=== PATIENT | female | born 1995 | race Caucasian/White ===

== ENCOUNTER 2024-01-09 19:15 | Outpatient (CLI) | payer MEDICAID, SELFPAY ==
[2024-01-09 19:40] VITALS: PULSE 103; O2SAT 98
[2024-01-09 19:42] VITALS: BP 120/70; PULSE 112
[2024-01-09 19:45] VITALS: RESP 18; TEMP 36.8; O2SAT 98
[2024-01-09 19:52] VITALS: BMI 32.6
[2024-01-09 20:24] LABS: ROM Internal Control Test YES-OK TO RESULT pt. (Internal QC); ROM Patient Test Negative (Negative)
--- NOTE | 2024-01-11 13:02 | OB.TRI.NOTE ---
HPI - General HPI Narrative GWYN ZAVALA, is a 28 F who presents with ctxs. Maternal Data Information NATALIE Calculator Estimated Delivery Date Method Current WG Current Estimate 01/14/24 Manual 39w 4d PFSH PFSH Home Medications ?Medication ?Instructions ?Recorded ?Last Taken ?Type vit no.95-ferrous 1 tab PO DAILY 01/09/24 01/09/24 History fumarate 28 mg-folic acid 800 mcg tablet () Allergy/AdvReac Type Severity Reaction Status Date / Time No Known Allergies Allergy Verified 01/09/24 19:51 NST FHR Rate Baby A Baseline: 120 Variability:: Moderate Accelerations:: 15 x 15 Uterine Activity:: Irregular Assessment & Plan (1) False labor: PLAN: Reactive NST
== END 2024-01-09 21:05 | disposition home or self-care (01) ==
LOC: WPOUT 19:18 → WP 19:18
PROVIDERS: Referring Provider Obstetrics & Gynecology; Visit Provider Obstetrics & Gynecology
DX: O47.9 False labor, unspecified (principal); Z3A.00 Weeks of gestation of pregnancy not specified
CPT/HCPCS: 59025; 59050; 84112; 99221; G0378

== ENCOUNTER 2024-01-14 20:45 | Outpatient (CLI) | payer MEDICAID, SELFPAY ==
[2024-01-14 20:53] VITALS: BMI 33.5
[2024-01-14 20:58] VITALS: BP 135/77; PULSE 108; O2SAT 96
[2024-01-14 21:00] VITALS: RESP 16; TEMP 36.8
--- NOTE | 2024-01-15 07:17 | OB.TRI.NOTE ---
HPI - General General Date of Admission: 01/14/24 Date of Service: 01/15/24 Chief Complaint: Contractions HPI Narrative GWYN ZAVALA, is a 28 F who presents for r/o labor. No LOF no bleeding. Good movement Maternal Data Information NATALIE Calculator Estimated Delivery Date Method Current WG Current Estimate 01/14/24 Manual 40w 1d Final NATALIE: 01/14/24 Gestational age: 40 PFSH PFSH Home Medications ?Medication ?Instructions ?Recorded ?Last Taken ?Type vit no.95-ferrous 1 tab PO DAILY 01/09/24 01/09/24 History fumarate 28 mg-folic acid 800 mcg tablet () Allergy/AdvReac Type Severity Reaction Status Date / Time No Known Allergies Allergy Verified 01/14/24 21:08 History 3 Elective abortions Hx Para 1 Spontaneous abortions Hx # Term Pregnancies Ectopic pregnancies Hx # Pregnancies Multiple births # of living children NST FHR Rate Baby A Variability:: Moderate Accelerations:: 15 x 15 Decelerations:: None NST Reactive:: Yes FHR Category:: Category I Uterine Activity:: irregular Assessment & Plan (1) False labor: (2) 40 weeks gestation of : PLAN: Plan Discharged
== END 2024-01-14 23:35 | disposition home or self-care (01) ==
LOC: MEDOUTP 20:50 → WPOUT 20:55 → WP 20:56
PROVIDERS: Referring Provider Obstetrics & Gynecology; Visit Provider Obstetrics & Gynecology
DX: O47.1 False labor at or after 37 completed weeks of gestation (principal); Z3A.40 40 weeks gestation of pregnancy
CPT/HCPCS: 59025; 59050; 99221; G0378

== ENCOUNTER 2024-01-16 21:00 | Outpatient (CLI) | payer MEDICAID, SELFPAY ==
--- OUTSIDE RECORDS SUMMARY | 2024-01-16 21:05 | XMS RPT_ITS | CCD ---
Author Organization [facility] Care Team Providers Care Customer Complaint Service Supervisor Name Role Phone Eliza Beltre Primary Care Physician [phone] MEDICAL, CLINIC Primary Care Physician Unavailab MARIAN Merchant MD Primary Care Physician [phone] HOLLY ANDERSON M.D. Attending Unavailable LATA RAY Attending Unavailable Unavailable Primary Care Provider Unavailabl e Unavailable Primary Care Provider Unavailabl e PHYSICIAN, NONE Primary Care Physician Unavailab JAYY Webb DO Attending Unavailable PHYSICIAN, NONE Primary Care Unavailable JORGE ALEXANDER Attending Unavailable DONOVAN KENNEDY Attending Unavailable JORGE ALEXANDER Referring Unavailable JORGE ALEXANDER Attending Unavailable ALANA OBRIEN Attending Unavailable ALANA OBRIEN Attending Unavailable ROGELIO JOHNSON Attending Unavailable DELMY WINSTON Referring Unavailable TISHDELMY SANDOVAL Referring Unavailable CESILIA FRIAS Attending Unavailable TOMMY PATEL Referring Unavailable TOMMY PATEL Attending Unavailable RIA STREET Referring Unavailable RIA STREET Referring Unavailable AMANDA VENEGAS Attending Unavailable Unavailable Unavailable Unavailable Medications Current Medications Medication Drug Class(es) Dates Sig (Normalized) Sig (Original) cephalexin 500 mg oral capsule (1 source) Cephalosporin Antibacterial Start: 08-13-2023 End: 08-20-2023 cephalexin 500 mg oral capsule Dose : 500 mg = 1 cap(s), Oral, QID, X 7 day(s), # 28 cap(s), 0 Refill(s), 08/20/23 2:45:00 PM EDT, 71.1 Start Date: 08/13/23 Stop Date: 08/20/23 Status: Ordered ergocalciferol, vitamin D2, (VITAMIN D2 ORAL) (20 sources) ergocalciferol, vitamin D2, (VITAMIN D2 ORAL) Take by mouth. Active ergocalciferol, vitamin D2, (VITAMIN D2 ORAL) Take by mouth. 0 Active Comment on above: Take by mouth. famotidine 20 mg oral tablet (8 sources) Histamine-2 Receptor Antagonist Start: 08-04-2023 End: 11-02-2023 take 1 tablet by mouth once daily famotidine (PEPCID) 20 mg tablet Indications: Heartburn during in second trimester Take 1 tablet by mouth once daily. 30 tablet 2 08/04/2023 11/02/2023 Active ferrous sulfate 325 mg oral tablet (20 sources) Start: 12-22-2023 End: 01-21-2024 take 1 tablet by mouth twice daily ferrous sulfate 325 mg (65 mg iron) tablet Indications: Anemia affecting in second trimester Take 1 tablet by mouth two times a day. 60 tablet 1 12/22/2023 01/21/2024 Active Start: 09-29-2023 End: 03-27-2024 take 1 tablet by mouth once daily ferrous sulfate 325 mg (65 mg iron) tablet Indications: Anemia affecting in second trimester Take 1 tablet by mouth once daily. 30 tablet 5 09/29/2023 12/22/2023 Discontinued fluconazole 150 mg oral tablet (5 sources) Azole Antifungal Start: 11-24-2020 Diflucan 150 mg oral tablet See Instructions, 1 tab(s) Oral today. repeat in 3 days if needed, # 3 cap(s), 0 Refill(s), [facility], Vaginal candidiasis, 160, cm, 11/24/20 14:52:00 EDT, Height, 62.7, kg, 11/24/20 14:52:00 EDT, Dosing Weight Start Date: 11/24/20 Status: Ordered mupirocin 20 mg/ml topical cream (1 source) RNA Synthetase Inhibitor Antibacterial Start: 08-13-2023 End: 08-18-2023 mupirocin 2% topical cream Apply 1 deborah, Topical, TID, X 5 day(s), # 15 gram(s), 0 Refill(s), Cream, 71.1 Start Date: 08/13/23 Stop Date: 08/18/23 Status: Ordered Omeprazole (12 sources) Proton Pump Inhibitor OMEPRAZOLE ORAL Take by mouth. Active Completed/Discontinued Medications Medication Drug Class(es) Dates Sig (Normalized) Sig (Original) acyclovir 200 mg oral capsule (20 sources) Herpesvirus Nucleoside Analog DNA Polymerase Inhibitor, Herpes Simplex Virus Nucleoside Analog DNA Polymerase Inhibitor, Herpes Zoster Virus Nucleoside Analog DNA Polymerase Inhibitor Start: 08-13-2023 End: 01-11-2024 take 1 capsule by mouth five times daily acyclovir (ZOVIRAX) 200 mg capsule take 1 capsule by mouth five times a day for 7 days 08/13/2023 01/11/2024 Discontinued dicyclomine hydrochloride 10 mg oral capsule (3 sources) Anticholinergic Start: 12-13-2021 End: 12-20-2021 dicyclomine 10 mg oral capsule Dose : 10 mg = 1 cap(s), Oral, QID, # 28 cap(s), 0 Refill(s) Start Date: 12/13/21 Stop Date: 12/20/21 Status: Ordered iron sucrose 300 mg in NaCl 0.9% 250 mL (VENOFER) (2 sources) Start: 01-15-2024 End: 01-15-2024 300 mg, INTRAVENOUS, at 166.67 mL/hr, Administer over 90 Minutes, ONCE, 1 dose, On 01/15/24 at 1000, Please conduct a 30 minute post-dose observation. Start: 01-12-2024 End: 01-12-2024 300 mg, INTRAVENOUS, at 166. 67 mL/hr, Administer over 90 Minutes, ONCE, 1 dose, On Mon01/12/24 at 1430, Approx Total Volume - Expires: 01/13/24 @ 2000 Please conduct a 30 minute post-dose observation. metroNIDAZOLE 500 mg oral tablet (13 sources) Nitroimidazole Antimicrobial Start: 07-06-2023 End: 11-08-2023 take 1 tablet by mouth twice daily metroNIDAZOLE (FLAGYL) 500 mg tablet Indications: Bacterial vaginosis Take 1 tablet by mouth two times a day. for vaginosis. Do not drink alcohol while taking this medication 14 tablet 07/06/2023 11/08/2023 Discontinued Comment on above: Take 1 tablet by carline th two times a day. for vaginosis. Do not drink alcohol while taking this medication vit37/iron/folic acid (PRENATA ORAL) (18 sources) End: 12-22-2023 vit37/iron/folic acid (PRENATA ORAL) Take by mouth. 12/22/2023 Discontinued (Course of therapy completed) vit37/i kori/folic acid (PRENATA ORAL) Take by mouth. Active vit37/i kori/folic acid (PRENATA ORAL) Take by mouth. 0 Active Comment on above: Take by mouth. Problems Active Problems Problem Classification Problem Date Documented Da te Episodic/Chronic Deficiency and other anemia (1 source) Anemia; Translations: [Anemia, unspecified] 12-28-2023 Episodic Deficiency and other anemia (1 source) Anemia, unspecified; Translations: [Anemia, unspecified type] Onset: 01-02-2024 Episodic Genitourinary symptoms and ill-defined conditions (1 source) Bacteriuria; Translations: [Bacteriuria] Onset: 08-13-2023 Episodic Menstrual disorders (20 sources) Secondary oligomenorrhea; Translations: [Secondary oligomenorrhea] Onset: 06-07-2023 06-07-2023 Chronic Mycoses (5 sources) Candidiasis of vagina 11-24-2020 Episodic Other complications of (20 sources) Anemia in mother complicating , childbirth AND/OR puerperium; Translations: [Anemia complicating , second trimester] Onset: 09-29-2023 09-29-2023 Chronic Other complications of (1 source) Anemia complicating , second trimester; Translations: [Anemia affecting in second trimester] Onset: 12-28-2023 Chronic Other complications of (2 sources) Heartburn; Translations: [Other specified related conditions, second trimester] 08-04-2023 Episodic Other complications of (1 source) Supervision of high risk , unspecified, third trimester; Translations: [Supervision of high risk in third trimester] Onset: 12-22-2023 Episodic Other complications of (1 source) Supervision of high risk , unspecified, first trimester; Translations: [Supervision of high risk in first trimester] Onset: 09-27-2023 Episodic Other nutritional; endocrine; and metabolic disorders (3 sources) Overweight; Translations: [Overweight] 07-04-2023 Episodic Residual codes; unclassified (1 source) Gestation period, 12 weeks; Translations: [12 weeks gestation of ] 07-04-2023 Episodic Residual codes; unclassified (3 sources) Nicotine-filled electronic cigarette user; Translations: [Tobacco use] 07-04-2023 Episodic Residual codes; unclassified (1 source) Gestation period, 16 weeks; Translations: [16 weeks gestation of ] 08-04-2023 Episodic Residual codes; unclassified (1 source) Gestation period, 20 weeks; Translations: [20 weeks gestation of ] 08-28-2023 Episodic Residual codes; unclassified (1 source) 24 weeks gestation of ; Translations: [24 weeks gestation of ] Onset: 09-27-2023 Episodic Residual codes; unclassified (1 source) Gestation period, 37 weeks; Translations: [37 weeks gestation of ] 12-28-2023 Episodic Residual codes; unclassified (1 source) Gestation period, 38 weeks; Translations: [38 weeks gestation of ] 01-03-2024 Episodic Residual codes; unclassified (1 source) Gestation period, 39 weeks; Translations: [39 weeks gestation of ] 01-11-2024 Episodic Residual codes; unclassified (1 source) 37 weeks gestation of ; Translations: [37 weeks gestation of ] Onset: 01-02-2024 Episodic Sprains and strains (1 source) Sprain of wrist; Translations: [Unspecified sprain of unspecified wrist, initial encounter] Onset: 02-16-2022 Episodic Unclassified (1 source) Care Onset: 08-28-2023 Unclassified (1 source) Non-Chemotherapy Treatment Onset: 01-12-2024 Viral infection (1 source) Viral disease; Translations: [Other viral agents as the cause of diseases classified elsewhere] Onset: 08-13-2023 Episodic Past or Other Problems Problem Classification Problem Date Documented Da te Episodic/Chronic Inflammatory diseases of female pelvic organs (3 sources) Acute vaginitis; Translations: [Acute vaginitis] Onset: 07-04-2023 07-04-2023 Episodic Other complications of (20 sources) High risk ; Translations: [Supervision of high risk , unspecified, third trimester] Onset: 09-27-2023 07-04-2023 Episodic Other complications of (1 source) Other specified related conditions, second trimester; Translations: [Heartburn during in second trimester] Onset: 08-04-2023 Episodic Other gastrointestinal disorders (1 source) Heartburn; Translations: [Heartburn during in second trimester] Onset: 08-04-2023 Episodic Other nutritional; endocrine; and metabolic disorders (1 source) Overweight; Translations: [Overweight] Onset: 07-04-2023 Episodic Other and delivery including normal (20 sources) test positive; Translations: [Encounter for test, result positive] Onset: 06-07-2023 06-07-2023 Episodic Comment on above: [facility] Status documented as Yes on Admission Other screening for suspected conditions (not mental disorders or infectious disease) (9 sources) Patient encounter status; Translations: [Encounter for other specified screening] Onset: 06-07-2023 07-08-2023 Episodic Residual codes; unclassified (20 sources) Electronic cigarette user; Translations: [Other problems related to lifestyle] Onset: 06-07-2023 06-07-2023 Episodic Residual codes; unclassified (20 sources) Gestation period, 24 weeks; Translations: [24 weeks gestation of ] Onset: 09-27-2023 09-27-2023 Episodic Residual codes; unclassified (1 source) Other problems related to lifestyle; Translations: [Current every day vaping] Onset: 06-07-2023 Episodic Residual codes; unclassified (1 source) 16 weeks gestation of ; Translations: [16 weeks gestation of ] Onset: 08-04-2023 Episodic Residual codes; unclassified (1 source) 12 weeks gestation of ; Translations: [12 weeks gestation of ] Onset: 07-04-2023 Episodic Residual codes; unclassified (1 source) Tobacco use; Translations: [Current every day nicotine vaping] Onset: 07-04-2023 Episodic Unclassified (1 source) [facility] Onset: 01-03-2022 Unclassified (1 source) DATING Onset: 06-16-2022 Results Test Name Value Interpretation Reference Range Facil arlin DIAMONDOVSPon 01-15-2024 CNOVS Visit (SP) Office (HEMAWS) ---- BETH VINCENT ([id number]) 1995 F Date Time Provider Department 01/15/24 9:30 AM TREATMENT RM 17 [facility] During your visit today, we recorded the following information about you: Temperature Pulse Blood pressure 97.1 degrees 107/minute 125/85 Referring Provider: RIA STREET [[id number]] Allergies As of Date: 01/15/2024 (No Known Allergies) Date Reviewed: 01/15/2024 Reviewed by: Lacy Hurtado RN - Fully Assessed Reason for Visit: Non-Chemotherapy Treatment [795] Primary Visit Diagnosis:Maternal iron deficiency anemia complicating , third trimester [O99.013, D50.9] Order(s):TOMIN NURSING COMMUNICATION [[id number]] Order #: [id number]: 1 STANDING [] iron sucrose 300 mg in NaCl 0.9% 250 mL (VENOFER)Disp: Rfl: NaCl 0.9% iv infusionDisp: Rfl: diphenhydrAMINE 50 mg injection (BENADRYL)Disp: Rfl: hydrocortisone sodium succinate (PF) 100 mg injection (Solu-CORTEF)Disp: Rfl: EPINEPHrine HCl (PF) 1 mg/mL (1 mL) 0.3 mg injectionDisp: Rfl: BCN NURSING COMMUNICATION [[id number]] Order #: [id number]: 1 STANDING Prescriptions as of 01/15/2024 - OMEPRAZOLE ORAL Take by mouth. - ferrous sulfate 325 mg (65 mg iron) tablet Take 1 tablet by mouth two times a day. - ergocalciferol, vitamin D2, (VITAMIN D2 ORAL) Take by mouth. 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 01-15-2024 CNPN Telephone (PFS) ---- BETH VINCENT ([id number]) 1995 F Date Time Provider Department 01/15/24 FINANCIAL NAVIGATOR [facility] PFS During your visit today, we recorded the following information about you: Xiang Mcconnell 01/15/2024 10:55 AM Signed The patient is active with [facility] Medicaid, LOC 100%, $0.00 deductible has $0.00 remaining, $0.00 OOP has $0.00 remaining. An estimate shows the patient's financial responsibility is $0.00 for each treatment in 2023 since there is no O-O-P max to be reached. The patient does not have a cancer diagnosis or a chemo/radiation regimen. No further Financial Navigator intervention is needed at this time. Allergies As of Date: 01/15/2024 (No Known Allergies) Date Reviewed: 01/15/2024 Reviewed by: Lacy Hurtado, RN - Fully Assessed Reason for Visit: Benefits Investigation [3518] Prescriptions as of 01/15/2024 - OMEPRAZOLE ORAL Take by mouth. - ferrous sulfate 325 mg (65 mg iron) tablet Take 1 tablet by mouth two times a day. - ergocalciferol, vitamin D2, (VITAMIN D2 ORAL) Take by mouth. 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] 06/07/2023 24 weeks gestation of [Z3A.24] 09/27/2023 Supervision of high risk in first tri*09/27/2023 Anemia affecting in second trimester *09/29/2023 Maternal iron deficiency anemia complicating pr*01/03/2024 Encounter Status:Closed by XIANG MCCONNELL on 01/15/24 [facility] CNOVSPon 01-12-2024 CNOVSP Visit (SP) Office (HEMAWS) ---- BETH VINCENT ([id number]) 1995 F Date Time Provider Department 01/12/24 2:00 PM TREATMENT RM 18 [facility] During your visit today, we recorded the following information about you: Temperature Pulse Respiration Blood pressure 98.5 degrees 100/minute 16/minute 109/75 Referring Provider: RIA STREET [[id number]] Allergies As of Date: 01/12/2024 (No Known Allergies) Date Reviewed: 01/12/2024 Reviewed by: Gretchen Hooker RN - Fully Assessed Reason for Visit: Non-Chemotherapy Treatment [795] Primary Visit Diagnosis:Maternal iron deficiency anemia complicating , third trimester [O99.013, D50.9] Order(s):BCN NURSING COMMUNICATION [[id number]] Order #: [id number]: 1 STANDING [] iron sucrose 300 mg in NaCl 0.9% 250 mL (VENOFER)Disp: Rfl: NaCl 0.9% iv infusionDisp: Rfl: diphenhydrAMINE 50 mg injection (BENADRYL)Disp: Rfl: hydrocortisone sodium succinate (PF) 100 mg injection (Solu-CORTEF)Disp: Rfl: EPINEPHrine HCl (PF) 1 mg/mL (1 mL) 0.3 mg injectionDisp: Rfl: BCN NURSING COMMUNICATION [[id number]] Order #: [id number]: 1 STANDING Prescriptions as of 01/12/2024 - OMEPRAZOLE ORAL Take by mouth. - ferrous sulfate 325 mg (65 mg iron) tablet Take 1 tablet by mouth two times a day. - ergocalciferol, vitamin D2, (VITAMIN D2 ORAL) Take by mouth. 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] 06/07/2023 24 weeks gestation of [Z3A.24] 09/27/2023 Supervision of high risk in first tri*09/27/2023 Anemia affecting in second trimester *09/29/2023 Maternal iron deficiency anemia complicating pr*01/03/2024 Encounter Status:Closed by GRETCHEN HOOKER on 01/12/24 [facility] James 01-12-2024 [facility] Telephone (OBGYWM) ---- BETH VINCENT ([id number]) 1995 F Date Time Provider Department 01/12/24 AMANDA VENEGAS During your visit today, we recorded the following information about you: Hannah Yap, FELIPE 01/12/2024 8:19 AM Signed 39w5d Saw KJ yesterday and provider wanted iron infusions done poornima d/t being 39 weeks already. Per Nehemias could add on today at 2pm. Left detailed message on identified voicemail for patient to call back [facility] to see if she is able to come in today. Will need to let [facility] know. FELIPE Lr Trisha, RN 01/12/2024 10:12 AM Signed Spoke to patient and she is able to come today. Her 2nd infusion is also scheduled for Sunday 01/14 too. [facility] notified. Hannah Yap RN Allergies As of Date: 01/12/2024 (No Known Allergies) Date Reviewed: 01/11/2024 Reviewed by: Amanda Venegas MD - Fully Assessed Reason for Visit: Iron Infusion [Other] Prescriptions as of 01/12/2024 - OMEPRAZOLE ORAL Take by mouth. - ferrous sulfate 325 mg (65 mg iron) tablet Take 1 tablet by mouth two times a day. - ergocalciferol, vitamin D2, (VITAMIN D2 ORAL) Take by mouth. 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] 06/07/2023 24 weeks gestation of [Z3A.24] 09/27/2023 Supervision of high risk in first tri*09/27/2023 Anemia affecting in second trimester *09/29/2023 Maternal iron deficiency anemia complicating pr*01/03/2024 Encounter Status:Closed by HANNAH YAP on 01/12/24 Normal [facility] URINE OB DIP B/Oon Glucose Ql (U) Negative Neg mg/dL [facility] Interpretation and review of laboratory results Normal [facility] Protein.monoclonal (U) [Mass/Vol] Negative Neg mg/dL [facility] CNPNon 01-08-2024 CNPN Telephone (INTMMN) ---- BETH VINCENT ([id number]) 1995 F Date Time Provider Department 01/08/24 PAOLA PETER During your visit today, we recorded the following information about you: Paola Peter, RN 01/08/2024 2:16 PM Signed Treatment plan signed and PA approved. Ready to schedule Venofer 200 mg IV x 3 doses Courtney Ivy 01/12/2024 9:13 AM Signed Scheduled by VICTORIANO Allergies As of Date: 01/08/2024 (No Known Allergies) Date Reviewed: 01/03/2024 Reviewed by: Cesilia Frias MD - Fully Assessed Reason for Visit: Hematology [Other] Prescriptions as of 01/12/2024 - OMEPRAZOLE ORAL Take by mouth. - ferrous sulfate 325 mg (65 mg iron) tablet Take 1 tablet by mouth two times a day. - ergocalciferol, vitamin D2, (VITAMIN D2 ORAL) Take by mouth. 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] 06/07/2023 24 weeks gestation of [Z3A.24] 09/27/2023 Supervision of high risk in first tri*09/27/2023 Anemia affecting in second trimester *09/29/2023 Maternal iron deficiency anemia complicating pr*01/03/2024 Encounter Status:Closed by PAOLA AGUILAR on 01/08/24 Normal [facility] URINE OB DIP B/Oon Glucose Ql (U) Negative Neg mg/dL [facility] Protein.monoclonal (U) [Mass/Vol] Negative Neg mg/dL [facility] Ferritin SerPl-mCncon 2023 Ferritin [Mass/Vol] 5.7 ng/mL Low 14.7-205.1 [facility] Comment on above: Order Comment: Speci men Type: BLOOD SPECIMEN Ordering Facility: [facility] Address: [address] [place] [address] Performed By: #### 2 276-4, 48324-0 #### [facility] CLIA [id number] [address] [place] [address] [place] Iron and Iron binding capaci ty panelon 01-02-2024 Iron [Mass/Vol] 21 ug/dL Low 41-186 [facility] Comment on above: Order Comment: Speci men Type: BLOOD SPECIMEN Ordering Facility: [facility] Address: [address] [place] [address] Performed By: #### 2 276-4, 76964-4 #### [facility] CLIA [id number] [address] [place] [address] [place] Iron binding capacity [Mass/Vol] >521 High 232-386 [facility] Comment on above: Order Comment: Speci men Type: BLOOD SPECIMEN Ordering Facility: [facility] Address: [address] [place] [address] Performed By: #### 2 276-4, 31619-7 #### [facility] CLIA [id number] [address] [place] [address] [place] Iron/TIBC [Molar ratio] <4.0 Low 15.0-57.0 [facility] Comment on above: Order Comment: Speci men Type: BLOOD SPECIMEN Ordering Facility: [facility] Address: [address] [place] [address] Performed By: #### 2 276-4, 12703-2 #### [facility] CLIA [id number] [address] [place] [address] [place] URINE OB DIP B/Oon 4 Glucose Ql (U) Negative Neg mg/dL [facility] Interpretation and review of laboratory results Normal [facility] Protein.monoclonal (U) [Mass/Vol] Negative Neg mg/dL [facility] CNPNon 12-27-2023 CNPN Telephone (OBGYWM) ---- SALLYBETH ([id number]) 1995 F Date Time Provider Department 12/27/23 DIDI SPENCE OBGYWM During your visit today, we recorded the following information about you: Hannah Yap RN 12/27/2023 2:33 PM Addendum 37w3d Received email that patient is wanting to transfer care here for delivery from [facility]. Per RR we are able to schedule her this week or next. Left message for patient to call office. SW has multiple openings tomorrow. Use 20-30min for appt. FELIPE Lr Trisha, RN 12/27/2023 3:23 PM Signed Patient called back and scheduled for tomorrow. Hannah Yap RN Allergies As of Date: 12/27/2023 (No Known Allergies) Date Reviewed: 09/27/2023 Reviewed by: Mallorie Zamora MA - Fully Assessed Reason for Visit: Appointment [186] Prescriptions as of 12/27/2023 - ferrous sulfate 325 mg (65 mg iron) tablet Take 1 tablet by mouth two times a day. - acyclovir (ZOVIRAX) 200 mg capsule take 1 capsule by mouth five times a day for 7 days - ergocalciferol, vitamin D2, (VITAMIN D2 ORAL) Take by mouth. 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 trachomatis+N. gonorrhoea e DNA SHEREEN+probe Ql (Unsp spec)on 12-22-2023 C. trachomatis rRNA SHEREEN+probe Ql (Unsp spec) Negative Normal Negative for Chlamydia trachomatis by amplificaton [facility] Comment on above: Order Comment: Speci men Type: BLOOD SPECIMEN Ordering Facility: [facility] Address: [address] [place] [address] Performed By: #### 5 8410-2 #### [facility] CLIA [id number] [address] [place] [address] N. gonorrhoeae rRNA SHEREEN+probe Ql (Unsp spec) Negative Normal Negative for Neisseria gonorrhoeae by amplification [facility] Comment on above: Order Comment: Speci men Type: BLOOD SPECIMEN Ordering Facility: [facility] Address: [address] [place] [address] Performed By: #### 5 8410-2 #### [facility] CLIA [id number] [address] [place] [address] STATES OF [facility] CBC panel Auto (Bld)on 12-21 Erythrocyte distribution width (RBC) [Ratio] 15.9 % High 11.5 - 15.0 % [facility] Hematocrit (Bld) [Volume fraction] 29.9 % Low 36.0 - 46.0 % [facility] Hemoglobin (Bld) [Mass/Vol] 8.6 g/dL Low 11.5 - 15.5 g/dL [facility] Interpretation and review of laboratory results Abnormal [facility] MCH (RBC) [Entitic mass] 20.5 pg Low 26.0 - 34.0 pg [facility] MCHC (RBC) [Mass/Vol] 28.8 g/dL Low 30.5 - 36.0 g/dL [facility] MCV (RBC) [Entitic vol] 71.2 fL Low 80.0 - 100.0 fL [facility] Nucleated RBC (Bld) [#/Vol] NINF [facility] Platelet mean volume (Bld) [Entitic vol] 10.9 fL 9.0 - 12.7 fL [facility] Platelets (Bld) [#/Vol] 274 10*3/uL [facility] RBC (Bld) [#/Vol] 4.20 10*6/uL 3.90 - 5.20 m/uL [facility] WBC (Bld) [#/Vol] 8.88 10*3/uL [facility] Erythrocyte distribution width (RBC) [Ratio] 15.9 % High 11.5-15.0 [facility] Comment on above: Order Comment: Speci men Type: BLOOD SPECIMEN Ordering Facility: [facility] Address: [address] [place] [address] Performed By: #### 5 8410-2 #### [facility] CLIA [id number] [address] [place] [address] [place] Hematocrit (Bld) [Volume fraction] 29.9 % Low 36.0-46.0 [facility] Comment on above: Order Comment: Speci men Type: BLOOD SPECIMEN Ordering Facility: [facility] Address: [address] [place] [address] Performed By: #### 5 8410-2 #### [facility] CLIA [id number] [address] [place] [address] [place] Hemoglobin (Bld) [Mass/Vol] 8.6 g/dL Low 11.5-15.5 [facility] Comment on above: Order Comment: Speci men Type: BLOOD SPECIMEN Ordering Facility: [facility] Address: [address] [place] [address] Performed By: #### 5 8410-2 #### [facility] CLIA [id number] [address] [place] [address] [place] MCH (RBC) [Entitic mass] 20.5 pg Low 26.0-34.0 [facility] Comment on above: Order Comment: Speci men Type: BLOOD SPECIMEN Ordering Facility: [facility] Address: [address] [place] [address] Performed By: #### 5 8410-2 #### [facility] CLIA [id number] [address] [place] [address] [place] MCHC (RBC) [Mass/Vol] 28.8 g/dL Low 30.5-36.0 [facility] Comment on above: Order Comment: Speci men Type: BLOOD SPECIMEN Ordering Facility: [facility] Address: [address] [place] [address] Performed By: #### 5 8410-2 #### [facility] CLIA [id number] [address] [place] [address] [place] MCV (RBC) [Entitic vol] 71.2 fL Low 80.0-100.0 [facility] Comment on above: Order Comment: Speci men Type: BLOOD SPECIMEN Ordering Facility: [facility] Address: [address] [place] [address] Performed By: #### 5 8410-2 #### [facility] CLIA [id number] [address] [place] [address] [place] Nucleated RBC (Bld) [#/Vol] 10*3/uL Normal <0.01 [facility] Comment on above: Order Comment: Speci men Type: BLOOD SPECIMEN Ordering Facility: [facility] Address: [address] [place] [address] Performed By: #### 5 8410-2 #### [facility] CLIA [id number] [address] [place] [address] [place] Platelet mean volume (Bld) [Entitic vol] 10.9 fL Normal 9.0-12.7 [facility] Comment on above: Order Comment: Speci men Type: BLOOD SPECIMEN Ordering Facility: [facility] Address: [address] [place] [address] Performed By: #### 5 8410-2 #### [facility] CLIA [id number] [address] [place] [address] [place] Platelets (Bld) [#/Vol] 274 10*3/uL Normal 150-400 [facility] Comment on above: Order Comment: Speci men Type: BLOOD SPECIMEN Ordering Facility: [facility] Address: [address] [place] [address] Performed By: #### 5 8410-2 #### [facility] CLIA [id number] [address] [place] [address] [place] RBC (Bld) [#/Vol] 4.20 10*6/uL Normal 3.90-5.20 [facility] Comment on above: Order Comment: Speci men Type: BLOOD SPECIMEN Ordering Facility: [facility] Address: [address] [place] [address] Performed By: #### 5 8410-2 #### [facility] CLIA [id number] [address] [place] [address] [place] WBC (Bld) [#/Vol] 8.88 10*3/uL Normal 3.70-11.00 [facility] Comment on above: Order Comment: Speci men Type: BLOOD SPECIMEN Ordering Facility: [facility] Address: [address] [place] [address] Performed By: #### 5 8410-2 #### [facility] CLIA [id number] [address] [place] [address] [place] HIV 1+2 Ab IA Qlon 4 HIV 1 and 2 Ab IA.rapid Nom (S/P/Bld) Normal [facility] Comment on above: Order Comment: Speci men Type: BLOOD SPECIMEN Ordering Facility: [facility] Address: [address] [place] [address] Result Comment: Test not indicated. Performed By: #### 5 8410-2 #### [facility] CLIA [id number] [address] [place] [address] [place] HIV 1+2 Ab+HIV1 p24 Ag IA Ql Non-Reactive Normal Nonreactive [facility] Comment on above: Order Comment: Speci men Type: BLOOD SPECIMEN Ordering Facility: [facility] Address: [address] [place] [address] Performed By: #### 5 8410-2 #### [facility] CLIA [id number] [address] [place] [address] [place] HIV immunoassay testing algorithm interpretation (S/P/Bld) [Interp] [facility] Comment on above: Order Comment: Speci men Type: BLOOD SPECIMEN Ordering Facility: [facility] Address: [address] [place] [address] Result Comment: No e vidence of HIV-1 or HIV-2 infection. Should recent infection be suspected, repeat testing may be considered 2-3 weeks after this draw. [place] Rev. Code 3701.243(E): This information has been disclosed to you from confidential records protected from disclosure by state law. ???You shall make no further disclosure of this information without the specific, written, and informed release of the individual to whom it pertains or as otherwise permitted by state law. A general authorization for the release of medical or other information is not sufficient for the purpose of the release of HIV test results or diagnoses. Performed By: #### 5 8410-2 #### [facility] CLIA [id number] [address] [place] [address] [place] ROUTINE, GROUP B ST REP PCRon 12-22-2023 ROUTINE, GROUP B STREP PCR GROUP B STREP PCR: Negative for Group B Streptococcus by PCR. [facility] Comment on above: Performed By: #### 3 6902-5 #### [facility] CLIA [id number] [address] [place] [address] [place] Reagin and Treponema pallidu m IgG and IgM [Interp]on 12-22-2023 T. pallidum IgG+IgM IA Ql (S) Non-Reactive Normal Nonreactive [facility] Comment on above: Order Comment: Speci men Type: BLOOD SPECIMEN Ordering Facility: [facility] Address: [address] [place] [address] Performed By: #### 5 8410-2 #### [facility] CLIA [id number] [address] [place] [address] [place] Reagin+T pallidum IgG+IgM Se rPl-Impon 12-22-2023 Reagin and Treponema pallidum IgG and IgM [Interp] Cannot exclude recent Treponemal infection if specimen collected within 7-10 days after appearance of suspect lesions or 2-3 weeks after an exposure. Clinical correlation is required. Normal [facility] Comment on above: Order Comment: Speci men Type: BLOOD SPECIMEN Ordering Facility: [facility] Address: [address] [place] [address] Performed By: #### 5 8410-2 #### [facility] CLIA [id number] [address] [place] [address] [facility] 12-05-2023 CNPN Telephone (OBGDOV) ---- BETH VINCENT ([id number]) 1995 F Date Time Provider Department 12/05/23 ALANA OBRIEN During your visit today, we recorded the following information about you: Holly Tutlte 12/05/2023 10:15 AM Signed LM to have patient call in and reschedule her No Show. Allergies As of Date: 12/05/2023 (No Known Allergies) Date Reviewed: 09/27/2023 Reviewed by: Mallorie Zamora MA - Fully Assessed Reason for Visit: Appointment [186] Prescriptions as of 12/05/2023 - ferrous sulfate 325 mg (65 mg iron) tablet Take 1 tablet by mouth once daily. - acyclovir (ZOVIRAX) 200 mg capsule take 1 capsule by mouth five times a day for 7 days - vit37/iron/folic acid (PRENATA ORAL) Take by mouth. - ergocalciferol, vitamin D2, (VITAMIN D2 ORAL) Take by mouth. 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] 06/07/2023 24 weeks gestation of [Z3A.24] 09/27/2023 Supervision of high risk in first tri*09/27/2023 Anemia affecting in second trimester *09/29/2023 Encounter Status:Closed by HOLLY TUTTLE on 12/05/23 [facility] BETH [facility]INCENT ([id number]) 1995 F Date Time Provider Department 11/07/23 JORGE ALEXANDER During your visit today, we recorded the following information about you: Holly Tuttle 11/07/2023 11:27 AM Signed LM for patient to call and r/s No Show Allergies As of Date: 11/07/2023 (No Known Allergies) Date Reviewed: 09/27/2023 Reviewed by: Mallorie Zamora MA - Fully Assessed Reason for Visit: Appointment [186] Prescriptions as of 11/07/2023 - ferrous sulfate 325 mg (65 mg iron) tablet Take 1 tablet by mouth once daily. - acyclovir (ZOVIRAX) 200 mg capsule take 1 capsule by mouth five times a day for 7 days - metroNIDAZOLE (FLAGYL) 500 mg tablet Take 1 tablet by mouth two times a day. for vaginosis. Do not drink alcohol while taking this medication - vit37/iron/folic acid (PRENATA ORAL) Take by mouth. - ergocalciferol, vitamin D2, (VITAMIN D2 ORAL) Take by mouth. 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 Spoke with . Patient is aware that a physician needs to review her chart first. This is for all transfers in the 3rd trimester. Aware we will need to call her back. FELIPE Suazo Rebecca L, MD 11/08/2023 5:12 PM Signed OK to schedule for 20-30 min ob appointment w/ a provider for transfer. Savannah Gonzalez LPN 11/09/2023 9:25 AM Signed Left message to call office Allergies As of Date: 11/07/2023 (No Known Allergies) Date Reviewed: 09/27/2023 Reviewed by: Mallorie Zamora MA - Fully Assessed Reason for Visit: Transfer of Care [Other] Prescriptions as of 11/15/2023 - ferrous sulfate 325 mg (65 mg iron) tablet Take 1 tablet by mouth once daily. - acyclovir (ZOVIRAX) 200 mg capsule take 1 capsule by mouth five times a day for 7 days - vit37/iron/folic acid (PRENATA ORAL) Take by mouth. - ergocalciferol, vitamin D2, (VITAMIN D2 ORAL) Take by mouth. 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] 06/07/2023 24 weeks gestation of [Z3A.24] 09/27/2023 Supervision of high risk in first tri*09/27/2023 Anemia affecting in second trimester *09/29/2023 Medications Discontinued During This Encounter Prescriptions - metroNIDAZOLE (FLAGYL) 500 mg tablet (Discontinued) Reported on 08/04/2023 Encounter Status:Closed by CESILIA MALLOY on 11/15/23 [facility] CNCOon 2023 CNCO Letter Text [facility] CNPNon 2023 CNPN Telephone (OBGDOV) ---- BETH VINCENT ([id number]) 1995 F Date Time Provider Department 10/23/23 ALANA OBRIEN During your visit today, we recorded the following information about you: Holly Tuttle 2023 11:15 AM Signed Unable to LM due to Full VM. Sent letter out to patient to Rescheduled No Show Allergies As of Date: 2023 (No Known Allergies) Date Reviewed: 09/27/2023 Reviewed by: Mallorie Zamora MA - Fully Assessed Reason for Visit: Appointment [186] Prescriptions as of 2023 - ferrous sulfate 325 mg (65 mg iron) tablet Take 1 tablet by mouth once daily. - acyclovir (ZOVIRAX) 200 mg capsule take 1 capsule by mouth five times a day for 7 days - famotidine (PEPCID) 20 mg tablet Take 1 tablet by mouth once daily. - metroNIDAZOLE (FLAGYL) 500 mg tablet Take 1 tablet by mouth two times a day. for vaginosis. Do not drink alcohol while taking this medication - vit37/iron/folic acid (PRENATA ORAL) Take by mouth. - ergocalciferol, vitamin D2, (VITAMIN D2 ORAL) Take by mouth. 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 I have sent an iron tablet to her pharmacy for her to start taking daily in addition to her PNV. Alana Obrien APRN.Ria Peng MA 09/29/2023 8:16 AM Signed Tried calling patient. Unable to leave voicemail due to voicemail box being full. Allergies As of Date: 09/29/2023 (No Known Allergies) Date Reviewed: 09/27/2023 Reviewed by: Mallorie Zamora MA - Fully Assessed Reason for Visit: Results [95] Primary Visit Diagnosis:Anemia affecting in second trimester [O99.012] Order(s):ferrous sulfate 325 mg (65 mg iron) tabletTake 1 tablet by mouth once daily.Disp: 30 tabletRfl: 5 Prescriptions as of 09/29/2023 - ferrous sulfate 325 mg (65 mg iron) tablet Take 1 tablet by mouth once daily. - acyclovir (ZOVIRAX) 200 mg capsule take 1 capsule by mouth five times a day for 7 days - famotidine (PEPCID) 20 mg tablet Take 1 tablet by mouth once daily. - metroNIDAZOLE (FLAGYL) 500 mg tablet Take 1 tablet by mouth two times a day. for vaginosis. Do not drink alcohol while taking this medication - vit37/iron/folic acid (PRENATA ORAL) Take by mouth. - ergocalciferol, vitamin D2, (VITAMIN D2 ORAL) Take by mouth. 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 Encounter Status:Closed by ALANA OBRIEN on 09/29/23 Normal [facility] CBC panel Auto (Bld)on 09-26 Erythrocyte distribution width (RBC) [Ratio] 13.1 % Normal 11.5-15.0 [facility] Comment on above: Order Comment: Micha johnson Type: BLOOD SPECIMEN Ordering Facility: [facility] Address: [address] [place] [address] Performed By: #### 5 8410-2 #### [facility] CLIA [id number] [address] [place] [address] [place] Hematocrit (Bld) [Volume fraction] 33.5 % Low 36.0-46.0 [facility] Comment on above: Order Comment: Micha johnson Type: BLOOD SPECIMEN Ordering Facility: [facility] Address: [address] [place] [id number] Performed By: #### 5 8410-2 #### [facility] CLIA [id number] [address] [place] [address] [place] Hemoglobin (Bld) [Mass/Vol] 10.3 g/dL Low 11.5-15.5 [facility] Comment on above: Order Comment: Speci men Type: BLOOD SPECIMEN Ordering Facility: [facility] Address: [address] [place] [address] Performed By: #### 5 8410-2 #### [facility] CLIA [id number] [address] [place] [address] [place] MCH (RBC) [Entitic mass] 26.3 pg Normal 26.0-34.0 [facility] Comment on above: Order Comment: Speci men Type: BLOOD SPECIMEN Ordering Facility: [facility] Address: [address] [place] [address] Performed By: #### 5 8410-2 #### [facility] CLIA [id number] [address] [place] [address] [place] MCHC (RBC) [Mass/Vol] 30.7 g/dL Normal 30.5-36.0 [facility] Comment on above: Order Comment: Speci men Type: BLOOD SPECIMEN Ordering Facility: [facility] Address: [address] [place] [address] Performed By: #### 5 8410-2 #### [facility] CLIA [id number] [address] [place] [address] [place] MCV (RBC) [Entitic vol] 85.5 fL Normal 80.0-100.0 [facility] Comment on above: Order Comment: Speci men Type: BLOOD SPECIMEN Ordering Facility: [facility] Address: [address] [place] [address] Performed By: #### 5 8410-2 #### [facility] CLIA [id number] [address] [place] [address] [place] Nucleated RBC (Bld) [#/Vol] 10*3/uL Normal <0.01 [facility] Comment on above: Order Comment: Speci men Type: BLOOD SPECIMEN Ordering Facility: [facility] Address: [address] [place] [address] Performed By: #### 5 8410-2 #### [facility] CLIA [id number] [address] [place] [address] [place] Platelet mean volume (Bld) [Entitic vol] 11.3 fL Normal 9.0-12.7 [facility] Comment on above: Order Comment: Speci men Type: BLOOD SPECIMEN Ordering Facility: [facility] Address: [address] [place] [address] Performed By: #### 5 8410-2 #### [facility] CLIA [id number] [address] [place] [address] [place] Platelets (Bld) [#/Vol] 292 10*3/uL Normal 150-400 [facility] Comment on above: Order Comment: Speci men Type: BLOOD SPECIMEN Ordering Facility: [facility] Address: [address] [place] [address] Performed By: #### 5 8410-2 #### [facility] CLIA [id number] [address] [place] [address] [place] RBC (Bld) [#/Vol] 3.92 10*6/uL Normal 3.90-5.20 [facility] Comment on above: Order Comment: Speci men Type: BLOOD SPECIMEN Ordering Facility: [facility] Address: [address] [place] [address] Performed By: #### 5 8410-2 #### [facility] CLIA [id number] [address] [place] [address] [place] WBC (Bld) [#/Vol] 8.99 10*3/uL Normal 3.70-11.00 [facility] Comment on above: Order Comment: Speci men Type: BLOOD SPECIMEN Ordering Facility: [facility] Address: [address] [place] [address] Performed By: #### 5 8410-2 #### [facility] CLIA [id number] [address] [place] [address] OF [facility] CNNURSEon 09-27-2023 CNNURSE Nurse Visit (OBGDOV) ---- BETH VINCENT ([id number]) 1995 F Date Time Provider Department 09/27/23 10:45 AM 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 LOT#: [id number] Expiration date: 04/26/2025 Jannie Blackburn RN September 27, 2023 10:49 AM Jnanie Blackburn RN 09/27/2023 11:46 AM Signed Patient is a 27 year old female who is a and 24w3d with an NATALIE of 01/14/2024. Patient presents today for her 24 week education visit with this nurse. Patient given 24 week education folder today. Contents of folder: FAQ concerning TDAP from [employer], TDAP VIS, FAQ concerning Seasonal Influenza vaccination from [facility], Influenza VIS, Kyleena pamphlet, Mirena pamphlet, Nexplanon pamphlet, Jet Tubal sterilization pamphlet, Jet control pamphlet ( control options, sterilization, IUD, Progestin-Only, Injections, combined hormonal, patch, ring, barrier methods, emergency contraceptive and health factors), Krames pamphlet, and information from [facility] healthy guide (third trimester of , when to call your healthcare provider during your third trimester of , kick counts, NST, premature labor, long acting reversible contraception, depression during , and choosing a car seat). Discussed with patient vaccine recommendations per [facility] guidelines: Influenza, COVID-19, and TDAP. Influenza: Declined Accepted Influenza date: Already vaccinated COVID-19: Declined Accepted COVID-19 Date: Already vaccinated in the past TDAP: Declined Accepted TDAP Date: Interested in getting vaccination at next appointment Discussed with patient control options . Contraception: No Planned feeding: want to try again. benefits discussed and encouraged Blood type reviewed. Patient's Blood Type: A positive Discussed with patient third trimester expectations (back pain, round ligament pain). Discussed with patient when to call OB/when to present to [facility]: Unusual or severe cramping or abdominal pain, noticeable changes, such as a decrease in baby?s movement after 28 weeks gestation (if you don?t count six to 10 movements in one hour or less), difficulty breathing or shortness of breath that seems to be getting worse. Signs of premature labor (prior to 36 weeks): Four or more contractions or tightening of the muscles in the uterus in one hour that do not go away after changing position or relaxing; Regular tightening or low, dull pain in back that either comes or goes or is constant (but is not relieved by changing positions or other comfort measures); pressure in the pelvis or vagina; lower abdominal cramping that might feel like gas pain (with or without diarrhea); increased pressure in the pelvis or vagina; persistent menstrual-like cramps; increased vaginal discharge, leaking of fluid from the vagina; vaginal bleeding; flu-like symptoms such as nausea, vomiting, and diarrhea. Signs of preeclampsia: Vision problems, headaches, pain the upper abdomen, sudden weight gain, severe leg pain and swelling. Signs of labor after 36 weeks: Water breaks, strong contractions every 5 minutes for one hour, labor contractions that are not stopped by changing position or relaxing, contractions that are unable to walk through . Jannie Blackburn RN September 27, 2023 11:30 AM Jannie Blackburn RN 09/27/2023 11:48 AM Signed Venipuncture performed to left antecubital. Number of tubes collected: 2 gold and 1 lavender. Patient tolerated this well. Dr. Alexander in office during venipuncture. Jannie Blackburn RN September 27, 2023 11:44 AM Allergies As of Date: 09/27/2023 (No Known Allergies) Date Reviewed: 09/27/2023 Reviewed by: Mallorie Zamora MA - Fully Assessed Reason for Visit: Phlebotomy [1172] Primary Visit Diagnosis:24 weeks gestation of [Z3A.24] Prescriptions as of 09/27/2023 - acyclovir (ZOVIRAX) 200 mg capsule take 1 capsule by mouth five times a day for 7 days - famotidine (PEPCID) 20 mg tablet Take 1 tablet by mouth once daily. - metroNIDAZOLE (FLAGYL) 500 mg tablet Take 1 tablet by mouth two times a day. for vaginosis. Do not drink alcohol while taking this medication - vit37/iron/folic acid (PRENATA ORAL) Take by mouth. - ergocalciferol, vitamin D2, (VITAMIN D2 ORAL) Take by mouth. 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 Normal [facility] GESTATIONAL GLUCOSE SCREEN, 1-HOUR, 50 GRAM, NON-FASTINGon 09-27-2023 Glucose [Mass/Vol] 104 mg/dL Normal 74-134 [facility] Comment on above: Order Comment: Speci men Type: BLOOD SPECIMEN Ordering Facility: [facility] Address: [address] [place] [address] Result Comment: [facility] Congress of Obstetricians and Gynecologists (Lemuel/Herbre) guidelines state a gestational diabetes mellitus positive screen is made, in women not previously diagnosed with overt diabetes, when the 1 hr plasma glucose level is equal to or above 140 mg/dL. The [facility] [employer] [facility] [place] recommends a 135 mg/dL cutoff. Performed By: #### G LTGST #### [facility] CLIA [id number] [address] [place] [address] [place] Reagin and Treponema pallidu m IgG and IgM [Interp]on 09-27-2023 T. pallidum IgG+IgM IA Ql (S) Non-Reactive Normal Nonreactive [facility] Comment on above: Order Comment: Micha elizabeth Type: BLOOD SPECIMEN Ordering Facility: [facility] Address: [address] [place] [address] Performed By: #### 7 3752-8 #### [facility] CLIA [id number] [address] [place] [address] [place] Reagin+T pallidum IgG+IgM Se rPl-Impon 09-27-2023 Reagin and Treponema pallidum IgG and IgM [Interp] Cannot exclude recent Treponemal infection if specimen collected within 7-10 days after appearance of suspect lesions or 2-3 weeks after an exposure. Clinical correlation is required. 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 - metroNIDAZOLE (FLAGYL) 500 mg tablet Take 1 tablet by mouth two times a day. for vaginosis. Do not drink alcohol while taking this medication - vit37/iron/folic acid (PRENATA ORAL) Take by mouth. - ergocalciferol, vitamin D2, (VITAMIN D2 ORAL) Take by mouth. 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 Current everyday nicotine vaping. Impression REMOTE ? Single, live, intrauterine . ? biometry is consistent with the established gestational age. ? The anatomical survey was completed. No gross anatomic defects were detected on today's scan. ? Normal amniotic fluid volume. ? The placenta is fundal posterior. ? Not all malformations of the below-mentioned organ systems can be detected by ultrasound examination. Recommendations Follow up as clinically indicated Maternal Assessment Height 157 cm Height (ft) 5 ft Height (in) 2 in Weight 70 kg Weight (lb) 154 lb BMI 28.17 kg/m Method Transabdominal ultrasound examination. View: Adequate visualization Walker . Number of fetuses: 1 Dating LMP on: 04/09/2023 GA by LMP 20 w + 1 d NATALIE by LMP: 01/14/2024 GA by prior assessment 20 w + 1 d NATALIE by prior assessment: 01/14/2024 Ultrasound examination on: 08/28/2023 GA by U/S based upon: AC, BPD, Femur, HC GA by U/S 20 w + 3 d NATALIE by U/S: 01/12/2024 Assigned: based on the LMP, selected on 06/07/2023 Assigned GA 20 w + 1 d Assigned NATALIE: 01/14/2024 General Evaluation Cardiac activity present. FHR 152 bpm. movements: present. Presentation: breech Placenta: Placental site: posterior, fundal. Placental lduj-ic-ydnutnjb os distance 80 mm Umbilical cord: normal insertion, 3 vessel cord Amniotic fluid: Amount of AF: normal amount. MVP 4.6 cm Growth Overview Exam date GA BPD (mm) HC (mm) AC (mm) FL (mm) HL (mm) EFW (g) 08/28/2023 20w 1d 46.5 46% 170.8 35% 162.3 80% 32.8 68% 370 74% Biometry Standard BPD 46.5 mm 20w 0d 46% Hadlock OFD 60.5 mm 19w 4d 45% Nicolaides HC 170.8 mm 19w 5d 35% Ila Cerebellum tr 19.1 mm 18w 4d 21% Hill Nuchal fold 4.2 mm AC 162.3 mm 21w 2d 80% Hadlock Femur 32.8 mm 20w 3d 68% Ila EFW 370 g 20w 4d 74% Hadlock EFW (lb) 0 lb EFW (oz) 13 oz EFW by: Hadlock ([id number]) Extended CM 3.4 mm 7% Nicolaides Extremities / Bony Struc FL / HC 0.19 61% Hadlock Other Structures FHR 152 bpm Anatomy Cranium: normal Lateral ventricles: normal Choroid plexus: normal Midline falx: normal Cavum septi pellucidi: normal Cerebellum: normal Cisterna magna: normal Head / Neck Vermis: normal Neck: normal Nuchal fold: normal Lips: normal Profile: normal Nose: normal Face Maxilla: normal Mandible: normal Orbits: normal Lens: normal 4-chamber view: normal RVOT view: normal LVOT view: normal 3-vessel view: normal 5-gszslu-vaumdbh view: normal Heart / Thorax Situs: situs solitus (normal) Aortic arch view: normal Ductal arch view: normal SVC: normal IVC: normal Cardiac axis: normal Rt lung: normal Lt lung: normal Diaphragm: normal Cord insertion: normal Stomach: normal Kidneys: normal Bladder: normal Genitals: normal Abdomen Abdom. wall: normal Cervical spine: normal Thoracic spine: normal Lumbar spine: normal Sacral spine: normal Arms: normal Legs: normal Rt upper arm: normal Rt forearm: normal Rt hand: normal Rt fingers: normal Lt upper arm: normal Lt forearm: normal Lt hand: normal Lt fingers: normal Rt upper leg: normal Rt lower leg: normal Rt foot: normal Lt upper leg: normal Lt lower leg: normal Lt foot: normal Gender: Unspecified Wants to know sex: no Maternal Structures Uterus / Cervix Uterus: Visualized Fibroids: No fibroids identified Cervix: Visualized Approach: Transabdominal Cervical length 37.1 mm Ovaries / Tubes / Adnexa Rt ovary: Not visualized Lt ovary: Visualized Lt ovarian cyst(s): No cysts identified Performed By: Jannie Nava RDMS Read By: Lydia Freeman M.D. MATERNAL MEDICINE [facility] Radiology Study observation (narrative) [facility] .Urinalysis Microscopic (AO) on 08-13-2023 UA Bacteria Trace Abnormal [facility] ([place]) Comment on above: Performed By: #### U AMICAO, UA #### [address] [address] UA RBC 0-5 Abnormal None Seen [facility] ([place]) Comment on above: Performed By: #### U AMICAO, UA #### [place] [place], [place] [address] UA Squam Epithelial LOADED Abnormal None Seen [facility] ([place]) Comment on above: Performed By: #### U AMICAO, UA #### [address] [place], [place] [address] UA WBC 0-5 Abnormal None Seen [facility] ([place]) Comment on above: Performed By: #### U AMICAO, UA #### [place] [place] [address] LABORATORYOrdered By: Tsering Cavanaugh on 08-13-2023 Appearance (U) Turbid *ABN* (08/13/23 11:50 AM) Invalid Interpretation Code Clear AO Auto Urine SS Bacteria LM.HPF (Urine sed) [#/Area] Trace /HPF Invalid Interpretation Code AO Auto Urine SS Bilirubin Ql (U) Small *ABN* (08/13/23 11:50 AM) Invalid Interpretation Code Negative AO Auto Urine SS Color (U) Dark yellow Invalid Interpretation Code AO Auto Urine SS Glucose Test strip (U) [Mass/Vol] Negative Normal Negative AO Auto Urine SS Group A Strep PCR Int Negative Results: Negative for Streptococcus pyogenes by PCR. A negative test result does not exclude the possibility of infection because the test result may be affected by improper specimen collection, technical error, sample mix-up, or because the number of organisms in the sample is below the limit of detection of the test.The Xpert Xpress Strep A test should not be used as the sole basis for treatment or other patient management decisions. The Xpert Xpress Strep A test does not differentiate asymptomatic carriers of Group A streptococci from those exhibiting streptococcal infection. The results from the Xpert Xpress Strep A test should be interpreted in conjunction with other laboratory and clinical data available to the clinician.The Xpert Xpress Strep A Assay is a real-time polymerase chain reaction (PCR) based qualitative in vitro diagnostic test for the direct detection of Streptococcus pyogenes (Group A Beta hemolytic Streptococcus) in throat swab specimens from patients with signs and symptoms of pharyngitis.The assay is not intended to monitor treatment for Group A Streptococcus infections. Invalid Interpretation Code AO Auto Urine SS Hemoglobin Auto test strip (U) [Mass/Vol] Negative (08/13/23 11:50 AM) Normal Negative AO Auto Urine SS Ketones Ql (U) 40 mg/dL Invalid Interpretation Code Negative AO Auto Urine SS S. pyogenes DNA SHEREEN+probe Ql (Throat) Not Detected (08/13/23 11:50 AM) Normal Not Detected AO Auto Urine SS UA Leuk Est Negative (08/13/23 11:50 AM) Normal Negative AO Auto Urine SS UA Nitrite Negative (08/13/23 11:50 AM) Normal Negative AO Auto Urine SS UA pH 6.0 (08/13/23 11:50 AM) Normal 5.0 - 8.0 AO Auto Urine SS UA Protein Negative Normal Negative AO Auto Urine SS UA RBC 0-5 /HPF Invalid Interpretation Code None Seen AO Auto Urine SS UA Spec Grav >=1.030 *ABN* (08/13/23 11:50 AM) Invalid Interpretation Code 1.015-1.025 AO Auto Urine SS UA Specimen Type Clean Catch (08/13/23 11:50 AM) Normal AO Auto Urine SS UA Squam Epithelial LOADED /HPF Invalid Interpretation Code None Seen AO Auto Urine SS UA Urobilinogen 1.0 E.U./dL Normal 0.2-1.0 AO Auto Urine SS WBC LM.HPF (Urine sed) [#/Area] 0-5 /HPF Invalid Interpretation Code None Seen AO Auto Urine SS STREPAon 08-13-2023 Group A Strep PCR Not detected Normal Not Detected [facility] ([place]) Comment on above: Performed By: #### S BELLE #### [address] [address] Group A Strep PCR Int Normal [facility] ([place]) Comment on above: Result Comment: Nega tive Results: Negative for Streptococcus pyogenes by PCR. A negative test result does not exclude the possibility of infection because the test result may be affected by improper specimen collection, technical error, sample mix-up, or because the number of organisms in the sample is below the limit of detection of the test. The Xpert Xpress Strep A test should not be used as the sole basis for treatment or other patient management decisions. The Xpert Xpress Strep A test does not differentiate asymptomatic carriers of Group A streptococci from those exhibiting streptococcal infection. The results from the Xpert Xpress Strep A test should be interpreted in conjunction with other laboratory and clinical data available to the clinician. The Xpert Xpress Strep A Assay is a real-time polymerase chain reaction (PCR) based qualitative in vitro diagnostic test for the direct detection of Streptococcus pyogenes (Group A Beta hemolytic Streptococcus) in throat swab specimens from patients with signs and symptoms of pharyngitis. The assay is not intended to monitor treatment for Group A Streptococcus infections. See Interp Performed By: #### S BELLE #### [address] [address] UAon 08-13-2023 Color (U) Dark yellow Normal [facility] ([place]) Comment on above: Performed By: #### U AMICAOFAM #### [place] [address] [address] Glucose (U) [Mass/Vol] Negative Normal Negative [facility] ([place]) Comment on above: Performed By: #### U AMIFAM WATTS #### Y[place] [address] [address] Ketones Ql (U) 40 mg/dL Abnormal Negative [facility] ([place]) Comment on above: Performed By: #### U AMIFAM WATTS #### [place] [id number] UA Appear Turbid Abnormal Clear [facility] ([place]) Comment on above: Performed By: #### U AMICAO, UA #### [place] [address] UA Bili Small Abnormal Negative [facility] ([place]) Comment on above: Performed By: #### U AMICAO, UA #### [place] [address] UA Blood Negative Normal Negative [facility] ([place]) Comment on above: Performed By: #### U AMICAO, UA #### [place] [address] UA Leuk Est Negative Normal Negative [facility] ([place]) Comment on above: Performed By: #### U AMICAO, UA #### [place] [address] UA Nitrite Negative Normal Negative [facility] ([place]) Comment on above: Performed By: #### U AMICAO, UA #### [place] [address] UA pH 6.0 Normal 5.0 - 8.0 [facility] ([place]) Comment on above: Performed By: #### U AMICAO, UA #### [place] [address] UA Protein Negative Normal Negative [facility] ([place]) Comment on above: Performed By: #### U AMICAO, UA #### [place] [address] UA Spec Grav >=1.030 Abnormal 1.015-1.025 [facility] ([place]) Comment on above: Performed By: #### U AMICAO, UA #### [place] [address] UA Specimen Type Clean Catch Normal [facility] ([place]) Comment on above: Performed By: #### U AMICAO, UA #### [place] [address] UA Urobilinogen 1.0 E.U./dL Normal 0.2-1.0 [facility] ([place]) Comment on above: Performed By: #### U FAM RENAE #### [place] [address] [place], [place] [address] James 08-09-2023 CNPN Telephone (OBGDOV) ---- BETH VINCENT ([id number]) 1995 F Date Time Provider Department 08/09/23 SELF OBGDOV During your visit today, we recorded the following information about you: Holly Tuttle 08/09/2023 12:30 PM Signed Pt is 17.3 wks and said that she had had a migraine for the last 3 days along with body aches that start from her skull to spine. She is not having any cramping/bleeding. Her next OB appointment is scheduled for 08/28/2023. Thanks Asmita Parker RN 08/09/2023 12:48 PM Signed RN spoke with patient. Patient states headache did go away, she is now feeling achy all over. Patient denies vaginal bleeding, cramping, headache, blurry vision. Patient states she has not checked her temperature, but her skin feels hot. RN advised patient to take tylenol as needed for headache, body aches, discomfort. RN advised to monitor symptoms, and if any further concerns to call back. RN advised if any vaginal leaking, bleeding, or cramping occurs to go to ER. Patient states understanding. Asmita Parker RN Allergies As of Date: 08/09/2023 (No Known Allergies) Date Reviewed: 08/04/2023 Reviewed by: Alana Obrien APRN.[employer] - Fully Assessed Reason for Visit: Patient Update [1234] Prescriptions as of 08/09/2023 - famotidine (PEPCID) 20 mg tablet Take 1 tablet by mouth once daily. - metroNIDAZOLE (FLAGYL) 500 mg tablet Take 1 tablet by mouth two times a day. for vaginosis. Do not drink alcohol while taking this medication - vit37/iron/folic acid (PRENATA ORAL) Take by mouth. - ergocalciferol, vitamin D2, (VITAMIN D2 ORAL) Take by mouth. 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 She was making dinner and felt lightheaded and ate chocolate and orange juice and still didn't feel better. She has been feeling sick, but able to keep stuff done. Asmita Parker RN 07/07/2023 9:48 AM Signed RN left message for patient to call back with questions. FELIPE Valentin Sarah RN 07/07/2023 9:59 AM Signed Patient called back, states last night she thinks her blood sugar keeps dropping. Patient states she is feeling shaky and lightheaded and she has to sit down. Patient ate candy and juice at that time and feels very tired. RN advised small frequent meals, increasing water intake, and monitor symptoms. Patient states she does not check her blood sugars, and does not have a glucometer at home. RN advised ER with any syncope or worsening symptoms. Patient states understanding. FELIPE Valentin Stacie, APRN.CNP 07/07/2023 12:02 PM Signed RN note reviewed and agree with recommendations. Alana Obrien APRN.CNP Allergies As of Date: 07/07/2023 (No Known Allergies) Date Reviewed: 07/04/2023 Reviewed by: Alana Obrien APRN.CNP - Fully Assessed Reason for Visit: Patient Question [9547] Prescriptions as of 07/07/2023 - metroNIDAZOLE (FLAGYL) 500 mg tablet Take 1 tablet by mouth two times a day. for vaginosis. Do not drink alcohol while taking this medication - vit37/iron/folic acid (PRENATA ORAL) Take by mouth. - ergocalciferol, vitamin D2, (VITAMIN D2 ORAL) Take by mouth. 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 I have sent metronidazole to her pharmacy to take BID x7 days. Alana Obrien APRN.[employer] Allergies As of Date: 07/06/2023 (No Known Allergies) Date Reviewed: 07/04/2023 Reviewed by: Alana Obrien APRN.[employer] - Fully Assessed Reason for Visit: Results [95] Primary Visit Diagnosis:Bacterial vaginosis [N76.0, B96.89] Order(s):metroNIDAZ OLE (FLAGYL) 500 mg tabletTake 1 tablet by mouth two times a day. for vaginosis. Do not drink alcohol while taking this medicationDisp: 14 tabletRfl: 0 Prescriptions as of 07/06/2023 - metroNIDAZOLE (FLAGYL) 500 mg tablet Take 1 tablet by mouth two times a day. for vaginosis. Do not drink alcohol while taking this medication - vit37/iron/folic acid (PRENATA ORAL) Take by mouth. - ergocalciferol, vitamin D2, (VITAMIN D2 ORAL) Take by mouth. 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 for vaginosis. Do not drink alcohol while taking this medication Encounter Status:Closed by ALANA OBRIEN on 07/06/23 [facility] BACTERIAL VAGINOSIS NAATon 0 07-05-2023 Lactobacillus crispatus+gasseri+je nsenii + Gardnerella vaginalis + Atopobium vaginae rRNA SHEREEN+probe Ql (Vag fld) Positive Abnormal Negative for bacterial vaginosis [facility] POOJA/TRICHOMONAS NAATon 0 07-05-2023 C. glabrata RNA SHEREEN+probe Ql (Vag fld) Negative Negative for Pooja glabrata [facility] Pooja sp DNA SHEREEN+probe Ql (Vag fld) Negative Negative for Pooja species [facility] T. vaginalis DNA SHEREEN+probe Ql (Unsp spec) Negative Negative for Trichomonas vaginalis by amplification [facility] BACTERIAL VAGINOSIS NAATon 0 07-04-2023 Lactobacillus crispatus+gasseri+je nsenii + Gardnerella vaginalis + Atopobium vaginae rRNA HSEREEN+probe Ql (Vag fld) Positive Abnormal Negative for bacterial vaginosis [facility] Comment on above: Order Comment: Speci men Type: SWAB Ordering Facility: [facility] Address: [address] [place] [address] Performed By: #### C VTV, BVAMP #### [facility] CLIA [id number] [address] [place] [address] [place] POOJA/TRICHOMONAS NAATon 0 07-04-2023 C. glabrata RNA SHEREEN+probe Ql (Vag fld) Negative Normal Negative for Pooja glabrata [facility] Comment on above: Order Comment: Speci men Type: SWAB Ordering Facility: [facility] Address: [address] [place] [address] Performed By: #### C VTV, BVAMP #### [facility] CLIA [id number] [address] [place] [address] [place] Pooja sp DNA SHEREEN+probe Ql (Vag fld) Negative Normal Negative for Pooja species [facility] Comment on above: Order Comment: Speci men Type: SWAB Ordering Facility: [facility] Address: [address] [place] [address] Performed By: #### C VTV, BVAMP #### [facility] CLIA [id number] [address] [place] [address] [place] T. vaginalis DNA SHEREEN+probe Ql (Unsp spec) Negative Normal Negative for Trichomonas vaginalis by amplification [facility] Comment on above: Order Comment: Speci men Type: SWAB Ordering Facility: [facility] Address: [address] [place] [address] Performed By: #### C VTV, BVAMP #### [facility] CLIA [id number] [address] [place] [address] [place] CNPCiara 06-26-2023 CNPN Telephone (OBGDOV) ---- BETH VINCENT ([id number]) 1995 F Date Time Provider Department 06/26/23 NURSE STAINED GLASS JOINER UP AVINASH OBGDOV During your visit today, we recorded the following information about you: Holly Tuttle 06/26/2023 7:33 AM Signed Pt called stating she wanted to be squeezed in due to possible yeast inf. She is and has an appointment on 07/04/23. Per Claudia, she can do the Monistat 7 day. Patient understood. 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 trachomatis+N. gonorrhoea e DNA SHEREEN+probe Ql (Unsp spec)on 06-07-2023 C. trachomatis rRNA SHEREEN+probe Ql (Unsp spec) Negative Normal Negative for Chlamydia trachomatis by [facility] Comment on above: Order Comment: Speci men Type: SWAB Ordering Facility: [facility] Address: [address] [place] [address] Performed By: #### 3 6902-5 #### [facility] CLIA [id number] [address] [place] [address] [place] N. gonorrhoeae rRNA SHEREEN+probe Ql (Unsp spec) Negative Normal Negative for Neisseria gonorrhoeae by [facility] Comment on above: Order Comment: Speci men Type: SWAB Ordering Facility: [facility] Address: [address] [place] [address] Performed By: #### 3 6902-5 #### [facility] CLIA [id number] [address] [place] [address] [place] CBC panel Auto (Bld)on 06-06 Erythrocyte distribution width (RBC) [Ratio] 13.0 % 11.5 - 15.0 % [facility] Hematocrit (Bld) [Volume fraction] 40.1 % 36.0 - 46.0 % [facility] Hemoglobin (Bld) [Mass/Vol] 13.3 g/dL 11.5 - 15.5 g/dL [facility] MCH (RBC) [Entitic mass] 27.5 pg 26.0 - 34.0 pg [facility] MCHC (RBC) [Mass/Vol] 33.2 g/dL 30.5 - 36.0 g/dL [facility] MCV (RBC) [Entitic vol] 82.9 fL 80.0 - 100.0 fL [facility] Nucleated RBC (Bld) [#/Vol] <0.01 k/uL [facility] Platelet mean volume (Bld) [Entitic vol] 10.6 fL 9.0 - 12.7 fL [facility] Platelets (Bld) [#/Vol] 272 10*3/uL 150 - 400 k/uL [facility] RBC (Bld) [#/Vol] 4.84 10*6/uL 3.90 - 5.20 m/uL [facility] WBC (Bld) [#/Vol] 8.81 10*3/uL 3.70 - 11. 00 k/uL [facility] Erythrocyte distribution width (RBC) [Ratio] 13.0 % Normal 11.5-15.0 [facility] Comment on above: Order Comment: Speci men Type: BLOOD SPECIMEN Ordering Facility: [facility] Address: [address] [place] [address] Performed By: #### 5 8410-2 #### [facility] CLIA [id number] [address] [place] [address] [place] Hematocrit (Bld) [Volume fraction] 40.1 % Normal 36.0-46.0 [facility] Comment on above: Order Comment: Speci men Type: BLOOD SPECIMEN Ordering Facility: [facility] Address: [address] [place] [address] Performed By: #### 5 8410-2 #### [facility] CLIA [id number] [address] [place] [address] [place] Hemoglobin (Bld) [Mass/Vol] 13.3 g/dL Normal 11.5-15.5 [facility] Comment on above: Order Comment: Speci men Type: BLOOD SPECIMEN Ordering Facility: [facility] Address: [address] [place] [address] Performed By: #### 5 8410-2 #### [facility] CLIA [id number] [address] [place] [address] [place] MCH (RBC) [Entitic mass] 27.5 pg Normal 26.0-34.0 [facility] Comment on above: Order Comment: Speci men Type: BLOOD SPECIMEN Ordering Facility: [facility] Address: [address] [place] [address] Performed By: #### 5 8410-2 #### [facility] CLIA [id number] [address] [place] [address] [place] MCHC (RBC) [Mass/Vol] 33.2 g/dL Normal 30.5-36.0 [facility] Comment on above: Order Comment: Speci men Type: BLOOD SPECIMEN Ordering Facility: [facility] Address: [address] [place] [address] Performed By: #### 5 8410-2 #### [facility] CLIA [id number] [address] [place] [address] [place] MCV (RBC) [Entitic vol] 82.9 fL Normal 80.0-100.0 [facility] Comment on above: Order Comment: Speci men Type: BLOOD SPECIMEN Ordering Facility: [facility] Address: [address] [place] [address] Performed By: #### 5 8410-2 #### [facility] CLIA [id number] [address] [place] [address] [place] Nucleated RBC (Bld) [#/Vol] 10*3/uL Normal <0.01 [facility] Comment on above: Order Comment: Speci men Type: BLOOD SPECIMEN Ordering Facility: [facility] Address: [address] [place] [address] Performed By: #### 5 8410-2 #### [facility] CLIA [id number] [address] [place] [address] [place] Platelet mean volume (Bld) [Entitic vol] 10.6 fL Normal 9.0-12.7 [facility] Comment on above: Order Comment: Speci men Type: BLOOD SPECIMEN Ordering Facility: [facility] Address: [address] [place] [address] Performed By: #### 5 8410-2 #### [facility] CLIA [id number] [address] [place] [address] [place] Platelets (Bld) [#/Vol] 272 10*3/uL Normal 150-400 [facility] Comment on above: Order Comment: Speci men Type: BLOOD SPECIMEN Ordering Facility: [facility] Address: [address] [place] [address] Performed By: #### 5 8410-2 #### [facility] CLIA [id number] [address] [place] [address] [place] RBC (Bld) [#/Vol] 4.84 10*6/uL Normal 3.90-5.20 [facility] Comment on above: Order Comment: Speci men Type: BLOOD SPECIMEN Ordering Facility: [facility] Address: [address] [place] [address] Performed By: #### 5 8410-2 #### [facility] CLIA [id number] [address] [place] [address] [place] [facility] [place] WBC (Bld) [#/Vol] 8.81 10*3/uL Normal 3.70-11.00 [facility] Comment on above: Order Comment: Speci men Type: BLOOD SPECIMEN Ordering Facility: [facility] Address: [address] [place] [address] Performed By: #### 5 8410-2 #### [facility] CLIA [id number] [address] [place] [address] OF [facility] CNNURSEon 06-07-2023 CNNURSE Nurse Visit (OBGDOV) ---- BETH VINCENT ([id number]) 1995 F Date Time Provider Department 06/07/23 11:15 AM 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 Alexander. was confirmed in office. Patient had an in office ultrasound; preliminary results showed she is currently 8w3d. Patient met with office nurse who oriented her to practice and what to expect during her upcoming office visits. Discussed vitamins and the importance of folic acid and iron. Discussed nutrition and folic acid supplementation. Discussed drinking at least 8-12 glasses of water a day. Discussed routine labs including STD/HIV/CBC/Type and Screen along with urine drug screen. Consent signed by patient for lab work. Discussed ACOG recommendations for weight gain in : Underweight: 28-40 lbs Normal weight: 25-35 lbs Overweight: 15-25 lbs Obese: 11-20 lbs Patient's current BMI is 28.40 therefore recommended weight gain is 15-25 lbs. Discussed Vitamin B and Unisom for nausea/vomiting. Instructed that these medications could be purchased over the counter but that if she wishes to have a prescription sent to her pharmacy to let us know. Patient declines at this time. [facility] ([facility])-Medications During sheet was discussed and given to patient. 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 It should be available to and women as in the non population, patients who do not wish to receive the vaccine should also be supported in that decision. ACOG and SMFM now recommending Covid vaccination in . We discussed risks of Covid infection in that can be more severe including but not limited to hospital admission, ICU admission, ventilator support, ECMO, and . Patient has been vaccinated. Discussed flu vaccine in ; benefits including protection for mom AND fetus; risks of not receiving including but not limited to severe infection, hospitalization, ICU admission, ventilator support, pneumonia, . Aware she can receive at any time in the . Patient has been vaccinated. Patient informed of noninvasive testing (NIPT) that can be done as early as 10 weeks gestation to screen for genetic disorders in infant. Patient given the [email or web address] financial estimate tear off form and instructed to let staff know if she is interested in having his done at her next appointment. Appointments made through 24 weeks gestation including her anatomy ultrasound and 1hr gtt. AVS printed and given to patient with the list of appointment dates and times. Patient asked appropriate questions and verbalized an understanding of all teaching. No further questions or concerns. Patient in today for new OB first exam. 06/07/2023 Patient given new OB folder. Contents of folder: About our practice letter, list of medications safe to take during , information about [facility], Directory of services for families in [facility], information about genetic testing, information about signing up for My Chart, and [facility]'s 'Your guide to a Healthy '. Patient was educated on the contents of this folder. Patient was asked if she would like a referral to [facility]. Referral was not completed per patient. Jannie Blackburn RN June 07, 2023 10:55 AM Jannie Blackburn RN 06/07/2023 11:36 AM Signed Venipuncture performed to left antecubital. Number of tubes collected: 4 gold and 2 lavender. Patient tolerated this well. Dr. Alexander in office during venipuncture. Venipuncture charge automatically linked to Dr. Alexander's provider visit. No charge for nurse visit. 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 Alexander. was confirmed in office. Patient had an in office ultrasound; preliminary results showed she i (more content not included)... [facility] 06-07-2023 CNOV Office Visit (OBGDOV) ---- BETH VINCENT ([id number]) 1995 F Date Time Provider Department 06/07/23 10:00 AM JORGE ALEXANDER OBTRUNG During your visit today, we recorded the following information about you: Pulse Blood pressure Weight Height 92/minute 117/78 70.4 kg 1.575 m Last Period 04/09/23 Jorge Alexander MD 06/07/2023 10:33 AM Signed SUBJECTIVE: Beth Vincent is a 27 year old female here today for an annual physical. I reviewed her past medical, surgical, social, and family histories today and updated chart. Allergies, chronic medications, and supplements were also reviewed and her list is now up to date. Concern(s) today include: new ob lmp 04/12/2023 She is performing self-breast exams? y Any concerns about her breasts? n Any family history of breast cancer? n Patient's last menstrual period was 04/12/2023. Are her periods regular? y Any concerns about her periods? n Current method of control: none She wants STD testing? y Her medications were reviewed today and her list is now up to date. She is compliant on taking her medications :y She is tolerating her medication(s) without side effects: y She is following an appropriate diet for her medical problems: y She is getting some exercise in? y History reviewed. No pertinent past medical history. PAST SURGICAL HISTORY Procedure Laterality Date REPAIR UMBILICAL HERNIA N/A 2021 Social History Tobacco Use Smoking status: Never Smokeless tobacco: Never Vaping Use Vaping Use: current everyday user Substances: Nicotine Substance Use Topics Alcohol use: Never Drug use: Never No current outpatient medications on file. No current facility-administer ed medications for this visit. REVIEW OF SYSTEMS: Review of Systems Constitutional: Negative for activity change, appetite change, chills, diaphoresis, fatigue, fever and unexpected weight change. Respiratory: Negative for cough, shortness of breath and wheezing. Cardiovascular: Negative for chest pain, palpitations and leg swelling. Gastrointestinal: Negative for abdominal distention, abdominal pain, anal bleeding, blood in stool, constipation, diarrhea, nausea, rectal pain and vomiting. Endocrine: Negative for cold intolerance, heat intolerance, polydipsia, polyphagia and polyuria. Genitourinary: Negative for decreased urine volume, difficulty urinating, dyspareunia, dysuria, enuresis, flank pain, frequency, genital sores, hematuria, menstrual problem, pelvic pain, urgency, vaginal bleeding, vaginal discharge and vaginal pain. Skin: Negative for rash. Allergic/Immunologi c: Negative for environmental allergies, food allergies and immunocompromised state. Neurological: Negative for seizures and headaches. Psychiatric/Behavio ral: Negative for agitation, behavioral problems, confusion, self-injury, sleep disturbance and suicidal ideas. The patient is not nervous/anxious. PHYSICAL EXAMINATION: BP 117/78 Pulse 92 Ht 5' 2 (1.575 m) Wt 155 lb 4.8 oz (70.4 kg) LMP 04/12/2023 SpO2 99% BMI 28.40 kg/m? BMI 28.40 kg/(m2) Physical Exam Constitutional: Appearance: Normal appearance. HENT: Head: Normocephalic. Cardiovascular: Rate and Rhythm: Normal rate. Pulses: Normal pulses. Pulmonary: Breath sounds: Normal breath sounds. Abdominal: General: Bowel sounds are normal. There is no distension. Palpations: Abdomen is soft. There is no mass. Tenderness: There is no abdominal tenderness. There is no right CVA tenderness, left CVA tenderness, guarding or rebound. Hernia: No hernia is present. Genitourinary: General: Normal vulva. Vagina: Normal. No vaginal discharge. Cervix: Normal. Uterus: Normal. Adnexa: Right adnexa normal. Rectum: Normal. Comments: Normal pelvimetry Musculoskeletal: General: No swelling, tenderness, deformity or signs of injury. Normal range of motion. Cervical back: Normal range of motion. Right lower leg: No edema. Left lower leg: No edema. Skin: Findings: No bruising, erythema, lesion or rash. Neurological: Mental Status: She is alert and oriented to person, place, and time. Deep Tendon Reflexes: Reflexes normal. Psychiatric: Mood and Affect: Mood normal. Behavior: Behavior normal. HEALTH MAINTENANCE: Hepatitis C Screening Never done HIV Screening Never done Pap Testing Never done DTaP,Tdap,Td Vaccine(6 - Td or Tdap) due on 07/27/2020 Influenza Vaccine(1) due on 11/25/2022 Covid-19 Vaccine(3 - 2022-24 season) due on 11/25/2022 Depression Assessment Never done ASSESSMENT/PLAN: 1. Encounter for test, result positive - ICD9: V72.42, ICD10: Z32.01 (primary diagnosis) - HCG QUAL UR B/O - VARICELLA ZOSTER IGG - TOX SCREEN ROUT UR - URINE CULTURE - GONORRHEA/CHLAMYDIA NAAT - TYPE + SCREEN - HIV 1 2 COMBO(AG/AB),WITH REFLEX TO DIFFERE (more content not included)... Normal [facility] Examination level ultrasound on 06-07-2023 [facility] HBV surface Ag Ser Qlon 05-25 HBV surface Ag Ql (S) Negative Normal Negative [facility] Comment on above: Order Comment: Speci men Type: BLOOD SPECIMEN Ordering Facility: [facility] Address: [address] [place] [address] Performed By: #### 5 8410-2 #### [facility] CLIA [id number] [address] [place] [address] [place] HCG QUAL UR B/Oon 06-07-2023 status Positive neg - [facility] Yes [facility] HCV Ab Ser Qlon 06-07-2023 HCV Ab Ql (S) Negative Normal Negative [facility] Comment on above: Order Comment: Speci men Type: BLOOD SPECIMENOrdering Facility: [facility] Address: [address] [place] [address] Result Comment: The result suggests no evidence of active infection with Hepatitis C virus. Should recent infection be suspected, repeat testing may be considered 4-6 weeks after this draw. Performed By: #### 1 6128-1 ####[facility] [id number] [place] [address] [place] HIV 1+2 Ab IA Qlon 4 HIV 1 and 2 Ab IA.rapid Nom (S/P/Bld) Normal [facility] Comment on above: Order Comment: Speci men Type: BLOOD SPECIMEN Ordering Facility: [facility] Address: [address] [place] [address] Result Comment: Test not indicated. Performed By: #### 5 8410-2 #### [facility] CLIA [id number] [address] [place] [address] [place] HIV 1+2 Ab+HIV1 p24 Ag IA Ql Non-Reactive Normal Nonreactive [facility] Comment on above: Order Comment: Speci men Type: BLOOD SPECIMEN Ordering Facility: [facility] Address: [address] [place] [address] Performed By: #### 5 8410-2 #### [facility] CLIA [id number] [address] [place] [address] [place] HIV immunoassay testing algorithm interpretation (S/P/Bld) [Interp] [facility] Comment on above: Order Comment: Speci men Type: BLOOD SPECIMEN Ordering Facility: [facility] Address: [address] [place] [address] Result Comment: No e vidence of HIV-1 or HIV-2 infection. Should recent infection be suspected, repeat testing may be considered 2-3 weeks after this draw. [place] Rev. Code 3701.243(E): This information has been disclosed to you from confidential records protected from disclosure by state law. ???You shall make no further disclosure of this information without the specific, written, and informed release of the individual to whom it pertains or as otherwise permitted by state law. A general authorization for the release of medical or other information is not sufficient for the purpose of the release of HIV test results or diagnoses. Performed By: #### 5 8410-2 #### [facility] CLIA [id number] [address] [place] [address] [place] PAP TESTon 06-07-2023 ADEQUACY Satisfactory for interpretation [facility] Comment on above: Order Comment: Speci men Type: FLUID SPECIMENOrdering Facility: [facility] Address: [address] [place] [address] Performed By: #### L [id number] ####[facility] [id number] [place] [address] [place] CASE REPORT [facility] Comment on above: Order Comment: Speci men Type: FLUID SPECIMENOrdering Facility: [facility] Address: [address] [place] [address] Result Comment: Gyne cologic Cytology Report Case: [id number] Authorizing Provider: Jorge Alexander MD Collected: 06/07/2023 10:43 AM Ordering Location: [facility] Received: 06/08/2023 07:32 AM [facility] First Screen: Clapacs, Magalys Specimen: Pap Test, ThinPrep, Cervix Performed By: #### L [id number] ####[facility] [id number] [place] [address] [place] CLINICAL HISTORY, CYTOLOGY, VENETIAN BLIND MAKER Routine Exam [facility] Comment on above: Order Comment: Speci men Type: FLUID SPECIMENOrdering Facility: [facility] Address: [address] [place] [address] Performed By: #### L [id number] ####[facility] [id number] [place] [address] [place] CYTOLOGY PAP OTHER INT Predominance of coccobacilli consistent with shift in vaginal [place] [facility] Comment on above: Order Comment: Speci men Type: FLUID SPECIMENOrdering Facility: [facility] Address: [address] [place] [address] Performed By: #### L [id number] ####[facility] [id number] [place] [address] [place] FINAL PERFORMING LAB Normal [facility] Comment on above: Order Comment: Speci men Type: FLUID SPECIMENOrdering Facility: [facility] Address: [address] [place] [address] Result Comment: Tech nical component, warehouse packer screening performed at [facility], [address] [place], [place] [id number] CLIA# [id number] Diagnostic interpretation performed at [facility], [address] [place], [place] [id number] CLIA# [id number] Sample Display Preparer: Curtis Hernandez M.D. Performed By: #### L [id number] ####[facility] [id number] [place] [address] [place] HPV REFLEX HPV if Atypical [facility] Comment on above: Order Comment: Speci men Type: FLUID SPECIMENOrdering Facility: [facility] Address: [address] [place] [address] Performed By: #### L [id number] ####[facility] [id number] [address] [address] [place] INTERPRETATION, CYTOLOGY, VENETIAN BLIND MAKER [facility] Comment on above: Order Comment: Speci men Type: FLUID SPECIMENOrdering Facility: [facility] Address: [address] [place] [address] Result Comment: Nega tive for intraepithelial lesion or malignancy. Performed By: #### L [id number] ####[facility] [id number] [place] [id number] [place] LMP 04/12/2023 [facility] Comment on above: Order Comment: Speci men Type: FLUID SPECIMENOrdering Facility: [facility] Address: [address] [place] [address] Performed By: #### L [id number] ####[facility] [id number] [place] [address] [place] PAP DISCLAIMER COMMENT The Pap Smear is a screening test for cervical cancer. False negative results occur with all screening tests, emphasizing the need for rescreening at recommended intervals, and clinical correlation. [facility] Comment on above: Order Comment: Speci men Type: FLUID SPECIMENOrdering Facility: [facility] Address: [address] [place] [address] Performed By: #### L [id number] ####[facility] [id number] [place] [id number] [place] PAP LEAD NUCLEAR MEDICINE TECHNOLOGIST COMMENT This specimen has been analyzed by the ThinPrep Imaging System, an automated imaging and review system, which assists the laboratory in evaluating cells on ThinPrep Pap tests. Following automated imaging, selected hughes from every slide are reviewed by a warehouse packer. [facility] Comment on above: Order Comment: Speci men Type: FLUID SPECIMENOrdering Facility: [facility] Address: [address] [place] [address] Performed By: #### L [id number] ####[facility] [id number] [place] [address] [place] RUBELLA IGG ABon 06-07-2023 RUBELLA IGG AB, QUAL Positive Normal Positive [facility] Comment on above: Order Comment: Speci men Type: BLOOD SPECIMENOrdering Facility: [facility] Address: [address] [place] [address] Result Comment: The result suggests recent or past exposure to Rubella virus or history of Rubella vaccination. Positive result may also be seen due to presence of passively-transferred antibodies. Please correlate with patient's history. Performed By: #### V [id number], RUBIGG ####[facility] [id number] [place] [address] [place] Reagin and Treponema pallidu m IgG and IgM [Interp]on 06-07-2023 T. pallidum IgG+IgM IA Ql (S) Non-Reactive Normal Nonreactive [facility] Comment on above: Order Comment: [facility] Type: BLOOD SPECIMEN [facility] Address: [address] [place] [address] Performed By: #### 5 [id number] #### [facility] CLIA [id number] [address] [place] [address] [place] Reagin+T pallidum IgG+IgM Se rPl-Impon 06-07-2023 Reagin and Treponema pallidum IgG and IgM [Interp] Cannot exclude recent Treponemal infection if specimen collected within 7-10 days after appearance of suspect lesions or 2-3 weeks after an exposure. Clinical correlation is required. Normal [facility] Comment on above: Order Comment: [facility] Type: BLOOD SPECIMEN [facility] Address: [address] [place] [address] Performed By: #### 5 8410-2 #### [facility] CLIA [id number] [address] [place] [address] [place] TOX SCREEN ROUT URon 024 Amphetamines Confirm (U) [Mass/Vol] Negative Negative [facility] Barbiturates Urine Negative Negative [facility] Benzodiazepines Urine Negative Negative [facility] Cannabinoids Screen Ql (U) Negative Negative [facility] Cocaine Ql (U) Negative Negative [facility] Opiates Screen Ql (U) Negative Negative [facility] oxyCODONE cutoff Screen (U) [Mass/Vol] Negative Negative [facility] Phencyclidine Ql (U) Negative Negative [facility] Amphetamines Confirm (U) [Mass/Vol] Negative Normal Negative [facility] Comment on above: Order Comment: Speci men Type: URINE SPECIMENOrdering Facility: [facility] Address: [address] [place] [address] Result Comment: Cuto ff threshold at 1000 ng/mL. Performed By: #### U TOX2 ####[facility]CLIA [id number] [address] BARBITURATES, URINE Negative Normal Negative [facility] Comment on above: Order Comment: Speci men Type: URINE SPECIMENOrdering Facility: [facility] Address: [address] [place] [address] Result Comment: Cuto ff threshold at 200 ng/mL. Performed By: #### U TOX2 ####[facility] LABIA [id number] [address] [place] BENZODIAZEPIN[place], UR Negative Normal Negative [facility] Comment on above: Order Comment: Speci men Type: URINE SPECIMENOrdering Facility: [facility] Address: [address] [place] [address] Result Comment: Cuto ff threshold at 200 ng/mL. Performed By: #### U TOX2 ####[facility]IA [id number] [address] Cannabinoids Screen Ql (U) Negative Normal Negative [facility] Comment on above: Order Comment: Speci men Type: URINE SPECIMENOrdering Facility: [facility] Address: [address] [place] [address] Result Comment: Cuto ff threshold at 50 ng/mL. Performed By: #### U TOX2 ####[facility]IA [id number] [address] [place] Cocaine Ql (U) Negative Normal Negative [facility] Comment on above: Order Comment: Speci men Type: URINE SPECIMENOrdering Facility: [facility] Address: [address] [place] [address] Result Comment: Cuto ff threshold at 300 ng/mL. Performed By: #### U TOX2 ####[facility]IA [id number] [address] [place] Opiates Screen Ql (U) Negative Normal Negative [facility] Comment on above: Order Comment: Speci men Type: URINE SPECIMENOrdering Facility: [facility] Address: [address] [place] [address] Result Comment: Cuto ff threshold at 300 ng/mL. Performed By: #### U TOX2 ####[facility] LABIA [id number] [address] oxyCODONE cutoff Screen (U) [Mass/Vol] Negative Normal Negative [facility] Comment on above: Order Comment: Speci men Type: URINE SPECIMENOrdering Facility: [facility] Address: [address] [place] [address] Result Comment: Cuto ff threshold at 100 ng/mL. Performed By: #### U TOX2 ####[facility] LABIA [id number] [address] [place] Phencyclidine Ql (U) Negative Normal Negative [facility] Comment on above: Order Comment: Speci men Type: URINE SPECIMENOrdering Facility: [facility] Address: [address] [place] [address] Result Comment: Cuto ff threshold at 25 ng/mL. Performed By: #### U TOX2 ####[facility] LABIA [id number] [address] [place] TYPE + SCREEN PRENATALon ABO group Nom (Bld) A [facility] Blood group antibody screen Ql Negative [facility] HIstorical Ab Scr Status Negative [facility] Rh Nom (Bld) Positive [facility] Type and Screen Expiration 06/10/2023 23:59 [facility] ABO A [facility] Comment on above: Order Comment: Speci men Type: BLOOD SPECIMEN [facility] Address: [address] [place] [address] Performed By: #### 5 8410-2 #### [facility] CLIA [id number] [address] [place] [address] HISTORICAL AB SCR STATUS Negative [facility] Comment on above: Order Comment: Speci men Type: BLOOD SPECIMEN [facility] Address: [address] [place] [address] Performed By: #### 5 8410-2 #### [facility] CLIA [id number] [address] [place] [address] [place] Rh Nom (Bld) Positive [facility] Comment on above: Order Comment: Speci men Type: BLOOD SPECIMEN [facility] Address: [address] [place] [address] Performed By: #### 5 8410-2 #### [facility] CLIA [id number] [address] [place] [address] [place] TYPE AND SCREEN EXPIRATION 06/10/2023 23:59 [facility] Comment on above: Order Comment: Speci men Type: BLOOD SPECIMEN [facility] Address: [address] [place] [address] Performed By: #### 5 8410-2 #### [facility] CLIA [id number] [address] [place] [address] [place] VARICELLA ZOSTER IGGon 06-06 VARICELLA ZOSTER IGG, QUAL Positive Normal Positive [facility] Comment on above: Order Comment: Speci men Type: BLOOD SPECIMEN [facility] Address: [address] [place] [address] Result Comment: The result suggests recent or past exposure to Varicella-Zoster virus or chickenpox vaccination or zoster vaccination. Positive result may also be seen due to presence of passively-transferred antibodies. Please correlate with patient's history. Performed By: #### V [id number] #### [facility] CLIA [id number] [facility] STATES OF [facility] LABORATORYOrdered By: Lucina Santiago on 12-13-2021 Albumin BCP dye [Mass/Vol] 4.0 G/dL Invalid Interpretation Code 3.5 - 5.0 G/dL AO ADM SS Albumin/Globulin [Mass ratio] 1.1 {ratio} Invalid Interpretation Code 1.1 - 2.5 ratio AO ADM SS ALP [Catalytic activity/Vol] 73 U/L Invalid Interpretation Code 40 - 135 U/L AO ADM SS ALT With P-5'-P [Catalytic activity/Vol] 26 U/L Invalid Interpretation Code 14 - 59 U/L AO ADM SS AST With P-5'-P [Catalytic activity/Vol] 17 U/L Invalid Interpretation Code 10 - 40 U/L AO ADM SS Bilirubin [Mass/Vol] 0.8 mg/dL Invalid Interpretation Code 0.2 - 1.0 mg/dL AO ADM SS Calcium [Mass/Vol] 9.1 mg/dL Invalid Interpretation Code 8.4 - 10.2 mg/dL AO ADM SS Chloride [Moles/Vol] 102 mmol/L Invalid Interpretation Code 98 - 107 mmol/L AO ADM SS CO2 [Moles/Vol] 26 mmol/L Invalid Interpretation Code 22 - 29 mmol/L AO ADM SS Creatinine [Mass/Vol] 0.81 mg/dL Invalid Interpretation Code 0.55 - 1.02 mg/dL AO ADM SS Electrolyte Balance 12.0 mEq/L Invalid Interpretation Code 4.0 - 15.0 mEq/L AO ADM SS Globulin 3.5 G/dL Invalid Interpretation Code AO ADM SS Glucose [Mass/Vol] 95 mg/dL Invalid Interpretation Code 70 - 105 mg/dL AO ADM SS Lipase [Catalytic activity/Vol] 111 U/L Invalid Interpretation Code 73 - 393 U/L AO ADM SS Potassium [Moles/Vol] 3.8 mmol/L Invalid Interpretation Code 3.5 - 5.1 mmol/L AO ADM SS Protein [Mass/Vol] 7.5 G/dL Invalid Interpretation Code 6.4 - 8.2 G/dL AO ADM SS Sodium [Moles/Vol] 140 mmol/L Invalid Interpretation Code 136 - 145 mmol/L AO ADM SS Urea nitrogen [Mass/Vol] 16 mg/dL Invalid Interpretation Code 7 - 18 mg/dL AO ADM SS Urea nitrogen/Creatinine [Mass ratio] 20 ratio Invalid Interpretation Code 7 - 27 ratio AO ADM SS LABORATORYOrdered By: Tsering Cavanaugh on 12-13-2021 Appearance (U) Slightly Cloudy *ABN* (12/13/21 11:29 AM) Invalid Interpretation Code Clear AO Auto Urine SS Bacteria LM.HPF (Urine sed) [#/Area] 3 /[HPF] Invalid Interpretation Code AO Auto Urine SS Bilirubin Ql (U) Negative (12/13/21 11:29 AM) Invalid Interpretation Code Negative AO Auto Urine SS Color (U) Yellow (12/13/21 11:29 AM) Invalid Interpretation Code AO Auto Urine SS Glucose Test strip (U) [Mass/Vol] Negative Invalid Interpretation Code Negativemg/dL AO Auto Urine SS HCG ( test) Ql Negative (12/13/21 11:29 AM) Invalid Interpretation Code AO Manual Urine SS Hemoglobin Auto test strip (U) [Mass/Vol] Trace *ABN* (12/13/21 11:29 AM) Invalid Interpretation Code Negative AO Auto Urine SS Ketones Ql (U) Negative Invalid Interpretation Code Negativemg/dL AO Auto Urine SS test (u) int Not detected Invalid Interpretation Code AO Manual Urine SS UA Leuk Est Negative (12/13/21 11:29 AM) Invalid Interpretation Code Negative AO Auto Urine SS UA Nitrite Negative (12/13/21 11:29 AM) Invalid Interpretation Code Negative AO Auto Urine SS UA pH 5.5 (12/13/21 11:29 AM) Invalid Interpretation Code 5.0 - 8.0 AO Auto Urine SS UA Protein Negative Invalid Interpretation Code Negativemg/dL AO Auto Urine SS UA RBC 5-10 /HPF Invalid Interpretation Code None Seen/HPF AO Auto Urine SS UA Spec Grav >=1.030 *ABN* (12/13/21 11:29 AM) Invalid Interpretation Code 1.015-1.025 AO Auto Urine SS UA Specimen Type Not Given (12/13/21 11:29 AM) Invalid Interpretation Code AO Auto Urine SS UA Squam Epithelial LOADED /HPF Invalid Interpretation Code None Seen/HPF AO Auto Urine SS UA Urobilinogen 0.2 E.U./dL Invalid Interpretation Code 0.2-1.0E.U./dL AO Auto Urine SS WBC LM.HPF (Urine sed) [#/Area] 0-5 /HPF Invalid Interpretation Code None Seen/HPF AO Auto Urine SS LABORATORYOrdered By: Guerda Carrillo on 12-13-2021 Basophil, Absolute 0.0 103/mcL Invalid Interpretation Code 0.0 - 0.2 10^3/mcL AO Workflow SS Basophils/100 WBC (Bld) 0.2 % Invalid Interpretation Code 0.0 - 2.5 % AO Workflow SS Eosinophil, Absolute 0.0 103/mcL Invalid Interpretation Code 0.0 - 0.4 10^3/mcL AO Workflow SS Eosinophils/100 WBC (Bld) 0.1 % Invalid Interpretation Code 0.0 - 7.0 % AO Workflow SS Erythrocyte distribution width (RBC) [Ratio] 12.5 % Invalid Interpretation Code 11.5 - 14.5 % AO Workflow SS Hematocrit (Bld) [Volume fraction] 39.9 % Invalid Interpretation Code 37.0 - 47.0 % AO Workflow SS Hemoglobin (Bld) [Mass/Vol] 14.0 G/dL Invalid Interpretation Code 12.0 - 16.0 G/dL AO Workflow SS Lymphocyte, Absolute 0.7 103/mcL Invalid Interpretation Code 0.8 - 3.9 10^3/mcL AO Workflow SS Lymphocytes/100 WBC (Bld) 6.8 % Invalid Interpretation Code 10.0 - 50.0 % AO Workflow SS MCH (RBC) [Entitic mass] 28.9 pg Invalid Interpretation Code 27.0 - 31.2 pg AO Workflow SS MCHC 35.1 G/dL Invalid Interpretation Code 33.0 - 37.0 G/dL AO Workflow SS MCV (RBC) [Entitic vol] 82.5 fL Invalid Interpretation Code 80.0 - 94.0 fL AO Workflow SS Monocyte distribution width Auto (Bld) [Entitic vol] 16.78 Invalid Interpretation Code 0.00 - 20.00 AO Workflow SS Comment on above: Result Comment: For ED adult patients suspected of sepsis, MDW<=20.0 does not rule out sepsis or risk of sepsis Monocyte, Absolute 0.6 103/mcL Invalid Interpretation Code 0.2 - 1.0 10^3/mcL AO Workflow SS Monocytes/100 WBC (Bld) 5.5 % Invalid Interpretation Code 1.7 - 13.0 % AO Workflow SS Neutrophil, Absolute 9.2 103/mcL Invalid Interpretation Code 2.9 - 6.2 10^3/mcL AO Workflow SS Neutrophils/100 WBC (Bld) 87.4 % Invalid Interpretation Code 37.0 - 80.0 % AO Workflow SS Platelet Estimate Normal (12/13/21 11:29 AM) Invalid Interpretation Code AO Hematology S Platelet mean volume (Bld) [Entitic vol] 8.1 fL Invalid Interpretation Code 7.4 - 10.4 fL AO Workflow SS Platelets (Bld) [#/Vol] 245 103/mcL Invalid Interpretation Code 130 - 400 10^3/mcL AO Workflow SS RBC (Bld) [#/Vol] 4.83 106/mcL Invalid Interpretation Code 4.20 - 5.40 10^6/mcL AO Workflow SS WBC (Bld) [#/Vol] 10.5 103/mcL Invalid Interpretation Code 4.6 - 10.8 10^3/mcL AO Workflow SS LABORATORYOrdered By: SYSTEM SYSTEM on 12-13-2021 GFR 104 ml/min/1.73sqm Invalid Interpretation Code AO Chemistry S GFR Non- 86 ml/min/1.73sqm Invalid Interpretation Code AO Chemistry S Vital Signs Date Time Vital Sign Value Performing Clinician Facility 01-15-2024 09:52-0400 Body temperature 97.11 [degF] Treatment Wstr Work Phone: [facility] 01-15-2024 09:52-0400 Diastolic blood pressure 85 mm[Hg] Treatment Wstr Work Phone: [facility] 01-15-2024 09:52-0400 Heart rate 107 /min Treatment Wstr Work Phone: [facility] 01-15-2024 09:52-0400 SaO2% (BldA) [Mass fraction] 99 % Treatment Wstr Work Phone: [facility] 01-15-2024 09:52-0400 Systolic blood pressure 125 mm[Hg] Treatment Wstr Work Phone: [facility] 01-12-2024 14:00-0400 Body temperature 98.49 [degF] Treatment Wstr Work Phone: [facility] 01-12-2024 14:00-0400 Diastolic blood pressure 75 mm[Hg] Treatment Wstr Work Phone: [facility] 01-12-2024 14:00-0400 Heart rate 100 /min Treatment Wstr Work Phone: [facility] 01-12-2024 14:00-0400 Respiratory rate 16 /min Treatment Wstr Work Phone: [facility] 01-12-2024 14:00-0400 SaO2% (BldA) [Mass fraction] 98 % Treatment Wstr Work Phone: [facility] 01-12-2024 14:00-0400 Systolic blood pressure 109 mm[Hg] Treatment Wstr Work Phone: [facility] 01-11-2024 09:59-0400 Body mass index (BMI) [Ratio] 33.47 kg/m2 Amanda Venegas MD Work Phone: [facility] 01-11-2024 09:59-0400 Body weight 83.01 kg Amanda Venegas MD Work Phone: [facility] 01-11-2024 09:59-0400 Diastolic blood pressure 70 mm[Hg] Amanda Venegas MD Work Phone: [facility] 01-11-2024 09:59-0400 Systolic blood pressure 120 mm[Hg] Amanda Venegas MD Work Phone: [facility] 01-03-2024 10:55-0400 Body mass index (BMI) [Ratio] 33.29 kg/m2 Cesilia Frias MD Work Phone: [facility] 01-03-2024 10:55-0400 Body weight 82.56 kg Cesilia Frias MD Work Phone: [facility] 01-03-2024 10:55-0400 Diastolic blood pressure 80 mm[Hg] Cesilia Frias MD Work Phone: [facility] 01-03-2024 10:55-0400 Systolic blood pressure 120 mm[Hg] Cesilia Frias MD Work Phone: [facility] 12-28-2023 10:23-0400 Body mass index (BMI) [Ratio] 32.63 kg/m2 Tommy Patel MD Work Phone: [facility] 12-28-2023 10:23-0400 Body weight 80.92 kg Tommy Patel MD Work Phone: [facility] 12-28-2023 10:23-0400 Diastolic blood pressure 80 mm[Hg] Tommy Patel MD Work Phone: [facility] 12-28-2023 10:23-0400 Systolic blood pressure 120 mm[Hg] Tommy Patel MD Work Phone: [facility] 12-22-2023 10:32-0400 Body height 157.5 cm Donovan Kennedy MD Work Phone: [facility] 12-22-2023 10:32-0400 Body mass index (BMI) [Ratio] 32.42 kg/m2 Donovan Kennedy MD Work Phone: [facility] 12-22-2023 10:32-0400 Body weight 80.4 kg Donovan Kennedy MD Work Phone: [facility] 12-22-2023 10:32-0400 Diastolic blood pressure 77 mm[Hg] Donovan Kennedy MD Work Phone: [facility] 12-22-2023 10:32-0400 Heart rate 104 /min Donovan Kennedy MD Work Phone: [facility] 12-22-2023 10:32-0400 SaO2% (BldA) [Mass fraction] 100 % Donovan Kennedy MD Work Phone: [facility] 12-22-2023 10:32-0400 Systolic blood pressure 117 mm[Hg] Donovan Kennedy MD Work Phone: [facility] 09-27-2023 10:52-0400 Body height 157.5 cm Jorge Alexander MD Work Phone: [facility] 09-27-2023 10:52-0400 Body mass index (BMI) [Ratio] 29.44 kg/m2 Jorge Alexander MD Work Phone: [facility] 09-27-2023 10:52-0400 Body weight 73 kg Jorge Alexander MD Work Phone: [facility] 09-27-2023 10:52-0400 Diastolic blood pressure 72 mm[Hg] Jorge Alexander MD Work Phone: [facility] 09-27-2023 10:52-0400 Heart rate 88 /min Jorge Alexander MD Work Phone: [facility] 09-27-2023 10:52-0400 SaO2% (BldA) [Mass fraction] 100 % Jorge Alexander MD Work Phone: [facility] 09-27-2023 10:52-0400 Systolic blood pressure 113 mm[Hg] Jorge Alexander MD Work Phone: [facility] 08-28-2023 14:23-0400 Body height 157.5 cm Rogelio Johnson SLASHER.[employer] Work Phone: [facility] 08-28-2023 14:23-0400 Body mass index (BMI) [Ratio] 28.23 kg/m2 Rogelio Johnson SL[employer]ER.[employer] Work Phone: [facility] 08-28-2023 14:23-0400 Body weight 70 kg Rogelio Johnson SLASHER.[employer] Work Phone: [facility] 08-28-2023 14:23-0400 Diastolic blood pressure 73 mm[Hg] Rogelio Johnson SL[employer]ER[employer] Work Phone: [facility] 08-28-2023 14:23-0400 Heart rate 80 /min Rogelio Johnson SL[employer]ER[employer] Work Phone: [facility] 08-28-2023 14:23-0400 SaO2% (BldA) [Mass fraction] 100 % Rogelio Johnson SL[employer]ER.[employer] Work Phone: [facility] 08-28-2023 14:23-0400 Systolic blood pressure 105 mm[Hg] Rogelio Johnson SLASHER.[employer] Work Phone: [facility] 08-13-2023 15:10-0400 Body temperature 98.96 [degF] JAYY REICHFIELD DO [facility] 08-13-2023 15:10-0400 Diastolic Blood Pressure Non-Invasive 71 mm[Hg] JAYY REICHFIELD DO [facility] 08-13-2023 15:10-0400 Heart rate 82 /min JAYY REICHFIELD DO [facility] 08-13-2023 15:10-0400 Reason For Taking VItal Signs JAYY REICHFIELD DO [facility] 08-13-2023 15:10-0400 Respiratory rate 16 /min JAYY REICHFIELD DO [facility] 08-13-2023 15:10-0400 Systolic Blood Pressure Non-Invasive 106 mm[Hg] JAYY REICHFIELD DO [facility] 08-13-2023 11:23-0400 Body temperature 100.4 [degF] JAYY REICHFIELD DO [facility] 08-13-2023 11:23-0400 Diastolic Blood Pressure Non-Invasive 81 mm[Hg] JAYY REICHFIELD DO [facility] 08-13-2023 11:23-0400 Heart rate 109 /min JAYY REICHFIELD DO [facility] 08-13-2023 11:23-0400 Respiratory rate 16 /min JAYY REICHFIELD DO [facility] 08-13-2023 11:23-0400 Systolic Blood Pressure Non-Invasive 124 mm[Hg] JAYY REICHFIELD DO [facility] 08-04-2023 12:26-0400 Body height 157.5 cm Alana Obrien APRN.[employer] Work Phone: [facility] 08-04-2023 12:26-0400 Body mass index (BMI) [Ratio] 29.07 kg/m2 Alana Stockert SL[employer]ER[employer] Work Phone: [facility] 08-04-2023 12:26-0400 Body weight 72.1 kg Alana Stockert SL[employer]ER[employer] Work Phone: [facility] 08-04-2023 12:26-0400 Diastolic blood pressure 70 mm[Hg] Alana Stockert SLASHER.[employer] Work Phone: [facility] 08-04-2023 12:26-0400 Heart rate 86 /min Alana Stockert SL[employer]ER[employer] Work Phone: [facility] 08-04-2023 12:26-0400 SaO2% (BldA) [Mass fraction] 100 % Alana Stockert SL[employer]ER.[employer] Work Phone: [facility] 08-04-2023 12:26-0400 Systolic blood pressure 108 mm[Hg] Alana Stockert SL[employer]ER.[employer] Work Phone: [facility] 07-04-2023 13:01-0400 Body height 157.5 cm Alana Stockert SL[employer]ER[employer] Work Phone: [facility] 07-04-2023 13:01-0400 Body weight 71.22 kg Alana Stockert SL[employer] Work Phone: [facility] 07-04-2023 13:01-0400 Diastolic blood pressure 77 mm[Hg] Alana Stockert SL[employer]ER.[employer] Work Phone: [facility] 07-04-2023 13:01-0400 Heart rate 86 /min Alana Stockert SL[employer]ER[employer] Work Phone: [facility] 07-04-2023 13:01-0400 SaO2% (BldA) [Mass fraction] 100 % Alana Stockert SL[employer] Work Phone: [facility] 07-04-2023 13:01-0400 Systolic blood pressure 115 mm[Hg] Alana Obrien APRN.CNP Work Phone: [facility] 06-07-2023 10:14040 Body height 157.5 cm Jorge Alexander MD Work Phone: [facility] 06-07-2023 10:140400 Body weight 70.44 kg Jorge Alexander MD Work Phone: [facility] 06-07-2023 10:140400 Diastolic blood pressure 78 mm[Hg] Jorge Alexander MD Work Phone: [facility] 06-07-2023 10:14040 Heart rate 92 /min Jorge Alexander MD Work Phone: [facility] 06-07-2023 10:140400 SaO2% (BldA) [Mass fraction] 99 % Jorge Alexander MD Work Phone: [facility] 06-07-2023 10:140400 Systolic blood pressure 117 mm[Hg] Jorge Alexander MD Work Phone: [facility] 02-16-2022 13:17-0500 Body temperature 98.6 [degF] TRENT LOCO MD [facility] 02-16-2022 13:17-0500 Body weight 68 kg TRENT LOCO MD [facility] 02-16-2022 13:17-0500 Diastolic Blood Pressure Non-Invasive 79 1 TRENT LOCO MD [facility] 02-16-2022 13:17-0500 Heart rate 77 /min TRENT LOCO MD [facility] 02-16-2022 13:17-0500 Respiratory rate 16 /min TRENT LOCO MD [facility] 02-16-2022 13:17-0500 Systolic Blood Pressure Non-Invasive 115 1 TRENT LOCO MD [facility] 12-13-2021 12:07-0400 Diastolic blood pressure 64 mm[Hg] JAYY REICHFIELD DO [facility] 12-13-2021 12:07-0400 Heart rate 90 /min JAYY REICHFIELD DO [facility] 12-13-2021 12:07-0400 Respiratory rate 16 /min JAYY REICHFIELD DO [facility] 12-13-2021 12:07-0400 Systolic blood pressure 112 mm[Hg] JAYY REICHFIELD DO [facility] 12-13-2021 11:03-0400 Body height 160 cm JAYY REICHFIELD DO [facility] 12-13-2021 11:03-0400 Body temperature 98.06 [degF] JAYY REICHFIELD DO [facility] 12-13-2021 11:03-0400 Body weight 68.2 kg JAYY REICHFIELD DO [facility] 12-13-2021 11:03-0400 Diastolic blood pressure 79 mm[Hg] JAYY REICHFIELD DO [facility] 12-13-2021 11:03-0400 Heart rate 102 /min JAYY REICHFIELD DO [facility] 12-13-2021 11:03-0400 Respiratory rate 16 /min JAYY REICHFIELD DO [facility] 12-13-2021 11:03-0400 Systolic blood pressure 117 mm[Hg] JAYY REICHFIELD [facility] 01-23-2021 20:58-0400 Diastolic blood pressure 73 mm[Hg] CAIO AYALA MD [facility] 01-23-2021 20:58-0400 Heart rate 124 /min CAIO AYALA MD [facility] 01-23-2021 20:58-0400 Respiratory rate 20 /min CAIO AYALA MD [facility] 01-23-2021 20:58-0400 Systolic blood pressure 122 mm[Hg] CAIO AYALA MD [facility] 01-23-2021 17:24-0400 Body temperature 102.92 [degF] CAIO AYALA MD [facility] 01-23-2021 17:24-0400 Body weight 68 kg CAIO AYALA MD [facility] 01-23-2021 17:24-0400 Diastolic blood pressure 77 mm[Hg] CAIO AYALA MD [facility] 01-23-2021 17:24-0400 Heart rate 132 /min CAIO AYAAL MD [facility] 01-23-2021 17:24-0400 Respiratory rate 20 /min CAIO AYALA MD [facility] 01-23-2021 17:24-0400 Systolic blood pressure 117 mm[Hg] CAIO YAALA MD [facility] Encounters Encounter Date Encounter Type Care Provider Facility Start: 01-15-2024 End: 01-15-2024 Telephone encounter Financial Navigator Chauncey Work Phone: Financial Services Comment on above: Benefits Investigati on Start: 01-15-2024 End: 01-15-[address] Hematology/Oncology Comment on above: Maternal iron defici ency anemia complicating , third trimester (Primary Dx) Start: 01-15-2024 End: 01-15-2024 Patient encounter procedure Treatment Rm 17 Chauncey [facility] Work Phone: Hematology/Oncology Start: 01-12-2024 End: 01-12-[address] Hematology/Oncology Comment on above: Maternal iron defici ency anemia complicating , third trimester (Primary Dx) Start: 01-12-2024 End: 01-12-2024 Patient encounter procedure Treatment Rm 18 Chauncey [facility] Work Phone: Hematology/Oncology Start: 01-12-2024 End: 01-12-2024 Telephone encounter Amanda Venegas MD Work Phone: OB/Gynecology Comment on above: Iron Infusion Start: 01-11-2024 End: 01-11-2024 ambulatory AMANDA VENEGAS Facility:[facility] Start: 01-11-2024 End: 01-11-2024 Patient encounter procedure Amanda Venegas MD Work Phone: OB/Gynecology Comment on above: 39 weeks gestation o f (Primary Dx); Supervision of high risk in third trimester; Anemia affecting in second trimester Start: 01-08-2024 End: 01-08-2024 Telephone encounter Paola Peter RNbiomedical photographer [place] [address] Comment on above: Hematology Start: 01-03-2024 End: 01-03-2024 Office outpatient visit 15 minutes Cesilia Frias MD Work Phone: OB/Gynecology Comment on above: Supervision of high risk in third trimester (Primary Dx); 38 weeks gestation of ; Anemia affecting in second trimester Start: 01-03-2024 End: 01-03-[address] APRN.CNM Work Phone: OB/Gynecology Comment on above: Blood management Start: 01-02-2024 End: 01-02-2024 ambulatory TOMMY PATEL Facility:[facility] Start: 01-01-2024 End: 01-01-2024 ambulatory Holly Flanagan MA [facility] Start: 01-01-2024 End: 01-01-2024 Patient encounter procedure Holly Flanagan MA [facility] Comment on above: Population Health Na vigation Outreach (OB/PEDS ) Start: 12-28-2023 End: 12-28-2023 ambulatory TOMMY PATEL Facility:[facility] Start: 12-28-2023 End: 12-28-2023 Patient encounter procedure Tommy Patel MD Work Phone: OB/Gynecology Comment on above: Supervision of high risk in third trimester (Primary Dx); 37 weeks gestation of ; Anemia affecting in second trimester; Current every day vaping Anemia, unspecified type (Primary Dx) Start: 12-27-2023 End: 12-27-2023 Telephone encounter Didi Spence MD Work Phone: OB/Gynecology Comment on above: Appointment Start: 12-22-2023 End: 12-22-2023 Patient encounter procedure Donovan Kennedy MD Work Phone: [facility]s [facility] Comment on above: Supervision of high risk in third trimester (Primary Dx) Anemia affecting pre gnancy in second trimester Start: 12-22-2023 End: 12-22-2023 ambulatory DONOVAN KENNEDY Facility:[id number] Start: 12-05-2023 End: 12-05-2023 Telephone encounter Alana Obrien SLASHER.W[employer] Work Phone: [facility]s [facility] Gy[facility]cology Comment on above: Appointment Start: 11-07-2023 End: 11-15-2023 Telephone encounter Jorge Alexander MD Work Phone: [facility] Comment on above: Appointment Transfer of Care Start: 2023 Telephone encounter Alana hu SLASHER.WATCHER [employer] Work Phone: [facility] Comment on above: Appointment Start: 09-29-2023 Telephone encounter Alana hu SLASHER.WATCHER [employer] Work Phone: [facility] Comment on above: Results Start: 09-27-2023 End: 09-27-2023 Nursing evaluation of patient and report Nurse Gear Lapper Up Avinash Work Phone: [facility] Comment on above: 24 weeks gestation o f (Primary Dx) Start: 09-27-2023 End: 09-27-2023 ambulatory JORGE ALEXANDER Facility:[id number] Start: 09-27-2023 End: 09-27-2023 Patient encounter procedure Jorge Alexander MD Work Phone: [facility] Comment on above: Current every day va ping (Primary Dx); 24 weeks gestation of ; Supervision of high risk in first trimester Start: 08-31-2023 Telephone encounter Nurse Anton saravia Up [place] Work Phone: [facility] Comment on above: Assistant Manager Bilingual - O ther Start: 08-28-2023 End: 08-28-2023 Subsequent hospital visit by physician [facility] Comment on above: Encounter for anatomic survey [Z36.89] Start: 08-28-2023 End: 08-28-2023 Patient encounter procedure Rogelio Johnson SLASHER.WATCHER [employer] Work Phone: [facility] Comment on above: Supervision of high risk in second trimester (Primary Dx); 20 weeks gestation of ; Overweight; Current every day nicotine vaping; Heartburn during in second trimester Start: 08-28-2023 End: 08-28-2023 ambulatory ROGELIO JOHNSON Facility:[id number] Start: 08-13-2023 End: 08-13-2023 [facility] Start: 08-13-2023 End: 08-13-2023 Emergency department patient visit [facility] Start: 08-09-2023 Telephone encounter Self [facility] Ob[facility]etrics and Gynecology Comment on above: Patient Update Start: 08-04-2023 End: 08-04-2023 Patient encounter procedure Alana Obrien SLASHER.W[employer] Work Phone: [facility] Comment on above: Supervision of high risk in third trimester (Primary Dx); Heartburn during in second trimester; 16 weeks gestation of ; Overweight; Current every day nicotine vaping Start: 08-04-2023 End: 08-04-2023 ambulatory ALANA OBRIEN Facility:[id number] Start: 07-08-2023 Orders Only Delmy Wniston MD Work Phone: [facility] Comment on above: Encounter for anatomic survey (Primary Dx) Start: 07-07-2023 Telephone encounter Nurse Anton saravia Up [place] Work Phone: [facility] Comment on above: Patient Question Start: 07-06-2023 Telephone encounter Alana Mary hu SLASHER.WATCHER [employer] Work Phone: [facility] Gy[facility] Comment on above: Results Start: 07-04-2023 End: 07-04-2023 Patient encounter procedure Alana Obrien SLASHER.WATCH[employer] Work Phone: [facility] Comment on above: Supervision of high risk in third trimester (Primary Dx); 12 weeks gestation of ; Acute vaginitis; Overweight; Current every day nicotine vaping Start: 07-04-2023 End: 07-04-2023 ambulatory ALANAJENNIFER OBRIEN Facility:[id number] Start: 06-26-2023 Telephone encounter Nurse Anton saravia Up [place] Work Phone: [facility] Start: 06-07-2023 End: 06-07-2023 Nursing evaluation of patient and report Nurse Gear Lapper Up [place] Work Phone: [facility] Comment on above: Encounter for pregna ncy test, result positive (Primary Dx) Start: 06-07-2023 Encounter for gynecological examination (general) (routine) without abnormal findings JORGE ALEXANDER [facility] Start: 06-07-2023 End: 06-07-2023 Patient encounter procedure Jorge Alexander MD Work Phone: [facility] Comment on above: Encounter for pregna ncy test, result positive (Primary Dx); Encounter for gynecological examination (general) (routine) without abnormal findings; Current every day vaping; Secondary oligomenorrhea with uncer tain dates in first trimester (Primary Dx); Encounter for test, result positive Start: 06-07-2023 End: 06-07-2023 Patient encounter status Jorge Alexander MD Work Phone: [facility] Work Phone: Start: 06-07-2023 End: 06-07-2023 ambulatory JORGE ALEXANDER Facility:[id number] Start: 06-16-2022 ambulatory LATA RAY Facil ity:[facility] Start: 06-16-2022 End: 06-16-2022 Subsequent hospital visit by physician Provider [facility] Comment on above: DATING Start: 02-16-2022 End: 02-16-2022 Emergency department patient visit TRENT LOCO MD [facility] Start: 01-03-2022 ambulatory HOLLY ANDERSON Facil ity:[facility] Start: 12-13-2021 End: 12-13-2021 Emergency department patient visit JAYY CARDONA DO [facility] Start: 06-03-2021 End: 06-03-2021 Patient encounter procedure KARLY GARNER MD [facility] Start: 01-23-2021 End: 01-23-2021 Emergency department patient visit CAIO AYALA MD [facility] Start: 12-30-2018 End: 12-30-2018 Patient encounter procedure Eliza [facility] Procedures Date Procedure Procedure Detail Performing Clinician Start: 01-11-2024 Urnls dip stick/tabl et rgnt non-auto w/o micrscp Amanda Venegas MD Work Phone: Start: 01-03-2024 Urnls dip stick/tabl et rgnt non-auto w/o micrscp Cesilia Frias MD Work Phone: Start: 12-28-2023 Urnls dip stick/tabl et rgnt non-auto w/o micrscp Tommy Patel MD Work Phone: Start: 12-22-2023 Blood count complete automated Donovan Kennedy MD Work Phone: Start: 08-28-2023 Us preg uterus after 1st trimest 03/27 gestation Delmy Winston MD Work Phone: Start: 07-04-2023 BACTERIAL VAGINOSIS NAAT Alana Stockert SLASHER.WATCHER [employer] Work Phone: Start: 07-04-2023 Iadna trichomonas vaginalis amplified probe tech Alana Stockert SLASHER.WATCH[employer] Work Phone: Start: 06-07-2023 Urine test visual color cmprsn meths Jorge Alexander MD Work Phone: Start: 06-07-2023 Antibody screen JORGE ALEXANDER Comment on above: Order Comment: Speci men Type: BLOOD SPECIMEN Ordering Facility: [facility] Address: [address] [place] [address] Performed By: #### 5 [id number] #### [facility] CLIA [id number] [address] [place] [address] [place] Start: 06-07-2023 End: 06-07-2023 Antibody screen rbc each serum technique Jorge Alexander MD Work Phone: Start: 06-07-2023 Blood count complete automated Jorge Alexander MD Work Phone: Start: 06-07-2023 Us preg uterus after 1st trimest 1/ gestation Jorge Alexander MD Work Phone: Extraction of wisdom tooth W RENNY AYALA MD Comment on above: x4 Plan of Treatment Date Care Activity Detail Author Start: 06-06-2026 Screening for malignant neoplasm of cervix [facility] Start: 02-02-2024 End: 02-02-2024 ambulatory 02/02/2024 10:00 AM EST Visit (SP) Office Hematology/Oncology [address] [place] [address] 2ND FLOOR Hematology/Oncology Comment on above: 2ND FLOOR Start: 01-31-2024 End: 01-31-2024 ambulatory 01/31/2024 1:00 PM EST Visit (SP) Office Hematology/Oncology [address] [place] [address] 2ND FLOOR Hematology/Oncology Comment on above: 2ND FLOOR Start: 01-25-2024 End: 01-25-2024 ambulatory 01/25/2024 10:00 AM EDT Visit (SP) Office Hematology/Oncology [address] [place] [address] 2ND FLOOR Hematology/Oncology Comment on above: 2ND FLOOR Start: 01-23-2024 End: 01-23-2024 ambulatory 01/23/2024 11:00 AM EDT [facility] Center Hematology/Oncology [address] [place] [address] 2ND FLOOR Hematology/Oncology Comment on above: 2ND FLOOR Start: 01-19-2024 End: 01-19-2024 ambulatory 01/19/2024 10:00 AM EDT Visit (SP) Office Hematology/Oncology [address] [place] [address] 2ND FLOOR Hematology/Oncology Comment on above: 2ND FLOOR Start: 01-17-2024 End: 01-17-2024 Patient encounter procedure OB/Gynecology Comment on above: OB iron treatment first -OB Start: 01-15-2024 End: 01-15-2024 ambulatory 01/15/2024 9:30 AM EDT Visit (SP) Office Hematology/Oncology [address] [place] [address] 2ND FLOOR Hematology/Oncology Comment on above: 2ND FLOOR Start: 01-11-2024 End: 01-11-2024 Patient encounter procedure 01/11/2024 9:50 AM EDT Routine Office Visit OB/Gynecology [address] [place] [address] Amanda Venegas MD [address] [place] [address] OB OB/Gynecology Comment on above: OB Start: 01-10-2024 End: 01-10-2024 Patient encounter procedure 01/10/2024 8:00 AM EDT Routine Office Visit [facility] Obstetrics and Gynecology [address] [place] [address] [place], [place] [phone] Rogelio Johnson, SLASHER.[facility] [address] [address] 39 weeks [facility] Ob[facility]etrics and Gynecology Comment on above: 39 weeks Start: 01-03-2024 End: 01-03-2024 Patient encounter procedure 01/03/2024 10:40 AM EDT Routine Office Visit OB/Gynecology [address] [place] [address] Cesilia Frias MD [address] [place] [address] OB OB/Gynecology Comment on above: OB Start: 01-03-2024 End: 01-03-2024 Patient encounter procedure 01/03/2024 8:30 AM EDT Routine Office Visit [facility] Ob[facility]etrics and Gynecology [address] [place] [address] [address] [place], [place] [phone] Lata Ray DO [address] [place] [address] [place] [address] 38 weeks [facility] Ob[facility]etrics [facility] Gynecology Comment on above: 38 weeks Start: 01-02-2024 End: 01-02-2024 ambulatory 01/02/2024 9:30 AM EDT Results Only [place] [facility] [address] [place] [address] Cyndie [facility] Start: 12-29-2023 End: 12-29-2023 Patient encounter procedure [facility]s [facility] Gy[facility] Comment on above: 37 weeks -(transfere d care?) 37 weeks -([facility] to [place] [facility] Start: 12-28-2023 End: 03-28-2024 Ferritin [Mass/volume] in Serum or Plasma [facility] Lab Routine Anemia, unspecified type Expected: 12/28/2023, Expires: 03/28/2024 [facility] Work Phone: Comment on above: Expected: 12/28/2023 , Expires: 03/28/2024 Start: 12-28-2023 End: 03-28-2024 Iron and Iron binding capacity panel - Serum or Plasma IRON AND TIBC Lab Routine 37 weeks gestation of Anemia affecting in second trimester Expected: 12/28/2023, Expires: 03/28/2024 [facility] Work Phone: Comment on above: Expected: 12/28/2023 , Expires: 03/28/2024 Start: 12-28-2023 End: 12-28-2023 Patient encounter procedure [facility] Ob[facility]s [facility] Gy[facility]cology Comment on above: 37 weeks OB - transferring fr om [facility] Start: 12-22-2023 End: 03-22-2024 HIV 1+2 Ab [Presence] in Serum or Plasma by Immunoassay [facility] Comment on above: Expected: 12/22/2023 , Expires: 03/22/2024 Start: 12-22-2023 End: 03-22-2024 SYPHILIS TOTAL W/REFLEX [facility] Work Phone: Comment on above: Expected: 12/22/2023 , Expires: 03/22/2024 Start: 12-22-2023 End: 12-22-2023 Patient encounter procedure [facility] Comment on above: 36 weeks-labs/cultur es/consent Start: 12-05-2023 End: 12-05-2023 Patient encounter procedure [facility] Comment on above: 34 weeks Start: 11-26-2023 Covid-19 Vaccine ( season) Covid-19 Vaccine ( season) [facility] Start: 11-26-2023 Covid-19 Vaccine () Covid-19 Vaccine () [facility] Start: 11-26-2023 Influenza vaccination [facility] Start: 11-26-2023 RSV Vaccine (1 - Ris k 1-dose series) RSV Vaccine (1 - Risk 1-dose series) [facility] Start: 11-21-2023 End: 11-21-2023 Patient encounter procedure 11/21/2023 8:00 AM EDT Routine Office Visit [facility]s [facility]necology [address] [place] [address] [address] [place] [phone] Rogelio Johnson, SLASHER.[address] [place] [address] 32 weeks [facility] Comment on above: 32 weeks Start: 11-07-2023 End: 11-07-2023 Patient encounter procedure 11/07/2023 8:15 AM EDT Routine Office Visit [facility]s [facility] Gynecology [address] [place] [address] [place] [address] Jorge Alexander MD [address] [place] [address] [place] [address] 30 weeks [facility] Comment on above: 30 weeks Start: 2023 End: 2023 Patient encounter procedure 2023 8:00 AM EDT Routine Office Visit [facility] [address] [place] [address] [address] [place] [address] [phone] Alana Obrien, SLASHER.[address] [place] [phone]- 28 weeks-wants tdap [facility] Comment on above: 28 weeks-wants tdap Start: 09-26-2023 End: 09-26-2023 Nursing evaluation of patient and report 09/26/2023 1:00 PM EDT Nurse Visit [facility] [address] [place], [place] [phone] [place], Nurse Gear Lapper Up [address] [place], [place] [phone] 1hr gtt [facility] Comment on above: 1hr gtt Start: 09-26-2023 End: 09-26-2023 Patient encounter procedure [facility] Comment on above: 24 weeks Start: 08-28-2023 End: 08-28-2023 Patient encounter procedure [facility] Comment on above: 20 weeks anatomy Start: 07-08-2023 End: 07-07-2024 OBSTETRIC ULTRASOUND WHI OBSTETRIC ULTRASOUND WHI Anc Imaging Routine Encounter for anatomic survey Expected: 07/08/2023, Expires: 07/07/2024 [facility] Work Phone: Comment on above: Expected: 07/08/2023 , Expires: 07/07/2024 Start: 03-27-2023 Behavioral Health Screening Behavioral Health Screening [facility] Start: 03-27-2023 Depression Assessment Depression Ass essment [facility] Start: 11-25-2022 Covid-19 Vaccine () Covid-19 Vaccine () [facility] Start: 11-25-2022 Influenza vaccination Influenza Vacc ine (#1) [facility] Start: 03-27-2022 Depression Assessment Depression Ass essment [facility] Start: 07-27-2020 Urine microalbumin profile DTaP,Tdap,Td Vaccine (6 - Td or Tdap) [facility] Start: 2017 Pap Testing Pap Testing [facility] Start: 2017 Screening for malignant neoplasm of cervix Pap Testing [facility] Start: 10-24-2015 Urine microalbumin profile DTaP,Tdap,Td Vaccine (1 - Tdap) [facility] Start: 2014 Anxiety Screening Anxiety Screening [facility] Start: 2014 Depression Screening Depression Scre ening [facility] Start: 2014 Hepatitis C Screening Hepatitis C [facility] Start: 2014 Hepatitis C screening Hepatitis C [facility] Start: 2014 HIV Screening HIV Screening [facility] Start: 2014 HIV screening HIV Screening [facility] Start: 2010 Peds To Adult Transition Annual Assessment Peds To Adult Transition Annual Assessment [facility] Start: 2008 Peds To Adult Transition Initial Discussion Peds To Adult Transition Initial Discussion [facility] Start: 2005 HPV Vaccine (1 - 2-dose series) HPV Vaccine (1 - 2-dose series) [facility] Start: 04-25-1997 Covid-19 Vaccine (#1) Covid-19 Vacci ne (#1) [facility] Start: 1996 Hepatitis B Vaccine (1 of 3 - 3-dose series) Hepatitis B Vaccine (1 of 3 - 3-dose series) [facility] Bacteria identified in Urine by Culture URINE CULTURE Microbiology Routine Encounter for test, result positive 06/07/2023 10:43 AM [facility] Work Phone: Chlamydia trachomatis+Neisseria gonorrhoeae DNA [Presence] in Unspecified specimen by SHEREEN with probe detection GONORRHEA/CHLAMYDIA NAAT Lab Routine Encounter for test, result positive 06/07/2023 10:43 AM [facility] Work Phone: Chlamydia trachomatis+Neisseria gonorrhoeae DNA [Presence] in Unspecified specimen by SHEREEN with probe detection GONORRHEA/CHLAMYDIA NAAT Lab Routine Supervision of high risk in third trimester 12/22/2023 11:00 AM [facility] Hepatitis B virus surface Ag [Presence] in Serum HEP B SURF AG SCRN Lab Routine Encounter for test, result positive 06/07/2023 11:12 AM [facility] Work Phone: Hepatitis C virus Ab [Presence] in Serum HEPATITIS C ANTIBODY IA WITH CONFIRMATION Lab Routine Encounter for test, result positive 06/07/2023 11:12 AM [facility] Work Phone: HIV 1+2 Ab [Presence ] in Serum or Plasma by Immunoassay HIV 1 2 COMBO(AG/AB),WITH REFLEX TO DIFFERENTIATION Lab Routine Encounter for test, result positive 06/07/2023 11:12 AM [facility] Work Phone: PAP TEST PAP TEST Lab [place] Encounter for test, result positive Ordered: 06/07/2023 [facility] Work Phone: Comment on above: Ordered: 06/07/2023 ROUTINE, GROUP B STREP PCR ROUTINE, GROUP B STREP PCR Microbiology Routine Supervision of high risk in third trimester 12/22/2023 11:00 AM [facility] RUBELLA IGG AB RUBELLA IGG AB L ab Routine Encounter for test, result positive 06/07/2023 11:12 AM [facility] Work Phone: SYPHILIS TOTAL W/REFLEX SYPHILIS TOTAL W/REFLEX Lab Routine Encounter for test, result positive 06/07/2023 11:12 AM [facility] Work Phone: VARICELLA ZOSTER IGG VARICELLA Z ETHAN IGG Lab Routine Encounter for test, result positive 06/07/2023 11:12 AM [facility] [facility] Work Phone: [facility] Immunizations Immunization Date Immunization Notes Care Provider Vir[facility] 01-11-2018 influenza, injectabl e, quadrivalent, preservative free Jorge Alexander MD Work Phone: [facility] 01-11-2018 influenza virus vacc ine, unspecified formulation Jorge Alexander MD Work Phone: [facility] 09-17-2014 hepatitis A vaccine, pediatric/adolescent dosage, 2 dose schedule Jorge Alexander MD Work Phone: [facility] 09-17-2014 hepatitis B vaccine, pediatric or pediatric/adolescent dosage Jorge Alexander MD Work Phone: [facility] 09-17-2014 HPV, unspecified formulation Jorge Alexander MD Work Phone: [facility] 09-17-2014 meningococcal ACWY vaccine, unspecified formulation Jorge Alexander MD Work Phone: [facility] 09-17-2014 varicella virus vaccine Santosh Alexander MD Work Phone: [facility] 07-27-2010 hepatitis A vaccine, pediatric/adolescent dosage, 2 dose schedule Jorge Alexander MD Work Phone: [facility] 07-27-2010 human papilloma viru s vaccine, quadrivalent Jorge Alexander MD Work Phone: [facility] 07-27-2010 meningococcal polysaccharide (groups A, C, Y and W-135) diphtheria toxoid conjugate vaccine (MCV4P) Jorge Alexanedr MD Work Phone: [facility] 07-27-2010 tetanus toxoid, redu leslie diphtheria toxoid, and acellular pertussis vaccine, adsorbed Jorge Alexander MD Work Phone: [facility] 11-12-2001 diphtheria, tetanus toxoids and acellular pertussis vaccine, unspecified formulation Jorge Alexander MD Work Phone: [facility] 11-12-2001 measles, mumps and rubella virus vaccine Jorge Alexander MD Work Phone: [facility] 11-12-2001 poliovirus vaccine, inactivated Jorge Alexander MD Work Phone: [facility] 11-09-2000 diphtheria, tetanus toxoids and acellular pertussis vaccine, unspecified formulation Jorge Alexander MD Work Phone: [facility] 11-09-2000 haemophilus influenz ae type b vaccine, conjugate unspecified formulation Jorge Alexander MD Work Phone: [facility] 11-12-1997 measles, mumps and rubella virus vaccine Jorge Alexander MD Work Phone: [facility] 07-23-1997 diphtheria and tetan us toxoids, adsorbed for pediatric use Jorge Alexander MD Work Phone: [facility] 07-23-1997 haemophilus influenz ae type b vaccine, conjugate unspecified formulation Jorge Alexander MD Work Phone: [facility] 07-23-1997 hepatitis B vaccine, pediatric or pediatric/adolescent dosage Jorge Alexander MD Work Phone: [facility] 07-23-1997 poliovirus vaccine, unspecified formulation Jorge Alexander MD Work Phone: [facility] 04-22-1997 diphtheria and tetan us toxoids, adsorbed for pediatric use Jorge Alexander MD Work Phone: [facility] 04-22-1997 haemophilus influenz ae type b vaccine, conjugate unspecified formulation Jorge Alexander MD Work Phone: [facility] 04-22-1997 poliovirus vaccine, unspecified formulation Jorge Alexander MD Work Phone: [facility] 01-22-1997 diphtheria and tetan us toxoids, adsorbed for pediatric use Jorge Alexander MD Work Phone: [facility] 01-22-1997 haemophilus influenz ae type b vaccine, conjugate unspecified formulation Jorge Alexander MD Work Phone: [facility] 01-22-1997 poliovirus vaccine, unspecified formulation Jorge Alexander MD Work Phone: [facility] 1995 hepatitis B vaccine, pediatric or pediatric/adolescent dosage Jorge Alexander MD Work Phone: [facility] 1995 hepatitis B vaccine, pediatric or pediatric/adolescent dosage Jorge Alexander MD Work Phone: [facility] Payers Date Payer Category Payer Medicaid [id number] 2022 Unknown [id number] 1995 Unknown [id number] Self-pay Unknown [id number] Social History Date Type Detail Facility Tobacco smoking status VTIS Unknown if ever smoked [facility] Work Phone: Start: 1995 Sex Assigned At Female [facility] Work Phone: Tobacco Nicotine Use: Va ping Product in Last 90 Days. Type: Cigarettes. Started at age: 23 Years. [facility] Sex Assigned At [facility] Tobacco smoking status [facility] Tobacco smoking consumption unknown [facility] Start: 1995 Sex Assigned At Not on file [facility] Start: 06-07-2023 End: 12-22-2023 Gender identity Not on file [facility] Start: 06-07-2023 Tobacco smoking status VTIS Never smoked tobacco [facility] Start: 06-07-2023 Tobacco use and exposure Smokeless tobacco non-user [facility] Start: 06-07-2023 End: 01-11-2024 Alcohol intake Lifetime non-drinker (finding) [facility] Start: 06-07-2023 End: 12-22-2023 History of Social function [facility] Start: 04-23-2023 [facility] National Score (1-100), lower number is lower risk 71 [facility] Goals Date Patient Goal Desired Activity /State Functional Status Date Assessment Result Facility 08-13-2023 Functional Status Standard Safet y ID band on, Call device within reach, Bed in low position, Wheels locked, Bedside Cart Locked, Visitor at bedside, Safety level maintained [facility] 08-13-2023 Functional Status [place] [facility] 02-16-2022 Functional Status Standard Safet y ID band on, Call device within reach, Bed in low position, Wheels locked, Upper/Half-Length side-rails up, Bedside Cart Locked, Safety level maintained [facility] 12-13-2021 Functional Status Standard Safet y ID band on, Call device within reach, Bed in low position, Wheels locked, Upper/Half-Length side-rails up, Bedside Cart Locked, Safety level maintained [facility] Mental Status Date Assessment Result Facility 08-13-2023 Mental Status Orientation Oriented x 4 [facility] 08-13-2023 Mental Status [facility] 02-16-2022 Mental Status Orientation Oriented x 4 [facility] 12-13-2021 Mental Status Orientation Oriented x 4 [facility] Clinical Notes 01-23-2021 to 01-15-2024 Telephone Encounter - Xiang Mcconnell - 01/15/2024 10:55 AM EDTTelephone Encounter - Xiang Mcconnell - 01/15/2024 10:55 AM EDTTelephone Encounter - Hannah Yap RN - 01/12/2024 10:11 AM EDT Note Date & Type Note Facility 01-15-2024 Miscellaneous Notes The patient is active with [employer] Medicaid, LOC 100%, $0.00 deductible has $0.00 remaining, $0.00 OOP has $0.00 remaining. An estimate shows the patient's financial responsibility is $0.00 for each treatment in 2023 since there is no O-O-P max to be reached. The patient does not have a cancer diagnosis or a chemo/radiation regimen. No further Financial Navigator intervention is needed at this time. documented in this encounter [facility] 01-15-2024 Telephone encounter Note The patient is active with [email or web address] Medicaid, LOC 100%, $0.00 deductible has $0.00 remaining, $0.00 OOP has $0.00 remaining. An estimate shows the patient's financial responsibility is $0.00 for each treatment in 2023 since there is no O-O-P max to be reached. The patient does not have a cancer diagnosis or a chemo/radiation regimen. No further Financial Navigator intervention is needed at this time. [facility] 01-12-2024 Telephone encounter Note Spoke to patient and she is able to come today. Her 2nd infusion is also scheduled for Sunday 01/14 too. [place] notified. Hannah Yap RN [facility] 01-12-2024 Miscellaneous Notes Spoke to patient and she is able to come today. Her 2nd infusion is also scheduled for Sunday 01/14 too. [place] notified. Hannah Yap RN 39w5d Saw JUAN yesterday and provider wanted iron infusions done poornima d/t being 39 weeks already. Per Nehemias could add on today at 2pm. Left detailed message on identified voicemail for patient to call back poornima to see if she is able to come in today. Will need to let [place] know. Hannah Yap RN documented in this encounter [facility] 01-12-2024 Telephone encounter Note 39w5d Saw JUAN yesterday and provider wanted iron infusions done poornima d/t being 39 weeks already. Per Nehemias could add on today at 2pm. Left detailed message on identified voicemail for patient to call back poornima to see if she is able to come in today. Will need to let [place] know. Hannah Yap RN [facility] 01-11-2024 Progress note Formatting of t his note might be different from the original. KJ - VB No. LOF No. CTXS Yes - irregular. Movement: present. Other c/o: No. Medication list reviewed. Physical Exam See Flow Sheet Gen: no accute distress, well appearing Abd: soft, nontender, gravid A/P 39w4d Estimated Date of Delivery: 01/14/24 Anemia - Iron infusions need scheduled POORNIMA. Patient declines scheduling IOL at this time. Follow up early next week if needed. Labor precautions reviewed, Kick counts reviewed. Amanda Venegas MD [facility] 01-11-2024 Miscellaneous Notes KJ - VB No. LOF No. CTXS Yes - irregular. Movement: present. Other c/o: No. Medication list reviewed. Physical Exam See Flow Sheet Gen: no accute distress, well appearing Abd: soft, nontender, gravid A/P 39w4d Estimated Date of Delivery: 01/14/24 Anemia - Iron infusions need scheduled POORNIMA. Patient declines scheduling IOL at this time. Follow up early next week if needed. Labor precautions reviewed, Kick counts reviewed. Amanda Venegas MD documented in this encounter [facility] 01-11-2024 Instructions Tanvi Manzanares MA - 01/11/2024 9:55 AM EDT SEQUENTIAL SCREENINGS The [facility] offers sequential screenings for women who are interested in screenings for chromosomal abnormalities and certain defects during a . The sequential screen combines ultrasound and blood tests to determine the risk of chromosomal abnormalities, including Down's Syndrome (Trisomy 21) and Trisomy 18, as well as open neural tube defects including spina bifida. Ultrasound examination is performed between 11 weeks and 13 weeks gestational age. Blood tests are drawn after the ultrasound and again later in the between 15 and 21 weeks gestational age. Please let your physician know if you are interested in this testing. It will require an appointment with our geodetic technician. This is not an ultrasound performed by a physician in our office during a routine visit. SIGNS AND SYMPTOMS OF LABOR 1. Contractions every 10 minutes or more often 2. Clear, pink, or brownish fluid (water) leaking from vagina 3. Feeling that baby is pushing down, pressure 4. Low, dull backache 5. Cramps that feel like a period 6. Cramps with or without diarrhea If you notice any of the above symptoms, contact our office at [phone] and ask to speak with a nurse. After hours, you can call [employer] registry at [phone] OR call [facility] at [phone] and ask to have the doctor national business director paged. If you consider this an emergency, dial or go to your nearest emergency department. NEED HELP? Are you dealing with a violent or abusive relationship? Are you a victim of rape or sexual assult? Call [facility] ([place]) 24 hour Crisis Hotline: 293.305.7988 or 655-845-5703. MANUAL Your Guide to a Healthy manual is now on-line. Visit [email or web address] to download your free copy documented in this encounter [facility] 01-08-2024 Telephone encounter Note Treatment plan signed and PA approved. Ready to schedule Venofer 200 mg IV x 3 doses [facility] 01-08-2024 Miscellaneous Notes Treatment plan signed and PA approved. Ready to schedule Venofer 200 mg IV x 3 doses documented in this encounter [facility] 01-05-2024 Note HNO ID: [id number] Author: HOLLY FLANAGAN MA Service: ? Author Type: Computer Forensic Specialist Type: Progress Notes Filed: 01/05/2024 11:38 Note Text: POPULATION HEALTH NAVIGATION OUTREACH Action/FYI 3rd attempt- Called and updated OB/PEDS field. OB/PEDS Reason for Outreach Medicaid OB/Peds Care Gaps due: N/A Patient Contacted: Spoke to patient/parent/or legal guardian Patient identified by name and : Yes Medicaid OB/Peds actions taken: /[employer] Driver added Navigation Signature: Holly Flanagan MA January 05, 2024 11:33 AM [facility] 01-03-2024 Progress note Formatting of t his note might be different from the original. S: Beth Vincent is a 28 year old female who presents at 01/14/2024, by Ultrasound for a routine visit. Denies headache, visual changes, chest pain, shortness of breath, vaginal bleeding, leakage of fluid, or dysuria. Feeling well, no complaints. Good movement, No contractions O: See flow sheet Gen: No apparent distress Abd: Gravid, nontender ASSESSMENT/PLAN: 1. Supervision of high risk in third trimester - ICD9: V23.9, ICD10: O09.93 (primary diagnosis) Labor precautions 2. 38 weeks gestation of - ICD9: V22.2, ICD10: Z3A.38 - URINE OB DIP B/O 3. Anemia affecting in second trimester - ICD9: 648.23, 285.9, ICD10: O99.012 Referral placed for blood management last week Cesilia Frias MD [facility] 01-03-2024 Miscellaneous Notes S: Beth Vincent is a 28 year old female who presents at 01/14/2024, by Ultrasound for a routine visit. Denies headache, visual changes, chest pain, shortness of breath, vaginal bleeding, leakage of fluid, or dysuria. Feeling well, no complaints. Good movement, No contractions O: See flow sheet Gen: No apparent distress Abd: Gravid, nontender ASSESSMENT/PLAN: 1. Supervision of high risk in third trimester - ICD9: V23.9, ICD10: O09.93 (primary diagnosis) Labor precautions 2. 38 weeks gestation of - ICD9: V22.2, ICD10: Z3A.38 - URINE OB DIP B/O 3. Anemia affecting in second trimester - ICD9: 648.23, 285.9, ICD10: O99.012 Referral placed for blood management last week Cesilia Frias MD documented in this encounter [facility] 01-03-2024 Note HNO ID: [id number] Author: PAOLA PETER RN Service: ? Author Type: Registered Nurse Type: Progress Notes Filed: 01/03/2024 12:10 Note Text: Patient referred to Blood Management for evaluation and treatment of pre-surgical anemia and/or iron deficiency. Non-surgical: anemia in Date of surgery: NA Medical/Surgical History: PAST MEDICAL HISTORY Diagnosis Date NEGATIVE MEDICAL HISTORY PAST SURGICAL HISTORY Procedure Laterality Date REPAIR UMBILICAL HERNIA N/A 2021 Other significant Medical/Surgical history: - None Current Outpatient Medications Medication Sig OMEPRAZOLE ORAL Take by mouth. ferrous sulfate 325 mg (65 mg iron) tablet Take 1 tablet by mouth two times a day. acyclovir (ZOVIRAX) 200 mg capsule take 1 capsule by mouth five times a day for 7 days (Patient not taking: Reported on 08/28/2023) ergocalciferol, vitamin D2, (VITAMIN D2 ORAL) Take by mouth. No current facility-administered medications for this visit. Current medications that may affect iron absorption and/or blood loss: - Antacids (H2 receptor blockers, PPI) Baseline laboratory values: WBC (k/uL) Date Value 12/22/2023 8.88 RBC (m/uL) Date Value 12/22/2023 4.20 Hemoglobin (g/dL) Date Value 12/22/2023 8.6 (L) Hematocrit (%) Date Value 12/22/2023 29.9 (L) MCV (fL) Date Value 12/22/2023 71.2 (L) MCH (pg) Date Value 12/22/2023 20.5 (L) MCHC (g/dL) Date Value 12/22/2023 28.8 (L) RDW-CV (%) Date Value 12/22/2023 15.9 (H) Platelet Count (k/uL) Date Value 12/22/2023 274 MPV (fL) Date Value 12/22/2023 10.9 Iron Date Value Ref Range Status 01/02/2024 21 (L) 41 - 186 ug/dL Final TIBC Date Value Ref Range Status 01/02/2024 >521 (H) 232 - 386 ug/dL Final Ferritin Date Value Ref Range Status 01/02/2024 5.7 (L) 14.7 - 205.1 ng/mL Final Transferrin Saturation Date Value Ref Range Status 01/02/2024 <4.0 (L) 15.0 - 57.0 % Final Assess for the need to augment a patient?s natural red blood cell production: - Blood transfusion avoidance - Iron depletion Recommendations according to Blood Management patient care guidelines: - Iron Sucrose 300 mg, IV infusion, dose(s) 3 total iron deficit using Ganzoni equation = 903 mg (pre- wt 70 kg/goal hgb 11 g/dL) Clinical information is sent to a provider for review and evaluation for treatment. [facility] 01-03-2024 History of Presen t illness Narrative Patient referred to Blood Management for evaluation and treatment of pre-surgical anemia and/or iron deficiency. Non-surgical: anemia in Date of surgery: NA Medical/Surgical History: PAST MEDICAL HISTORY Diagnosis Date NEGATIVE MEDICAL HISTORY PAST SURGICAL HISTORY Procedure Laterality Date REPAIR UMBILICAL HERNIA N/A 2021 Other significant Medical/Surgical history: - None Current Outpatient Medications Medication Sig OMEPRAZOLE ORAL Take by mouth. ferrous sulfate 325 mg (65 mg iron) tablet Take 1 tablet by mouth two times a day. acyclovir (ZOVIRAX) 200 mg capsule take 1 capsule by mouth five times a day for 7 days (Patient not taking: Reported on 08/28/2023) ergocalciferol, vitamin D2, (VITAMIN D2 ORAL) Take by mouth. No current facility-administered medications for this visit. Current medications that may affect iron absorption and/or blood loss: - Antacids (H2 receptor blockers, PPI) Baseline laboratory values: WBC (k/uL) Date Value 12/22/2023 8.88 RBC (m/uL) Date Value 12/22/2023 4.20 Hemoglobin (g/dL) Date Value 12/22/2023 8.6 (L) Hematocrit (%) Date Value 12/22/2023 29.9 (L) MCV (fL) Date Value 12/22/2023 71.2 (L) MCH (pg) Date Value 12/22/2023 20.5 (L) MCHC (g/dL) Date Value 12/22/2023 28.8 (L) RDW-CV (%) Date Value 12/22/2023 15.9 (H) Platelet Count (k/uL) Date Value 12/22/2023 274 MPV (fL) Date Value 12/22/2023 10.9 Iron Date Value Ref Range Status 01/02/2024 21 (L) 41 - 186 ug/dL Final TIBC Date Value Ref Range Status 01/02/2024 >521 (H) 232 - 386 ug/dL Final Ferritin Date Value Ref Range Status 01/02/2024 5.7 (L) 14.7 - 205.1 ng/mL Final Transferrin Saturation Date Value Ref Range Status 01/02/2024 <4.0 (L) 15.0 - 57.0 % Final Assess for the need to augment a patient s natural red blood cell production: - Blood transfusion avoidance - Iron depletion Recommendations according to Blood Management patient care guidelines: - Iron Sucrose 300 mg, IV infusion, dose(s) 3 total iron deficit using Ganzoni equation = 903 mg (pre- wt 70 kg/goal hgb 11 g/dL) Clinical information is sent to a provider for review and evaluation for treatment. documented in this encounter [facility] 01-03-2024 Instructions Elaine Cabral MA - 01/03/2024 10:48 AM EDT SEQUENTIAL SCREENINGS The [facility] offers sequential screenings for women who are interested in screenings for chromosomal abnormalities and certain defects during a . The sequential screen combines ultrasound and blood tests to determine the risk of chromosomal abnormalities, including Down's Syndrome (Trisomy 21) and Trisomy 18, as well as open neural tube defects including spina bifida. Ultrasound examination is performed between 11 weeks and 13 weeks gestational age. Blood tests are drawn after the ultrasound and again later in the between 15 and 21 weeks gestational age. Please let your physician know if you are interested in this testing. It will require an appointment with our geodetic technician. This is not an ultrasound performed by a physician in our office during a routine visit. SIGNS AND SYMPTOMS OF LABOR 1. Contractions every 10 minutes or more often 2. Clear, pink, or brownish fluid (water) leaking from vagina 3. Feeling that baby is pushing down, pressure 4. Low, dull backache 5. Cramps that feel like a period 6. Cramps with or without diarrhea If you notice any of the above symptoms, contact our office at [phone] and ask to speak with a nurse. After hours, you can call doctors registry at [phone] OR call [facility] at [phone] and ask to have the doctor national business director paged. If you consider this an emergency, dial or go to your nearest emergency department. NEED HELP? Are you dealing with a violent or abusive relationship? Are you a victim of rape or sexual assult? Call [facility] ([place]) 24 hour Crisis Hotline: 145.178.8165 or 772-338-0668. MANUAL Your Guide to a Healthy manual is now on-line. Visit [email or web address] [email or web address] to download your free copy documented in this encounter [facility] 01-01-2024 Note HNO ID: [id number] Author: HOLLY FLANAGAN MA Service: ? Author Type: Computer Forensic Specialist Type: Progress Notes Filed: 01/01/2024 15:09 Note Text: POPULATION HEALTH NAVIGATION OUTREACH Action/FYI Called and spoke to patient and she states that she doesnt have a pediatrican picked out yet. Would like information sent to her via [employer]. Agreed to have me contact her later this week. I also reset patient's password on [employer] and patient understands that she needs to go in and change it. Marcandi message sent per patient request. OB/PEDS Reason for Outreach Medicaid OB/Peds Care Gaps due: N/A Patient Contacted: Spoke to patient/parent/or legal guardian Patient identified by name and : Yes Medicaid OB/Peds actions taken: Patient declined: Patient requested call back / will call back ([employer] Sent) Navigation Signature: Holly Flanagan MA January 01, 2024 3:07 PM [facility] 01-01-2024 History of Presen t illness Narrative POPULATION HEALTH NAVIGATION OUTREACH Action/FYI Called and spoke to patient and she states that she doesnt have a pediatrican picked out yet. Would like information sent to her via [employer]. Agreed to have me contact her later this week. I also reset patient's password on [employer] and patient understands that she needs to go in and change it. [employer] message sent per patient request. OB/PEDS Reason for Outreach Medicaid OB/Peds Care Gaps due: N/A Patient Contacted: Spoke to patient/parent/or legal guardian Patient identified by name and : Yes Medicaid OB/Peds actions taken: Patient declined: Patient requested call back / will call back ([employer] Sent) Navigation Signature: Holly Flanagan MA January 01, 2024 3:07 PM documented in this encounter [facility] 01-01-2024 Note Patient Outreach (NE TNAV) BETH VINCENT ([id number]) 1995 F Date Time Provider Department 01/01/24 HOLLY FLANAGAN During your visit today, we recorded the following information about you: Holly Flanagan MA 01/01/2024 3:09 PM Signed POPULATION [place] NAVIGATION OUTREACH Action/FYI Called and spoke to patient and she states that she doesnt have a pediatrican picked out yet. Would like information sent to her via [employer]. Agreed to have me contact her later this week. I also reset patient's password on [employer] and patient understands that she needs to go in and change it. [employer] message sent per patient request. OB/PEDS Reason for Outreach Medicaid OB/Peds Care Gaps due: N/A Patient Contacted: Spoke to patient/parent/or legal guardian Patient identified by name and : Yes Medicaid OB/Peds actions taken: Patient declined: Patient requested call back / will call back ([employer] Sent) Navigation Signature: Holly Flanagan MA January 01, 2024 3:07 PM Holly Flanagan MA 01/05/2024 11:38 AM Signed POPULATION HEALTH NAVIGATION OUTREACH Action/FYI 3rd attempt- Called and updated OB/PEDS field. 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 - ferrous sulfate 325 mg (65 mg iron) tablet Take 1 tablet by mouth two times a day. - acyclovir (ZOVIRAX) 200 mg capsule take 1 capsule by mouth five times a day for 7 days - ergocalciferol, vitamin D2, (VITAMIN D2 ORAL) Take by mouth. 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 SW- Pt transferred care from [place] based on proximity to [facility]. She offers no complaints today. Reports has been uncomplicated. Working on quitting vaping. No ctx, vb, lof. Good FM PE: Gen- NAD, well appearing Abd- Soft, gravid, NT, S=D See flowsheet A/p 37 wk gestation - Working on quitting vaping - GBS negative - Anemia: Pt feels sick with oral iron. Hgb 8.6. Order for iron studies and blood management referral - Weekly visits Tommy Patel DO [facility] 12-28-2023 Miscellaneous Notes SW- Pt transferred care from [place] based on proximity to [facility]. She offers no complaints today. Reports has been uncomplicated. Working on quitting vaping. No ctx, vb, lof. Good FM PE: Gen- NAD, well appearing Abd- Soft, gravid, NT, S=D See flowsheet A/p 37 wk gestation - Working on quitting vaping - GBS negative - Anemia: Pt feels sick with oral iron. Hgb 8.6. Order for iron studies and blood management referral - Weekly visits Tommy Patel DO documented in this encounter [facility] 12-28-2023 Instructions Holly Pool MA - 12/28/2023 10:16 AM EDT SEQUENTIAL SCREENINGS The [facility] offers sequential screenings for women who are interested in screenings for chromosomal abnormalities and certain defects during a . The sequential screen combines ultrasound and blood tests to determine the risk of chromosomal abnormalities, including Down's Syndrome (Trisomy 21) and Trisomy 18, as well as open neural tube defects including spina bifida. Ultrasound examination is performed between 11 weeks and 13 weeks gestational age. Blood tests are drawn after the ultrasound and again later in the between 15 and 21 weeks gestational age. Please let your physician know if you are interested in this testing. It will require an appointment with our geodetic technician. This is not an ultrasound performed by a physician in our office during a routine visit. SIGNS AND SYMPTOMS OF LABOR 1. Contractions every 10 minutes or more often 2. Clear, pink, or brownish fluid (water) leaking from vagina 3. Feeling that baby is pushing down, pressure 4. Low, dull backache 5. Cramps that feel like a period 6. Cramps with or without diarrhea If you notice any of the above symptoms, contact our office at [phone] and ask to speak with a nurse. After hours, you can call doctors registry at [phone] OR call [facility] at [phone] and ask to have the doctor national business director paged. If you consider this an emergency, dial 9--1 or go to your nearest emergency department. NEED HELP? Are you dealing with a violent or abusive relationship? Are you a victim of rape or sexual assult? Call [facility] ([place]) 24 hour Crisis Hotline: 913.851.9571 or 798-354-2031. MANUAL Your Guide to a Healthy manual is now on-line. Visit [email or web address] to download your free copy documented in this encounter [facility] 12-27-2023 Telephone encounter Note Patient called back and scheduled for tomorrow. Hannah Yap RN [facility] 12-27-2023 Miscellaneous Notes Patient called back and scheduled for tomorrow. Hannah Yap RN 37w3d Received email that patient is wanting to transfer care here for delivery from [facility]. Per RR we are able to schedule her this week or next. Left message for patient to call office. SW has multiple openings tomorrow. Use 20-30min for appt. Hannah Yap RN\ documented in this encounter [facility] 12-27-2023 Telephone encounter Note 37w3d Received email that patient is wanting to transfer care here for delivery from [facility]. Per RR we are able to schedule her this week or next. Left message for patient to call office. SW has multiple openings tomorrow. Use 20-30min for appt. Hannah Yap RN\ [facility] 12-22-2023 Nurse Note Venipuncture performed to right antecubital. Number of tubes collected: 1 gold and 2 lavender. Patient tolerated this well. Dr. Donovan Kennedy in office during venipuncture. Asmita Parker, RN [facility] 12-22-2023 Nurse Note Venipuncture performed to right antecubital. Number of tubes collected: 1 gold and 2 lavender. Patient tolerated this well. Dr. Donovan Kennedy in office during venipuncture. Asmita Parker RN documented in this encounter [facility] 12-22-2023 Progress note Formatting of t his note might be different from the original. Labs/tests reviewed; questions answered. Looking well, no complaints, no LOF or vaginal bleeding Good movements Contractions: No The sensitive examination was discussed with the Patient or Patient's Authorized Route Clerk. As applicable, any other physician, advance practice provider, medical student, or other health professional student that will be observing or involved in the sensitive examination for educational or training purposes was discussed with the Patient or Authorized Route Clerk. The Patient or Authorized Route Clerk has agreed to proceed with the sensitive examination. (Sensitive examination includes inspection and/or palpation of the breasts, pelvis, prostate and anorectal regions) FH 37cm FHTs 145 VE: ft/30%/-2 Patient would like to deliver at [place]---ok---option also given to induce labor. Continue w/ vitamins; hydrate; call for bleeding/cramping/abdominal pain/LOF or labor movement counts tid F/u as scheduled I spent a total of 10 minutes on the date of the service which included preparing to see the patient, [id number] patient care, completing clinical documentation, obtaining and/or reviewing separately obtained history, performing a medically appropriate examination, counseling and educating the patient/family/caregiver, and ordering medications, tests, or procedures. BAA [facility] 12-22-2023 Miscellaneous Notes Labs/tests reviewed; questions answered. Looking well, no complaints, no LOF or vaginal bleeding Good movements Contractions: No The sensitive examination was discussed with the Patient or Patient's Authorized Route Clerk. As applicable, any other physician, advance practice provider, medical student, or other health professional student that will be observing or involved in the sensitive examination for educational or training purposes was discussed with the Patient or Authorized Route Clerk. The Patient or Authorized Route Clerk has agreed to proceed with the sensitive examination. (Sensitive examination includes inspection and/or palpation of the breasts, pelvis, prostate and anorectal regions) FH 37cm FHTs 145 VE: ft/30%/-2 Patient would like to deliver at [place]---ok---option also given to induce labor. Continue w/ vitamins; hydrate; call for bleeding/cramping/abdominal pain/LOF or labor movement counts tid F/u as scheduled I spent a total of 10 minutes on the date of the service which included preparing to see the patient, [id number] patient care, completing clinical documentation, obtaining and/or reviewing separately obtained history, performing a medically appropriate examination, counseling and educating the patient/family/caregiver, and ordering medications, tests, or procedures. BAA documented in this encounter [facility] 12-05-2023 Telephone encounter Note LM to have patient call in and reschedule her No Show. [facility] 12-05-2023 Miscellaneous Notes LM to have patient call in and reschedule her No Show. documented in this encounter [facility] 11-09-2023 Telephone encounter Note Left message to call office [facility] 11-09-2023 Miscellaneous Notes Left message to call office OK to schedule for 20-30 min ob appointment w/ a provider for transfer. 30w2d Patient is wanting to transfer OB care to our office from [facility]. Spoke with RR. Patient is aware that a physician needs to review her chart first. This is for all transfers in the 3rd trimester. Aware we will need to call her back. Cesilia Malloy, FELIPE documented in this encounter [facility] 11-08-2023 Telephone encounter Note OK to schedule for 20-30 min ob appointment w/ a provider for transfer. [facility] Work Phone: 11-07-2023 Telephone encounter Note 30w2d Patient is wanting to transfer OB care to our office from [facility]. Spoke with RR. Patient is aware that a physician needs to review her chart first. This is for all transfers in the 3rd trimester. Aware we will need to call her back. Cesilia Malloy, RN [facility] 11-07-2023 Telephone encounter Note LM for patient to call and r/s No Show [facility] 11-07-2023 Miscellaneous Notes LM for patient to call and r/s No Show documented in this encounter [facility] 2023 Telephone encounter Note Unable to LM due to Full VM. Sent letter out to patient to Rescheduled No Show [facility] 2023 Miscellaneous Notes Unable to LM due to Full VM. Sent letter out to patient to Rescheduled No Show documented in this encounter [facility] 09-29-2023 Telephone encounter Note Tried calling patient. Unable to leave voicemail due to voicemail box being full. [facility] 09-29-2023 Miscellaneous Notes Tried calling patient. Unable to leave voicemail due to voicemail box being full. Please notify Beth that her blood count is low. I have sent an iron tablet to her pharmacy for her to start taking daily in addition to her PNV. Alana Obrien APRN.CNP documented in this encounter [facility] 09-29-2023 Telephone encounter Note Please notify Beth that her blood count is low. I have sent an iron tablet to her pharmacy for her to start taking daily in addition to her PNV. Alana Obrien APRN.CNP [facility] 09-27-2023 Nurse Note Venipuncture performed to left antecubital. Number of tubes collected: 2 gold and 1 lavender. Patient tolerated this well. Dr. Alexander in office during venipuncture. Jannie Blackburn RN September 27, 2023 11:44 AM [facility] 09-27-2023 Nurse Note Venipuncture performed to left antecubital. Number of tubes collected: 2 gold and 1 lavender. Patient tolerated this well. Dr. Alexander in office during venipuncture. Jannie Blackburn RN September 27, 2023 11:44 AM Patient is a 27 year old female who is a and 24w3d with an NATALIE of 01/14/2024. Patient presents today for her 24 week education visit with this nurse. Patient given 24 week education folder today. Contents of folder: FAQ concerning TDAP from ACOG, TDAP VIS, FAQ concerning Seasonal Influenza vaccination from ACOG, Influenza VIS, Kyleena pamphlet, Mirena pamphlet, Nexplanon pamphlet, Krames Tubal sterilization pamphlet, XOJET control pamphlet ( control options, sterilization, IUD, Progestin-Only, Injections, combined hormonal, patch, ring, barrier methods, emergency contraceptive and health factors), XOJET pamphlet, and information from [facility] healthy guide (third trimester of , when to call your healthcare provider during your third trimester of , kick counts, NST, premature labor, long acting reversible contraception, depression during , and choosing a car seat). Discussed with patient vaccine recommendations per ACOG guidelines: Influenza, COVID-19, and TDAP. Influenza: Declined Accepted Influenza date: Already vaccinated COVID-19: Declined Accepted COVID-19 Date: Already vaccinated in the past TDAP: Declined Accepted TDAP Date: Interested in getting vaccination at next appointment Discussed with patient control options . Contraception: No Planned feeding: want to try again. benefits discussed and encouraged Blood type reviewed. Patient's Blood Type: A positive Discussed with patient third trimester expectations (back pain, round ligament pain). Discussed with patient when to call OB/when to present to L&D: Unusual or severe cramping or abdominal pain, noticeable changes, such as a decrease in baby s movement after 28 weeks gestation (if you don t count six to 10 movements in one hour or less), difficulty breathing or shortness of breath that seems to be getting worse. Signs of premature labor (prior to 36 weeks): Four or more contractions or tightening of the muscles in the uterus in one hour that do not go away after changing position or relaxing; Regular tightening or low, dull pain in back that either comes or goes or is constant (but is not relieved by changing positions or other comfort measures); pressure in the pelvis or vagina; lower abdominal cramping that might feel like gas pain (with or without diarrhea); increased pressure in the pelvis or vagina; persistent menstrual-like cramps; increased vaginal discharge, leaking of fluid from the vagina; vaginal bleeding; flu-like symptoms such as nausea, vomiting, and diarrhea. Signs of preeclampsia: Vision problems, headaches, pain the upper abdomen, sudden weight gain, severe leg pain and swelling. Signs of labor after 36 weeks: Water breaks, strong contractions every 5 minutes for one hour, labor contractions that are not stopped by changing position or relaxing, contractions that are unable to walk through . Jannie Blackburn RN September 27, 2023 11:30 AM Patient given 50g glucose drink-orange flavored. LOT#: [id number] Expiration date: 04/26/2025 Jannie Blackburn RN September 27, 2023 10:49 AM documented in this encounter [facility] 09-27-2023 Nurse Note Patient is a 27 year old female who is a and 24w3d with an NATALIE of 01/14/2024. Patient presents today for her 24 week education visit with this nurse. Patient given 24 week education folder today. Contents of folder: FAQ concerning TDAP from ACOG, TDAP VIS, FAQ concerning Seasonal Influenza vaccination from ACOG, Influenza VIS, Kyleena pamphlet, Mirena pamphlet, Nexplanon pamphlet, Krames Tubal sterilization pamphlet, Jet control pamphlet ( control options, sterilization, IUD, Progestin-Only, Injections, combined hormonal, patch, ring, barrier methods, emergency contraceptive and health factors), Jet pamphlet, and information from [facility] healthy guide (third trimester of , when to call your healthcare provider during your third trimester of , kick counts, NST, premature labor, long acting reversible contraception, depression during , and choosing a car seat). Discussed with patient vaccine recommendations per ACOG guidelines: Influenza, COVID-19, and TDAP. Influenza: Declined Accepted Influenza date: Already vaccinated COVID-19: Declined Accepted COVID-19 Date: Already vaccinated in the past TDAP: Declined Accepted TDAP Date: Interested in getting vaccination at next appointment Discussed with patient control options . Contraception: No Planned feeding: want to try again. benefits discussed and encouraged Blood type reviewed. Patient's Blood Type: A positive Discussed with patient third trimester expectations (back pain, round ligament pain). Discussed with patient when to call OB/when to present to L&D: Unusual or severe cramping or abdominal pain, noticeable changes, such as a decrease in baby s movement after 28 weeks gestation (if you don t count six to 10 movements in one hour or less), difficulty breathing or shortness of breath that seems to be getting worse. Signs of premature labor (prior to 36 weeks): Four or more contractions or tightening of the muscles in the uterus in one hour that do not go away after changing position or relaxing; Regular tightening or low, dull pain in back that either comes or goes or is constant (but is not relieved by changing positions or other comfort measures); pressure in the pelvis or vagina; lower abdominal cramping that might feel like gas pain (with or without diarrhea); increased pressure in the pelvis or vagina; persistent menstrual-like cramps; increased vaginal discharge, leaking of fluid from the vagina; vaginal bleeding; flu-like symptoms such as nausea, vomiting, and diarrhea. Signs of preeclampsia: Vision problems, headaches, pain the upper abdomen, sudden weight gain, severe leg pain and swelling. Signs of labor after 36 weeks: Water breaks, strong contractions every 5 minutes for one hour, labor contractions that are not stopped by changing position or relaxing, contractions that are unable to walk through . Jannie Blackburn RN September 27, 2023 11:30 AM [facility] 09-27-2023 Progress note Formatting of t his note might be different from the original. Returns today for visit Denies contractions, vaginal bleeding, loss of fluid. Good movement reported by patient See flowsheet. ASSESSMENT/PLAN: 1. Current every day vaping - ICD9: V69.8, ICD10: Z72.89 (primary diagnosis) 2. 24 weeks gestation of - ICD9: V22.2, ICD10: Z3A.24 Jorge Alexander MD The following were addressed and are pending completion: 23-28 Weeks - Glucola Screen () Call and go to labor and delivery if bleeding, leaking fluid, rodríguez or for decreased movement. [facility] 09-27-2023 Miscellaneous Notes Returns today for visit Denies contractions, vaginal bleeding, loss of fluid. Good movement reported by patient See flowsheet. ASSESSMENT/PLAN: 1. Current every day vaping - ICD9: V69.8, ICD10: Z72.89 (primary diagnosis) 2. 24 weeks gestation of - ICD9: V22.2, ICD10: Z3A.24 Jorge Alexander MD The following were addressed and are pending completion: 23-28 Weeks - Glucola Screen () Call and go to labor and delivery if bleeding, leaking fluid, rodríguez or for decreased movement. documented in this encounter [facility] 09-27-2023 Nurse Note Patient given 50g glucose drink-orange flavored. LOT#: [id number] Expiration date: 04/26/2025 Jannie Blackburn RN September 27, 2023 10:49 AM [facility] 08-31-2023 Telephone encounter Note 1st risk assessment form submitted 08/31/2023 Asmita Parker RN [facility] 08-31-2023 Miscellaneous Notes 1st risk assessment form submitted 08/31/2023 Asmita Parker RN documented in this encounter [facility] 08-28-2023 Progress note Formatting of t his note might be different from the original. Beth Vincent is a 27 year old female at 20w1d here for routine visit Denies LOF, denies VB, +FM, denies Contractions No preeclampsia symptoms of ADKINS, visual changes, RUQ pain. Medications: famotidine, pnv Nutrition: eating better now - had a viral mouth infection Hydration: not enough Patient in no acute distress, A&O x3, Skin pink, warm and dry Respiration effort normal Ambulation stable All questions and concerns addressed. ASSESSMENT/PLAN: 1. Supervision of high risk in second trimester - ICD9: V23.9, ICD10: O09.92 (primary diagnosis) 2. 20 weeks gestation of - ICD9: V22.2, ICD10: Z3A.20 - anatomy scan today 3. Overweight - ICD9: 278.02, ICD10: E66.3 - consider asa 81 mh daily 4. Current every day nicotine vaping - ICD9: 305.1, ICD10: Z72.0 - Cessation encouraged. 5. Heartburn during in second trimester - ICD9: 646.83, 787.1, ICD10: O26.892, R12 - improved with famotidine 6. Follow up in 4 weeks with 1hGTT and labs Rogelio Johnson, JAYDE.[employer]ER [employer] I spent a total of 22 minutes on the date of the service which included preparing to see the patient, [id number] patient care, completing clinical documentation, obtaining and/or reviewing separately obtained history, performing a medically appropriate examination, counseling and educating the patient/family/caregiver, and ordering medications, tests, or procedures. [facility] 08-28-2023 Miscellaneous Notes Beth Vincent is a 27 year old female at 20w1d here for routine visit Denies LOF, denies VB, +FM, denies Contractions No preeclampsia symptoms of ADKINS, visual changes, RUQ pain. Medications: famotidine, pnv Nutrition: eating better now - had a viral mouth infection Hydration: not enough Patient in no acute distress, A&O x3, Skin pink, warm and dry Respiration effort normal Ambulation stable All questions and concerns addressed. ASSESSMENT/PLAN: 1. Supervision of high risk in second trimester - ICD9: V23.9, ICD10: O09.92 (primary diagnosis) 2. 20 weeks gestation of - ICD9: V22.2, ICD10: Z3A.20 - anatomy scan today 3. Overweight - ICD9: 278.02, ICD10: E66.3 - consider asa 81 mh daily 4. Current every day nicotine vaping - ICD9: 305.1, ICD10: Z72.0 - Cessation encouraged. 5. Heartburn during in second trimester - ICD9: 646.83, 787.1, ICD10: O26.892, R12 - improved with famotidine 6. Follow up in 4 weeks with 1hGTT and labs Rogelio Benz. PADMINI Johnson I spent a total of 22 minutes on the date of the service which included preparing to see the patient, [id number] patient care, completing clinical documentation, obtaining and/or reviewing separately obtained history, performing a medically appropriate examination, counseling and educating the patient/family/caregiver, and ordering medications, tests, or procedures. documented in this encounter [facility] 08-13-2023 Hospital Discharg e instructions Patient Education 08/13/2023 14:47:27 AA Blank GISSELLE (CUSTOM) There is a single live intrauterine with a heart rate of 147 bpm and a gestational age of 18 weeks based on last menstrual period. Close clinical follow-up recommended. No sonographic abnormalities of the ovaries, however not well evaluated on this exam.] [[Preliminary Report was Dictated by a Resident ] Document Released: 03/13/2006 Document Revised: 02/27/2013 Document Reviewed: 03/14/2014 [facility] Patient Information 2015 [employer]. This information is not intended to replace advice given to you by your health care provider. Make sure you discuss any questions you have with your health care provider. 08/13/2023 11:46:32 Viral Syndrome (Adult) Viral Syndrome (Adult) A viral illness may cause a number of symptoms such as fever. Other symptoms depend on the part of the body that the virus affects. If it settles in your nose, throat, and lungs, it may cause cough, sore throat, congestion, runny nose, headache, earache and other ear symptoms, or shortness of breath. If it settles in your stomach and intestinal tract, it may cause nausea, vomiting, cramping, and diarrhea. Sometimes it causes generalized symptoms like aching all over, feeling tired, loss of energy, or loss of appetite. A viral illness usually lasts anywhere from several days to several weeks, but sometimes it lasts longer. In some cases, a more serious infection can look like a viral syndrome in the first few days of the illness. You may need another exam and additional tests to know the difference. Watch for the warning signs listed below for when to seek medical advice. Home care Follow these guidelines for taking care of yourself at home: If symptoms are severe, rest at home for the first 2 to 3 days. Stay away from cigarette smoke - both your smoke and the smoke from others. You may use pjrr-wkd-cfrbuyv acetaminophen or ibuprofen for fever, muscle aching, and headache, unless another medicine was prescribed for this. If you have chronic liver or kidney disease or ever had a stomach ulcer or gastrointestinal bleeding, talk with your healthcare provider before using these medicines. No one who is younger than 18 and ill with a fever should take aspirin. It may cause severe disease or . Your appetite may be poor, so a light diet is fine. Avoid dehydration by drinking 8 to 12, 8-ounce glasses of fluids each day. This may include water; orange juice; lemonade; apple, grape, and cranberry juice; clear fruit drinks; electrolyte replacement and sports drinks; and decaffeinated teas and coffee. If you have been diagnosed with a kidney disease, ask your healthcare provider how much and what types of fluids you should drink to prevent dehydration. If you have kidney disease, drinking too much fluid can cause it build up in the your body and be dangerous to your health. Fpqb-eji-yqlhfdo remedies won't shorten the length of the illness but may be helpful for symptoms such as cough, sore throat, nasal and sinus congestion, or diarrhea. Don't use decongestants if you have high blood pressure. Follow-up care Follow up with your healthcare provider if you do not improve over the next week. Call 911 Call 911 if any of the following occur: Convulsion Feeling weak, dizzy, or like you are going to faint Chest pain, or more than mild shortness of breath When to seek medical advice Call your healthcare provider right away if any of these occur: Cough with lots of colored sputum (mucus) or blood in your sputum Chest pain, shortness of breath, wheezing, or trouble breathing Severe headache; face, neck, or ear pain Severe, constant pain in the lower right side of your belly (abdominal) Continued vomiting (can t keep liquids down) Frequent diarrhea (more than 5 times a day); blood (red or black color) or mucus in diarrhea Feeling weak, dizzy, or like you are going to faint Extreme thirst Fever of 100.4 F (38 C) or higher, or as directed by your healthcare provider [id number] [employer]. [address] [place] [address]. All rights reserved. This information is not intended as a substitute for professional medical care. Always follow your healthcare professional's instructions. Follow Up Care 08/13/2023 11:21:49 With:Go to emergency room if symptoms worsen Address:Unknown When:2-4 days With:PHYSICIAN, NONE Address:Unknown When:2-4 days [facility] 08-13-2023 Emergency department Discharge summary Discharge Instructions Thank you for allowing [facility] to assist you with your healthcare needs. The following is important discharge information regarding your hospital visit. Diagnosis from Today's Visit Bacteriuria Viral syndrome What to Do Next Instructions from Your Care Team Take acyclovir as prescribed for possible herpes. stay well-hydrated. Use mupirocin ointment over areas of the sores as this may be impetigo although not classic. 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 Return the emergency department if you experience worsening symptoms or any other care concern. Take Keflex as prescribed for bacteriuria. No qualifying data available. Post Acute Orders No qualifying data available. You Need to Schedule the Following Appointments Follow Up with Go to emergency room if symptoms worsen When: When:Within 2-4 days Follow Up with PHYSICIAN, NONE When: When:Within 2-4 days Allergies NKA Medications Please ask your primary doctor or pharmacist before taking any other medication not listed, including over the counter drugs, herbal medications, vitamins and or supplements as they may interact with your home medications. What How Much When Why Instructions Last Dose New acyclovir (acyclovir 200 mg oral capsule) 1 cap by mouth 5 times a day Duration: 7 Days Printed Prescription New cephalexin (cephalexin 500 mg oral capsule) 1 cap by mouth Four (4) times a day Duration: 7 Days Printed Prescription New mupirocin topical (mupirocin 2% topical cream) 1 application Topical Three (3) times a day Duration: 5 Days Printed Prescription Unchanged dicyclomine (dicyclomine 10 mg oral capsule) 1 cap by mouth Four (4) times a day Duration: 7 Days Unchanged fluconazole (Diflucan 150 mg oral tablet) See instructions Vaginal candidiasis 1 tab(s) Oral today. repeat in 3 days if needed Please take this list to your next doctor s visit. Bring all medications you take, including over the counter medications, herbals and other supplements with you to your doctor s visit. Patients and families are reminded to discard old lists and to update any records with all medication providers or retail pharmacies. Education Materials There is a single live intrauterine with a heart rate of 147 bpm and a gestational age of 18 weeks based on last menstrual period. Close clinical follow-up recommended. No sonographic abnormalities of the ovaries, however not well evaluated on this exam.] [[Preliminary Report was Dictated by a Resident ] Document Released: 03/13/2006 Document Revised: 02/27/2013 Document Reviewed: 03/14/2014 [facility] Patient Information 2015 [employer]. This information is not intended to replace advice given to you by your health care provider. Make sure you discuss any questions you have with your health care provider. Viral Syndrome (Adult) A viral illness may cause a number of symptoms such as fever. Other symptoms depend on the part of the body that the virus affects. If it settles in your nose, throat, and lungs, it may cause cough, sore throat, congestion, runny nose, headache, earache and other ear symptoms, or shortness of breath. If it settles in your stomach and intestinal tract, it may cause nausea, vomiting, cramping, and diarrhea. Sometimes it causes generalized symptoms like aching all over, feeling tired, loss of energy, or loss of appetite. A viral illness usually lasts anywhere from several days to several weeks, but sometimes it lasts longer. In some cases, a more serious infection can look like a viral syndrome in the first few days of the illness. You may need another exam and additional tests to know the difference. Watch for the warning signs listed below for when to seek medical advice. Home care Follow these guidelines for taking care of yourself at home: If symptoms are severe, rest at home for the first 2 to 3 days. Stay away from cigarette smoke - both your smoke and the smoke from others. You may use uudq-clq-bbzeujt acetaminophen or ibuprofen for fever, muscle aching, and headache, unless another medicine was prescribed for this. If you have chronic liver or kidney disease or ever had a stomach ulcer or gastrointestinal bleeding, talk with your healthcare provider before using these medicines. No one who is younger than 18 and ill with a fever should take aspirin. It may cause severe disease or . Your appetite may be poor, so a light diet is fine. Avoid dehydration by drinking 8 to 12, 8-ounce glasses of fluids each day. This may include water; orange juice; lemonade; apple, grape, and cranberry juice; clear fruit drinks; electrolyte replacement and sports drinks; and decaffeinated teas and coffee. If you have been diagnosed with a kidney disease, ask your healthcare provider how much and what types of fluids you should drink to prevent dehydration. If you have kidney disease, drinking too much fluid can cause it build up in the your body and be dangerous to your health. Agsr-mcp-spzspzz remedies won't shorten the length of the illness but may be helpful for symptoms such as cough, sore throat, nasal and sinus congestion, or diarrhea. Don't use decongestants if you have high blood pressure. Follow-up care Follow up with your healthcare provider if you do not improve over the next week. Call 911 Call 911 if any of the following occur: Convulsion Feeling weak, dizzy, or like you are going to faint Chest pain, or more than mild shortness of breath When to seek medical advice Call your healthcare provider right away if any of these occur: Cough with lots of colored sputum (mucus) or blood in your sputum Chest pain, shortness of breath, wheezing, or trouble breathing Severe headache; face, neck, or ear pain Severe, constant pain in the lower right side of your belly (abdominal) Continued vomiting (can t keep liquids down) Frequent diarrhea (more than 5 times a day); blood (red or black color) or mucus in diarrhea Feeling weak, dizzy, or like you are going to faint Extreme thirst Fever of 100.4 F (38 C) or higher, or as directed by your healthcare provider [phone] [employer]. [address] [place] [address]. All rights reserved. This information is not intended as a substitute for professional medical care. Always follow your healthcare professional's instructions. Additional Information VACCINATE! IT SAVES LIVES! Members of the community who have not yet received the COVID-19 vaccine and would like to receive it can visit one of [facility] vaccine clinics. There are many vaccine clinic locations within the [facility]. For locations and available times, please visit [email or web address] It is important to note that some COVID mobile vaccine clinics are held outdoors and may be canceled in rainy or stormy conditions. To learn more about pediatric vaccinations (ages 5-11), we invite you to visit the [facility] webpage. [email or web address]/p [email or web address]-Sowzg-Gcunjxjvkji-Freq cbblbw-Ttqqv-Nphslhgus.html To learn more about the COVID-19 vaccine, we invite you to visit the CDC website for a list of frequently asked questions. https://www.cdc.gov/coronavirus/ 2019-ncov/vaccines/faq.html [facility] Patient Portal Access Instructions: Stay connected with your healthcare team and access your personal medical information anytime with the [facility] Patient Portal. If you would like a full copy of your medical records please contact the [facility] Medical Records Department Monday through Monday between 8a.m. and 4:30p.m. Please follow the directions below to access the portal: 1.Access the email account you provided upon registration to the [facility].2.Look for an invitation email from [facility].3.Open the email and access the invitation link: Accept Invitation to [facility].Fill in the required hughes to create your account. Sign into [email or web address] with your username and password that you created in the above steps to stay up to date. You can then view a summary of results, a summary of your visits, and the ability to download your summaries to your computer or send the information securely to a physician. Remember that your healthcare information is confidential, so carefully consider who you will allow to register on the [facility] Patient Portal for access to your information. You can also access the [facility] Patient Portal on the [employer]. Simply click on Health Records under Health Data and then click on the [employer] logo. HOW TO SAFELY DISPOSE OF PRESCRIPTION MEDICATIONS Please use one of the following methods to safely dispose of your unused medications. 1.Use a drug disposal kit: the drug disposal pouch allows you to safely discard your old and unused drugs. Ask your nurse to give you one when you are discharged.2.Visit a local take-back location: Many local pharmacies and police departments have programs that collect old and unwanted prescription drugs. Call your local pharmacy or go to http://bit.Fashion One/6D0Cg6j to find one close to you.3.Make use of household items: Use cat litter or old coffee grounds to dispose medications if other options are not available. Mix your drugs with these household products, seal them in an airtight container and throw it into the garbage. Call [facility]: [phone] to be sure your drugs can be disposed of in this way. Some medicines may require a different approach.4.Never flush your medications down the toilet. IF YOU HAVE BEEN PRESCRIBED AN OPIOIDS FOR PAIN If you have been prescribed an opioid (such as hydrocodone, oxycodone or morphine), it is critical to understand the possible side effects and risks of opioid pain medications. Even when taken as directed, opioids can have several side effects including: Tolerance, meaning you might need to take more of a medication for the same pain relief. Nausea, vomiting and/or constipation. Sleepiness, dizziness, dry mouth, confusion, depression or itching. Physical dependence, meaning you have withdrawal symptoms when a medication is stopped ? this can develop within a few days. KNOW YOUR RESPONSIBILITIES It is important to know exactly how much and how often to take the opioid pain medications you are prescribed. Never take opioids in higher amounts or more often than prescribed. Do not combine opioids with alcohol or other drugs that cause drowsiness, such as benzodiazepines, also known as benzos, including diazepam and alprazolam, muscle relaxants or sleep aids. Never sell or share prescription opioids. This is illegal. Store opioids in a secure place and out of reach of others (including children, family, friends and visitors). The last page(s) of this document has been signed and retained as a CHART COPY Signatures Patient Education Materials ERIC PITTS (CUSTOM) Viral Syndrome (Adult) Medication Leaflets My discharge plan and instructions have been reviewed and explained to me and I,BETH VINCENT understand my current condition and have read and understand these discharge instructions. I have received a written copy of the plan/instructions. If I have questions, I am aware that I should contact my doctor. Patient/Route Clerk Signature: Date/Time: Relationship to Patient: Witness Name/Signature: Date/Time: [facility] 08-09-2023 Telephone encounter Note RN spoke with patient. Patient states headache did go away, she is now feeling achy all over. Patient denies vaginal bleeding, cramping, headache, blurry vision. Patient states she has not checked her temperature, but her skin feels hot. RN advised patient to take tylenol as needed for headache, body aches, discomfort. RN advised to monitor symptoms, and if any further concerns to call back. RN advised if any vaginal leaking, bleeding, or cramping occurs to go to ER. Patient states understanding. Asmita Parker RN [facility] 08-09-2023 Miscellaneous Notes RN spoke with patient. Patient states headache did go away, she is now feeling achy all over. Patient denies vaginal bleeding, cramping, headache, blurry vision. Patient states she has not checked her temperature, but her skin feels hot. RN advised patient to take tylenol as needed for headache, body aches, discomfort. RN advised to monitor symptoms, and if any further concerns to call back. RN advised if any vaginal leaking, bleeding, or cramping occurs to go to ER. Patient states understanding. Asmita Parker RN Pt is 17.3 wks and said that she had had a migraine for the last 3 days along with body aches that start from her skull to spine. She is not having any cramping/bleeding. Her next OB appointment is scheduled for 08/28/2023. Thanks documented in this encounter [facility] 08-09-2023 Telephone encounter Note Pt is 17.3 wks and said that she had had a migraine for the last 3 days along with body aches that start from her skull to spine. She is not having any cramping/bleeding. Her next OB appointment is scheduled for 08/28/2023. Thanks [facility] 08-04-2023 Progress note Formatting of t his note might be different from the original. Returns today for visit Denies LOF, denies VB, +FM, denies Contractions. No preeclampsia symptoms of ADKINS, visual changes, RUQ pain. ASSESSMENT/PLAN: 1. Supervision of high risk in third trimester - ICD9: V23.9, ICD10: O09.93 (primary diagnosis) 2. Heartburn during in second trimester - ICD9: 646.83, 787.1, ICD10: O26.892, R12 - Tums not working. Start pepcid daily. - FAMOTIDINE 20 MG TABLET 3. 16 weeks gestation of - ICD9: V22.2, ICD10: Z3A.16 - 4 weeks for anatomy US. 4. Overweight - ICD9: 278.02, ICD10: E66.3 5. Current every day nicotine vaping - ICD9: 305.1, ICD10: Z72.0 - Decreasing. Alana Obrien APRN.[employer] Call and go to labor and delivery if bleeding, leaking fluid, rodríguez or for decreased movement. [facility] 08-04-2023 Miscellaneous Notes Returns today for visit Denies LOF, denies VB, +FM, denies Contractions. No preeclampsia symptoms of ADKINS, visual changes, RUQ pain. ASSESSMENT/PLAN: 1. Supervision of high risk in third trimester - ICD9: V23.9, ICD10: O09.93 (primary diagnosis) 2. Heartburn during in second trimester - ICD9: 646.83, 787.1, ICD10: O26.892, R12 - Tums not working. Start pepcid daily. - FAMOTIDINE 20 MG TABLET 3. 16 weeks gestation of - ICD9: V22.2, ICD10: Z3A.16 - 4 weeks for anatomy US. 4. Overweight - ICD9: 278.02, ICD10: E66.3 5. Current every day nicotine vaping - ICD9: 305.1, ICD10: Z72.0 - Decreasing. Alana Obrien APRN.[employer] Call and go to labor and delivery if bleeding, leaking fluid, rodríguez or for decreased movement. documented in this encounter [facility] 07-07-2023 Miscellaneous Notes RN note reviewed and agree with recommendations. Alana Obrien APRN.CNP Patient called back, states last night she thinks her blood sugar keeps dropping. Patient states she is feeling shaky and lightheaded and she has to sit down. Patient ate candy and juice at that time and feels very tired. RN advised small frequent meals, increasing water intake, and monitor symptoms. Patient states she does not check her blood sugars, and does not have a glucometer at home. RN advised ER with any syncope or worsening symptoms. Patient states understanding. Asmita Parker RN RN left message for patient to call back with questions. Asmita Parker RN Pt is 12.5 weeks and called stating her blood sugar has been fluctuating. She was making dinner and felt lightheaded and ate chocolate and orange juice and still didn't feel better. She has been feeling sick, but able to keep stuff done. documented in this encounter [facility] 07-06-2023 Miscellaneous Notes Patient was informed - all questions answered Please notify Beth that her vaginal swab showed bacterial vaginosis. I have sent metronidazole to her pharmacy to take BID x7 days. Alana Obrien APRN.YOLANDA documented in this encounter [facility] 07-04-2023 Miscellaneous Notes ASSESSMENT/PLAN: 1. Supervision of high risk in third trimester - ICD9: V23.9, ICD10: O09.93 (primary diagnosis) 27 year old 12w2d gestational age - Patient oriented to practice. Patient given new OB orientation folder. Discussed nutrition, folic acid supplementation, dietary guidelines, exercise, smoking, alcohol, caffeine, and drug use. Discussed gestational weight gain guidelines. Discussed routine OB labs including STD/HIV. Discussed aneuploidy screening, nuchal translucency/first trimester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 Never Smokeless tobacco: Never Vaping Use Vaping Use: current everyday user Substances: Nicotine Substance Use Topics Alcohol use: Never Drug use: Never No current outpatient medications on file. No current facility-administered medications for this visit. REVIEW OF SYSTEMS: Review of Systems Constitutional: Negative for activity change, appetite change, chills, diaphoresis, fatigue, fever and unexpected weight change. Respiratory: Negative for cough, shortness of breath and wheezing. Cardiovascular: Negative for chest pain, palpitations and leg swelling. Gastrointestinal: Negative for abdominal distention, abdominal pain, anal bleeding, blood in stool, constipation, diarrhea, nausea, rectal pain and vomiting. Endocrine: Negative for cold intolerance, heat intolerance, polydipsia, polyphagia and polyuria. Genitourinary: Negative for decreased urine volume, difficulty urinating, dyspareunia, dysuria, enuresis, flank pain, frequency, genital sores, hematuria, menstrual problem, pelvic pain, urgency, vaginal bleeding, vaginal discharge and vaginal pain. Skin: Negative for rash. Allergic/Immunologic: Negative for environmental allergies, food allergies and immunocompromised state. Neurological: Negative for seizures and headaches. Psychiatric/Behavioral: Negative for agitation, behavioral problems, confusion, self-injury, sleep disturbance and suicidal ideas. The patient is not nervous/anxious. PHYSICAL EXAMINATION: BP 117/78 Pulse 92 Ht 5' 2 (1.575 m) Wt 155 lb 4.8 oz (70.4 kg) LMP 04/12/2023 SpO2 99% BMI 28.40 kg/m BMI 28.40 kg/(m^2) Physical Exam Constitutional: Appearance: Normal appearance. HENT: Head: Normocephalic. Cardiovascular: Rate and Rhythm: Normal rate. Pulses: Normal pulses. Pulmonary: Breath sounds: Normal breath sounds. Abdominal: General: Bowel sounds are normal. There is no distension. Palpations: Abdomen is soft. There is no mass. Tenderness: There is no abdominal tenderness. There is no right CVA tenderness, left CVA tenderness, guarding or rebound. Hernia: No hernia is present. Genitourinary: General: Normal vulva. Vagina: Normal. No vaginal discharge. Cervix: Normal. Uterus: Normal. Adnexa: Right adnexa normal. Rectum: Normal. Comments: Normal pelvimetry Musculoskeletal: General: No swelling, tenderness, deformity or signs of injury. Normal range of motion. Cervical back: Normal range of motion. Right lower leg: No edema. Left lower leg: No edema. Skin: Findings: No bruising, erythema, lesion or rash. Neurological: Mental Status: She is alert and oriented to person, place, and time. Deep Tendon Reflexes: Reflexes normal. Psychiatric: Mood and Affect: Mood normal. Behavior: Behavior normal. HEALTH MAINTENANCE: Hepatitis C Screening Never done HIV Screening Never done Pap Testing Never done DTaP,Tdap,Td Vaccine(6 - Td or Tdap) due on 07/27/2020 Influenza Vaccine(1) due on 11/25/2022 Covid-19 Vaccine( season) due on 11/25/2022 Depression Assessment Never done ASSESSMENT/PLAN: 1. Encounter for test, result positive - ICD9: V72.42, ICD10: Z32.01 (primary diagnosis) - HCG QUAL UR B/O - VARICELLA ZOSTER IGG - TOX SCREEN ROUT UR - URINE CULTURE - GONORRHEA/CHLAMYDIA NAAT - TYPE + SCREEN - HIV 1 2 COMBO(AG/AB),WITH REFLEX TO DIFFERENTIATION - HEPATITIS C ANTIBODY IA WITH CONFIRMATION - HEP B SURF AG SCRN - RUBELLA IGG AB - SYPHILIS TOTAL W/REFLEX - CBC - PAP TEST - OBSTETRIC ULTRASOUND [facility] 2. Encounter for gynecological examination (general) (routine) without abnormal findings - ICD9: V72.31, ICD10: Z01.419 - Completed pelvic and breast exam - Completed breast exam - Completed pap exam - check GC/Chlamydia - Encouraged monthly BSE - Follow up for annual exam in one year. 3. Current every day vaping - ICD9: V69.8, ICD10: Z72.89 We discussed the risks of smoking, cessation methods such as Nicotine replacement therapy, and cessation assistance was offered. 4. 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 2) Medications were reviewed, list was updated, and refills given if needed. 3) Encouraged proper diet and exercise. 4) Age appropriate health preventative measures were discussed. Pap smear with HPV testing was performed today and send to the lab. Mammogram ordered if needed. 5) Return in about 4 weeks (around 07/05/2023). A portion of this note was entered by ancillary personnel. The information has been reviewed and is an accurate reflection of the decisions I have made during the course of my encounter with this patient. This visit was chaperoned by: MALLORIE Alexander MD documented in this encounter [facility] 02-16-2022 Hospital Discharg e instructions Patient Education 02/16/2022 14:22:28 Muscle Strain, Extremity Muscle Strain in the Extremities A muscle strain is a stretching and tearing of muscle fibers. This causes pain, especially when you move that muscle. There may also be some swelling and bruising. Home care Keep the hurt area raised above heart level to reduce pain and swelling. This is especially important during the first 48 hours. Apply an ice pack over the injured area for 15 to 20 minutes every 3 to 6 hours. You should do this for the first 24 to 48 hours. You can make an ice pack by filling a plastic bag that seals at the top with ice cubes and then wrapping it with a thin towel. Be careful not to injure your skin with the ice treatments. Ice should never be applied directly to skin. Continue the use of ice packs for relief of pain and swelling as needed. After 48 hours, apply heat (warm shower or warm bath) for 15 to 20 minutes several times a day, or alternate ice and heat. You may use lkub-bwp-dzjcouu pain medicine to control pain, unless another medicine was prescribed. If you have chronic liver or kidney disease or ever had a stomach ulcer or gastrointestinal bleeding, talk with your healthcare provider before using these medicines. For leg strains: If crutches have been recommended, don t put full weight on the hurt leg until you can do so without pain. You can return to sports when you are able to hop and run on the injured leg without pain. Follow-up care Follow up with your healthcare provider, or as advised. When to seek medical advice Call your healthcare provider right away if any of these occur: The toes of the injured leg become swollen, cold, blue, numb, or tingly Pain or swelling increases [phone] [employer]. [address] [place] [address]. All rights reserved. This information is not intended as a substitute for professional medical care. Always follow your healthcare professional's instructions. Follow Up Care 02/16/2022 13:12:14 With:MARIAN COWAN MD Address: [address] [place] [address]- [phone] When:2-4 days [facility] 02-16-2022 Emergency department Discharge summary Discharge Instructions Thank you for allowing [facility] to assist you with your healthcare needs. The following is important discharge information regarding your hospital visit. Diagnosis from Today's Visit Wrist sprain Wrist pain-swelling What to Do Next Instructions from Your Care Team Discharge Home Equipment - Ordered -- Splint, wrist, 99 month(s), 02/16/22 14:21:00 EST Post Acute Orders No qualifying data available. You Need to Schedule the Following Appointments Follow Up with MARIAN COWAN MD When Within 2-4 days Where: [address] [place] [address]- [phone] Allergies NKA Medications Please ask your primary doctor or pharmacist before taking any other medication not listed, including over the counter drugs, herbal medications, vitamins and or supplements as they may interact with your home medications. What How Much When Why Instructions Last Dose Unchanged dicyclomine (dicyclomine 10 mg oral capsule) 1 cap by mouth Four (4) times a day Duration: 7 Days Unchanged fluconazole (Diflucan 150 mg oral tablet) See instructions Vaginal candidiasis 1 tab(s) Oral today. repeat in 3 days if needed Please take this list to your next doctor s visit. Bring all medications you take, including over the counter medications, herbals and other supplements with you to your doctor s visit. Patients and families are reminded to discard old lists and to update any records with all medication providers or retail pharmacies. Education Materials Muscle Strain in the Extremities A muscle strain is a stretching and tearing of muscle fibers. This causes pain, especially when you move that muscle. There may also be some swelling and bruising. Home care Keep the hurt area raised above heart level to reduce pain and swelling. This is especially important during the first 48 hours. Apply an ice pack over the injured area for 15 to 20 minutes every 3 to 6 hours. You should do this for the first 24 to 48 hours. You can make an ice pack by filling a plastic bag that seals at the top with ice cubes and then wrapping it with a thin towel. Be careful not to injure your skin with the ice treatments. Ice should never be applied directly to skin. Continue the use of ice packs for relief of pain and swelling as needed. After 48 hours, apply heat (warm shower or warm bath) for 15 to 20 minutes several times a day, or alternate ice and heat. You may use zdcg-jxm-vslznwb pain medicine to control pain, unless another medicine was prescribed. If you have chronic liver or kidney disease or ever had a stomach ulcer or gastrointestinal bleeding, talk with your healthcare provider before using these medicines. For leg strains: If crutches have been recommended, don t put full weight on the hurt leg until you can do so without pain. You can return to sports when you are able to hop and run on the injured leg without pain. Follow-up care Follow up with your healthcare provider, or as advised. When to seek medical advice Call your healthcare provider right away if any of these occur: The toes of the injured leg become swollen, cold, blue, numb, or tingly Pain or swelling increases [phone] [employer]. [address] [place] [address], [place] [address]. All rights reserved. This information is not intended as a substitute for professional medical care. Always follow your healthcare professional's instructions. Additional Information VACCINATE! IT SAVES LIVES! Members of the community who have not yet received the COVID-19 vaccine and would like to receive it can visit one of [facility] vaccine clinics. There are many vaccine clinic locations within the [facility]. For locations and available times, please visit [email or web address]. It is important to note that some COVID mobile vaccine clinics are held outdoors and may be canceled in rainy or stormy conditions. To learn more about pediatric vaccinations (ages 5-11), we invite you to visit the [facility] webpage. [email or web address] [email or web address] [email or web address] To learn more about the COVID-19 vaccine, we invite you to visit the [facility] website for a list of frequently asked questions. [email or web address] [facility] Patient [facility] Access Instructions: Stay connected with your healthcare team and access your personal medical information anytime with the [facility] Patient Portal. If you would like a full copy of your medical records please contact the [facility] Medical Records Department Monday through Monday between 8a.m. and 4:30p.m. Please follow the directions below to access the portal: 1.Access the email account you provided upon registration to the [facility].2.Look for an invitation email from [facility].3.Open the email and access the invitation link: Accept Invitation to [facility]4.Fill in the required hughes to create your account. Sign into [email or web address] with your username and password that you created in the above steps to stay up to date. You can then view a summary of results, a summary of your visits, and the ability to download your summaries to your computer or send the information securely to a physician. Remember that your healthcare information is confidential, so carefully consider who you will allow to register on the [facility] Patient Portal for access to your information. You can also access the [facility] Patient Portal on the [employer]. Simply click on Health Records under Health Data and then click on the [facility] logo. HOW TO SAFELY DISPOSE OF PRESCRIPTION MEDICATIONS Please use one of the following methods to safely dispose of your unused medications. 1.Use a drug disposal kit: the drug disposal pouch allows you to safely discard your old and unused drugs. Ask your nurse to give you one when you are discharged.2.Visit a local take-back location: Many local pharmacies and police departments have programs that collect old and unwanted prescription drugs. Call your local pharmacy or go to http://Bookya.Fashion One/6Y2Lb6m to find one close to you.3.Make use of household items: Use cat litter or old coffee grounds to dispose medications if other options are not available. Mix your drugs with these household products, seal them in an airtight container and throw it into the garbage. Call [facility]: [phone] to be sure your drugs can be disposed of in this way. Some medicines may require a different approach.4.Never flush your medications down the toilet. IF YOU HAVE BEEN PRESCRIBED AN OPIOIDS FOR PAIN If you have been prescribed an opioid (such as hydrocodone, oxycodone or morphine), it is critical to understand the possible side effects and risks of opioid pain medications. Even when taken as directed, opioids can have several side effects including: Tolerance, meaning you might need to take more of a medication for the same pain relief. Nausea, vomiting and/or constipation. Sleepiness, dizziness, dry mouth, confusion, depression or itching. Physical dependence, meaning you have withdrawal symptoms when a medication is stopped ? this can develop within a few days. KNOW YOUR RESPONSIBILITIES It is important to know exactly how much and how often to take the opioid pain medications you are prescribed. Never take opioids in higher amounts or more often than prescribed. Do not combine opioids with alcohol or other drugs that cause drowsiness, such as benzodiazepines, also known as benzos, including diazepam and alprazolam, muscle relaxants or sleep aids. Never sell or share prescription opioids. This is illegal. Store opioids in a secure place and out of reach of others (including children, family, friends and visitors). The last page(s) of this document has been signed and retained as a CHART COPY Signatures Patient Education Materials Muscle Strain, Extremity Medication Leaflets My discharge plan and instructions have been reviewed and explained to me and I,BETH VINCENT understand my current condition and have read and understand these discharge instructions. I have received a written copy of the plan/instructions. If I have questions, I am aware that I should contact my doctor. Patient/Route Clerk Signature: Date/Time: Relationship to Patient: Witness Name/Signature: Date/Time: [facility] 02-16-2022 Note ORIGINAL EXAMINATION: THREE XRAY VIEWS OF THE RIGHT WRIST 02/16/2022 1:36 pm COMPARISON: None. HISTORY: ORDERING SYSTEM PROVIDED HISTORY: Reason for Exam: pain, injury FINDINGS: No acute fracture or dislocation. Question remote, remodeled deformity of 5th metacarpal diaphysis. Normal osseous mineralization. No visible aggressive osseous lesion. Normal carpal arcs. Included joint spaces are maintained. No visible radiopaque foreign body. IMPRESSION: 1. No acute fracture or dislocation. Interpreted by: Luisito Nguyen DO Preliminary Report By: Luisito Nguyen DO Electronically signed By Luisito Nguyen DO Dictated Date: 02/16/2022 1:46:12 PM Prelim Date: 02/16/2022 1:47:06 PM Sign Date: 02/16/2022 1:47:06 PM Ordering Provider: [facility] 02-16-2022 Note ORIGINAL EXAMINATION: THREE XRAY VIEWS OF THE RIGHT WRIST 02/16/2022 1:36 pm COMPARISON: None. HISTORY: ORDERING SYSTEM PROVIDED HISTORY: Reason for Exam: pain, injury FINDINGS: No acute fracture or dislocation. Question remote, remodeled deformity of 5th metacarpal diaphysis. Normal osseous mineralization. No visible aggressive osseous lesion. Normal carpal arcs. Included joint spaces are maintained. No visible radiopaque foreign body. IMPRESSION: 1. No acute fracture or dislocation. Interpreted by: Luisito Nguyen DO Preliminary Report By: Luisito Nguyen DO Electronically signed By Luisito Nguyen DO Dictated Date: 02/16/2022 1:46:12 PM Prelim Date: 02/16/2022 1:47:06 PM Sign Date: 02/16/2022 1:47:06 PM Ordering Provider: [facility] 12-13-[address] instructions Patient Education 12/13/2021 11:27:48 Abdominal Pain Abdominal Pain Abdominal pain is pain in the stomach or belly area. Everyone has this pain from time to time. In many cases it goes away on its own. But abdominal pain can sometimes be due to a serious problem, such as appendicitis. So it s important to know when to get help. Causes of abdominal pain There are many possible causes of abdominal pain. Common causes in adults include: Constipation, diarrhea, or gas Stomach acid flowing back up into the esophagus (acid reflux or heartburn) Severe acid reflux, called GERD (gastroesophageal reflux disease) A sore in the lining of the stomach or small intestine (peptic ulcer) Inflammation of the gallbladder, liver, or pancreas Gallstones or kidney stones Appendicitis Intestinal blockage An internal organ pushing through a muscle or other tissue (hernia) Urinary tract infections In women, menstrual cramps, fibroids, ovarian cysts, pelvic inflammatory disease, or endometriosis Inflammation or infection of the intestines, including Crohn's disease and ulcerative colitis Irritable bowel syndrome Diagnosing the cause of abdominal pain Your healthcare provider will give you a physical exam help find the cause of your pain. If needed, you will have tests. Belly pain has many possible causes. So it can be hard to find the reason for your pain. Giving details about your pain can help. Tell your provider where and when you feel the pain, and what makes it better or worse. Also let your provider know if you have other symptoms such as: Fever Tiredness Upset stomach (nausea) Vomiting Changes in bathroom habits Blood in the stool or black, tarry stool Weight loss that you can't explain (involuntary weight loss?) Also report any family history of stomach or intestinal problems, or cancers. Tell your provider about all your alcohol use and drug use. Tell your provider about all medicines you use, including herbs, vitamins, and supplements. Treating abdominal pain Some causes of pain need emergency medical treatment right away. These include appendicitis or a bowel blockage. Other problems can be treated with rest, fluids, or medicines. Your healthcare provider can give you specific instructions for treatment or self-care based on what is causing your pain. If you have vomiting or diarrhea, sip water or other clear fluids. When you are ready to eat solid foods again, start with small amounts of muej-pv-gyggdy, low-fat foods. These include apple sauce, toast, or crackers. When to get medical care Call 911 or go to the hospital right away if you: Can t pass stool and are vomiting Are vomiting blood or have bloody diarrhea or black, tarry diarrhea Have chest, neck, or shoulder pain Feel like you might pass out Have pain in your shoulder blades with nausea Have sudden, severe belly pain Have new, severe pain unlike any you have felt before Have a belly that is rigid, hard, and hurts to touch Call your healthcare provider if you have: Pain for more than 5 days Bloating for more than 2 days Diarrhea for more than 5 days A fever of 100.4 F (38 C) or higher, or as directed by your healthcare provider Pain that gets worse Weight loss for no reason Continued lack of appetite Blood in your stool How to prevent abdominal pain Here are some tips to help prevent abdominal pain: Eat smaller amounts of food at each meal. Don't eat greasy, fried, or other high-fat foods. Don't eat foods that give you gas. Exercise regularly. Drink plenty of fluids. To help prevent GERD symptoms: Quit smoking. Reduce alcohol and foods that increase stomach acid. Don't use aspirin or qsau-cld-ddgutaq pain and fever medicines, if possible. This includes nonsteroidal anti-inflammatory drugs (NSAIDs). Lose excess weight. Finish eating at least 2 hours before you go to bed or lie down. Raise the head of your bed. 3791-1355 [employer]. [address] [place] [address], [place] [address]. All rights reserved. This information is not intended as a substitute for professional medical care. Always follow your healthcare professional's instructions. Follow Up Care 12/13/2021 10:58:59 With:MARIAN COWAN MD Address: [address] [place] [address] [phone] When:2-4 days With:MADELINE LASSITER MD Address: [address] [facility] [address] [place] [address] [phone] When:2-4 days Comments:Gastroenterology [facility] 12-13-2021 Emergency department Discharge summary Discharge Instructions Thank you for allowing [facility] to assist you with your healthcare needs. The following is important discharge information regarding your hospital visit. Diagnosis from Today's Visit Abdominal pain What to Do Next Instructions from Your Care Team No qualifying data available. Post Acute Orders No qualifying data available. You Need to Schedule the Following Appointments Follow Up with MARIAN COWAN MD When Within 2-4 days Where: [address] [place] [address] [phone] Follow Up with MADELINE LASSITER MD When Within 2-4 days Why: Gastroenterology Where: [address] [facility] [address] [place] [address] [phone] Allergies NKA Medications Please ask your primary doctor or pharmacist before taking any other medication not listed, including over the counter drugs, herbal medications, vitamins and or supplements as they may interact with your home medications. What How Much When Why Instructions Last Dose New dicyclomine (dicyclomine 10 mg oral capsule) 1 cap by mouth Four (4) times a day Duration: 7 Days Printed Prescription Unchanged fluconazole (Diflucan 150 mg oral tablet) See instructions Vaginal candidiasis 1 tab(s) Oral today. repeat in 3 days if needed Please take this list to your next doctor s visit. Bring all medications you take, including over the counter medications, herbals and other supplements with you to your doctor s visit. Patients and families are reminded to discard old lists and to update any records with all medication providers or retail pharmacies. Education Materials Abdominal Pain Abdominal pain is pain in the stomach or belly area. Everyone has this pain from time to time. In many cases it goes away on its own. But abdominal pain can sometimes be due to a serious problem, such as appendicitis. So it s important to know when to get help. Causes of abdominal pain There are many possible causes of abdominal pain. Common causes in adults include: Constipation, diarrhea, or gas Stomach acid flowing back up into the esophagus (acid reflux or heartburn) Severe acid reflux, called GERD (gastroesophageal reflux disease) A sore in the lining of the stomach or small intestine (peptic ulcer) Inflammation of the gallbladder, liver, or pancreas Gallstones or kidney stones Appendicitis Intestinal blockage An internal organ pushing through a muscle or other tissue (hernia) Urinary tract infections In women, menstrual cramps, fibroids, ovarian cysts, pelvic inflammatory disease, or endometriosis Inflammation or infection of the intestines, including Crohn's disease and ulcerative colitis Irritable bowel syndrome Diagnosing the cause of abdominal pain Your healthcare provider will give you a physical exam help find the cause of your pain. If needed, you will have tests. Belly pain has many possible causes. So it can be hard to find the reason for your pain. Giving details about your pain can help. Tell your provider where and when you feel the pain, and what makes it better or worse. Also let your provider know if you have other symptoms such as: Fever Tiredness Upset stomach (nausea) Vomiting Changes in bathroom habits Blood in the stool or black, tarry stool Weight loss that you can't explain (involuntary weight loss?) Also report any family history of stomach or intestinal problems, or cancers. Tell your provider about all your alcohol use and drug use. Tell your provider about all medicines you use, including herbs, vitamins, and supplements. Treating abdominal pain Some causes of pain need emergency medical treatment right away. These include appendicitis or a bowel blockage. Other problems can be treated with rest, fluids, or medicines. Your healthcare provider can give you specific instructions for treatment or self-care based on what is causing your pain. If you have vomiting or diarrhea, sip water or other clear fluids. When you are ready to eat solid foods again, start with small amounts of jzbn-wq-rgfqbp, low-fat foods. These include apple sauce, toast, or crackers. When to get medical care Call 911 or go to the hospital right away if you: Can t pass stool and are vomiting Are vomiting blood or have bloody diarrhea or black, tarry diarrhea Have chest, neck, or shoulder pain Feel like you might pass out Have pain in your shoulder blades with nausea Have sudden, severe belly pain Have new, severe pain unlike any you have felt before Have a belly that is rigid, hard, and hurts to touch Call your healthcare provider if you have: Pain for more than 5 days Bloating for more than 2 days Diarrhea for more than 5 days A fever of 100.4 F (38 C) or higher, or as directed by your healthcare provider Pain that gets worse Weight loss for no reason Continued lack of appetite Blood in your stool How to prevent abdominal pain Here are some tips to help prevent abdominal pain: Eat smaller amounts of food at each meal. Don't eat greasy, fried, or other high-fat foods. Don't eat foods that give you gas. Exercise regularly. Drink plenty of fluids. To help prevent GERD symptoms: Quit smoking. Reduce alcohol and foods that increase stomach acid. Don't use aspirin or bltn-jjr-xyfwlvn pain and fever medicines, if possible. This includes nonsteroidal anti-inflammatory drugs (NSAIDs). Lose excess weight. Finish eating at least 2 hours before you go to bed or lie down. Raise the head of your bed. [phone] [employer]. [address] [place] [address]. All rights reserved. This information is not intended as a substitute for professional medical care. Always follow your healthcare professional's instructions. Additional Information VACCINATE! IT SAVES LIVES! Members of the community who have not yet received the COVID-19 vaccine and would like to receive it can visit one of [facility] vaccine clinics. There are many vaccine clinic locations within the [facility]. For locations and available times, please visit [email or web address]. It is important to note that some COVID mobile vaccine clinics are held outdoors and may be canceled in rainy or stormy conditions. To learn more about pediatric vaccinations (ages 5-11), we invite you to visit the [facility] webpage. [email or web address]://[email or web address] [email or web address]-Freq [email or web address].html To learn more about the COVID-19 vaccine, we invite you to visit the [facility] website for a list of frequently asked questions. [email or web address] [facility] [place] [facility] Patient [facility] Access Instructions: Stay connected with your healthcare team and access your personal medical information anytime with the [facility] Patient [facility]. If you would like a full copy of your medical records please contact the [facility] Medical Records Department Monday through Monday between 8a.m. and 4:30p.m. Please follow the directions below to access the portal: 1.Access the email account you provided upon registration to the [facility].2.Look for an invitation email from [facility].3.Open the email and access the invitation link: Accept Invitation to [facility]4.Fill in the required hughes to create your account. Sign into www.[facility] with your username and password that you created in the above steps to stay up to date. You can then view a summary of results, a summary of your visits, and the ability to download your summaries to your computer or send the information securely to a physician. Remember that your healthcare information is confidential, so carefully consider who you will allow to register on the [facility] Patient Portal for access to your information. You can also access the [facility] Patient Portal on the [facility] deborah. Simply click on Health Records under Health Data and then click on the [facility] logo. HOW TO SAFELY DISPOSE OF PRESCRIPTION MEDICATIONS Please use one of the following methods to safely dispose of your unused medications. 1.Use a drug disposal kit: the drug disposal pouch allows you to safely discard your old and unused drugs. Ask your nurse to give you one when you are discharged.2.Visit a local take-back location: Many local pharmacies and police departments have programs that collect old and unwanted prescription drugs. Call your local pharmacy or go to http://Bookya.Fashion One/4A3Fd9v to find one close to you.3.Make use of household items: Use cat litter or old coffee grounds to dispose medications if other options are not available. Mix your drugs with these household products, seal them in an airtight container and throw it into the garbage. Call [facility]: [phone] to be sure your drugs can be disposed of in this way. Some medicines may require a different approach.4.Never flush your medications down the toilet. IF YOU HAVE BEEN PRESCRIBED AN OPIOIDS FOR PAIN If you have been prescribed an opioid (such as hydrocodone, oxycodone or morphine), it is critical to understand the possible side effects and risks of opioid pain medications. Even when taken as directed, opioids can have several side effects including: Tolerance, meaning you might need to take more of a medication for the same pain relief. Nausea, vomiting and/or constipation. Sleepiness, dizziness, dry mouth, confusion, depression or itching. Physical dependence, meaning you have withdrawal symptoms when a medication is stopped ? this can develop within a few days. KNOW YOUR RESPONSIBILITIES It is important to know exactly how much and how often to take the opioid pain medications you are prescribed. Never take opioids in higher amounts or more often than prescribed. Do not combine opioids with alcohol or other drugs that cause drowsiness, such as benzodiazepines, also known as benzos, including diazepam and alprazolam, muscle relaxants or sleep aids. Never sell or share prescription opioids. This is illegal. Store opioids in a secure place and out of reach of others (including children, family, friends and visitors). The last page(s) of this document has been signed and retained as a CHART COPY Signatures Patient Education Materials Abdominal Pain Medication Leaflets My discharge plan and instructions have been reviewed and explained to me and ISALLY NICOLETTA understand my current condition and have read and understand these discharge instructions. I have received a written copy of the plan/instructions. If I have questions, I am aware that I should contact my doctor. Patient/Route Clerk Signature: Date/Time: Relationship to Patient: Witness Name/Signature: Date/Time: [facility] 12-13-2021 Note ORIGINAL EXAMINATION: CT OF THE ABDOMEN AND PELVIS WITH CONTRAST12/13/2021 12:19 pm TECHNIQUE: CT of the abdomen and pelvis was performed with the administration of intravenous contrast. Multiplanar reformatted images are provided for review. Automated exposure control, iterative reconstruction, and/or weight based adjustment of the mA/kV was utilized to reduce the radiation dose to as low as reasonably achievable. COMPARISON: CT abdomen/pelvis April 14, 2020 HISTORY: ORDERING SYSTEM PROVIDED HISTORY: Reason for Exam: pain. FINDINGS: The lung bases are clear. The liver, spleen, adrenal glands, and pancreas are unremarkable. The gallbladder is without filling defects. The kidneys enhance symmetrically without obstructive uropathy. The ureters and bladder are unremarkable. Skip thick wall segments of distal ileum noted could. No obstruction. The colon is unremarkable. A normal appendix is identified. An IUD is identified. The solid pelvic organs demonstrate no acute process. No free intraperitoneal gas or fluid. No lymphadenopathy. Tiny fat containing umbilical hernia significantly decreased in size from prior. Nonaneurysmal aorta. No acute osseous abnormality. Nonaggressive sclerotic focus within the anterior sacrum likely a bone island. There is likely mild symmetric sacroiliitis IMPRESSION: Ileitis could relate to Crohn's disease or other infectious/inflammatory causes of ileitis. Suspect mild bilateral sacroiliitis Findings were discussed with Dr. Cardona At 1:01 pm on 12/13/2021. I have personally reviewed the images of this examination and agree with the resident's findings and interpretation. Interpreted by: Luisito Mcgee MD Preliminary Report By: Tere Bunn Electronically signed By Luisito Mcgee MD Dictated Date: 12/13/2021 12:29:35 PM Prelim Date: 12/13/2021 12:33:41 PM Sign Date: 12/13/2021 1:03:03 PM Ordering Provider: [facility] 12-13-2021 Note ORIGINAL EXAMINATION: CT OF THE ABDOMEN AND PELVIS WITH CONTRAST12/13/2021 12:19 pm TECHNIQUE: CT of the abdomen and pelvis was performed with the administration of intravenous contrast. Multiplanar reformatted images are provided for review. Automated exposure control, iterative reconstruction, and/or weight based adjustment of the mA/kV was utilized to reduce the radiation dose to as low as reasonably achievable. COMPARISON: CT abdomen/pelvis April 14, 2020 HISTORY: ORDERING SYSTEM PROVIDED HISTORY: Reason for Exam: pain. FINDINGS: The lung bases are clear. The liver, spleen, adrenal glands, and pancreas are unremarkable. The gallbladder is without filling defects. The kidneys enhance symmetrically without obstructive uropathy. The ureters and bladder are unremarkable. Skip thick wall segments of distal ileum noted could. No obstruction. The colon is unremarkable. A normal appendix is identified. An IUD is identified. The solid pelvic organs demonstrate no acute process. No free intraperitoneal gas or fluid. No lymphadenopathy. Tiny fat containing umbilical hernia significantly decreased in size from prior. Nonaneurysmal aorta. No acute osseous abnormality. Nonaggressive sclerotic focus within the anterior sacrum likely a bone island. There is likely mild symmetric sacroiliitis IMPRESSION: Ileitis could relate to Crohn's disease or other infectious/inflammatory causes of ileitis. Suspect mild bilateral sacroiliitis Findings were discussed with Dr. Cardona At 1:01 pm on 12/13/2021. I have personally reviewed the images of this examination and agree with the resident's findings and interpretation. Interpreted by: Luisito Mcgee MD Preliminary Report By: Tere Bunn Electronically signed By Luisito Mcgee MD Dictated Date: 12/13/2021 12:29:35 PM Prelim Date: 12/13/2021 12:33:41 PM Sign Date: 12/13/2021 1:03:03 PM Ordering Provider: [facility] 01-23-2021 Evaluation + Plan note Diagnostic Tests PendingBlood Culture (bacterial) 01/23/21Blood Culture (bacterial) 01/23/21Lactic Acid 01/23/21C-Reactive Protein 01/23/21 [facility] Evaluation note Diagnosis Encounter for test, result positive- Primary examination or test, positive result Encounter for gynecological examination (general) (routine) without abnormal findings Current every day vaping Secondary oligomenorrhea Scanty or infrequent menstruation [facility] Diagnosis Encounter for test, result positive- Primary examination or test, positive result documented [facility] [place] [facility]* Diagnosis with uncertain dates in first trimester- Primary Encounter for test, result positive examination or test, positive result documented [facility] [place] [facility]* Diagnosis Supervision of high risk in third trimester- Primary Unspecified high-risk 12 weeks gestation of state, incidental Acute vaginitis Vaginitis and vulvovaginitis, unspecified Overweight Current every day nicotine vaping [facility] [place] [facility]* Diagnosis Bacterial vaginosis- Primary Vaginitis and vulvovaginitis, unspecified [facility] [place] [facility]* Diagnosis Encounter for anatomic survey- Primary [facility] [place] [facility]* Diagnosis Supervision of high risk in third trimester- Primary Unspecified high-risk Heartburn during in second trimester 16 weeks gestation of state, incidental Overweight Current every day nicotine vaping [facility] [place] [facility]* Diagnosis Supervision of high risk in second trimester- Primary Unspecified high-risk 20 weeks gestation of state, incidental Overweight Current every day nicotine vaping Heartburn during in second trimester [facility] [place] Diagnosis Current every day vaping- Primary 24 weeks gestation of state, incidental Supervision of high risk in first trimester Unspecified high-risk documented [facility] [place] [facility]* Diagnosis 24 weeks gestation of - Primary state, incidental [facility] [place] [facility]* Diagnosis Anemia affecting in second trimester- Primary documented [facility] [place] [facility]* Diagnosis Encounter for anatomic survey documented [facility] [place] [facility]* Diagnosis Supervision of high risk in third trimester- Primary Unspecified high-risk documented [facility] [place] [facility]* Diagnosis Anemia affecting in second trimester documented [facility] [place] [facility]* Diagnosis Supervision of high risk in third trimester- Primary Unspecified high-risk 37 weeks gestation of state, incidental Anemia affecting in second trimester Current every day vaping documented in this encounter [facility] note* Diagnosis Anemia, unspecified type- Primary documented in this encounter [facility] note* Diagnosis Maternal iron deficiency anemia complicating , third trimester- Primary documented in this encounter [facility] note* Diagnosis Supervision of high risk in third trimester- Primary Unspecified high-risk 38 weeks gestation of state, incidental Anemia affecting in second trimester documented in this encounter [facility] note* Diagnosis 39 weeks gestation of - Primary state, incidental Supervision of high risk in third trimester Unspecified high-risk Anemia affecting in second trimester documented in this encounter [facility] note* Diagnosis Maternal iron deficiency anemia complicating , third trimester- Primary documented in this encounter [facility] note* Diagnosis Maternal iron deficiency anemia complicating , third trimester- Primary documented in this encounter [facility] course Narrative No data available for this section [facility] Hospital Discharge instructions No data available for this section [facility] Reason for referral (narrative)* Diagnostic Procedure Only (Routine) - Closed Specialty Diagnoses / Procedures Referred By Nestor palacios Referred To Contact [facility] Diagnoses Encounter for test, result positive Procedures OBSTETRIC ULTRASOUND WHI US PREG UTERUS AFTER 1ST TRIMEST GESTATION Jorge Alexander MD [address] [place] [address] [place] [address] [place] [address] Referral ID Status Reason Start Date Expiration Date V isits Requested Visits Authorized [id number] Closed Auto-Generate d Referral 06/07/2023 06/06/2024 1 0 [facility] Diagnostic Procedure Only (Routine) - Pending Review Specialty Diagnoses / Procedures Referred By Nestor palacios Referred To Contact [facility] Diagnoses Encounter for anatomic survey Procedures OBSTETRIC ULTRASOUND WHI US PREG UTERUS AFTER 1ST TRIMEST GESTATION Delmy Winston MD [address] [place] [address] [facility] [address] [place] [address] Referral ID Status Reason Start Date Expiration Date Visits Requested Visits Authorized [id number] Pending Review Auto-Generat ed Referral 07/08/2023 07/07/2024 1 1 [facility] Diagnostic Procedure Only (Routine) - Closed Specialty Diagnoses / Procedures Referred By Contcamila t Referred To Contact [facility] Diagnoses Encounter for anatomic survey Procedures OBSTETRIC ULTRASOUND WHI US PREG UTERUS AFTER 1ST TRIMEST GESTATION Delmy Winston MD [address] [place] [address] [address] Referral ID Status Reason Start Date Expiration Date V isits Requested Visits Authorized [id number] Closed Auto-Generate d Referral 07/08/2023 07/07/2024 1 1 [facility] Advance Directives No Advanced Directives Records Found Advance Directive Response Recorded Date/ Time NO NO December 30 11:13am Assessments No Assessments Information Available Summary Purpose Family History No Family History Records FoundNo Family History Records Found No data available for this section No Family History Records FoundNo Family History Records FoundNo Family History Records Found Additional Source Comments Care Team (unrecognized sect ion and content) Care Team Related Persons Name: KIRANVAN Address: Home [place] Name: GUILLE MACHADO Name: MADELINE VINCENT Address: Home [address] [place] [address] [place] Care Team Related Persons Name: VAN BECK Address: Home [place] Name: GUILLE MACHADO Name: MADELINE VINCENT Address: Home [address] [place] [id number] [place] INFORMATION SOURCE (unrecogn ized section and content) DATE CREATED AUTHOR 01/27/2022 [facility] DATE CREATED AUTHOR AUTHOR'S ORGANIZ ATION 06/16/2022 [facility] DATE CREATED AUTHOR AUTHOR'S ORGANIZ ATION 08/21/2023 [facility] DATE CREATED AUTHOR AUTHOR'S ORGANIZ ATION 12/24/2023 [facility] DATE CREATED AUTHOR AUTHOR'S ORGANIZ ATION 01/16/2024 [facility] Source Comments (unrecognize d section and content) In the event this informatio n is protected by the Federal Confidentiality of Alcohol and Drug Abuse Patient Records regulations: The Federal rules restrict any use of the information to criminally investigate or prosecute any alcohol or drug abuse patient.[facility] the event this information is protected by the Federal Confidentiality of Alcohol and Drug Abuse Patient Records regulations: The Federal rules restrict any use of the information to criminally investigate or prosecute any alcohol or drug abuse patient.[facility] the event this information is protected by the Federal Confidentiality of Alcohol and Drug Abuse Patient Records regulations: The Federal rules restrict any use of the information to criminally investigate or prosecute any alcohol or drug abuse patient.[facility] the event this information is protected by the Federal Confidentiality of Alcohol and Drug Abuse Patient Records regulations: The Federal rules restrict any use of the information to criminally investigate or prosecute any alcohol or drug abuse patient.[facility] the event this information is protected by the Federal Confidentiality of Alcohol and Drug Abuse Patient Records regulations: The Federal rules restrict any use of the information to criminally investigate or prosecute any alcohol or drug abuse patient.[facility] the event this information is protected by the Federal Confidentiality of Alcohol and Drug Abuse Patient Records regulations: The Federal rules restrict any use of the information to criminally investigate or prosecute any alcohol or drug abuse patient.[facility] the event this information is protected by the Federal Confidentiality of Alcohol and Drug Abuse Patient Records regulations: The Federal rules restrict any use of the information to criminally investigate or prosecute any alcohol or drug abuse patient.[facility] the event this information is protected by the Federal Confidentiality of Alcohol and Drug Abuse Patient Records regulations: The Federal rules restrict any use of the information to criminally investigate or prosecute any alcohol or drug abuse patient.[facility] the event this information is protected by the Federal Confidentiality of Alcohol and Drug Abuse Patient Records regulations: The Federal rules restrict any use of the information to criminally investigate or prosecute any alcohol or drug abuse patient.[facility] the event this information is protected by the Federal Confidentiality of Alcohol and Drug Abuse Patient Records regulations: The Federal rules restrict any use of the information to criminally investigate or prosecute any alcohol or drug abuse patient.[facility] the event this information is protected by the Federal Confidentiality of Alcohol and Drug Abuse Patient Records regulations: The Federal rules restrict any use of the information to criminally investigate or prosecute any alcohol or drug abuse patient.[facility] CampusIn the event this information is protected by the Federal Confidentiality of Alcohol and Drug Abuse Patient Records regulations: The Federal rules restrict any use of the information to criminally investigate or prosecute any alcohol or drug abuse patient.[facility] CampusIn the event this information is protected by the Federal Confidentiality of Alcohol and Drug Abuse Patient Records regulations: The Federal rules restrict any use of the information to criminally investigate or prosecute any alcohol or drug abuse patient.[facility] Campus[facility] the event this information is protected by the Federal Confidentiality of Alcohol and Drug Abuse Patient Records regulations: The Federal rules restrict any use of the information to criminally investigate or prosecute any alcohol or drug abuse patient.[facility] Campus[facility] the event this information is protected by the Federal Confidentiality of Alcohol and Drug Abuse Patient Records regulations: The Federal rules restrict any use of the information to criminally investigate or prosecute any alcohol or drug abuse patient.[facility] CampusIn the event this information is protected by the Federal Confidentiality of Alcohol and Drug Abuse Patient Records regulations: The Federal rules restrict any use of the information to criminally investigate or prosecute any alcohol or drug abuse patient.[facility] CampusIn the event this information is protected by the Federal Confidentiality of Alcohol and Drug Abuse Patient Records regulations: The Federal rules restrict any use of the information to criminally investigate or prosecute any alcohol or drug abuse patient.[facility] CampusIn the event this information is protected by the Federal Confidentiality of Alcohol and Drug Abuse Patient Records regulations: The Federal rules restrict any use of the information to criminally investigate or prosecute any alcohol or drug abuse patient.[facility] Campus[facility] the event this information is protected by the Federal Confidentiality of Alcohol and Drug Abuse Patient Records regulations: The Federal rules restrict any use of the information to criminally investigate or prosecute any alcohol or drug abuse patient.[facility] CampusIn the event this information is protected by the Federal Confidentiality of Alcohol and Drug Abuse Patient Records regulations: The Federal rules restrict any use of the information to criminally investigate or prosecute any alcohol or drug abuse patient.[facility] CampusIn the event this information is protected by the Federal Confidentiality of Alcohol and Drug Abuse Patient Records regulations: The Federal rules restrict any use of the information to criminally investigate or prosecute any alcohol or drug abuse patient.[facility] CampusIn the event this information is protected by the Federal Confidentiality of Alcohol and Drug Abuse Patient Records regulations: The Federal rules restrict any use of the information to criminally investigate or prosecute any alcohol or drug abuse patient.[facility] CampusIn the event this information is protected by the Federal Confidentiality of Alcohol and Drug Abuse Patient Records regulations: The Federal rules restrict any use of the information to criminally investigate or prosecute any alcohol or drug abuse patient.[facility] CampusIn the event this information is protected by the Federal Confidentiality of Alcohol and Drug Abuse Patient Records regulations: The Federal rules restrict any use of the information to criminally investigate or prosecute any alcohol or drug abuse patient.[facility] CampusIn the event this information is protected by the Federal Confidentiality of Alcohol and Drug Abuse Patient Records regulations: The Federal rules restrict any use of the information to criminally investigate or prosecute any alcohol or drug abuse patient.[facility] CampusIn the event this information is protected by the Federal Confidentiality of Alcohol and Drug Abuse Patient Records regulations: The Federal rules restrict any use of the information to criminally investigate or prosecute any alcohol or drug abuse patient.[facility] CampusIn the event this information is protected by the Federal Confidentiality of Alcohol and Drug Abuse Patient Records regulations: The Federal rules restrict any use of the information to criminally investigate or prosecute any alcohol or drug abuse patient.[facility] CampusIn the event this information is protected by the Federal Confidentiality of Alcohol and Drug Abuse Patient Records regulations: The Federal rules restrict any use of the information to criminally investigate or prosecute any alcohol or drug abuse patient.[facility] CampusIn the event this information is protected by the Federal Confidentiality of Alcohol and Drug Abuse Patient Records regulations: The Federal rules restrict any use of the information to criminally investigate or prosecute any alcohol or drug abuse patient.[facility] [facility] the event this information is protected by the Federal Confidentiality of Alcohol and Drug Abuse Patient Records regulations: The Federal rules restrict any use of the information to criminally investigate or prosecute any alcohol or drug abuse patient.[facility] the event this information is protected by the Federal Confidentiality of Alcohol and Drug Abuse Patient Records regulations: The Federal rules restrict any use of the information to criminally investigate or prosecute any alcohol or drug abuse patient.[facility] the event this information is protected by the Federal Confidentiality of Alcohol and Drug Abuse Patient Records regulations: The Federal rules restrict any use of the information to criminally investigate or prosecute any alcohol or drug abuse patient.[facility] the event this information is protected by the Federal Confidentiality of Alcohol and Drug Abuse Patient Records regulations: The Federal rules restrict any use of the information to criminally investigate or prosecute any alcohol or drug abuse patient.[facility] Campus[facility] the event this information is protected by the Federal Confidentiality of Alcohol and Drug Abuse Patient Records regulations: The Federal rules restrict any use of the information to criminally investigate or prosecute any alcohol or drug abuse patient.[facility] Campus[facility] the event this information is protected by the Federal Confidentiality of Alcohol and Drug Abuse Patient Records regulations: The Federal rules restrict any use of the information to criminally investigate or prosecute any alcohol or drug abuse patient.[facility] CampusIn the event this information is protected by the Federal Confidentiality of Alcohol and Drug Abuse Patient Records regulations: The Federal rules restrict any use of the information to criminally investigate or prosecute any alcohol or drug abuse patient.[facility] Reason for Visit (unrecogniz ed section and content) 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 [address] [place] [address] Referral ID Status Reason Start Date Expiration Date V isits Requested Visits Authorized [id number] Closed Auto-Generate d Referral 06/07/2023 06/06/2024 1 0 Reason Comments Care Patient still thinks that she has a yeast infection. OTC medication didn't help. Had some spotting on Monday, nothing since, some cramps. 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 [address] [place] [address] Referral ID Status Reason Start Date Expiration Date V isits Requested Visits Authorized [id number] Closed Auto-Generate d Referral 07/08/2023 07/07/2024 1 1 Reason Onset Date Comments Care 12/28/2023 Reason Onset Date Comments Population Health Navigation Outreach 01/01/2024 OB/PEDS Reason Comments Blood management Reason Onset Date Comments Care 01/03/2024 Reason Comments Hematology Reason Onset Date Comments Care 01/11/2024 Reason Comments Iron Infusion Reason Comments Non-Chemotherapy Treatment Specialty Diagnoses / Procedures Referred By Contac t Referred To Contact Diagnoses Maternal iron deficiency anemia complicating , third trimester Procedures IRON SUCROSE INJECTION PER [address] APRN.CNM [address] [place] [address] [facility] [address] [place] [address] Referral ID Status Reason Start Date Expiration Date V isits Requested Visits Authorized [id number] Authorized 01/04/2024 07/02/2024 3 3 Reason Comments Benefits Investigation Patient Care team informatio n (unrecognized section and content) Care Team Personnel Name: PHYSICIAN, NONE Position: Physician Member Role: Primary Care Physician Care Team Related Persons Name: AVN BECK Address: Home [place] Name: GUILLE MACHADO Name: MADELINE VINCENT Dolores Address: Home [address] FOR RECORDS PERTAINING TO PATIENTS WHO ARE OR HAVE BEEN ENROLLED IN A CHEMICAL DEPENDENCY/SUBSTANCEABUSE PROGRAM, SOME INFORMATION MAY BE OMITTED. This clinical summary was aggregated from multiple sources. Caution should be exercised in using it in the provision of clinical care. This summary normalizes information from multiple sources, and as a consequence, information in this document may materially change the coding, format and clinical context of patient data. In addition, data may be omitted in some cases. CLINICAL DECISIONS SHOULD BE BASED ON THE PRIMARY CLINICAL RECORDS. [facility]. provides no warranty or guarantee of the accuracy or completeness of information in this document.
[2024-01-16 21:16] VITALS: BP 117/69; PULSE 95; RESP 16; TEMP 36.4; O2SAT 96
[2024-01-16 22:03] VITALS: BMI 33.7
--- NOTE | 2024-01-23 12:26 | OB.TRI.NOTE ---
HPI - General General Date of Service: 01/16/24 HPI Narrative GWYN ZAVALA, is a 28 F who presents with contractions. Maternal Data Information NATALIE Calculator Estimated Delivery Date Method Current WG Current Estimate 01/14/24 Manual 41w 2d Gestational age: 40&2 PFSH PFSH Medical History (Updated 01/22/24 @ 00:02 by Maia Brady) (spontaneous vaginal delivery) Anemia affecting Home Medications ?Medication ?Instructions ?Recorded ?Last Taken ?Type vit no.95-ferrous 1 tab PO DAILY 01/09/24 01/17/24 History fumarate 28 mg-folic acid 800 mcg tablet () ibuprofen 600 mg tablet 600 mg PO Q6H PRN PRN Pain Score 01/19/24 Unknown Rx 1-10 #0 tabs Allergy/AdvReac Type Severity Reaction Status Date / Time No Known Allergies Allergy Verified 01/18/24 00:53 Surgical History History of surgery Social History Smoking Status: Current every day smoker History 3 Elective abortions Hx Para 1 Spontaneous abortions Hx # Term Pregnancies Ectopic pregnancies Hx # Pregnancies Multiple births # of living children NST FHR Rate Baby A Baseline: 120 Variability:: Moderate Accelerations:: 15 x 15 Decelerations:: None NST Reactive:: Yes Uterine Activity:: Irregular Assessment & Plan (1) False labor: PLAN: Reactive NST
== END 2024-01-16 22:00 | disposition home or self-care (01) ==
LOC: WPOUT 21:03 → WP 21:03
PROVIDERS: Referring Provider Obstetrics & Gynecology; Visit Provider Obstetrics & Gynecology
DX: O47.1 False labor at or after 37 completed weeks of gestation (principal); Z3A.40 40 weeks gestation of pregnancy; O99.333 Smoking (tobacco) complicating pregnancy, third trimester; F17.200 Nicotine dependence, unspecified, uncomplicated
CPT/HCPCS: 59025; 59050; G0378; 99221

== ENCOUNTER 2024-01-18 01:15 | Inpatient (IN) | payer MEDICAID, SELFPAY ==
[2024-01-17 01:02] VITALS: PULSE 100; O2SAT 99
[2024-01-18] VITALS (43 sets, daily range): BP systolic 115–155; BP diastolic 61–87; PULSE 83–127; RESP 14–20; TEMP 35.9–36.9; O2SAT 97–100; BMI 33.0
--- OUTSIDE RECORDS SUMMARY | 2024-01-18 00:55 | XMS RPT_ITS | CCD ---
Author Organization [facility] Care Team Providers Care Territory Manager General Sales Name Role Phone Eliza Beltre Primary Care Physician [phone] MEDICAL, CLINIC Primary Care Physician Unavailab MARIAN Merchant MD Primary Care Physician [phone] HOLLY ANDERSON M.D. Attending Unavailable LATA RAY [...] JOHNSON Attending Unavailable DELMY WINSTON Referring Unavailable DELMY WINSTON Referring Unavailable CESILIA FRIAS Attending Unavailable TOMMY [...] # 3 cap(s), 0 Refill(s), [facility] EMILIANO GUILLERMINA W, Vaginal candidiasis, 160, cm, [...] 08/13/23 Stop Date: 08/18/23 Status: Ordered Omeprazole (13 sources) Proton Pump Inhibitor OMEPRAZOLE ORAL Take [...] trimester] Onset: 12-28-2023 Chronic Other complications of (20 sources) High risk ; Translations: [Supervision of high risk , unspecified, third trimester] Onset: 09-27-2023 07-04-2023 Episodic Other complications of (2 sources) Heartburn; Translations: [...] weeks gestation of ] Onset: 01-02-2024 Episodic Residual codes; unclassified (1 source) Gestation period, 40 weeks; Translations: [40 weeks gestation of ] 01-17-2024 Episodic Sprains and strains (1 source) Sprain [...] Onset: 07-04-2023 07-04-2023 Episodic Other complications of (1 source) [...] Comment on above: [facility] Status documented as Yes on Admission Other [...] vaping] Onset: 07-04-2023 Episodic Unclassified (1 source) [facility] Onset: 01-03-2022 Unclassified (1 source) DATING Onset: 06-16-2022 Results Test Name Value Interpretation Reference Range Facil ity CNOVSPon 01-15-2024 CNOVSP Visit (SP) Office (HEMAWS) ---- SALLYBETH MALLOY ([id number]) 1995 F Date Time Provider Department 01/15/24 9:30 AM TREATMENT RM 17 [facility]Y [facility] During your visit today, we recorded the following information about you: Temperature Pulse Blood pressure 97.1 degrees 107/minute 125/85 Referring Provider: RIA STREET [[id number]] Allergies As of Date: 01/15/2024 (No Known Allergies) Date Reviewed: 01/15/2024 Reviewed by: Lacy Hurtado RN - Fully Assessed Reason for Visit: Non-Chemotherapy Treatment [795] Primary Visit Diagnosis:Maternal iron deficiency anemia complicating , third trimester [O99.013, D50.9] Order(s):BCN NURSING COMMUNICATION [[id number]] Order #: [id number]: 1 STANDING [] iron sucrose 300 mg in NaCl 0.9% 250 mL (VENOFER)Disp: Rfl: NaCl 0.9% iv infusionDisp: Rfl: diphenhydrAMINE 50 mg injection (BENADRYL)Disp: Rfl: hydrocortisone sodium succinate (PF) 100 mg injection (Solu-CORTEF)Disp: Rfl: EPINEPHrine HCl (PF) 1 mg/mL (1 mL) 0.3 mg injectionDisp: Rfl: BCN NURSING COMMUNICATION [[id number]] Order #: [id number]: 1 STANDING Prescriptions as of 01/15/2024 - [...] Encounter Status:Closed by LACY HURTADO [facility] Telephone (PFS) ---- BETH VINCENT ([id number]) 1995 F Date Time Provider Department 01/15/24 FINANCIAL NAVIGATOR [facility] PFS During your visit today, we recorded the following information about you: Xiang Mcconnell 01/15/2024 10:55 AM Signed The patient is active with [facility] Medicaid, LOC 100%, $0.00 deductible has $0.00 [...] Fully Assessed Reason for Visit: Benefits Investigation [3747] Prescriptions as of 01/15/2024 - OMEPRAZOLE ORAL [...] Encounter Status:Closed by XIANG MCCONNELL on 01/15/24 [facility] CNOVSPon 01-12-2024 CNOVSP Visit (SP) Office (HEMAWS) ---- BETH VINCENT ([id number]) 1995 F Date Time Provider Department 01/12/24 2:00 PM TREATMENT RM 18 CHA[facility]Y [facility] During your visit today, we recorded the following information about you: Temperature Pulse Respiration Blood pressure 98.5 degrees 100/minute 16/minute 109/75 Referring Provider: RIA STREET [[id number]] Allergies As of Date: 01/12/2024 (No Known Allergies) Date Reviewed: 01/12/2024 Reviewed by: Gretchen Hooker RN - Fully Assessed Reason for Visit: Non-Chemotherapy Treatment [795] Primary Visit Diagnosis:Maternal iron deficiency anemia complicating , third trimester [O99.013, D50.9] Order(s):BCN NURSING COMMUNICATION [[id number]] Order #: [id number]: 1 STANDING [] iron sucrose 300 mg in NaCl 0.9% 250 mL (VENOFER)Disp: Rfl: NaCl 0.9% iv infusionDisp: Rfl: diphenhydrAMINE 50 mg injection (BENADRYL)Disp: Rfl: hydrocortisone sodium succinate (PF) 100 mg injection (Solu-CORTEF)Disp: Rfl: EPINEPHrine HCl (PF) 1 mg/mL (1 mL) 0.3 mg injectionDisp: Rfl: [facility] NURSING COMMUNICATION [[id number]] Order #: [id number]: 1 STANDING Prescriptions as of 01/12/2024 - [...] Encounter Status:Closed by GRETCHEN HOOKER on 01/12/24 [facility] James 01-12-2024 [facility] Telephone (OBGYWM) ---- BETH VINCENT ([id number]) 1995 F Date Time Provider Department 01/12/24 AMANDA VENEGAS During your visit today, we recorded the following information about you: Hannah Yap RN 01/12/2024 8:19 AM Signed 39w5d Saw KJ yesterday and provider wanted iron infusions done poornima d/t being 39 weeks already. Per Nehemias could add on today at 2pm. Left detailed message on identified voicemail for patient to call back [facility] to see if she is able [...] Status:Closed by HANNAH YAP on 01/12/24 Normal [facility] URINE OB DIP B/Oon Glucose Ql (U) Negative Neg mg/dL [facility] Interpretation and review of laboratory results Normal [facility] Protein.monoclonal (U) [Mass/Vol] Negative Neg mg/dL [facility] CNPCiara 01-08-2024 CNPN Telephone (INTMMN) ---- SALLYZANEJohan Barrios ([id number]) 1995 F Date Time Provider Department 01/08/24 PAOLA PETER INTMMN During your visit today, we recorded the following information about you: Paola Peter RN 01/08/2024 2:16 PM Signed Treatment plan signed and PA approved. Ready to schedule Venofer 200 mg IV x 3 doses Courtney Ivy 01/12/2024 9:13 AM Signed Scheduled by Allergies As of Date: 01/08/2024 (No Known [...] Status:Closed by PAOLA AGUILAR on 01/08/24 Normal [facility] URINE OB DIP B/Oon Glucose Ql (U) Negative Neg mg/dL [facility] Protein.monoclonal (U) [Mass/Vol] Negative Neg mg/dL [facility] Ferritin SerPl-mCncon 2023 Ferritin [Mass/Vol] 5.7 ng/mL Low 14.7-205.1 [facility] Comment on above: Order Comment: Speci men Type: BLOOD SPECIMEN Ordering Facility: [facility] Address: [address] [place] [address] Performed By: #### 2 276-4, 41149-0 #### [facility] CLIA [id number] [address] [place] [address] [place] Iron and Iron binding capaci ty panelon 01-02-2024 Iron [Mass/Vol] 21 ug/dL Low 41-186 [facility] Comment on above: Order Comment: Speci men Type: BLOOD SPECIMEN Ordering Facility: [facility] Address: [address] [place] [address] Performed By: #### 2 276-4, 07883-9 #### [facility] CLIA [id number] [address] [place] [address] [place] Iron binding capacity [Mass/Vol] >521 High 232-386 [facility] Comment on above: Order Comment: Speci men Type: BLOOD SPECIMEN Ordering Facility: [facility] Address: [address] [place] [address] Performed By: #### 2 276-4, 71894-1 #### [facility] CLIA [id number] [address] [place] [address] [place] Iron/TIBC [Molar ratio] <4.0 Low 15.0-57.0 [facility] Comment on above: Order Comment: Speci men Type: BLOOD SPECIMEN Ordering Facility: [facility] Address: [address] [place] [address] Performed By: #### 2 276-4, 64942-0 #### [facility] CLIA [id number] [address] [place] [address] [place] URINE OB DIP B/Oon Glucose Ql (U) Negative Neg mg/dL [facility] Interpretation and review of laboratory results Normal [facility] Protein.monoclonal (U) [Mass/Vol] Negative Neg mg/dL [facility] CNPNon 12-27-2023 CNPN Telephone (OBGYWM) ---- BETH VINCENT ([id number]) 1995 F Date Time Provider Department 12/27/23 DIDI SPENCE OBGYWM During your visit today, we recorded the following information about you: Hannah Yap RN 12/27/2023 2:33 PM Addendum 37w3d Received email that patient is wanting to transfer care here for delivery from [facility] OB. Per RR we are able [...] Status:Closed by HANNAH YAP on 12/27/23 Normal [facility] C. trachomatis+N. gonorrhoea e DNA SHEREEN+probe Ql (Unsp spec)on 12-22-2023 C. trachomatis rRNA SHEREEN+probe Ql (Unsp spec) Negative Normal Negative for Chlamydia trachomatis by [facility] Comment on above: Order Comment: Speci men Type: BLOOD SPECIMEN Ordering Facility: [facility] Address: [address] [place] [address] Performed By: #### 5 8410-2 #### [facility] CLIA [id number] [address] [place] [address] N. gonorrhoeae rRNA SHEREEN+probe Ql (Unsp spec) Negative Normal Negative for Neisseria gonorrhoeae by [facility] Comment on above: Order Comment: Speci men Type: BLOOD SPECIMEN Ordering Facility: [facility] Address: [address] [place] [address] Performed By: #### 5 8410-2 #### [facility] CLIA [id number] [address] [place] [address] OF [facility] CBC panel Auto (Bld)on 12-21 Erythrocyte distribution width (RBC) [Ratio] 15.9 % High 11.5 - 15.0 % [facility] Hematocrit (Bld) [Volume fraction] 29.9 % Low 36.0 - 46.0 % [facility] Hemoglobin (Bld) [Mass/Vol] 8.6 g/dL Low 11.5 - 15.5 g/dL [facility] Interpretation and review of laboratory results Abnormal [facility] MCH (RBC) [Entitic mass] 20.5 pg Low 26.0 - 34.[address] [facility] MCHC (RBC) [Mass/Vol] 28.8 g/dL Low 30.5 - 36.0 g/dL [facility] MCV (RBC) [Entitic vol] 71.2 fL Low 80.0 - 100.[address] [facility] Nucleated RBC (Bld) [#/Vol] NINF [facility] Platelet mean volume (Bld) [Entitic vol] 10.9 fL 9.0 - 12.[address] [facility] Platelets (Bld) [#/Vol] 274 10*3/uL [facility] RBC (Bld) [#/Vol] 4.20 10*6/uL 3.90 - 5.20 m/uL [facility] WBC (Bld) [#/Vol] 8.88 10*3/uL [facility] Erythrocyte distribution width (RBC) [Ratio] 15.9 % High 11.5-15.0 [facility] Comment on above: Order Comment: Speci men Type: BLOOD SPECIMEN Ordering Facility: [facility] Address: [address] [place] [address] Performed By: #### 5 8410-2 #### [facility] CLIA [id number] [address] [place] [address] [place] Hematocrit (Bld) [Volume fraction] 29.9 % Low 36.0-46.0 [facility] Comment on above: Order Comment: Speci elizabeth Type: BLOOD SPECIMEN Ordering Facility: [facility] Address: [address] [place] [address] Performed By: #### 5 8410-2 #### [facility] CLIA [id number] [address] [place] [address] [place] Hemoglobin (Bld) [Mass/Vol] 8.6 g/dL Low 11.5-15.5 [facility] Comment on above: Order Comment: Speci men Type: BLOOD SPECIMEN Ordering Facility: [facility] Address: [address] [place] [address] Performed By: #### 5 8410-2 #### [facility] CLIA [id number] [address] [place] [address] [place] MCH (RBC) [Entitic mass] 20.5 pg Low 26.0-34.0 [facility] Comment on above: Order Comment: Speci men Type: BLOOD SPECIMEN Ordering Facility: [facility] Address: [address] [place] [address] Performed By: #### 5 8410-2 #### [facility] CLIA [id number] [address] [place] [address] [place] MCHC (RBC) [Mass/Vol] 28.8 g/dL Low 30.5-36.0 [facility] Comment on above: Order Comment: Speci men Type: BLOOD SPECIMEN Ordering Facility: [facility] Address: [address] [place] [address] Performed By: #### 5 8410-2 #### [facility] CLIA [id number] [address] [place] [address] [place] MCV (RBC) [Entitic vol] 71.2 fL Low 80.0-100.0 [facility] Comment on above: Order Comment: Speci men Type: BLOOD SPECIMEN Ordering Facility: [facility] Address: [address] [place] [address] Performed By: #### 5 8410-2 #### [facility] CLIA [id number] [address] [place] [address] [place] Nucleated RBC (Bld) [#/Vol] 10*3/uL Normal <0.01 [facility] Comment on above: Order Comment: Speci men Type: BLOOD SPECIMEN Ordering Facility: [facility] Address: [address] [place] [address] Performed By: #### 5 8410-2 #### [facility] CLIA [id number] [address] [place] [address] [place] Platelet mean volume (Bld) [Entitic vol] 10.9 fL Normal 9.0-12.7 [facility] Comment on above: Order Comment: Speci men Type: BLOOD SPECIMEN Ordering Facility: [facility] Address: [address] [place] [address] Performed By: #### 5 8410-2 #### [facility] CLIA [id number] [address] [place] [address] [place] Platelets (Bld) [#/Vol] 274 10*3/uL Normal 150-400 [facility] Comment on above: Order Comment: Speci men Type: BLOOD SPECIMEN Ordering Facility: [facility] Address: [address] [place] [address] Performed By: #### 5 8410-2 #### [facility] CLIA [id number] [address] [place] [address] [place] RBC (Bld) [#/Vol] 4.20 10*6/uL Normal 3.90-5.20 [facility] Comment on above: Order Comment: Speci men Type: BLOOD SPECIMEN Ordering Facility: [facility] Address: [address] [place] [address] Performed By: #### 5 8410-2 #### [facility] CLIA [id number] [address] [place] [address] [place] WBC (Bld) [#/Vol] 8.88 10*3/uL Normal 3.70-11.00 [facility] Comment on above: Order Comment: Speci men Type: BLOOD SPECIMEN Ordering Facility: [facility] Address: [address] [place] [address] Performed By: #### 5 8410-2 #### [facility] CLIA [id number] [address] [place] [address] [place] HIV 1+2 Ab IA Qlon 4 HIV 1 and 2 Ab IA.rapid Nom (S/P/Bld) Normal [facility] Comment on above: Order Comment: Speci men Type: BLOOD SPECIMEN Ordering Facility: [facility] Address: [address] [place] [address] Result Comment: Test not indicated. Performed By: #### 5 8410-2 #### [facility] CLIA [id number] [address] [place] [address] [place] HIV 1+2 Ab+HIV1 p24 Ag IA Ql Non-Reactive Normal Nonreactive [facility] Comment on above: Order Comment: Speci men Type: BLOOD SPECIMEN Ordering Facility: [facility] Address: [address] [place] [address] Performed By: #### 5 8410-2 #### [facility] CLIA [id number] [address] [place] [address] [place] HIV immunoassay testing algorithm interpretation (S/P/Bld) [Interp] [facility] Comment on above: Order Comment: Speci men Type: BLOOD SPECIMEN Ordering Facility: [facility] Address: [address] [place] [address] Result Comment: No e vidence of HIV-1 or HIV-2 infection. Should recent infection be suspected, repeat testing may be considered 2-3 weeks after this draw. [employer] Rev. Code 3701.243(E): This information has been [...] diagnoses. Performed By: #### 5 8410-2 #### [facility] CLIA [id number] [address] [place] [address] [place] ROUTINE, GROUP B ST REP PCRon 12-22-2023 ROUTINE, GROUP B STREP PCR GROUP B STREP PCR: Negative for Group B Streptococcus by PCR. [facility] Comment on above: Performed By: #### 3 6902-5 #### [facility] CLIA [id number] [address] [place] [address] [place] Reagin and Treponema pallidu m IgG and IgM [Interp]on 12-22-2023 T. pallidum IgG+IgM IA Ql (S) Non-Reactive Normal Nonreactive [facility] Comment on above: Order Comment: Speci men Type: BLOOD SPECIMEN Ordering Facility: [facility] Address: [address] [place] [address] Performed By: #### 5 8410-2 #### [facility] CLIA [id number] [address] [place] [address] [place] Reagin+T pallidum IgG+IgM Se rPl-Impon 12-22-2023 Reagin and Treponema pallidum IgG and IgM [Interp] Cannot exclude recent Treponemal infection if specimen collected within 7-10 days after appearance of suspect lesions or 2-3 weeks after an exposure. Clinical correlation is required. Normal [facility] Comment on above: Order Comment: Speci men Type: BLOOD SPECIMEN Ordering Facility: [facility] Address: [address] [place] [address] Performed By: #### 5 8410-2 #### [facility] CLIA [id number] [address] [place] [address] OF [facility] 12-05-2023 CNPN Telephone (OBGDOV) ---- BETH VINCENT ([id number]) 1995 F Date Time Provider Department 12/05/23 ALANA OBRIEN During your visit today, we recorded the following information about you: Holly Tuttle 12/05/2023 10:15 AM Signed LM to have [...] Encounter Status:Closed by HOLLY TUTTLE on 12/05/23 [facility] 11-07-2023 CNPN Telephone (OBGDOV) ---- BETH VINCENT ([id number]) 1995 F Date Time Provider Department 11/07/23 JORGE ALEXANDER During your visit today, we recorded the following information about you: Holly Tuttle 11/07/2023 11:27 AM Signed LM for patient to call and r/s No Show Allergies As of Date: 11/07/2023 (No Known Allergies) Date Reviewed: 09/27/2023 Reviewed by: Mallroie Zamora MA - Fully Assessed Reason for [...] Encounter Status:Closed by HOLLY TUTTLE on 11/07/23 [facility] CNPN Telephone (OBGYWM) ---- BETH VINCENT ([id number]) 1995 F Date Time Provider Department 11/07/23 DIDI SPENCE OBGYWM During your visit today, we recorded the following information about you: Cesilia Malloy RN 11/07/2023 11:57 AM Signed 30w2d Patient is wanting to transfer OB care to our office from [facility]. Spoke with RR. Patient is aware that [...] Encounter Status:Closed by CESILIA MALLOY on 11/15/23 [facility] CNCOon 2023 CNCO Letter Text [facility] CNPNon 2023 YOLANDAN Telephone (OBGDOV) ---- BETH VINCENT ([id number]) 1995 F Date Time Provider Department 10/23/23 [...] Encounter Status:Closed by HOLLY TUTTLE on 10/23/23 [facility] James 09-29-2023 FABIOLA Telephone (ANTONGDOV) ---- BETH VINCENT ([id number]) 1995 F Date Time Provider Department 09/29/23 ALAAN OBRIEN During your visit today, we recorded the following information about you: Alana Obrien APRN.CNP 09/29/2023 7:55 AM Signed Please notify Beth that her blood count is low. I have sent an iron tablet to her pharmacy for her to start taking daily in addition to her PNV. PADMINI Martino Courtney, MA 09/29/2023 8:16 AM Signed Tried calling [...] Status:Closed by ALANA OBRIEN on 09/29/23 Normal [facility] CBC panel Auto (Bld)on 09-26 Erythrocyte distribution width (RBC) [Ratio] 13.1 % Normal 11.5-15.0 [facility] Comment on above: Order Comment: Speci men Type: BLOOD SPECIMEN Ordering Facility: [facility] Address: [address] [place] [address] Performed By: #### 5 8410-2 #### [facility] CLIA [id number] [address] [place] [address] [place] Hematocrit (Bld) [Volume fraction] 33.5 % Low 36.0-46.0 [facility] Comment on above: Order Comment: Speci men Type: BLOOD SPECIMEN Ordering Facility: [facility] Address: [address] [place] [address] Performed By: #### 5 8410-2 #### [facility] CLIA [id number] [address] [place] [address] [place] Hemoglobin (Bld) [Mass/Vol] 10.3 g/dL Low 11.5-15.5 [facility] Comment on above: Order Comment: Speci men Type: BLOOD SPECIMEN Ordering Facility: [facility] Address: [address] [place] [address] Performed By: #### 5 8410-2 #### [facility] CLIA [id number] [address] [place] [address] [place] MCH (RBC) [Entitic mass] 26.3 pg Normal 26.0-34.0 [facility] Comment on above: Order Comment: Speci men Type: BLOOD SPECIMEN Ordering Facility: [facility] Address: [address] [place] [address] Performed By: #### 5 8410-2 #### [facility] CLIA [id number] [address] [place] [address] [place] MCHC (RBC) [Mass/Vol] 30.7 g/dL Normal 30.5-36.0 [facility] Comment on above: Order Comment: Speci men Type: BLOOD SPECIMEN Ordering Facility: [facility] Address: [address] [place] [address] Performed By: #### 5 8410-2 #### [facility] CLIA [id number] [address] [place] [address] [place] MCV (RBC) [Entitic vol] 85.5 fL Normal 80.0-100.0 [facility] Comment on above: Order Comment: Speci men Type: BLOOD SPECIMEN Ordering Facility: [facility] Address: [address] [place] [address] Performed By: #### 5 8410-2 #### [facility] CLIA [id number] [address] [place] [address] [place] Nucleated RBC (Bld) [#/Vol] 10*3/uL Normal <0.01 [facility] Comment on above: Order Comment: Speci men Type: BLOOD SPECIMEN Ordering Facility: [facility] Address: [address] [place] [address] Performed By: #### 5 8410-2 #### [facility] CLIA [id number] [address] [place] [address] [place] Platelet mean volume (Bld) [Entitic vol] 11.3 fL Normal 9.0-12.7 [facility] Comment on above: Order Comment: Speci men Type: BLOOD SPECIMEN Ordering Facility: [facility] Address: [address] [place] [address] Performed By: #### 5 8410-2 #### [facility] CLIA [id number] [address] [place] [address] [place] Platelets (Bld) [#/Vol] 292 10*3/uL Normal 150-400 [facility] Comment on above: Order Comment: Speci men Type: BLOOD SPECIMEN [facility]: [facility] [facility] Address: [address] [place] [address] Performed By: #### 5 8410-2 #### [facility] CLIA [id number] [address] [place] [address] [place] RBC (Bld) [#/Vol] 3.92 10*6/uL Normal 3.90-5.20 [facility] Comment on above: Order Comment: Speci men Type: BLOOD SPECIMEN Ordering Facility: [facility] Address: [address] [place] [address] Performed By: #### 5 8410-2 #### [facility] CLIA [id number] [address] [place] [address] [place] WBC (Bld) [#/Vol] 8.99 10*3/uL Normal 3.70-11.00 [facility] Comment on above: Order Comment: Speci men Type: BLOOD SPECIMEN Ordering Facility: [facility] Address: [address] [place] [address] Performed By: #### 5 8410-2 #### [facility] CLIA [id number] [address] [place] [address] [facility] CNNURSEon 09-27-2023 CNNURSE Nurse Visit (OBGDOV) ---- BETH VINCENT ([id number]) 1995 F Date Time Provider Department 09/27/23 10:45 AM NURSE WARNING COORDINATION METEOROLOGIST UP AVINASH OBGDOV During your visit today, we recorded the following information about you: Jannie Blackburn RN 09/27/2023 10:50 AM Signed Patient given 50g glucose drink-orange flavored. LOT#: [id number] Expiration date: 04/26/2025 Jannie Blackburn RN September 27, 2023 10:49 AM Jannie Blackburn RN 09/27/2023 11:46 AM Signed Patient [...] pamphlet, Nexplanon pamphlet, Krames Tubal sterilization pamphlet, Krames control pamphlet ( control options, sterilization, IUD, [...] >> Par (more content not included)... Normal [facility] GESTATIONAL GLUCOSE SCREEN, 1-HOUR, 50 GRAM, NON-FASTINGon 09-27-2023 Glucose [Mass/Vol] 104 mg/dL Normal 74-134 [facility] Comment on above: Order Comment: Speci men Type: BLOOD SPECIMEN Ordering Facility: [facility] Address: [address] [place] [address] Result Comment: [facility] Congress of Obstetricians and Gynecologists (Lemuel/Herber) guidelines state a gestational diabetes mellitus positive screen is made, in women not previously diagnosed with overt diabetes, when the 1 hr plasma glucose level is equal to or above 140 mg/dL. [facility] Rn Mds Coordinator and [facility] recommends a 135 mg/dL cutoff. Performed By: #### G LTGST #### [facility] CLIA [id number] [address] [place] [address] [place] Reagin and Treponema pallidu m IgG and IgM [Interp]on 09-27-2023 T. pallidum IgG+IgM IA Ql (S) Non-Reactive Normal Nonreactive [facility] Comment on above: Order Comment: Micha johnson Type: BLOOD SPECIMEN Ordering Facility: [facility] Address: [address] [place] [address] Performed By: #### 7 3752-8 #### [facility] CLIA [id number] [address] [place] [address] [place] Reagin+T pallidum IgG+IgM Se rPl-Impon 09-27-2023 Reagin and Treponema pallidum IgG and IgM [Interp] Cannot exclude recent Treponemal infection if specimen collected within 7-10 days after appearance of suspect lesions or 2-3 weeks after an exposure. Clinical correlation is required. [facility] Comment on above: Order Comment: Micha johnson Type: BLOOD SPECIMEN Ordering Facility: [facility] Address: [address] [place] [address] Performed By: #### 7 3752-8 #### [facility] CLIA [id number] [address] [place] [address] [place] CNPNon 08-31-2023 CNPN Telephone (OBGDOV) ---- BETH VINCENT ([id number]) 1995 F Date Time Provider Department 08/31/23 NURSE WARNING COORDINATION METEOROLOGIST UP AVINASH OBGDOV During your visit today, we recorded the following information about you: Asmita Parker RN 08/31/2023 1:44 PM Signed 1st risk assessment form submitted 08/31/2023 Asmita Parker RN Allergies As of Date: 08/31/2023 (No Known Allergies) Date Reviewed: 08/28/2023 Reviewed by: Claudia Chawla MA - Fully Assessed 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 Placental lypo-yi-amlmhcxp os distance 80 mm Umbilical cord: normal [...] EFW (oz) 13 oz EFW by: Hadlock ([id number]-FL) Extended CM 3.4 mm 7% Nicolaides Extremities [...] normal LVOT view: normal 3-vessel view: normal 9-lbajkc-fcqissl view: normal Heart / Thorax Situs: situs [...] Read By: Lydia Freeman M.D. MATERNAL MEDICINE [facility] Radiology Study observation (narrative) [facility] .Urinalysis Microscopic (AO) on 08-13-2023 UA Bacteria Trace Abnormal [facility] ([place]) Comment on above: Performed By: #### U AMICAO, UA #### [place] [id number] [place] [address] UA RBC 0-5 Abnormal None Seen [facility] ([place] Comment on above: Performed By: #### U AMICAO, UA #### [facility] [address] [place], [place] [address] UA Squam Epithelial LOADED Abnormal None Seen [facility] ([place] Comment on above: Performed By: #### U AMICAO, UA #### [facility] [address] [place], [place] [address] UA WBC 0-5 Abnormal None Seen [facility] ([place] Comment on above: Performed By: #### U AMICAO, UA #### [facility] [address] [place] [address] LABORATORYOrdered By: Tsering Cavanaugh on 08-13-2023 Appearance [...] Strep PCR Not detected Normal Not Detected [facility] ([place] Comment on above: Performed By: #### S BELLE #### [address] [address] Group A Strep PCR Int Normal [facility] ([place] Comment on above: Result Comment: Nega tive [...] Interp Performed By: #### S BELLE #### [address] [address] UAon 08-13-2023 Color (U) Dark yellow Normal [facility] ([place] Comment on above: Performed By: #### U AMIFAM WATTS #### [address] [address] Glucose (U) [Mass/Vol] Negative Normal Negative [facility] ([place] Comment on above: Performed By: #### U AMIMAC UA #### [address] [address] Ketones Ql (U) 40 mg/dL Abnormal Negative [facility] ([place] Comment on above: Performed By: #### U AMICAO, UA #### [place] [address] UA Appear Turbid Abnormal Clear [facility] ([place] Comment on above: Performed By: #### U AMICAO, UA #### [place] [id number] UA Bili Small Abnormal Negative [facility] ([place] Comment on above: Performed By: #### U AMICAO, UA #### [address] [address] UA Blood Negative Normal Negative [facility] ([place] Comment on above: Performed By: #### U AMICAO, UA #### [place] [address] UA Leuk Est Negative Normal Negative [facility] ([place] Comment on above: Performed By: #### U AMICAO, UA #### [place] [address] UA Nitrite Negative Normal Negative [facility] ([place] Comment on above: Performed By: #### U AMICAO, UA #### [place] [address] UA pH 6.0 Normal 5.0 - 8.0 [facility] ([place]) Comment on above: Performed By: #### U AMICAO, UA #### [place] [address] UA Protein Negative Normal Negative [facility] ([place] Comment on above: Performed By: #### U AMICAO, UA #### [address] [address] UA Spec Grav >=1.030 Abnormal 1.015-1.025 [facility] ([place]) Comment on above: Performed By: #### U AMICAO, UA #### [place] [address] UA Specimen Type Clean Catch Normal [facility] ([place] Comment on above: Performed By: #### U AMICAO, UA #### [place] [address] [place], [place] [address] UA Urobilinogen 1.0 E.U./dL Normal 0.2-1.0 [facility] ([place]) Comment on above: Performed By: #### U BATOOL UA #### [place] [address] [place], [place] [address] James 08-09-2023 CNPN Telephone (OBGDOV) ---- BETH VINCENT ([id number]) 1995 F Date Time Provider Department 08/09/23 [...] next OB appointment is scheduled for 08/28/2023. Asmita Bernard RN 08/09/2023 12:48 PM Signed RN spoke [...] Date Reviewed: 08/04/2023 Reviewed by: Alana Obrien APRN.PAPER GLUING OPERATOR - Fully Assessed Reason for Visit: Patient [...] Encounter Status:Closed by ASMITA PARKER on 08/09/23 [facility] 07-07-2023 CNPN Telephone (OBGDOV) ---- BETH VINCENT ([id number]) 1995 F Date Time Provider Department 07/07/23 NURSE WARNING COORDINATION METEOROLOGIST UP AVINASH OBGDOV During your visit today, we recorded the following information about you: Holly Tuttle 07/07/2023 9:09 AM Signed Pt is 12.5 [...] to call back with questions. FELIPE Valentin Sarah, RN 07/07/2023 9:59 AM Signed Patient called [...] symptoms. Patient states understanding. FELIPE Valentin Stacie, APRN.YOLANDA 07/07/2023 12:02 PM Signed RN note reviewed and agree with recommendations. Alana Obrien APRN.CNP Allergies As of Date: 07/07/2023 (No Known Allergies) Date Reviewed: 07/04/2023 Reviewed by: Alana Obrien APRN.CNP - Fully Assessed Reason for Visit: Patient Question [3887] Prescriptions as of 07/07/2023 - metroNIDAZOLE (FLAGYL) [...] Encounter Status:Closed by ASMITA PARKER on 07/07/23 [facility] 07-06-2023 FABIOLA Telephone (OBGDOV) ---- BETH VINCENT ([id number]) 1995 F Date Time Provider Department 07/06/23 ALANA OBRIEN During your visit today, we recorded the following information about you: Alana Obrien APRN.YOLANDA 07/06/2023 1:11 PM Signed Please notify Beth that her vaginal swab showed bacterial vaginosis. I have sent metronidazole to her pharmacy to take BID x7 days. Alana Obrien APRN.CNP Allergies As of Date: 07/06/2023 (No Known Allergies) Date Reviewed: 07/04/2023 Reviewed by: Alana Obrien APRN.CNP - Fully Assessed Reason for Visit: Results [...] Encounter Status:Closed by ALANA OBRIEN on 07/06/23 [facility] BACTERIAL VAGINOSIS NAATon 0 07-05-2023 Lactobacillus crispatus+gasseri+je nsenii + Gardnerella vaginalis + Atopobium vaginae rRNA SHEREEN+probe Ql (Vag fld) Positive Abnormal Negative for bacterial vaginosis [facility] POOJA/TRICHOMONAS NAATon 0 07-05-2023 C. glabrata RNA SHEREEN+probe Ql (Vag fld) Negative Negative for Pooja glabrata [facility] Pooja sp DNA SHEREEN+probe Ql (Vag fld) Negative Negative for Pooja species [facility] T. vaginalis DNA SHEREEN+probe Ql (Unsp spec) Negative Negative for Trichomonas vaginalis by amplification [facility] BACTERIAL VAGINOSIS NAATon 0 07-04-2023 Lactobacillus crispatus+gasseri+je nsenii + Gardnerella vaginalis + Atopobium vaginae rRNA SHEREEN+probe Ql (Vag fld) Positive Abnormal Negative for bacterial vaginosis [facility] Comment on above: Order Comment: Speci men Type: SWAB Ordering Facility: [facility] Address: [address] [place] [address] Performed By: #### C VTV, BVAMP #### [facility] CLIA [id number] [address] [place] [address] [place] POOJA/TRICHOMONAS NAATon 0 07-04-2023 C. glabrata RNA SHEREEN+probe Ql (Vag fld) Negative Normal Negative for Pooja glabrata [facility] Comment on above: Order Comment: Speci men Type: SWAB Ordering Facility: [facility] Address: [address] [place] [address] Performed By: #### C VTV, BVAMP #### [facility] CLIA [id number] [address] [place] [address] [place] Pooja sp DNA SHEREEN+probe Ql (Vag fld) Negative Normal Negative for Pooja species [facility] Comment on above: Order Comment: Speci men Type: SWAB Ordering Facility: [facility] Address: [address] [place] [address] Performed By: #### C VTV, BVAMP #### [facility] CLIA [id number] [address] [place] [address] [place] T. vaginalis DNA SHEREEN+probe Ql (Unsp spec) Negative Normal Negative for Trichomonas vaginalis by amplification [facility] Comment on above: Order Comment: Speci men Type: SWAB Ordering Facility: [facility] Address: [address] [place] [address] Performed By: #### C VTV, BVAMP #### [facility] CLIA [id number] [address] [place] [address] [place] James 06-26-2023 CNPN Telephone (OBGDOV) ---- SALLYBETH R ([id number]) 1995 F Date Time Provider Department 06/26/23 NURSE WARNING COORDINATION METEOROLOGIST UP AVINASH OBGDOV During your visit today, [...] Date Reviewed: 06/07/2023 Reviewed by: Jannie Blackburn, FELIPE - Fully Assessed Problem List As Of Date 06/26/2023 Noted Resolved Encounter for test, result positive [*06/07/2023 Encounter for gynecological examination (genera*06/07/2023 Current every day vaping [Z72.89] 06/07/2023 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 trachomatis+N. gonorrhoea e DNA SHEREEN+probe Ql (Unsp spec)on 06-07-2023 C. trachomatis rRNA SHEREEN+probe Ql (Unsp spec) Negative Normal Negative for Chlamydia trachomatis by [facility] Comment on above: Order Comment: Speci men Type: SWAB Ordering Facility: [facility] Address: [address] [place] [address] Performed By: #### 3 6902-5 #### [facility] CLIA [id number] [address] [place] [address] N. gonorrhoeae rRNA SHEREEN+probe Ql (Unsp spec) Negative Normal Negative for Neisseria gonorrhoeae by [facility] Comment on above: Order Comment: Speci men Type: SWAB Ordering Facility: [facility] Address: [address] [place] [address] Performed By: #### 3 6902-5 #### [facility] CLIA [id number] [address] [place] [address] [place] CBC panel Auto (Bld)on 06-06 Erythrocyte distribution width (RBC) [Ratio] 13.0 % 11.5 - 15.0 % [facility] Hematocrit (Bld) [Volume fraction] 40.1 % 36.0 - 46.0 % [facility] Hemoglobin (Bld) [Mass/Vol] 13.3 g/dL 11.5 - 15.5 g/dL [facility] MCH (RBC) [Entitic mass] 27.5 pg 26.0 - 34.[address] [facility] MCHC (RBC) [Mass/Vol] 33.2 g/dL 30.5 - 36.0 g/dL [facility] MCV (RBC) [Entitic vol] 82.9 fL 80.0 - 100.[address] [facility] Nucleated RBC (Bld) [#/Vol] <0.01 k/uL [facility] Platelet mean volume (Bld) [Entitic vol] 10.6 fL 9.0 - 12.[address] [facility] Platelets (Bld) [#/Vol] 272 10*3/uL 150 - 400 k/uL [facility] RBC (Bld) [#/Vol] 4.84 10*6/uL 3.90 - 5.20 m/uL [facility] WBC (Bld) [#/Vol] 8.81 10*3/uL 3.70 - 11. 00 k/uL [facility] Erythrocyte distribution width (RBC) [Ratio] 13.0 % Normal 11.5-15.0 [facility] Comment on above: Order Comment: Speci men Type: BLOOD SPECIMEN Ordering Facility: [facility] Address: [address] [place] [address] Performed By: #### 5 8410-2 #### [facility] CLIA [id number] [address] [place] [address] [place] Hematocrit (Bld) [Volume fraction] 40.1 % Normal 36.0-46.0 [facility] Comment on above: Order Comment: Speci men Type: BLOOD SPECIMEN Ordering Facility: [facility] Address: [address] [place] [address] Performed By: #### 5 8410-2 #### [facility] CLIA [id number] [address] [place] [address] [place] Hemoglobin (Bld) [Mass/Vol] 13.3 g/dL Normal 11.5-15.5 [facility] Comment on above: Order Comment: Speci men Type: BLOOD SPECIMEN Ordering Facility: [facility] Address: [address] [place] [address] Performed By: #### 5 8410-2 #### [facility] CLIA [id number] [address] [place] [address] [place] MCH (RBC) [Entitic mass] 27.5 pg Normal 26.0-34.0 [facility] Comment on above: Order Comment: Speci men Type: BLOOD SPECIMEN Ordering Facility: [facility] Address: [address] [place] [address] Performed By: #### 5 8410-2 #### [facility] CLIA [id number] [address] [place] [address] [place] MCHC (RBC) [Mass/Vol] 33.2 g/dL Normal 30.5-36.0 [facility] Comment on above: Order Comment: Speci men Type: BLOOD SPECIMEN Ordering Facility: [facility] Address: [address] [place] [address] Performed By: #### 5 8410-2 #### [facility] CLIA [id number] [address] [place] [address] [place] MCV (RBC) [Entitic vol] 82.9 fL Normal 80.0-100.0 [facility] Comment on above: Order Comment: Speci men Type: BLOOD SPECIMEN Ordering Facility: [facility] Address: [address] [place] [address] Performed By: #### 5 8410-2 #### [facility] CLIA [id number] [address] [place] [address] [place] Nucleated RBC (Bld) [#/Vol] 10*3/uL Normal <0.01 [facility] Comment on above: Order Comment: Speci men Type: BLOOD SPECIMEN Ordering Facility: [facility] Address: [address] [place] [address] Performed By: #### 5 8410-2 #### [facility] CLIA [id number] [address] [place] [address] [place] Platelet mean volume (Bld) [Entitic vol] 10.6 fL Normal 9.0-12.7 [facility] Comment on above: Order Comment: Speci men Type: BLOOD SPECIMEN Ordering Facility: [facility] Address: [address] [place] [address] Performed By: #### 5 8410-2 #### [facility] CLIA [id number] [address] [place] [address] [place] Platelets (Bld) [#/Vol] 272 10*3/uL Normal 150-400 [facility] Comment on above: Order Comment: Speci men Type: BLOOD SPECIMEN Ordering Facility: [facility] Address: [address] [place] [address] Performed By: #### 5 8410-2 #### [facility] CLIA [id number] [address] [place] [address] [place] RBC (Bld) [#/Vol] 4.84 10*6/uL Normal 3.90-5.20 [facility] Comment on above: Order Comment: Speci men Type: BLOOD SPECIMEN Ordering Facility: [facility] Address: [address] [place], [place] [address] Performed By: #### 5 8410-2 #### [facility] CLIA [id number] [address] [place] [address] [place] WBC (Bld) [#/Vol] 8.81 10*3/uL Normal 3.70-11.00 [facility] Comment on above: Order Comment: Speci men Type: BLOOD SPECIMEN Ordering Facility: [facility] Address: [address] [place] [address] Performed By: #### 5 8410-2 #### [facility] CLIA [id number] [address] [place] [address] CNNURSEon 06-07-2023 CNNURSE Nurse Visit (OBGDOV) ---- BETH VINCENT ([id number]) 1995 F Date Time Provider Department 06/07/23 11:15 AM NURSE WARNING COORDINATION METEOROLOGIST UP AVINASH OBGDOV During your visit today, we recorded the following information about you: Jannie Blackburn, RN 06/07/2023 11:12 AM Signed Patient is [...] Patient declines at this time. [facility] ([facility])-Medications During sheet was discussed and given to patient. We discussed the Covid vaccine and how it appears to be safe and effective in and women though we do not have termite exterminator data. It should be available to and women as in the non population, patients who do not wish to receive the vaccine should also be supported in that decision. ACOG and [facility] now recommending Covid vaccination in . We [...] gestation to screen for genetic disorders in . Patient given the [employer] financial estimate tear off form and instructed [...] Program, Directory of services for families in [facility], information about genetic testing, information about signing up for My Chart, and [facility]'s 'Your guide to a Healthy '. Patient was educated on the contents of this folder. Patient was asked if she would like a referral to [facility]. Referral was not completed per patient. Jannie [...] showed she i (more content not included)... [facility] CNOVon 06-07-2023 CNOV Office Visit (OBGDOV) ---- BETH VINCENT ([id number]) 1995 F Date Time Provider Department 06/07/23 10:00 AM JORGE ALEXANDER OBGDOV During your visit today, we recorded [...] TO DIFFERE (more content not included)... Normal [facility] Examination level ultrasound on 06-07-2023 [facility] HBV surface Ag Ser Qlon 05-25 HBV surface Ag Ql (S) Negative Normal Negative [facility] Comment on above: Order Comment: Speci men Type: BLOOD SPECIMEN Ordering Facility: [facility] Address: [address] [place] [address] Performed By: #### 5 8410-2 #### [facility] CLIA [id number] [address] [place] [address] [place] HCG QUAL UR B/Oon 06-07-2023 status Positive neg - pos [facility] Quality Check Yes [facility] HCV Ab Ser Qlon 06-07-2023 HCV Ab Ql (S) Negative Normal Negative [facility] Comment on above: Order Comment: Speci men Type: BLOOD SPECIMENOrdering Facility: [facility] Address: [address] [place] [address] Result Comment: The result suggests no evidence of active infection with Hepatitis C virus. Should recent infection be suspected, repeat testing may be considered 4-6 weeks after this draw. Performed By: #### 1 6128-1 ####[facility] [id number] [place] [address] [place] HIV 1+2 Ab IA Qlon 4 HIV 1 and 2 Ab IA.rapid Nom (S/P/Bld) [facility] Comment on above: Order Comment: Speci men Type: BLOOD SPECIMEN Ordering Facility: [facility] Address: [address] [place] [address] Result Comment: Test not indicated. Performed By: #### 5 8410-2 #### [facility] CLIA [id number] [address] [place] [address] [place] HIV 1+2 Ab+HIV1 p24 Ag IA Ql Non-Reactive Normal Nonreactive [facility] Comment on above: Order Comment: Speci men Type: BLOOD SPECIMEN Ordering Facility: [facility] Address: [address] [place] [address] Performed By: #### 5 8410-2 #### [facility] CLIA [id number] [address] [place] [address] [place] HIV immunoassay testing algorithm interpretation (S/P/Bld) [Interp] [facility] Comment on above: Order Comment: Speci men Type: BLOOD SPECIMEN Ordering Facility: [facility] Address: [address] [place] [address] Result Comment: No e vidence of HIV-1 or HIV-2 infection. Should recent infection be suspected, repeat testing may be considered 2-3 weeks after this draw. [employer] Rev. Code 3701.243(E): This information has been [...] diagnoses. Performed By: #### 5 8410-2 #### [facility] CLIA [id number] [address] [place] [address] [place] PAP TESTon 06-07-2023 ADEQUACY Satisfactory for interpretation [facility] Comment on above: Order Comment: Speci men Type: FLUID SPECIMENOrdering Facility: [facility] Address: [address] [place] [address] Performed By: #### L [id number] ####[facility] LABCLIA [id number] [facility] [id number] [id number] [place] CASE REPORT [facility] Comment on above: Order Comment: Speci men Type: FLUID SPECIMENOrdering Facility: [facility] Address: [address] [place] [address] Result Comment: Gyne cologic Cytology Report Case: [id number] Authorizing Provider: Jorge Alexander MD Collected: 06/07/2023 10:43 AM Ordering Location: [facility] Received: 06/08/2023 07:32 AM [facility] First Screen: Clapacs, Magalys Specimen: Pap Test, ThinPrep, Cervix Performed By: #### L [id number] ####[facility] LABCLIA [id number] [place] [address] [place] CLINICAL HISTORY, CYTOLOGY, RELOCATION SERVICES SPECIALIST Routine Exam [facility] Comment on above: Order Comment: Speci men Type: FLUID SPECIMENOrdering Facility: [facility] Address: [address] [place] [address] Performed By: #### L [id number] ####[facility] LABCLIA [id number] [place] [address] [place] CYTOLOGY PAP OTHER INT Predominance of coccobacilli consistent with shift in vaginal [place] [facility] Comment on above: Order Comment: Speci men Type: FLUID SPECIMENOrdering Facility: [facility] Address: [address] [place] [address] Performed By: #### L [id number] ####[facility] LABCLIA [id number] [place] [address] [place] FINAL PERFORMING LAB Normal [facility] Comment on above: Order Comment: Speci men Type: FLUID SPECIMENOrdering Facility: [facility] Address: [address] [place] [address] Result Comment: Tech nical component, visual merchandise manager screening performed at [facility], [address] [place] [address] CLIA# [id number] Diagnostic interpretation performed at [facility], [address] [place], [place] [id number] CLIA# [id number] Pruner: Curtis Hernandez M.D. Performed By: #### L [id number] ####[facility] LABCLIA [id number] [place] [address] [place] HPV REFLEX HPV if Atypical [facility] Comment on above: Order Comment: Speci men Type: FLUID SPECIMENOrdering Facility: [facility] Address: [address] [place] [address] Performed By: #### L [id number] ####[facility] LABCLIA [id number] [place] [address] [place] INTERPRETATION, CYTOLOGY, RELOCATION SERVICES SPECIALIST [facility] Comment on above: Order Comment: Speci men Type: FLUID SPECIMENOrdering Facility: [facility] Address: [address] [place] [address] Result Comment: Nega tive for intraepithelial lesion or malignancy. Performed By: #### L [id number] ####[facility] LABCLIA [id number] [place] [address] [place] LMP 04/12/2023 [facility] Comment on above: Order Comment: Speci men Type: FLUID SPECIMENOrdering Facility: [facility] Address: [address] [place] [address] Performed By: #### L [id number] ####[facility] LABCLIA [id number] [place] [address] [place] PAP DISCLAIMER COMMENT The Pap Smear is a screening test for cervical cancer. False negative results occur with all screening tests, emphasizing the need for rescreening at recommended intervals, and clinical correlation. [facility] Comment on above: Order Comment: Speci men Type: FLUID SPECIMENOrdering Facility: [facility] Address: [address] [place] [address] Performed By: #### L [id number] ####[facility] LABCLIA [id number] [place] [address] [place] PAP WATERMELON INSPECTOR COMMENT This specimen has been analyzed by the ThinPrep Imaging System, an automated imaging and review system, which assists the laboratory in evaluating cells on ThinPrep Pap tests. Following automated imaging, selected hughes from every slide are reviewed by a visual merchandise manager. [facility] Comment on above: Order Comment: Speci men Type: FLUID SPECIMENOrdering Facility: [facility] Address: [address] [place] [address] Performed By: #### L [id number] ####[facility] LABCLIA [id number] [place] [address] [place] RUBELLA IGG ABon 06-07-2023 RUBELLA IGG AB, QUAL Positive Normal Positive [facility] Comment on above: Order Comment: Speci men Type: BLOOD SPECIMENOrdering Facility: [facility] Address: [address] [place] [address] Result Comment: The result suggests recent or past exposure to Rubella virus or history of Rubella vaccination. Positive result may also be seen due to presence of passively-transferred antibodies. Please correlate with patient's history. Performed By: #### V ZVG2, RUBIGG ####[facility] LABCLIA [id number] [place] [address] [place] Reagin and Treponema pallidu m IgG and IgM [Interp]on 06-07-2023 T. pallidum IgG+IgM IA Ql (S) Non-Reactive Normal Nonreactive [facility] Comment on above: Order Comment: Speci men Type: BLOOD SPECIMEN Ordering Facility: [facility] Address: [address] [place] [address] Performed By: #### 5 8410-2 #### [facility] CLIA [id number] [address] [place] [address] [place] Reagin+T pallidum IgG+IgM Se rPl-Impon 06-07-2023 Reagin and Treponema pallidum IgG and IgM [Interp] Cannot exclude recent Treponemal infection if specimen collected within 7-10 days after appearance of suspect lesions or 2-3 weeks after an exposure. Clinical correlation is required. Normal [facility] Comment on above: Order Comment: Speci men Type: BLOOD SPECIMEN Ordering Facility: [facility] Address: [address] [place] [address] Performed By: #### 5 8410-2 #### [facility] CLIA [id number] [address] TOX SCREEN ROUT URon 13-2 024 Amphetamines Confirm (U) [Mass/Vol] Negative Negative [facility] Barbiturates Urine Negative Negative [facility] Benzodiazepines Urine Negative Negative [facility] Cannabinoids Screen Ql (U) Negative Negative [facility] Cocaine Ql (U) Negative Negative [facility] Opiates Screen Ql (U) Negative Negative [facility] oxyCODONE cutoff Screen (U) [Mass/Vol] Negative Negative [facility] Phencyclidine Ql (U) Negative Negative [facility] Amphetamines Confirm (U) [Mass/Vol] Negative Normal Negative [facility] Comment on above: Order Comment: Speci men Type: URINE SPECIMENOrdering Facility: [facility] Address: [address] [place] [address] Result Comment: Cuto ff threshold at 1000 ng/mL. Performed By: #### U TOX2 ####[facility] LABIA [id number] [address] BARBITURATES, URINE Negative Normal Negative [facility] Comment on above: Order Comment: Speci men Type: URINE SPECIMENOrdering Facility: [facility] Address: [address] [place] [address] Result Comment: Cuto ff threshold at 200 ng/mL. Performed By: #### U TOX2 ####[facility] LABIA [id number] [address] [place] BENZODIAZEPINES, UR Negative Normal Negative [facility] Comment on above: Order Comment: Speci men Type: URINE SPECIMENOrdering Facility: [facility] Address: [address] [place] [address] Result Comment: Cuto ff threshold at 200 ng/mL. Performed By: #### U TOX2 ####[facility] LABCLIA [id number] [address] Cannabinoids Screen Ql (U) Negative Normal Negative [facility] Comment on above: Order Comment: Speci men Type: URINE SPECIMENOrdering Facility: [facility] Address: [address] [place] [address] Result Comment: Cuto ff threshold at 50 ng/mL. Performed By: #### U TOX2 ####[facility] LABCLIA [id number] [address] [facility] Cocaine Ql (U) Negative Normal Negative [facility] Comment on above: Order Comment: Speci men Type: URINE SPECIMENOrdering Facility: [facility] Address: [address] [place] [address] Result Comment: Cuto ff threshold at 300 ng/mL. Performed By: #### U TOX2 ####[facility] LABIA [id number] [address] Opiates Screen Ql (U) Negative Normal Negative [facility] Comment on above: Order Comment: Speci men Type: URINE SPECIMENOrdering Facility: [facility] Address: [address] [place] [address] Result Comment: Cuto ff threshold at 300 ng/mL. Performed By: #### U TOX2 ####[facility] LABIA [id number] [address] oxyCODONE cutoff Screen (U) [Mass/Vol] Negative Normal Negative [facility] Comment on above: Order Comment: Speci men Type: URINE SPECIMENOrdering Facility: [facility] Address: [address] [place] [address] Result Comment: Cuto ff threshold at 100 ng/mL. Performed By: #### U TOX2 ####[facility] LABIA [id number] [address] Phencyclidine Ql (U) Negative Normal Negative [facility] Comment on above: Order Comment: Speci men Type: URINE SPECIMENOrdering Facility: [facility] Address: [address] [place] [address] Result Comment: Cuto ff threshold at 25 ng/mL. Performed By: #### U TOX2 ####[facility] LABIA [id number] [address] TYPE + SCREEN PRENATALon ABO group Nom (Bld) A [facility] Blood group antibody screen Ql Negative [facility] HIstorical Ab Scr Status Negative [facility] Rh Nom (Bld) Positive [facility] Type and Screen Expiration 06/10/2023 23:59 [facility] ABO A Normal [facility] Comment on above: Order Comment: Speci men Type: BLOOD SPECIMEN Ordering Facility: [facility] Address: [address] [place] [address] Performed By: #### 5 8410-2 #### [facility] CLIA [id number] [address] [place] [address] [place] HISTORICAL AB SCR STATUS Negative [facility] Comment on above: Order Comment: Speci men Type: BLOOD SPECIMEN Ordering Facility: [facility] Address: [address] [place] [address] Performed By: #### 5 8410-2 #### [facility] CLIA [id number] [address] [place] [address] [place] Rh Nom (Bld) Positive [facility] Comment on above: Order Comment: Speci men Type: BLOOD SPECIMEN Ordering Facility: [facility] Address: [address] [place] [address] Performed By: #### 5 8410-2 #### [facility] CLIA [id number] [address] [place] [address] [place] TYPE AND SCREEN EXPIRATION 06/10/2023 23:59 [facility] Comment on above: Order Comment: Speci men Type: BLOOD SPECIMEN Ordering Facility: [facility] Address: [address] [place] [address] Performed By: #### 5 8410-2 #### [facility] CLIA [id number] [address] [place] [address] [place] VARICELLA ZOSTER IGGon 06-06 VARICELLA ZOSTER IGG, QUAL Positive Normal Positive [facility] Comment on above: Order Comment: Speci men Type: BLOOD SPECIMEN Ordering Facility: [facility] Address: [address] [place] [address] Result Comment: The result suggests recent or past exposure to Varicella-Zoster virus or chickenpox vaccination or zoster vaccination. Positive result may also be seen due to presence of passively-transferred antibodies. Please correlate with patient's history. Performed By: #### V [id number] #### [facility] CLIA [id number] [address] [place] [address] [place] LABORATORYOrdered By: Lucina Santiago on 12-13-2021 Albumin [...] Time Vital Sign Value Performing Clinician Facility 01-17-2024 10:28-0400 Body mass index (BMI) [Ratio] 32.92 kg/m2 Didi Spence MD Work Phone: [facility] 01-17-2024 10:28-0400 Body weight 81.65 kg Didi Spence MD Work Phone: [facility] 01-17-2024 10:28-0400 Diastolic blood pressure 82 mm[Hg] Didi Spence MD Work Phone: [facility] 01-17-2024 10:28-0400 Systolic blood pressure 124 mm[Hg] Didi Spence MD Work Phone: [facility] 01-15-2024 09:52-0400 Body temperature 97.11 [degF] Treatment Wstr Work Phone: [facility] 01-15-2024 09:52-0400 Diastolic blood pressure 85 mm[Hg] Treatment Wstr Work Phone: [facility] 01-15-2024 09:52-0400 Heart rate 107 /min Treatment Wstr Work Phone: [facility] 01-15-2024 09:52-0400 SaO2% (BldA) [Mass fraction] 99 % Treatment Wstr Work Phone: [facility] 01-15-2024 09:52-0400 Systolic blood pressure 125 mm[Hg] Treatment Wstr Work Phone: [facility] 01-12-2024 14:00-0400 Body temperature 98.49 [degF] Treatment Wstr Work Phone: [facility] 01-12-2024 14:00-0400 Diastolic blood pressure 75 mm[Hg] Treatment Wstr Work Phone: [facility] 01-12-2024 14:00-0400 Heart rate 100 /min Treatment Wstr Work Phone: [facility] 01-12-2024 14:00-0400 Respiratory rate 16 /min Treatment Wstr Work Phone: [facility] 01-12-2024 14:00-0400 SaO2% (BldA) [Mass fraction] 98 % Treatment Wstr Work Phone: [facility] 01-12-2024 14:00-0400 Systolic blood pressure 109 mm[Hg] Treatment Wstr Work Phone: [facility] 01-11-2024 09:59-0400 Body mass index (BMI) [Ratio] 33.47 kg/m2 Amanda Venegas MD Work Phone: [facility] 01-11-2024 09:59-0400 Body weight 83.01 kg Amanda Venegas MD Work Phone: [facility] 01-11-2024 09:59-0400 Diastolic blood pressure 70 mm[Hg] Amanda Venegas MD Work Phone: [facility] 01-11-2024 09:59-0400 Systolic blood pressure 120 mm[Hg] Amanda Venegas MD Work Phone: [facility] 01-03-2024 10:55-0400 Body mass index (BMI) [Ratio] 33.29 kg/m2 Cesilia Frias MD Work Phone: [facility] 01-03-2024 10:55-0400 Body weight 82.56 kg Cesilia Frias MD Work Phone: [facility] 01-03-2024 10:55-0400 Diastolic blood pressure 80 mm[Hg] Cesilia Frias MD Work Phone: [facility] 01-03-2024 10:55-0400 Systolic blood pressure 120 mm[Hg] Cesilia Frias MD Work Phone: [facility] 12-28-2023 10:23-0400 Body mass index (BMI) [Ratio] 32.63 kg/m2 Tommy Patel MD Work Phone: [facility] 12-28-2023 10:23-0400 Body weight 80.92 kg Tommy Patel MD Work Phone: [facility] 12-28-2023 10:23-0400 Diastolic blood pressure 80 mm[Hg] Tommy Patel MD Work Phone: [facility] 12-28-2023 10:23-0400 Systolic blood pressure 120 mm[Hg] Tommy Patel MD Work Phone: [facility] 12-22-2023 10:32-0400 Body height 157.5 cm Donovan Kennedy MD Work Phone: [facility] 12-22-2023 10:32-0400 Body mass index (BMI) [Ratio] 32.42 kg/m2 Donovan Kennedy MD Work Phone: [facility] 12-22-2023 10:32-0400 Body weight 80.4 kg Donovan Kennedy MD Work Phone: [facility] 12-22-2023 10:32-0400 Diastolic blood pressure 77 mm[Hg] Donovan Kennedy MD Work Phone: [facility] 12-22-2023 10:32-0400 Heart rate 104 /min Donovan Kennedy MD Work Phone: [facility] 12-22-2023 10:32-0400 SaO2% (BldA) [Mass fraction] 100 % Donovan Kennedy MD Work Phone: [facility] 12-22-2023 10:32-0400 Systolic blood pressure 117 mm[Hg] Donovan Kennedy MD Work Phone: [facility] 09-27-2023 10:52-0400 Body height 157.5 cm Jorge Alexander MD Work Phone: [facility] 09-27-2023 10:52-0400 Body mass index (BMI) [Ratio] 29.44 kg/m2 Jorge Alexander MD Work Phone: [facility] 09-27-2023 10:52-0400 Body weight 73 kg Jorge Alexander MD Work Phone: [facility] 09-27-2023 10:52-0400 Diastolic blood pressure 72 mm[Hg] Jorge Alexander MD Work Phone: [facility] 09-27-2023 10:52-0400 Heart rate 88 /min Jorge Alexander MD Work Phone: [facility] 09-27-2023 10:52-0400 SaO2% (BldA) [Mass fraction] 100 % Jorge Alexander MD Work Phone: [facility] 09-27-2023 10:52-0400 Systolic blood pressure 113 mm[Hg] Jorge Alexander MD Work Phone: [facility] 08-28-2023 14:23-0400 Body height 157.5 cm Rogelio Johnson JOB ANALYSIS MANAGER.PAPER GLUING OPERATOR Work Phone: [facility] 08-28-2023 14:23-0400 Body mass index (BMI) [Ratio] 28.23 kg/m2 Rogelio Johnson JOB ANALYSIS MANAGER.PAPER GLUING OPERATOR Work Phone: [facility] 08-28-2023 14:23-0400 Body weight 70 kg Rogelio Johnson JOB ANALYSIS MANAGER.PAPER GLUING OPERATOR Work Phone: [facility] 08-28-2023 14:23-0400 Diastolic blood pressure 73 mm[Hg] Rogelio Johnson JOB ANALYSIS MANAGER.PAPER GLUING OPERATOR Work Phone: [facility] 08-28-2023 14:23-0400 Heart rate 80 /min Rogelio Johnson JOB ANALYSIS MANAGER.PAPER GLUING OPERATOR Work Phone: [facility] 08-28-2023 14:23-0400 SaO2% (BldA) [Mass fraction] 100 % Rogelio Johnson JOB ANALYSIS MANAGER.PAPER GLUING OPERATOR Work Phone: [facility] 08-28-2023 14:23-0400 Systolic blood pressure 105 mm[Hg] Rogelio Johnson JOB ANALYSIS MANAGER.PAPER GLUING OPERATOR Work Phone: [facility] 08-13-2023 15:10-0400 Body temperature 98.96 [degF] JAYY REICHFIELD DO [facility] 08-13-2023 15:10-0400 Diastolic Blood Pressure Non-Invasive 71 mm[Hg] JAYY REICHFIELD DO [facility] 08-13-2023 15:10-0400 Heart rate 82 /min JAYY REICHFIELD DO [facility] 08-13-2023 15:10-0400 Reason For Taking VItal Signs JAYY REICHFIELD DO [facility] 08-13-2023 15:10-0400 Respiratory rate 16 /min JAYY REICHFIELD DO [facility] 08-13-2023 15:10-0400 Systolic Blood Pressure Non-Invasive 106 mm[Hg] JAYY REICHFIELD DO [facility] 08-13-2023 11:23-0400 Body temperature 100.4 [degF] JAYY REICHFIELD DO [facility] 08-13-2023 11:23-0400 Diastolic Blood Pressure Non-Invasive 81 mm[Hg] JAYY REICHFIELD DO [facility] 08-13-2023 11:23-0400 Heart rate 109 /min [facility] 08-13-2023 11:23-0400 Respiratory rate 16 /min [facility] DO [facility] 08-13-2023 11:23-0400 Systolic Blood Pressure Non-Invasive 124 mm[Hg] [facility] 08-04-2023 12:26-0400 Body height 157.5 cm Alanamoody Obrien JOB ANALYSIS MANAGER.PAPER GLUING OPERATOR Work Phone: [facility] 08-04-2023 12:26-0400 Body mass index (BMI) [Ratio] 29.07 kg/m2 Alanamoody Obrien JOB ANALYSIS MANAGER.PAPER GLUING OPERATOR Work Phone: [facility] 08-04-2023 12:26-0400 Body weight 72.1 kg Alana Mamadouert JOB ANALYSIS MANAGER.PAPER GLUING OPERATOR Work Phone: [facility] 08-04-2023 12:26-0400 Diastolic blood pressure 70 mm[Hg] Alanamoody Cedilloert JOB ANALYSIS MANAGER.PAPER GLUING OPERATOR Work Phone: [facility] 08-04-2023 12:26-0400 Heart rate 86 /min Alanamoody Obrien JOB ANALYSIS MANAGER.PAPER GLUING OPERATOR Work Phone: [facility] 08-04-2023 12:26-0400 SaO2% (BldA) [Mass fraction] 100 % Alanamoody Obrien JOB ANALYSIS MANAGER.PAPER GLUING OPERATOR Work Phone: [facility] 08-04-2023 12:26-0400 Systolic blood pressure 108 mm[Hg] Alana Mamadouert JOB ANALYSIS MANAGER.PAPER GLUING OPERATOR Work Phone: [facility] 07-04-2023 13:01-0400 Body height 157.5 cm Alana Herminia JOB ANALYSIS MANAGER.PAPER GLUING OPERATOR Work Phone: [facility] 07-04-2023 13:01-0400 Body weight 71.22 kg Alana Stockert JOB ANALYSIS MANAGER.PAPER GLUING OPERATOR Work Phone: [facility] 07-04-2023 13:01-0400 Diastolic blood pressure 77 mm[Hg] Alana Stockert JOB ANALYSIS MANAGER.PAPER GLUING OPERATOR Work Phone: [facility] 07-04-2023 13:01-0400 Heart rate 86 /min Alana Stockert JOB ANALYSIS MANAGER.PAPER GLUING OPERATOR Work Phone: [facility] 07-04-2023 13:01-0400 SaO2% (BldA) [Mass fraction] 100 % Alana Stockert JOB ANALYSIS MANAGER.PAPER GLUING OPERATOR Work Phone: [facility] 07-04-2023 13:01-0400 Systolic blood pressure 115 mm[Hg] Alana Stockert JOB ANALYSIS MANAGER.PAPER GLUING OPERATOR Work Phone: [facility] 06-07-2023 10:14-0400 Body height 157.5 cm Jorge Alexander MD Work Phone: [facility] 06-07-2023 10:14-0400 Body weight 70.44 kg Jorge Alexander MD Work Phone: [facility] 06-07-2023 10:14-0400 Diastolic blood pressure 78 mm[Hg] Jorge Alexander MD Work Phone: [facility] 06-07-2023 10:14-0400 Heart rate 92 /min Jorge Alexander MD Work Phone: [facility] 06-07-2023 10:14-0400 SaO2% (BldA) [Mass fraction] 99 % Jorge Alexander MD Work Phone: [facility] 06-07-2023 10:14-0400 Systolic blood pressure 117 mm[Hg] Jorge Alexander MD Work Phone: [facility] 02-16-2022 13:17-0500 Body temperature 98.6 [degF] TRENT LOCO MD [facility] 02-16-2022 13:17-0500 Body weight 68 kg TRENT LOCO MD [facility] 02-16-2022 13:17-0500 Diastolic Blood Pressure Non-Invasive 79 1 TRENT LOCO MD [facility] 02-16-2022 13:17-0500 Heart rate 77 /min TRENT LOCO MD [facility] 02-16-2022 13:17-0500 Respiratory rate 16 /min TRENT LOCO MD [facility] 02-16-2022 13:17-0500 Systolic Blood Pressure Non-Invasive 115 1 TRENT LOCO MD [facility] 12-13-2021 12:07-0400 Diastolic blood pressure 64 mm[Hg] JAYY REICHFIELD DO [facility] 12-13-2021 12:07-0400 Heart rate 90 /min JAYY REICHFIELD DO [facility] 12-13-2021 12:07-0400 Respiratory rate 16 /min JAYY REICHFIELD DO [facility] 12-13-2021 12:07-0400 Systolic blood pressure 112 mm[Hg] JAYY REICHFIELD DO [facility] 12-13-2021 11:03-0400 Body height 160 cm JAYY REICHFIELD DO [facility] 12-13-2021 11:03-0400 Body temperature 98.06 [degF] JAYY REICHFIELD DO [facility] 12-13-2021 11:03-0400 Body weight 68.2 kg JAYY REICHFIELD DO [facility] 12-13-2021 11:03-0400 Diastolic blood pressure 79 mm[Hg] JAYY REICHFIELD DO [facility] 12-13-2021 11:03-0400 Heart rate 102 /min JAYY REICHFIELD DO [facility] 12-13-2021 11:03-0400 Respiratory rate 16 /min JAYY REICHFIELD DO [facility] 12-13-2021 11:03-0400 Systolic blood pressure 117 mm[Hg] JAYY REICHFIELD DO [facility] 01-23-2021 20:58-0400 Diastolic blood pressure 73 mm[Hg] CAIO AYALA MD [facility] 01-23-2021 20:58-0400 Heart rate 124 /min CAIO AYALA MD [facility] 01-23-2021 20:58-0400 Respiratory rate 20 /min CIAO AYALA MD [facility] 01-23-2021 20:58-0400 Systolic blood pressure 122 mm[Hg] CAIO AYALA MD [facility] 01-23-2021 17:24-0400 Body temperature 102.92 [degF] CAIO AYALA MD [facility] 01-23-2021 17:24-0400 Body weight 68 kg CAIO AYALA MD [facility] 01-23-2021 17:24-0400 Diastolic blood pressure 77 mm[Hg] CAIO AYALA MD [facility] 01-23-2021 17:24-0400 Heart rate 132 /min CAIO AYALA MD [facility] 01-23-2021 17:24-0400 Respiratory rate 20 /min CAIO AYALA MD [facility] 01-23-2021 17:24-0400 Systolic blood pressure 117 mm[Hg] CAIO AYALA MD [facility] Encounters Encounter Date Encounter Type Care Provider Facility Start: 01-17-2024 End: 01-17-2024 Patient encounter procedure Didi Spence MD Work Phone: OB/Gynecology Comment on above: Supervision of high risk in third trimester (Primary Dx); Anemia affecting in third trimester; 40 weeks gestation of Start: 01-15-2024 End: 01-15-2024 Telephone encounter Financial Navigator Chauncey Work Phone: Financial Services Comment on above: Benefits Investigati on Start: 01-15-2024 End: 01-15-[address] Hematology/Oncology Comment on above: Maternal iron defici ency anemia complicating , third trimester (Primary Dx) Start: 01-15-2024 End: 01-15-2024 Patient encounter procedure Treatment Rm 17 Chauncey [facility] Work Phone: Hematology/Oncology Start: 01-12-2024 End: 01-12-2024 amb[address] Hematology/Oncology Comment on above: Maternal iron defici ency anemia complicating , third trimester (Primary Dx) Start: 01-12-2024 End: 01-12-2024 Patient encounter procedure Treatment Rm 18 Chauncey [facility] Work Phone: Hematology/Oncology Start: 01-12-2024 End: 01-12-2024 Telephone encounter Amanda Venegas MD Work Phone: OB/Gynecology Comment on above: Iron Infusion Start: 01-11-2024 End: 01-11-2024 ambulatory AMANDA VENEGAS Facility:[facility] Start: 01-11-2024 End: 01-11-2024 Patient encounter procedure Amanda Venegas MD Work Phone: OB/Gynecology Comment on above: 39 weeks gestation o f (Primary Dx); Supervision of high risk in third trimester; Anemia affecting in second trimester Start: 01-08-2024 End: 01-08-2024 Telephone encounter Paola Peter RN[address] block [place] [id number] Comment on above: Hematology Start: 01-03-2024 End: 01-03-2024 Office outpatient visit 15 minutes Cesilia Frias MD Work Phone: OB/Gynecology Comment on above: Supervision of high risk in third trimester (Primary Dx); 38 weeks gestation of ; Anemia affecting in second trimester Start: 01-03-2024 End: 01-03-[address] APRN.CNM Work Phone: OB/Gynecology Comment on above: Blood management Start: 01-02-2024 End: 01-02-2024 ambulatory [facility] Facility:[facility] Start: 01-01-2024 End: 01-01-2024 ambulatory Holly Flanagan MA [facility] Start: 01-01-2024 End: 01-01-2024 Patient encounter procedure Holly Flanagan MA [facility] Comment on above: Population Health Na vigation Outreach (OB/PEDS ) Start: 12-28-2023 End: 12-28-2023 ambulatory [facility] Facility:[facility] Start: 12-28-2023 End: 12-28-2023 Patient encounter [...] encounter procedure Donovan Kennedy MD Work Phone: [facility] Obstetrics and Gynecology Comment on above: Supervision of high risk in third trimester (Primary Dx) Anemia affecting pre gnancy in second trimester Start: 12-22-2023 End: 12-22-2023 ambulatory DONOVAN KENNEDY Facility:[id number] Start: 12-05-2023 End: 12-05-2023 Telephone encounter Alana Obrien JOB ANALYSIS MANAGER.PAPER GLUING OPERATOR Work Phone: [facility] Obstetrics and Gynecology Comment on above: Appointment Start: 11-07-2023 End: 11-15-2023 Telephone encounter Jorge Alexander MD Work Phone: [facility] Obstetrics and Gynecology Comment on above: Appointment Transfer of Care Start: 2023 Telephone encounter Alana hu JOB ANALYSIS MANAGER.PAPER GLUING OPERATOR Work Phone: [facility] Obstetrics and Gynecology Comment on above: Appointment Start: 09-29-2023 Telephone encounter Alana hu JOB ANALYSIS MANAGER.PAPER GLUING OPERATOR Work Phone: [facility] Obstetrics and Gynecology Comment on above: Results Start: 09-27-2023 End: 09-27-2023 Nursing evaluation of patient and report Nurse Director Meetings Up Avinash Work Phone: [facility] Obstetrics and Gynecology Comment on above: 24 weeks gestation o f (Primary Dx) Start: 09-27-2023 End: 09-27-2023 ambulatory JORGE ALEXANDER Facility:[id number] Start: 09-27-2023 End: 09-27-2023 Patient encounter procedure Jorge Alexander MD Work Phone: [facility] Obstetrics and Gynecology Comment on above: Current every day va ping (Primary Dx); 24 weeks gestation of ; Supervision of high risk in first trimester Start: 08-31-2023 Telephone encounter Nurse Anton G yn [place] Work Phone: [facility] Obstetrics and Gynecology Comment on above: Entry Level Sales Consultant - O ther Start: 08-28-2023 End: 08-28-2023 Subsequent hospital visit by physician Director Meetings Mfm Up Avinash [facility] Work Phone: [facility] Obstetrics and Gynecology Comment on above: Encounter for anatomic survey [Z36.89] Start: 08-28-2023 End: 08-28-2023 Patient encounter procedure Rogelio Johnson JOB ANALYSIS MANAGER.PAPER GLUING OPERATOR Work Phone: [facility] Obstetrics and Gynecology Comment on above: Supervision of high risk in second trimester (Primary Dx); 20 weeks gestation of ; Overweight; Current every day nicotine vaping; Heartburn during in second trimester Start: 08-28-2023 End: 08-28-2023 ambulatory ROGELIO JOHNSON Facility:[id number] Start: 08-13-2023 End: 08-13-2023 Emergency department patient visit [facility] Facility:B Start: 08-13-2023 End: 08-13-2023 Emergency department patient visit [facility] Start: 08-09-2023 Telephone encounter [facility] Obstetrics and Gynecology Comment on above: Patient Update Start: 08-04-2023 End: 08-04-2023 Patient encounter procedure Alana Obrien JOB ANALYSIS MANAGER.PAPER GLUING OPERATOR Work Phone: [facility] Obstetrics and Gynecology Comment on above: Supervision of high risk in third trimester (Primary Dx); Heartburn during in second trimester; 16 weeks gestation of ; Overweight; Current every day nicotine vaping Start: 08-04-2023 End: 08-04-2023 ambulatory ALANA OBRIEN Facility:[id number] Start: 07-08-2023 Orders Only Delmy Winston MD Work Phone: [facility]aternal [facility] Comment on above: Encounter for anatomic survey (Primary Dx) Start: 07-07-2023 Telephone encounter Nurse Anton G yn Up Avinash Work Phone: [facility] Obstetrics and Gynecology Comment on above: Patient Question Start: 07-06-2023 Telephone encounter Alana hu JOB ANALYSIS MANAGER.PAPER GLUING OPERATOR Work Phone: [facility] Obstetrics and Gynecology Comment on above: Results Start: 07-04-2023 End: 07-04-2023 Patient encounter procedure Alana Obrien JOB ANALYSIS MANAGER.PAPER GLUING OPERATOR Work Phone: [facility] Obstetrics and Gynecology Comment on above: Supervision of high risk in third trimester (Primary Dx); 12 weeks gestation of ; Acute vaginitis; Overweight; Current every day nicotine vaping Start: 07-04-2023 End: 07-04-2023 ambulatory ALANA OBRIEN Facility:[id number] Start: 06-26-2023 Telephone encounter Nurse Anton Fisher yhelen [facility] [place] Work Phone: [facility] Obstetrics and Gynecology Start: 06-07-2023 End: 06-07-2023 Nursing evaluation of patient and report Nurse Director Meetings Up Avinash Work Phone: [facility] Obstetrics and Gynecology Comment on above: Encounter for pregna ncy test, result positive (Primary Dx) Start: 06-07-2023 Encounter for gynecological examination (general) (routine) without abnormal findings [facility] Start: 06-07-2023 End: 06-07-2023 Patient encounter procedure Jorge Alexander MD Work Phone: [facility] Obstetrics and Gynecology Comment on above: Encounter for pregna ncy test, result positive (Primary Dx); Encounter for gynecological examination (general) (routine) without abnormal findings; Current every day vaping; Secondary oligomenorrhea with uncer tain dates in first trimester (Primary Dx); Encounter for test, result positive Start: 06-07-2023 End: 06-07-2023 Patient encounter status Jorge Alexander MD Work Phone: [facility] Work Phone: Start: 06-07-2023 End: 06-07-2023 ambulatory JORGE ALEXANDER Facility:[id number] Start: 06-16-2022 ambulatory LATA Tolentino ity:UPS Start: 06-16-2022 End: 06-16-2022 Subsequent hospital visit by physician Provider [facility] Comment on above: DATING Start: 02-16-2022 End: 02-16-2022 Emergency department patient visit TRENT LOCO MD [facility] Start: 01-03-2022 ambulatory HOLLY ANDERSON [facility] ity:UNI Start: 12-13-2021 End: 12-13-2021 Emergency department patient visit JAYY CARDONA DO [facility] Start: 06-03-2021 End: 06-03-2021 Patient encounter procedure KARLY GARNER MD [facility] Start: 01-23-2021 End: 01-23-2021 Emergency department patient visit CAIO AYALA MD [facility] Start: 12-30-2018 End: 12-30-2018 Patient encounter procedure [facility] Procedures Date Procedure Procedure Detail Performing Clinician [...] Work Phone: Start: 07-04-2023 BACTERIAL VAGINOSIS NAAT Alanadavid Obrien JOB ANALYSIS MANAGER.PAPER GLUING OPERATOR Work Phone: Start: 07-04-2023 Iadna trichomonas vaginalis amplified probe tech Alana Mamadouert JOB ANALYSIS MANAGER.PAPER GLUING OPERATOR Work Phone: Start: 06-07-2023 Urine test visual color cmprsn meths Jorge Alexander MD Work Phone: Start: 06-07-2023 Antibody screen JORGE ALEXANDER Comment on above: Order Comment: Speci men Type: BLOOD SPECIMEN Ordering Facility: [facility] Address: [address] [place] [address] Performed By: #### 5 [id number] #### [facility] CLIA [id number] [address] [place] [address] [place] Start: 06-07-2023 End: 06-07-2023 Antibody screen rbc each serum technique Jorge Alexander MD Work Phone: Start: 06-07-2023 Blood count complete automated Jorge Alexander MD Work Phone: Start: 06-07-2023 Us preg uterus after 1st trimest 1 gestation Jorge Alexander MD Work Phone: Extraction of wisdom tooth W RENNY AYALA MD Comment on above: x4 Plan of Treatment Date Care Activity Detail Author Start: 06-06-2026 Screening for malignant neoplasm of cervix [facility] Start: 02-29-2024 End: 02-29-2024 Patient encounter procedure 02/29/2024 9:00 AM EST Office Visit OB/Gynecology [address] [place] [address] Shorty Latham APRN.PAPER GLUING OPERATOR [address] [place] [address] Post OB/Gynecology Comment on above: Post Start: 02-02-2024 End: 02-02-2024 ambulatory 02/02/2024 10:00 AM EST Visit (SP) Office Hematology/Oncology [address] [place] [address] 2ND FLOOR Hematology/Oncology Comment on above: 2ND FLOOR Start: 01-31-2024 End: 01-31-2024 ambulatory 01/31/2024 1:00 PM EST Visit (SP) Office Hematology/Oncology [address] [place] [address] 2ND FLOOR Hematology/Oncology Comment on above: 2ND FLOOR Start: 01-25-2024 End: 01-25-2024 ambulatory 01/25/2024 10:00 AM EDT Visit (SP) Office Hematology/Oncology [address] [place] [address] 2ND FLOOR Hematology/Oncology Comment on above: 2ND FLOOR Start: 01-25-2024 End: 01-25-2024 Patient encounter procedure 01/25/2024 9:30 AM EDT Office Visit OB/Gynecology [address] [place] [address] APRN.CNM [address] [place] [address] Post OB/Gynecology Comment on above: Post Start: 01-23-2024 End: 01-23-2024 ambulatory 01/23/2024 11:00 AM EDT [facility] Hematology/Oncology [address] [place] [address] 2ND FLOOR Hematology/Oncology Comment on above: 2ND FLOOR Start: 01-19-2024 End: 01-19-2024 ambulatory 01/19/2024 10:00 AM EDT Visit (SP) Office Hematology/Oncology [address] [place] [address] 2ND FLOOR Hematology/Oncology Comment on above: 2ND FLOOR Start: 01-17-2024 End: 01-17-2024 Patient encounter procedure OB/Gynecology Comment on above: OB iron treatment first -OB Start: 01-15-2024 End: 01-15-2024 ambulatory 01/15/2024 9:30 AM EDT Visit (SP) Office Hematology/Oncology [address] [place] [address] 2ND FLOOR Hematology/Oncology Comment on above: 2ND FLOOR Start: 01-11-2024 End: 01-11-2024 Patient encounter procedure 01/11/2024 9:50 AM EDT Routine Office Visit OB/Gynecology [address] [place] [address] Amanda Venegas MD [address] [place] [address] OB OB/Gynecology Comment on above: OB Start: 01-10-2024 End: 01-10-2024 Patient encounter procedure 01/10/2024 8:00 AM EDT Routine Office Visit [facility] Obstetrics and Gynecology [address] [place] [address] [address] [place], [place] [id number] Rogelio Johnson, JOB ANALYSIS MANAGER.[address] [place], [place] [id number] 39 weeks [facility] Obstetrics and Gynecology Comment on above: 39 weeks Start: 01-03-2024 End: 01-03-2024 Patient encounter procedure 01/03/2024 10:40 AM EDT Routine Office Visit OB/Gynecology [address] [place] [address] Cesilia Frias MD [address] [place] [address] OB OB/Gynecology Comment on above: OB Start: 01-03-2024 End: 01-03-2024 Patient encounter procedure 01/03/2024 8:30 AM EDT Routine Office Visit [facility] Obstetrics and Gynecology [address] [place] [address] [address] [place], [place] [id number] [phone] [place] [address] 38 weeks [facility] Obstetrics and Gynecology Comment on above: 38 weeks Start: 01-02-2024 End: 01-02-2024 ambulatory 01/02/2024 9:30 AM EDT Results Only [facility] Draw Station [address] [place] [address] [place] [facility] Draw Station Start: 12-29-2023 End: 12-29-2023 Patient encounter procedure [facility] Obstetrics and Gynecology Comment on above: 37 weeks -(transfere d care?) 37 weeks -([facility] Start: 12-28-2023 End: 03-28-2024 Ferritin [Mass/volume] in Serum or Plasma FERRITIN Lab Routine Anemia, unspecified type Expected: 12/28/2023, Expires: 03/28/2024 [facility] Work Phone: Comment on above: Expected: 12/28/2023 , Expires: 03/28/2024 Start: 12-28-2023 End: 03-28-2024 Iron and Iron binding capacity panel - Serum or Plasma IRON AND TIBC Lab Routine 37 weeks gestation of Anemia affecting in second trimester Expected: 12/28/2023, Expires: 03/28/2024 [facility] Work Phone: Comment on above: Expected: 12/28/2023 , Expires: 03/28/2024 Start: 12-28-2023 End: 12-28-2023 Patient encounter procedure [facility] Obstetrics and Gynecology Comment on above: 37 weeks OB - transferring fr om [facility] Start: 12-22-2023 End: 03-22-2024 HIV 1+2 Ab [Presence] in Serum or Plasma by Immunoassay [facility] Comment on above: Expected: 12/22/2023 , Expires: 03/22/2024 Start: 12-22-2023 End: 03-22-2024 SYPHILIS TOTAL W/REFLEX [facility] Work Phone: Comment on above: Expected: 12/22/2023 , Expires: 03/22/2024 Start: 12-22-2023 End: 12-22-2023 Patient encounter procedure [facility] Obstetrics and Gynecology Comment on above: 36 weeks-labs/cultur es/consent Start: 12-05-2023 End: 12-05-2023 Patient encounter procedure [facility] Obstetrics and Gynecology Comment on above: 34 weeks Start: 11-26-2023 Covid-19 Vaccine ( season) Covid-19 Vaccine ( season) [facility] Start: 11-26-2023 Covid-19 Vaccine () Covid-19 Vaccine () [facility] Start: 11-26-2023 Influenza vaccination [facility] Start: 11-26-2023 RSV Vaccine (1 - Ris k 1-dose series) RSV Vaccine (1 - Risk 1-dose series) [facility] Start: 11-21-2023 End: 11-21-2023 Patient encounter procedure 11/21/2023 8:00 AM EDT Routine Office Visit [facility] Obstetrics and Gynecology [address] [place] [address] [place], [place] [id number] [phone] Rogelio Johnson, JOB ANALYSIS MANAGER.PAPER GLUING OPERATOR [address] [place] [address] [place] [address] 32 weeks [facility] Obstetrics and Gynecology Comment on above: 32 weeks Start: 11-07-2023 End: 11-07-2023 Patient encounter procedure 11/07/2023 8:15 AM EDT Routine Office Visit [facility] Obstetrics and Gynecology [address] [place] [address] [place] [address] Jorge Alexander MD [address] [place] [address] [place] [address] 30 weeks [facility] Obstetrics and Gynecology Comment on above: 30 weeks Start: 2023 End: 2023 Patient encounter procedure 2023 8:00 AM EDT Routine Office Visit [facility] Obstetrics and Gynecology [address] [place] [address] [place] [address] Alana Obrien, JOB ANALYSIS MANAGER.PAPER GLUING OPERATOR [address] [place] [address] [place] [id number] 28 weeks-wants tdap [facility] Obstetrics and Gynecology Comment on above: 28 weeks-wants tdap Start: 09-26-2023 End: 09-26-2023 Nursing evaluation of patient and report 09/26/2023 1:00 PM EDT Nurse Visit [facility] Obstetrics and Gynecology [address] [place] [address] Avinash, Nurse Director Meetings Up [address] [place], [place] [id number] 1hr gtt [facility] Obstetrics and Gynecology Comment on above: 1hr gtt Start: 09-26-2023 End: 09-26-2023 Patient encounter procedure [facility] Obstetrics and Gynecology Comment on above: 24 weeks Start: 08-28-2023 End: 08-28-2023 Patient encounter procedure [facility] Obstetrics and Gynecology Comment on above: 20 weeks anatomy Start: 07-08-2023 End: 07-07-2024 OBSTETRIC ULTRASOUND WHI OBSTETRIC ULTRASOUND WHI Anc Imaging Routine Encounter for anatomic survey Expected: 07/08/2023, Expires: 07/07/2024 [facility] Work Phone: Comment on above: Expected: 07/08/2023 , Expires: 07/07/2024 Start: 03-27-2023 Behavioral Health Screening Behavioral Health Screening [facility] Start: 03-27-2023 Depression Assessment Depression Ass essment [facility] Start: 11-25-2022 Covid-19 Vaccine () Covid-19 Vaccine () [facility] Start: 11-25-2022 Influenza vaccination Influenza Vacc ine (#1) [facility] Start: 03-27-2022 Depression Assessment Depression Ass essment [facility] Start: 07-27-2020 Urine microalbumin profile DTaP,Tdap,Td Vaccine (6 - Td or Tdap) [facility] Start: 2017 Pap Testing Pap Testing [facility] Start: 2017 Screening for malignant neoplasm of cervix Pap Testing [facility] Start: 10-24-2015 Urine microalbumin profile DTaP,Tdap,Td Vaccine (1 - Tdap) [facility] Start: 2014 Anxiety Screening Anxiety Screening [facility] Start: 2014 Depression Screening Depression Scre enroc [facility] Start: 2014 Hepatitis C Screening Hepatitis C [facility] Start: 2014 Hepatitis C screening Hepatitis C [facility] Start: 2014 HIV Screening HIV Screening [facility] Start: 2014 HIV screening HIV Screening [facility] Start: 2010 Peds To Adult Transition Annual Assessment Peds To Adult Transition Annual Assessment [facility] Start: 2008 Peds To Adult Transition Initial Discussion Peds To Adult Transition Initial Discussion [facility] Start: 2005 HPV Vaccine (1 - 2-dose series) HPV Vaccine (1 - 2-dose series) [facility] Start: 04-25-1997 Covid-19 Vaccine (#1) Covid-19 Vacci ne (#1) [facility] Start: 1996 Hepatitis B Vaccine (1 of 3 - 3-dose series) Hepatitis B Vaccine (1 of 3 - 3-dose series) [facility] Bacteria identified in Urine by Culture URINE CULTURE Microbiology Routine Encounter for test, result positive 06/07/2023 10:43 AM [facility] Work Phone: Chlamydia trachomatis+Neisseria gonorrhoeae DNA [Presence] in Unspecified specimen by SHEREEN with probe detection GONORRHEA/CHLAMYDIA NAAT Lab Routine Encounter for test, result positive 06/07/2023 10:43 AM [facility] Work Phone: Chlamydia trachomatis+Neisseria gonorrhoeae DNA [Presence] in Unspecified specimen by SHEREEN with probe detection GONORRHEA/CHLAMYDIA NAAT Lab Routine Supervision of high risk in third trimester 12/22/2023 11:00 AM [facility] Hepatitis B virus surface Ag [Presence] in Serum HEP B SURF AG SCRN Lab Routine Encounter for test, result positive 06/07/2023 11:12 AM [facility] Work Phone: Hepatitis C virus Ab [Presence] in Serum HEPATITIS C ANTIBODY IA WITH CONFIRMATION Lab Routine Encounter for test, result positive 06/07/2023 11:12 AM [facility] Work Phone: HIV 1+2 Ab [Presence ] in Serum or Plasma by Immunoassay HIV 1 2 COMBO(AG/AB),WITH REFLEX TO DIFFERENTIATION Lab Routine Encounter for test, result positive 06/07/2023 11:12 AM [facility] Work Phone: PAP TEST PAP TEST Lab Javier flor Encounter for test, result positive Ordered: 06/07/2023 [facility] Work Phone: Comment on above: Ordered: 06/07/2023 ROUTINE, GROUP B STREP PCR ROUTINE, GROUP B STREP PCR Microbiology Routine Supervision of high risk in third trimester 12/22/2023 11:00 AM [facility] RUBELLA IGG AB RUBELLA IGG AB L ab Routine Encounter for test, result positive 06/07/2023 11:12 AM [facility] Work Phone: SYPHILIS TOTAL W/REFLEX SYPHILIS TOTAL W/REFLEX Lab Routine Encounter for test, result positive 06/07/2023 11:12 AM [facility] Work Phone: URINE OB DIP B/O URINE OB DIP B/ O Lab Routine Supervision of high risk in third trimester 40 weeks gestation of Ordered: 01/17/2024 [facility] Work Phone: Comment on above: Ordered: 01/17/2024 VARICELLA ZOSTER IGG VARICELLA Z ETHAN IGG Lab Routine Encounter for test, result positive 06/07/2023 11:12 AM [facility] Work Phone: [facility] Immunizations Immunization Date Immunization Notes Care Provider [facility] 01-11-2018 influenza, injectabl e, quadrivalent, preservative free Jorge Alexander MD Work Phone: [facility] 01-11-2018 influenza virus vacc ine, unspecified formulation Jorge Alexander MD Work Phone: [facility] 09-17-2014 hepatitis A vaccine, pediatric/adolescent dosage, 2 dose schedule Jorge Alexander MD Work Phone: [facility] 09-17-2014 hepatitis B vaccine, pediatric or pediatric/adolescent dosage Jorge Alexander MD Work Phone: [facility] 09-17-2014 HPV, unspecified formulation Jorge Alexander MD Work Phone: [facility] 09-17-2014 meningococcal ACWY vaccine, unspecified formulation Jorge Alexander MD Work Phone: [facility] 09-17-2014 varicella virus vaccine Santosh Alexander MD Work Phone: [facility] 07-27-2010 hepatitis A vaccine, pediatric/adolescent dosage, 2 dose schedule Jorge Alexander MD Work Phone: [facility] 07-27-2010 human papilloma viru s vaccine, quadrivalent Jorge Alexander MD Work Phone: [facility] 07-27-2010 meningococcal polysaccharide (groups A, C, Y and W-135) diphtheria toxoid conjugate vaccine (MCV4P) Jorge Alexander MD Work Phone: [facility] 07-27-2010 tetanus toxoid, redu leslie diphtheria toxoid, and acellular pertussis vaccine, adsorbed Jorge Alexander MD Work Phone: [facility] 11-12-2001 diphtheria, tetanus toxoids and acellular pertussis vaccine, unspecified formulation Jorge Alexander MD Work Phone: [facility] 11-12-2001 measles, mumps and rubella virus vaccine Jorge Alexander MD Work Phone: [facility] 11-12-2001 poliovirus vaccine, inactivated Jorge Alexander MD Work Phone: [facility] 11-09-2000 diphtheria, tetanus toxoids and acellular pertussis vaccine, unspecified formulation Jorge Alexander MD Work Phone: [facility] 11-09-2000 haemophilus influenz ae type b vaccine, conjugate unspecified formulation Jorge Alexander MD Work Phone: [facility] 11-12-1997 measles, mumps and rubella virus vaccine Jorge Alexander MD Work Phone: [facility] 07-23-1997 diphtheria and tetan us toxoids, adsorbed for pediatric use Jorge Alexander MD Work Phone: [facility] 07-23-1997 haemophilus influenz ae type b vaccine, conjugate unspecified formulation Jorge Alexander MD Work Phone: [facility] 07-23-1997 hepatitis B vaccine, pediatric or pediatric/adolescent dosage Jorge Alexander MD Work Phone: [facility] 07-23-1997 poliovirus vaccine, unspecified formulation Jorge Alexander MD Work Phone: [facility] 04-22-1997 diphtheria and tetan us toxoids, adsorbed for pediatric use Jorge Alexander MD Work Phone: [facility] 04-22-1997 haemophilus influenz ae type b vaccine, conjugate unspecified formulation Jorge Alexander MD Work Phone: [facility] 04-22-1997 poliovirus vaccine, unspecified formulation Jorge Alexander MD Work Phone: [facility] 01-22-1997 diphtheria and tetan us toxoids, adsorbed for pediatric use Jorge Alexander MD Work Phone: [facility] 01-22-1997 haemophilus influenz ae type b vaccine, conjugate unspecified formulation Jorge Alexander MD Work Phone: [facility] 01-22-1997 poliovirus vaccine, unspecified formulation Jorge Alexander MD Work Phone: [facility] 1995 hepatitis B vaccine, pediatric or pediatric/adolescent dosage Jorge Alexander MD Work Phone: [facility] 1995 hepatitis B vaccine, pediatric or pediatric/adolescent dosage Jorge Alexander MD Work Phone: [facility] Payers Date Payer Category Payer Medicaid [id number] 2022 Unknown [id number] 1995 Unknown [id number] Self-pay Unknown [id number] Social History Date Type Detail Facility Tobacco smoking status NHIS Unknown if ever smoked [facility] Work Phone: Start: 1995 Sex Assigned At Female M [facility] Work Phone: Tobacco Nicotine Use: Va ping Product in Last 90 Days. Type: Cigarettes. Started at age: 23 Years. [facility] Sex Assigned At [facility] Tobacco smoking status ILIS Tobacco smoking consumption unknown [facility] Start: 1995 Sex Assigned At Not on file [facility] Start: 06-07-2023 End: 12-22-2023 Gender identity Not on file [facility] Start: 06-07-2023 Tobacco smoking status ILIS Never smoked tobacco [facility] Start: 06-07-2023 Tobacco use and exposure Smokeless tobacco non-user [facility] Start: 06-07-2023 End: 01-17-2024 Alcohol intake Lifetime non-drinker (finding) [facility] Start: 06-07-2023 End: 12-22-2023 History of [address] function [facility] Start: 04-23-2023 [facility] National Score (1-100), lower number is lower risk 71 [facility] Goals Date Patient Goal Desired Activity /State Functional Status Date Assessment Result Facility 08-13-2023 Functional Status Standard Safet y ID band on, Call device within reach, Bed in low position, Wheels locked, Bedside Cart Locked, Visitor at bedside, Safety level maintained [facility] 08-13-2023 Functional Status Keshena Nikolas cho [facility] 02-16-2022 Functional Status Standard Safet y ID band on, Call device within reach, Bed in low position, Wheels locked, Upper/Half-Length side-rails up, Bedside Cart Locked, Safety level maintained [facility] 12-13-2021 Functional Status Standard Safet y ID band on, Call device within reach, Bed in low position, Wheels locked, Upper/Half-Length side-rails up, Bedside Cart Locked, Safety level maintained [facility] Mental Status Date Assessment Result Facility 08-13-2023 Mental Status Orientation Oriented x 4 [facility] 08-13-2023 Mental Status [facility] 02-16-2022 Mental Status Orientation Oriented x 4 [facility] 12-13-2021 Mental Status Orientation Oriented x 4 [facility] Clinical Notes 01-23-2021 to 01-17-2024 Quick Notes - Didi Spence MD - 01/17/2024 10:37 AM EDTPrenatal Quick Notes - Didi Spence MD - 01/17/2024 10:37 AM EDTPatient InstructionsPatient Instructions Note Date & Type Note Facility 01-17-2024 Progress note Formatting of t his note might be different from the original. RR- VB No. LOF No. CTXS yes . Movement: present. Other c/o: lots of pressure. Very uncomfortable Medication list reviewed. Physical Exam See Flow Sheet Abd: soft, nontender, gravid Ext: edema: Trace A/P 40w3d Estimated Date of Delivery: 01/14/24 multigravida The sensitive examination was discussed with the Patient or Patient's Authorized Mica Builder. As applicable, any other physician, advance practice provider, medical student, or other health professional student that will be observing or involved in the sensitive examination for educational or training purposes was discussed with the Patient or Authorized Mica Builder. The Patient or Authorized Mica Builder has agreed to proceed with the sensitive examination. (Sensitive examination includes inspection and/or palpation of the breasts, pelvis, prostate and anorectal regions) Desires membrane sweep w/ cervical exam- done.r/b/a to induction of labor reviewed, questions answered, consent signed. labor precautions reviewed, was in last night and sent home. Return prn srom or increased ctxs kick counts anemia- had IVFe Didi Spence M.D. [facility] 01-17-2024 Miscellaneous Notes RR- VB No. LOF No. CTXS yes . Movement: present. Other c/o: lots of pressure. Very uncomfortable Medication list reviewed. Physical Exam See Flow Sheet Abd: soft, nontender, gravid Ext: edema: Trace A/P 40w3d Estimated Date of Delivery: 01/14/24 multigravida The sensitive examination was discussed with the Patient or Patient's Authorized Mica Builder. As applicable, any other physician, advance practice provider, medical student, or other health professional student that will be observing or involved in the sensitive examination for educational or training purposes was discussed with the Patient or Authorized Mica Builder. The Patient or Authorized Mica Builder has agreed to proceed with the sensitive examination. (Sensitive examination includes inspection and/or palpation of the breasts, pelvis, prostate and anorectal regions) Desires membrane sweep w/ cervical exam- done.r/b/a to induction of labor reviewed, questions answered, consent signed. labor precautions reviewed, was in last night and sent home. Return prn srom or increased ctxs kick counts anemia- had IVFe Didi Spence M.D. documented in this encounter [facility] 01-17-2024 Instructions Luisa Villa MA - 01/17/2024 10:28 AM EDT SEQUENTIAL SCREENINGS The [facility] offers sequential screenings for women who are [...] It will require an appointment with our vehicle operator technician. This is not an ultrasound performed [...] the above symptoms, contact our office at [phone] and ask to speak with a nurse. After hours, you can call doctors registry at [phone] OR call [facility] at [phone] and ask to have the doctor environmental services tech paged. If you consider this an emergency, dial 9-1-0 or go to your nearest emergency department. NEED HELP? Are you dealing with a violent or abusive relationship? Are you a victim of rape or sexual assult? Call [facility] ([place]) 24 hour Crisis Hotline: 458.466.4738 or 160-838-8988. MANUAL Your Guide to a Healthy manual is now on-line. Visit [email or web address] ancyGuide to download your free copy documented in this encounter [facility] 01-15-2024 Miscellaneous Notes The patient is active with [employer] Medicaid, LOC 100%, $0.00 deductible has $0.00 remaining, $0.00 OOP has $0.00 remaining. An estimate shows the patient's financial responsibility is $0.00 for each treatment in 2023 since there is no O-O-P max to be reached. The patient does not have a cancer diagnosis or a chemo/radiation regimen. No further Financial Navigator intervention is needed at this time. documented in this encounter [facility] 01-15-2024 Telephone encounter Note The patient is active with [employer] Medicaid, LOC 100%, $0.00 deductible has $0.00 remaining, $0.00 OOP has $0.00 remaining. An estimate shows the patient's financial responsibility is $0.00 for each treatment in 2023 since there is no O-O-P max to be reached. The patient does not have a cancer diagnosis or a chemo/radiation regimen. No further Financial Navigator intervention is needed at this time. [facility] 01-12-2024 Telephone encounter Note Spoke to patient and she is able to come today. Her 2nd infusion is also scheduled for Sunday 01/14 too. [place] notified. Hannah Yap RN [facility] 01-12-2024 Miscellaneous Notes Spoke to patient and she is able to come today. Her 2nd infusion is also scheduled for Sunday 01/14 too. [place] notified. Hannah Yap RN 39w5d Saw KJ yesterday and provider wanted iron infusions done poornima d/t being 39 weeks already. Buddy Del Cid could add on today at 2pm. Left detailed message on identified voicemail for patient to call back poornima to see if she is able to come in today. Will need to let [place] know. Hannah Yap RN documented in this encounter [facility] 01-12-2024 Telephone encounter Note 39w5d Saw KJ yesterday and provider wanted iron infusions done poornima d/t being 39 weeks already. Buddy Del Cid could add on today at 2pm. Left detailed message on identified voicemail for patient to call back poornima to see if she is able to come in today. Will need to let [place] know. Hannah Yap RN [facility] 01-11-2024 Progress note Formatting of t his [...] reviewed, Kick counts reviewed. Amanda Venegas MD [facility] 01-11-2024 Miscellaneous Notes KJ - VB No. [...] Amanda Venegas MD documented in this encounter [facility] 01-11-2024 Instructions Tanvi Manzanares MA - 01/11/2024 9:55 AM EDT SEQUENTIAL SCREENINGS The [facility] offers sequential screenings for women who are [...] It will require an appointment with our vehicle operator technician. This is not an ultrasound performed [...] the above symptoms, contact our office at [phone] and ask to speak with a nurse. After hours, you can call doctors registry at [phone] OR call [facility] at [phone] and ask to have the doctor environmental services tech paged. If you consider this an emergency, dial 9--1 or go to your nearest emergency department. NEED HELP? Are you dealing with a violent or abusive relationship? Are you a victim of rape or sexual assult? Call [facility] ([place]) 24 hour Crisis Hotline: 340.856.1238 or 265-220-2100. MANUAL Your Guide to a Healthy manual is now on-line. Visit [email or web address] ancyGuide to download your free copy documented in this encounter [facility] 01-08-2024 Telephone encounter Note Treatment plan signed and PA approved. Ready to schedule Venofer 200 mg IV x [address] [facility] 01-08-2024 Miscellaneous Notes Treatment plan signed and PA approved. Ready to schedule Venofer 200 mg IV x 3 doses documented in this encounter [facility] 01-05-2024 Note HNO ID: [id number] Author: HOLLY FLANAGAN MA Service: ? Author Type: Solar System Designer Type: Progress Notes Filed: 01/05/2024 11:38 Note Text: POPULATION HEALTH NAVIGATION OUTREACH Action/FYI 3rd attempt- Called and updated OB/PEDS field. OB/PEDS Reason for Outreach Medicaid OB/Peds Care Gaps due: N/A Patient Contacted: Spoke to patient/parent/or legal guardian Patient identified by name and : Yes Medicaid OB/Peds actions taken: /Remanufacturing Technician added Navigation Signature: Holly Flanagan MA January 05, 2024 11:33 AM [facility] 01-03-2024 Progress note Formatting of [...] blood management last week Cesilia Frias MD [facility] 01-03-2024 Miscellaneous Notes S: Beth Vincent is [...] Cesilia Frias MD documented in this encounter [facility] 01-03-2024 Note HNO ID: [id number] Author: PAOLA PETER RN Service: ? Author [...] provider for review and evaluation for treatment. [facility] 01-03-2024 History of Presen t [...] evaluation for treatment. documented in this encounter [facility] 01-03-2024 Instructions Elaine Cabral MA - 01/03/2024 10:48 AM EDT SEQUENTIAL SCREENINGS The [facility] offers sequential screenings for women who are [...] It will require an appointment with our vehicle operator technician. This is not an ultrasound performed [...] the above symptoms, contact our office at [phone] and ask to speak with a nurse. After hours, you can call doctors registry at [phone] OR call [facility] at [phone] and ask to have the doctor environmental services tech paged. If you consider this an emergency, dial 9-1-9 or go to your nearest emergency department. NEED HELP? Are you dealing with a violent or abusive relationship? Are you a victim of rape or sexual assult? Call [facility] ([place]) 24 hour Crisis Hotline: 335.250.6634 or 043-152-2210. MANUAL Your Guide to a Healthy manual is now on-line. Visit [facility][email or web address]/HealthyPregn ancyGuide to download your free copy documented in this encounter [facility] 01-01-2024 Note HNO ID: [id number] Author: HOLLY FLANAGAN MA Service: ? Author Type: Solar System Designer Type: Progress Notes Filed: 01/01/2024 15:09 Note Text: POPULATION HEALTH NAVIGATION OUTREACH Action/RUFINA Called and spoke to patient and she states that she doesnt have a pediatrican picked out yet. Would like information sent to her via [employer]. Agreed to have me contact her later this week. I also reset patient's password on [employer] and patient understands that she needs to go in and change it. Third Age message sent per patient request. OB/PEDS Reason for Outreach Medicaid OB/Peds Care Gaps due: N/A Patient Contacted: Spoke to patient/parent/or legal guardian Patient identified by name and : Yes Medicaid OB/Peds actions taken: Patient declined: Patient requested call back / will call back (SNAPP't Sent) Navigation Signature: Holly Flanagan MA January 01, 2024 3:07 PM [facility] 01-01-2024 History of Presen t illness Narrative POPULATION HEALTH NAVIGATION OUTREACH Action/RUFINA Called and spoke to patient and she states that she doesnt have a pediatrican picked out yet. Would like information sent to her via [employer]. Agreed to have me contact her later this week. I also reset patient's password on [employer] and patient understands that she needs to go in and change it. Third Age message sent per patient request. OB/PEDS Reason for Outreach Medicaid OB/Peds Care Gaps due: N/A Patient Contacted: Spoke to patient/parent/or legal guardian Patient identified by name and : Yes Medicaid OB/Peds actions taken: Patient declined: Patient requested call back / will call back (VBrick Systemshart Sent) Navigation Signature: Holly Flanagan MA January 01, 2024 3:07 PM documented in this encounter [facility] 01-01-2024 Note Patient Outreach (NE TNAV) BETH VINCENT ([id number]) 1995 F Date Time Provider Department 01/01/24 HOLLY FLANAGAN During your visit today, we recorded the following information about you: Holly Flanagan MA 01/01/2024 3:09 PM Signed POPULATION HEALTH NAVIGATION OUTREACH Action/FYI Called and spoke to patient and she states that she doesnt have a pediatrican picked out yet. Would like information sent to her via [employer]. Agreed to have me contact her later this week. I also reset patient's password on [employer] and patient understands that she needs to go in and change it. Third Age message sent per patient request. OB/PEDS Reason for Outreach Medicaid OB/Peds Care Gaps due: N/A Patient Contacted: Spoke to patient/parent/or legal guardian Patient identified by name and : Yes Medicaid OB/Peds actions taken: Patient declined: Patient requested call back / will call back (MyChart Sent) Navigation Signature: Holly Flanagan MA January 01, 2024 3:07 PM Holly Flanagan MA 01/05/2024 11:38 AM Signed POPULATION HEALTH NAVIGATION OUTREACH Action/FYI 3rd attempt- Called and updated OB/PEDS field. OB/PEDS Reason for Outreach Medicaid OB/Peds Care Gaps due: N/A Patient Contacted: Spoke to patient/parent/or legal guardian Patient identified by name and : Yes Medicaid OB/Peds actions taken: /Remanufacturing Technician added Navigation Signature: Holly Flanagan MA January [...] Encounter Status:Closed by HOLLY FLANAGAN on 01/01/24 [facility] 12-28-2023 Progress note Formatting of t his note might be different from the original. SW- Pt transferred care from [facility] based on proximity to [facility]. She offers no complaints today. Reports has [...] referral - Weekly visits Tommy Patel DO [facility] 12-28-2023 Miscellaneous Notes SW- Pt transferred care from [facility] based on proximity to [facility]. She offers no complaints today. Reports has [...] Tommy Patel DO documented in this encounter [facility] 12-28-2023 Instructions Holly Pool MA - 12/28/2023 10:16 AM EDT SEQUENTIAL SCREENINGS The [facility] offers sequential screenings for women who are [...] It will require an appointment with our vehicle operator technician. This is not an ultrasound performed [...] the above symptoms, contact our office at [phone] and ask to speak with a nurse. After hours, you can call doctors registry at [phone] OR call [facility] at [phone] and ask to have the doctor environmental services tech paged. If you consider this an emergency, dial 9--8 or go to your nearest emergency department. NEED HELP? Are you dealing with a violent or abusive relationship? Are you a victim of rape or sexual assult? Call [facility] ([place]) 24 hour Crisis Hotline: 667.472.2923 or 408-748-4840. MANUAL Your Guide to a Healthy manual is now on-line. Visit [email or web address]/HealthyPregn ancyGuide to download your free copy documented in this encounter [facility] 12-27-2023 Telephone encounter Note Patient called back and scheduled for tomorrow. Hannah Yap RN [facility] 12-27-2023 Miscellaneous Notes Patient called back and scheduled for tomorrow. Hannah Yap RN 37w3d Received email that patient is wanting to transfer care here for delivery from [facility]. Per RR we are able to schedule her this week or next. Left message for patient to call office. SW has multiple openings tomorrow. Use 20-30min for appt. Hannah Yap RN\ documented in this encounter [facility] 12-27-2023 Telephone encounter Note 37w3d Received email that patient is wanting to transfer care here for delivery from [facility]. Per RR we are able to schedule her this week or next. Left message for patient to call office. SW has multiple openings tomorrow. Use 20-30min for appt. Hannah Yap RN\ [facility] 12-22-2023 Nurse Note Venipuncture performed to right antecubital. Number of tubes collected: 1 gold and 2 lavender. Patient tolerated this well. Dr. Donovan Kennedy in office during venipuncture. Asmita Parker RN [facility] 12-22-2023 Nurse Note Venipuncture performed to right antecubital. Number of tubes collected: 1 gold and 2 lavender. Patient tolerated this well. Dr. Donovan Kennedy in office during venipuncture. Asmita Parker RN documented in this encounter [facility] 12-22-2023 Progress note Formatting of t his note might be different from the original. Labs/tests reviewed; questions answered. Looking well, no complaints, no LOF or vaginal bleeding Good movements Contractions: No The sensitive examination was discussed with the Patient or Patient's Authorized Mica Builder. As applicable, any other physician, advance practice provider, medical student, or other health professional student that will be observing or involved in the sensitive examination for educational or training purposes was discussed with the Patient or Authorized Mica Builder. The Patient or Authorized Mica Builder has agreed to proceed with the sensitive [...] which included preparing to see the patient, [id number] patient care, completing clinical documentation, obtaining and/or reviewing separately obtained history, performing a medically appropriate examination, counseling and educating the patient/family/caregiver, and ordering medications, tests, or procedures. BAA [facility] 12-22-2023 Miscellaneous Notes Labs/tests reviewed; questions answered. Looking well, no complaints, no LOF or vaginal bleeding Good movements Contractions: No The sensitive examination was discussed with the Patient or Patient's Authorized Mica Builder. As applicable, any other physician, advance practice provider, medical student, or other health professional student that will be observing or involved in the sensitive examination for educational or training purposes was discussed with the Patient or Authorized Mica Builder. The Patient or Authorized Mica Builder has agreed to proceed with the sensitive [...] which included preparing to see the patient, [id number] patient care, completing clinical documentation, obtaining and/or reviewing separately obtained history, performing a medically appropriate examination, counseling and educating the patient/family/caregiver, and ordering medications, tests, or procedures. BAA documented in this encounter [facility] 12-05-2023 Telephone encounter Note LM to have patient call in and reschedule her No Show. [facility] 12-05-2023 Miscellaneous Notes LM to have patient call in and reschedule her No Show. documented in this encounter [facility] 11-09-2023 Telephone encounter Note Left message to call office [facility] 11-09-2023 Miscellaneous Notes Left message to call office OK to schedule for 20-30 min ob appointment w/ a provider for transfer. 30w2d Patient is wanting to transfer OB care to our office from [facility]. Spoke with RR. Patient is aware that a physician needs to review her chart first. This is for all transfers in the 3rd trimester. Aware we will need to call her back. Cesilia Malloy RN documented in this encounter [facility] 11-08-2023 Telephone encounter Note OK to schedule for 20-30 min ob appointment w/ a provider for transfer. [facility] Work Phone: 11-07-2023 Telephone encounter Note 30w2d Patient is wanting to transfer OB care to our office from [facility]. Spoke with RR. Patient is aware that a physician needs to review her chart first. This is for all transfers in the 3rd trimester. Aware we will need to call her back. Cesilia Malloy RN [facility] 11-07-2023 Telephone encounter Note LM for patient to call and r/s No Show [facility] 11-07-2023 Miscellaneous Notes LM for patient to call and r/s No Show documented in this encounter [facility] 2023 Telephone encounter Note Unable to LM due to Full VM. Sent letter out to patient to Rescheduled No Show [facility] 2023 Miscellaneous Notes Unable to LM due to Full VM. Sent letter out to patient to Rescheduled No Show documented in this encounter [facility] 09-29-2023 Telephone encounter Note Tried calling patient. Unable to leave voicemail due to voicemail box being full. [facility] 09-29-2023 Miscellaneous Notes Tried calling patient. Unable to leave voicemail due to voicemail box being full. Please notify Beth that her blood count is low. I have sent an iron tablet to her pharmacy for her to start taking daily in addition to her PNV. Alana Obrien APRN.CNP documented in this encounter [facility] 09-29-2023 Telephone encounter Note Please notify Beth that her blood count is low. I have sent an iron tablet to her pharmacy for her to start taking daily in addition to her PNV. Alana Obrien APRN.CNP [facility] 09-27-2023 Nurse Note Venipuncture performed to left antecubital. Number of tubes collected: 2 gold and 1 lavender. Patient tolerated this well. Dr. Alexander in office during venipuncture. Jannie Blackburn RN September 27, 2023 11:[address] [facility] 09-27-2023 Nurse Note Venipuncture performed to left [...] pamphlet, Nexplanon pamphlet, Krames Tubal sterilization pamphlet, Krames control pamphlet ( control options, sterilization, IUD, Progestin-Only, Injections, combined hormonal, patch, ring, barrier methods, emergency contraceptive and health factors), Krames pamphlet, and information from F healthy guide [...] Patient given 50g glucose drink-orange flavored. LOT#: [id number] Expiration date: 04/26/2025 Jannie Blackburn RN September 27, 2023 10:49 AM documented in this encounter [facility] 09-27-2023 Nurse Note Patient is a 27 [...] health factors), Jet pamphlet, and information from [facility] healthy guide (third trimester of , when [...] Blackburn RN September 27, 2023 11:[address] [facility] 09-27-2023 Progress note Formatting of t his [...] leaking fluid, rodríguez or for decreased movement. [facility] 09-27-2023 Miscellaneous Notes Returns today for visit [...] for decreased movement. documented in this encounter [facility] 09-27-2023 Nurse Note Patient given 50g glucose drink-orange flavored. LOT#: [id number] Expiration date: 04/26/2025 Jannie Blackburn RN September 27, 2023 10:[address] [facility] 08-31-2023 Telephone encounter Note 1st risk assessment form submitted 08/31/[address] [facility] 08-31-2023 Miscellaneous Notes 1st risk assessment form submitted 08/31/2023 Asmita Parker RN documented in this encounter [facility] 08-28-2023 Progress note Formatting of t his [...] 4 weeks with 1hGTT and labs Rogelio Johnson APRN.CNP I spent a total of 22 minutes on the date of the service which included preparing to see the patient, fcpb-zb-gyse patient care, completing clinical documentation, obtaining and/or reviewing separately obtained history, performing a medically appropriate examination, counseling and educating the patient/family/caregiver, and ordering medications, tests, or procedures. [facility] 08-28-2023 Miscellaneous Notes Beth Vincent is a [...] 4 weeks with 1hGTT and labs Rogelio Johnson APRN.CNP I spent a total of 22 minutes on the date of the service which included preparing to see the patient, ocpi-yc-fpnc patient care, completing clinical documentation, obtaining and/or reviewing separately obtained history, performing a medically appropriate examination, counseling and educating the patient/family/caregiver, and ordering medications, tests, or procedures. documented in this encounter [facility] 08-13-2023 Hospital Discharg e instructions Patient Education 08/13/2023 14:47:27 ERIC PITTS (CUSTOM) There is a single live intrauterine with a heart rate of 147 bpm and a gestational age of 18 weeks based on last menstrual period. Close clinical follow-up recommended. No sonographic abnormalities of the ovaries, however not well evaluated on this exam.] [[Preliminary Report was Dictated by a Resident ] Document Released: 03/13/2006 Document Revised: 02/27/2013 Document Reviewed: 03/14/2014 ExitCare Patient Information 2015 Directr. This information is not intended to replace [...] the smoke from others. You may use poef-lpb-jkzmddw acetaminophen or ibuprofen for fever, muscle aching, [...] body and be dangerous to your health. Ciqi-olo-hqskdfx remedies won't shorten the length of the [...] or as directed by your healthcare provider [phone] [employer]. [address] [place] [address], [place] [address]. All rights reserved. This information is not intended as a substitute for professional medical care. Always follow your healthcare professional's instructions. Follow Up Care 08/13/2023 11:21:49 With:Go to emergency room if symptoms worsen Address:Unknown When:2-4 days With:PHYSICIAN, NONE Address:Unknown When:2-4 days [facility] Yvette Cardozo 08-13-2023 Emergency department Discharge summary Discharge Instructions Thank you for allowing [facility] to assist you with your healthcare needs. The following is important discharge information regarding your hospital visit. Diagnosis from Today's Visit Bacteriuria Viral syndrome What to Do Next Instructions from Your Care Team Take acyclovir as prescribed for possible herpes. stay well-hydrated. Use mupirocin ointment over areas of the sores as this may be impetigo although not classic. Follow-up with your METAL FABRICATOR. Return the emergency department if you experience [...] 03/13/2006 Document Revised: 02/27/2013 Document Reviewed: 03/14/2014 [facility] Patient Information 2015 Directr. This information is not intended to replace [...] the smoke from others. You may use dtnc-nni-bruednr acetaminophen or ibuprofen for fever, muscle aching, [...] body and be dangerous to your health. Fppv-hae-gbkffhs remedies won't shorten the length of the [...] or as directed by your healthcare provider [phone] [employer]. [address] [place] [address]. All rights reserved. This information is not intended as a substitute for professional medical care. Always follow your healthcare professional's instructions. Additional Information VACCINATE! IT SAVES LIVES! Members of the community who have not yet received the COVID-19 vaccine and would like to receive it can visit one of [facility] vaccine clinics. There are many vaccine clinic locations within the [facility]. For locations and available times, please visit www.[email or web address]. gov/. It is important to note that some COVID mobile vaccine clinics are held outdoors and may be canceled in rainy or stormy conditions. To learn more about pediatric vaccinations (ages 5-11), we invite you to visit the [facility] webpage. https://www.[facility].org/p ages/5996-Tqrfi-Pqmemamdoso-Freq dsffis-Ihjjj-Xcbjpfkbe.html To learn more about the COVID-19 vaccine, we invite you to visit the CDC website for a list of frequently asked questions. https://www.cdc.gov/coronavirus/ 2019-ncov/vaccines/faq.html [facility] Patient Portal Access Instructions: Stay connected with your healthcare team and access your personal medical information anytime with the [facility] Patient Portal. If you would like a full copy of your medical records please contact the [facility] Medical Records Department Monday through Monday between 8a.m. and 4:30p.m. Please follow the directions below to access the portal: 1.Access the email account you provided upon registration to the hospital.2.Look for an invitation email from [facility].3.Open the email and access the invitation link: Accept Invitation to [facility]4.Fill in the required hughes to create your account. Sign into [email or web address] with your username and password that you [...] you will allow to register on the [facility] Patient Portal for access to your information. You can also access the [facility] Patient Portal on the WeatherBug deborah. Simply click on Health Records under Health Data and then click on the Trip4real logo. HOW TO SAFELY DISPOSE OF PRESCRIPTION [...] Call your local pharmacy or go to http://AxioMed Spine.Flexion/4L0Ju0s to find one close to you.3.Make use of household items: Use cat litter or old coffee grounds to dispose medications if other options are not available. Mix your drugs with these household products, seal them in an airtight container and throw it into the garbage. Call [facility]: [phone] to be sure your drugs can be [...] and explained to me and ISALLY NICOLETTA R understand my current condition and have read and understand these discharge instructions. I have received a written copy of the plan/instructions. If I have questions, I am aware that I should contact my doctor. Patient/Mica Builder Signature: Date/Time: Relationship to Patient: Witness Name/Signature: Date/Time: [facility] 08-09-2023 Telephone encounter Note RN spoke with [...] ER. Patient states understanding. Asmita Parker RN [facility] 08-09-2023 Miscellaneous Notes RN spoke with patient. [...] for 08/28/2023. Thanks documented in this encounter [facility] 08-09-2023 Telephone encounter Note Pt is 17.3 wks and said that she had had a migraine for the last 3 days along with body aches that start from her skull to spine. She is not having any cramping/bleeding. Her next OB appointment is scheduled for 08/28/2023. Thanks [facility] 08-04-2023 Progress note Formatting of t his [...] 305.1, ICD10: Z72.0 - Decreasing. Alana Obrien APRN.PAPER GLUING OPERATOR Call and go to labor and delivery if bleeding, leaking fluid, rodríguez or for decreased movement. T [facility] 08-04-2023 Miscellaneous Notes Returns today for visit [...] 305.1, ICD10: Z72.0 - Decreasing. Alana Obrien APRN.PAPER GLUING OPERATOR Call and go to labor and delivery if bleeding, leaking fluid, rodríguez or for decreased movement. documented in this encounter [facility] 07-07-2023 Miscellaneous Notes RN note reviewed and agree with recommendations. Alana Obrien APRN.PAPER GLUING OPERATOR Patient called back, states last night she [...] keep stuff done. documented in this encounter [facility] 07-06-2023 Miscellaneous Notes Patient was informed - all questions answered Please notify Beth that her vaginal swab showed bacterial vaginosis. I have sent metronidazole to her pharmacy to take BID x7 days. Alana Obrien APRN.YOLANDA documented in this encounter [facility] 07-04-2023 Miscellaneous Notes ASSESSMENT/PLAN: 1. Supervision of [...] was provided. The patient declines screening Reviewed [employer] Training Room (TTR) program. Patient declines referral at this time. [...] and women though we do not have alf data. It should be available to and [...] Alana Obrien APRN.CNP. Electronically signed:Alana Obrien APRN.CNP, Scribe, July 04, 2023 1:11 PM Alana Obrien APRN.CNP documented in this encounter [facility] 07-04-2023 Note HNO ID: [id number] Author: ALANA OBRIEN APRN.CNP Service: ? 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 Patient BMI over 30? 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 Patient BMI over 30? 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 The patient declines screening Reviewed [employer] program. Patient declines referral at this time. [...] and women though we do not have alf data. It should be available to and women as in the non population, patients who do not wish to receive the vaccine should also be supported in that decision. ACOG and [facility] now recommending Covid vaccination in . We [...] Alana Obrien APRN.CNP documented in this encounter [facility] 06-26-2023 Miscellaneous Notes Pt called stating she wanted to be squeezed in due to possible yeast inf. She is and has an appointment on 07/04/23. Per Claudia, she can do the Monistat 7 day. Patient understood. documented in this encounter [facility] 06-07-2023 Nurse Note Venipuncture performed to left [...] Patient declines at this time. [facility])-Medications During sheet was discussed and given to patient. We discussed the Covid vaccine and how it appears to be safe and effective in and women though we do not have alf data. It should be available to and [...] gestation to screen for genetic disorders in . Patient given the [employer] financial estimate tear off form and instructed [...] Program, Directory of services for families in [facility], information about genetic testing, information about signing up for My Chart, and [facility]'s 'Your guide to a Healthy '. Patient was educated on the contents of this folder. Patient was asked if she would like a referral to [facility]. Referral was not completed per patient. Jannie Blackburn RN June 07, 2023 10:55 AM documented in this encounter [facility] 06-07-2023 Note HNO ID: [id number] Author: JORGE ALEXANDER MD Service: ? Author [...] Vaccine(1) due on 11/25/2022 Covid-19 Vaccine(3 - 2022- season) due on 11/25/2022 Depression Assessment Never [...] Z01.419 - Complet (more content not included)... [facility] 06-07-2023 History of Presen t illness [...] Vaccine(1) due on 11/25/2022 Covid-19 Vaccine(3 - 2022- season) due on 11/25/2022 Depression Assessment Never [...] MALLORIE Alexander MD documented in this encounter [facility] 02-16-2022 Hospital Discharg e instructions Patient Education [...] alternate ice and heat. You may use blpb-pfr-otigynh pain medicine to control pain, unless another [...] numb, or tingly Pain or swelling increases [phone] [employer]. [address] [place] [address], [place] [address]. All rights reserved. This information is not intended as a substitute for professional medical care. Always follow your healthcare professional's instructions. Follow Up Care 02/16/2022 13:12:14 With:MARIAN COWAN MD Address: [address] [place] [phone]- [phone] When:2-4 days [facility] Cardozo 02-16-2022 Emergency department Discharge summary Discharge Instructions Thank you for allowing [facility] to assist you with your healthcare needs. [...] COWAN MD When Within 2-4 days Where: [address] [place] [phone]- [phone] Allergies NKA Medications Please ask your primary [...] alternate ice and heat. You may use vvbl-eqw-fqhbkxf pain medicine to control pain, unless another [...] numb, or tingly Pain or swelling increases 2353-8445 [employer]. [address] [place] [address]. All rights reserved. This information is not intended as a substitute for professional medical care. Always follow your healthcare professional's instructions. Additional Information VACCINATE! IT SAVES LIVES! Members of the community who have not yet received the COVID-19 vaccine and would like to receive it can visit one of [facility] vaccine clinics. There are many vaccine clinic locations within the [facility]. For locations and available times, please visit www.[email or web address]. org. It is important to note that some COVID mobile vaccine clinics are held outdoors and may be canceled in rainy or stormy conditions. To learn more about pediatric vaccinations (ages 5-11), we invite you to visit the [facility] webpage. https://www.[facility].org/p ages/1220-Lqspe-Brdnalshqkj-Freq chqimp-Xiyip-Ybokumqub.html To learn more about the COVID-19 vaccine, we invite you to visit the [facility] website for a list of frequently asked questions. [email or web address] requently_[email or web address].pdf [facility] Patient Portal Access Instructions: Stay connected with your healthcare team and access your personal medical information anytime with the [facility] Patient Portal. If you would like a full copy of your medical records please contact the [facility] Medical Records Department Monday through Monday between 8a.m. and 4:30p.m. Please follow the directions below to access the portal: 1.Access the email account you provided upon registration to the [facility].2.Look for an invitation email from [facility].3.Open the email and access the invitation link: Accept Invitation to [facility]4.Fill in the required hugehs to create your account. Sign into [email or web address]. with your username and password that you [...] you will allow to register on the [facility] Patient Portal for access to your information. You can also access the [facility] Patient Portal on the WeatherBug deborah. Simply click on Health Records under [...] Call your local pharmacy or go to http://bit.Flexion/3M8Vy6i to find one close to you.3.Make use of household items: Use cat litter or old coffee grounds to dispose medications if other options are not available. Mix your drugs with these household products, seal them in an airtight container and throw it into the garbage. Call [facility]: [phone] to be sure your drugs can be [...] aware that I should contact my doctor. Patient/Mica Builder Signature: Date/Time: Relationship to Patient: Witness Name/Signature: Date/Time: [facility] 02-16-2022 Note ORIGINAL EXAMINATION: THREE XRAY VIEWS [...] Date: 02/16/2022 1:47:06 PM Ordering Provider: SHORTY [facility] 02-16-2022 Note ORIGINAL EXAMINATION: THREE XRAY VIEWS [...] Date: 02/16/2022 1:47:06 PM Ordering Provider: SHORTY SILVA [facility] 12-13-2021 Hospital Discharg e instructions Patient Education 12/13/2021 11:27:48 Abdominal [...] foods again, start with small amounts of qiun-pe-ojursq, low-fat foods. These include apple sauce, toast, [...] increase stomach acid. Don't use aspirin or fryj-tlh-dtcsnse pain and fever medicines, if possible. This includes nonsteroidal anti-inflammatory drugs (NSAIDs). Lose excess weight. Finish eating at least 2 hours before you go to bed or lie down. Raise the head of your bed. 8617-2608 [employer]. [address] [place] [address]. All rights reserved. This information is not intended as a substitute for professional medical care. Always follow your healthcare professional's instructions. Follow Up Care 12/13/2021 10:58:59 With:MARIAN COWAN MD Address: [address] [place] [phone] When:2-4 days With:MADELINE LASSITER MD Address: [address] [phone] [phone] When:2-4 days Comments:Gastroenterology [facility] 12-13-2021 Emergency department Discharge summary Discharge Instructions Thank you for allowing [facility] to assist you with your healthcare needs. The following is important discharge information regarding your hospital visit. Diagnosis from Today's Visit Abdominal pain What to Do Next Instructions from Your Care Team No qualifying data available. Post Acute Orders No qualifying data available. You Need to Schedule the Following Appointments Follow Up with MARIAN COWAN MD When Within 2-4 days Where: [address] [place] [phone] Follow Up with MADELINE LASSITER MD When Within 2-4 days Why: Gastroenterology Where: [address] [facility] [address] [place] [address]- [phone] Allergies NKA Medications Please ask your primary [...] foods again, start with small amounts of yksk-tb-rmyhhv, low-fat foods. These include apple sauce, toast, [...] increase stomach acid. Don't use aspirin or ppss-xvj-dqngawk pain and fever medicines, if possible. This includes nonsteroidal anti-inflammatory drugs (NSAIDs). Lose excess weight. Finish eating at least 2 hours before you go to bed or lie down. Raise the head of your bed. 1002-8911 [employer]. [address] [place] [address], [place] [address]. All rights reserved. This information is not intended as a substitute for professional medical care. Always follow your healthcare professional's instructions. Additional Information VACCINATE! IT SAVES LIVES! Members of the community who have not yet received the COVID-19 vaccine and would like to receive it can visit one of [facility] vaccine clinics. There are many vaccine clinic locations within the [facility]. For locations and available times, please visit www.gettheshot.coronavirus.[place]. org. It is important to note that some COVID mobile vaccine clinics are held outdoors and may be canceled in rainy or stormy conditions. To learn more about pediatric vaccinations (ages 5-11), we invite you to visit the [facility] webpage. https://www.[facility]G Multimedias.org/p ages/9442-Ovcwq-Gfwvfdzqplw-Freq jiklyj-Ggqli-Jpqmpqkqj.html To learn more about the COVID-19 vaccine, we invite you to visit the [facility] website for a list of frequently asked questions. [email or web address] [email or web address] requently_[email or web address].pdf [facility] Patient Portal Access Instructions: Stay connected with your healthcare team and access your personal medical information anytime with the [facility] Patient Portal. If you would like a full copy of your medical records please contact the [facility] Medical Records Department Monday through Monday between 8a.m. and 4:30p.m. Please follow the directions below to access the portal: 1.Access the email account you provided upon registration to the hospital.2.Look for an invitation email from [facility].3.Open the email and access the invitation link: Accept Invitation to [facility]4.Fill in the required hughes to create your account. Sign into [email or web address] with your username and password that you [...] you will allow to register on the [facility] Patient Portal for access to your information. You can also access the [facility] Patient Portal on the WeatherBug deborah. Simply click on Health Records under Health Data and then click on the Trip4real logo. HOW TO SAFELY DISPOSE OF PRESCRIPTION [...] Call your local pharmacy or go to http://AxioMed Spine.Flexion/[id number] to find one close to you.3.Make use of household items: Use cat litter or old coffee grounds to dispose medications if other options are not available. Mix your drugs with these household products, seal them in an airtight container and throw it into the garbage. Call [facility]: [phone] to be sure your drugs can be [...] aware that I should contact my doctor. Patient/Mica Builder Signature: Date/Time: Relationship to Patient: Witness Name/Signature: Date/Time: [facility] 12-13-2021 Note ORIGINAL EXAMINATION: CT OF THE [...] Sign Date: 12/13/2021 1:03:03 PM Ordering Provider: ANDREARALF CORADO [facility] 12-13-2021 Note ORIGINAL EXAMINATION: CT OF THE [...] Sign Date: 12/13/2021 1:03:03 PM Ordering Provider: [facility] + Plan note Diagnostic Tests PendingBlood Culture (bacterial) 01/23/21Blood Culture (bacterial) 01/23/21Lactic Acid 01/23/21C-Reactive Protein 01/23/21 [facility] Evaluation note Diagnosis Encounter for test, result positive- Primary examination or test, positive result Encounter for gynecological examination (general) (routine) without abnormal findings Current every day vaping Secondary oligomenorrhea Scanty or infrequent menstruation [facility] Diagnosis Encounter for test, result positive- Primary examination or test, positive result [facility] Diagnosis with uncertain dates in first trimester- Primary Encounter for test, result positive examination or test, positive result [facility] Diagnosis Supervision of high risk in third trimester- Primary Unspecified high-risk 12 weeks gestation of state, incidental Acute vaginitis Vaginitis and vulvovaginitis, unspecified Overweight Current every day nicotine vaping [facility] Diagnosis Bacterial vaginosis- Primary Vaginitis and vulvovaginitis, unspecified [facility]* Diagnosis Encounter for anatomic survey- Primary [facility]* Diagnosis Supervision of high risk in third trimester- Primary Unspecified high-risk Heartburn during in second trimester 16 weeks gestation of state, incidental Overweight Current every day nicotine vaping [facility]* Diagnosis Supervision of high risk in second trimester- Primary Unspecified high-risk 20 weeks gestation of state, incidental Overweight Current every day nicotine vaping Heartburn during in second trimester [facility]* Diagnosis Current every day vaping- Primary 24 weeks gestation of state, incidental Supervision of high risk in first trimester Unspecified high-risk [facility]* Diagnosis 24 weeks gestation of - Primary state, incidental [facility] Diagnosis Anemia affecting in second trimester- Primary documented in this encounter [facility] note* Diagnosis Encounter for anatomic survey documented in this encounter [facility] note* Diagnosis Supervision of high risk in third trimester- Primary Unspecified high-risk documented in this encounter [facility] note* Diagnosis Anemia affecting in second trimester documented in this encounter [facility] note* Diagnosis Supervision of high risk in third trimester- Primary Unspecified high-risk 37 weeks gestation of state, incidental Anemia affecting in second trimester Current every day vaping documented in this encounter [facility] note* Diagnosis Anemia, unspecified type- Primary documented in this encounter [facility] note* Diagnosis Maternal iron deficiency anemia complicating , third trimester- Primary documented in this encounter [facility] note* Diagnosis Supervision of high risk in third trimester- Primary Unspecified high-risk 38 weeks gestation of state, incidental Anemia affecting in second trimester documented in this encounter [facility] note* Diagnosis 39 weeks gestation of - Primary state, incidental Supervision of high risk in third trimester Unspecified high-risk Anemia affecting in second trimester documented in this encounter [facility] note* Diagnosis Maternal iron deficiency anemia complicating , third trimester- Primary documented in this encounter [facility] note* Diagnosis Maternal iron deficiency anemia complicating , third trimester- Primary documented in this encounter [facility] note* Diagnosis Supervision of high risk in third trimester- Primary Unspecified high-risk Anemia affecting in third trimester 40 weeks gestation of state, incidental documented in this encounter [facility] course Narrative No data available for this section [facility] Discharge instructions No data available for this section [facility] Reason for referral (narrative)* Diagnostic Procedure Only (Routine) - Closed Specialty Diagnoses / Procedures Referred By Nestor t Referred To Contact [facility] Diagnoses Encounter for test, result positive Procedures OBSTETRIC ULTRASOUND WHI US PREG UTERUS AFTER 1ST TRIMEST GESTATION Jorge Alexander MD [address] [place] [address] [facility] [address] [place] [address] Referral ID Status Reason Start Date Expiration Date V isits Requested Visits Authorized [id number] Closed Auto-Generate d Referral 06/07/2023 06/06/2024 1 0 [facility] for referral (narrative)* Diagnostic Procedure Only (Routine) - Pending Review Specialty Diagnoses / Procedures Referred By Contac t Referred To Contact [facility] Diagnoses Encounter for anatomic survey Procedures OBSTETRIC ULTRASOUND WHI US PREG UTERUS AFTER 1ST TRIMEST GESTATION Delmy Winston MD [address] [place] [address] [address] Referral ID Status Reason Start Date Expiration Date Visits Requested Visits Authorized [id number] Pending Review Auto-Generat ed Referral 07/08/2023 07/07/2024 1 1 [facility] for referral (narrative)* Diagnostic Procedure Only (Routine) - Closed Specialty Diagnoses / Procedures Referred By Contac t Referred To Contact [facility] Diagnoses Encounter for anatomic survey Procedures OBSTETRIC ULTRASOUND WHI US PREG UTERUS AFTER 1ST TRIMEST GESTATION Delmy Winston MD [address] [place] [address] [address] Referral ID Status Reason Start Date Expiration Date V isits Requested Visits Authorized [id number] Closed Auto-Generate d Referral 07/08/2023 07/07/[address] [facility] Advance Directives Advance Directive Response Recorded Date/ Time NO NO December 30 9 11:13am Assessments No Assessments Information Available Summary Purpose Family History No Family History Records FoundNo Family History Records Found No data available for this section No Family History Records FoundNo Family History Records FoundNo Family History Records Found Additional Source Comments Care Team (unrecognized sect ion and content) Care Team Related Persons Name: VAN BECK Address: Home [place] Name: GUILLE MACHADO Name: MADELINE VINCENT Address: Home [address] [address] Care Team Related Persons Name: VAN BECK Address: Home [place] Name: GUILLE MACHADO Name: MADELINE VINCENT Address: Home [address] [address] INFORMATION SOURCE (unrecogn ized section and content) DATE CREATED AUTHOR 01/27/2022 [facility] DATE CREATED AUTHOR AUTHOR'S ORGANIZ ATION 06/16/2022 [facility] DATE CREATED AUTHOR AUTHOR'S ORGANIZ ATION 08/21/2023 [facility] DATE CREATED AUTHOR AUTHOR'S ORGANIZ ATION 12/24/2023 [facility] DATE CREATED AUTHOR AUTHOR'S ORGANIZ ATION 01/16/2024 [facility] Source Comments (unrecognize d section and content) In the event this informatio n is protected by the Federal Confidentiality of Alcohol and Drug Abuse Patient Records regulations: The Federal rules restrict any use of the information to criminally investigate or prosecute any alcohol or drug abuse patient.[facility] the event this information is protected by the Federal Confidentiality of Alcohol and Drug Abuse Patient Records regulations: The Federal rules restrict any use of the information to criminally investigate or prosecute any alcohol or drug abuse patient.[facility] the event this information is protected by the Federal Confidentiality of Alcohol and Drug Abuse Patient Records regulations: The Federal rules restrict any use of the information to criminally investigate or prosecute any alcohol or drug abuse patient.[facility] the event this information is protected by the Federal Confidentiality of Alcohol and Drug Abuse Patient Records regulations: The Federal rules restrict any use of the information to criminally investigate or prosecute any alcohol or drug abuse patient.[facility] the event this information is protected by the Federal Confidentiality of Alcohol and Drug Abuse Patient Records regulations: The Federal rules restrict any use of the information to criminally investigate or prosecute any alcohol or drug abuse patient.[facility] the event this information is protected by the Federal Confidentiality of Alcohol and Drug Abuse Patient Records regulations: The Federal rules restrict any use of the information to criminally investigate or prosecute any alcohol or drug abuse patient.[facility] the event this information is protected by the Federal Confidentiality of Alcohol and Drug Abuse Patient Records regulations: The Federal rules restrict any use of the information to criminally investigate or prosecute any alcohol or drug abuse patient.[facility] the event this information is protected by the Federal Confidentiality of Alcohol and Drug Abuse Patient Records regulations: The Federal rules restrict any use of the information to criminally investigate or prosecute any alcohol or drug abuse patient.[facility] the event this information is protected by the Federal Confidentiality of Alcohol and Drug Abuse Patient Records regulations: The Federal rules restrict any use of the information to criminally investigate or prosecute any alcohol or drug abuse patient.[facility] the event this information is protected by the Federal Confidentiality of Alcohol and Drug Abuse Patient Records regulations: The Federal rules restrict any use of the information to criminally investigate or prosecute any alcohol or drug abuse patient.[facility] the event this information is protected by the Federal Confidentiality of Alcohol and Drug Abuse Patient Records regulations: The Federal rules restrict any use of the information to criminally investigate or prosecute any alcohol or drug abuse patient.[facility] the event this information is protected by the Federal Confidentiality of Alcohol and Drug Abuse Patient Records regulations: The Federal rules restrict any use of the information to criminally investigate or prosecute any alcohol or drug abuse patient.[facility] the event this information is protected by the Federal Confidentiality of Alcohol and Drug Abuse Patient Records regulations: The Federal rules restrict any use of the information to criminally investigate or prosecute any alcohol or drug abuse patient.[facility] the event this information is protected by the Federal Confidentiality of Alcohol and Drug Abuse Patient Records regulations: The Federal rules restrict any use of the information to criminally investigate or prosecute any alcohol or drug abuse patient.[facility] the event this information is protected by the Federal Confidentiality of Alcohol and Drug Abuse Patient Records regulations: The Federal rules restrict any use of the information to criminally investigate or prosecute any alcohol or drug abuse patient.[facility] the event this information is protected by the Federal Confidentiality of Alcohol and Drug Abuse Patient Records regulations: The Federal rules restrict any use of the information to criminally investigate or prosecute any alcohol or drug abuse patient.[facility] the event this information is protected by the Federal Confidentiality of Alcohol and Drug Abuse Patient Records regulations: The Federal rules restrict any use of the information to criminally investigate or prosecute any alcohol or drug abuse patient.[facility] the event this information is protected by the Federal Confidentiality of Alcohol and Drug Abuse Patient Records regulations: The Federal rules restrict any use of the information to criminally investigate or prosecute any alcohol or drug abuse patient.[facility] the event this information is protected by the Federal Confidentiality of Alcohol and Drug Abuse Patient Records regulations: The Federal rules restrict any use of the information to criminally investigate or prosecute any alcohol or drug abuse patient.[facility] the event this information is protected by the Federal Confidentiality of Alcohol and Drug Abuse Patient Records regulations: The Federal rules restrict any use of the information to criminally investigate or prosecute any alcohol or drug abuse patient.[facility] the event this information is protected by the Federal Confidentiality of Alcohol and Drug Abuse Patient Records regulations: The Federal rules restrict any use of the information to criminally investigate or prosecute any alcohol or drug abuse patient.[facility] the event this information is protected by the Federal Confidentiality of Alcohol and Drug Abuse Patient Records regulations: The Federal rules restrict any use of the information to criminally investigate or prosecute any alcohol or drug abuse patient.[facility] the event this information is protected by the Federal Confidentiality of Alcohol and Drug Abuse Patient Records regulations: The Federal rules restrict any use of the information to criminally investigate or prosecute any alcohol or drug abuse patient.[facility] the event this information is protected by the Federal Confidentiality of Alcohol and Drug Abuse Patient Records regulations: The Federal rules restrict any use of the information to criminally investigate or prosecute any alcohol or drug abuse patient.[facility] the event this information is protected by the Federal Confidentiality of Alcohol and Drug Abuse Patient Records regulations: The Federal rules restrict any use of the information to criminally investigate or prosecute any alcohol or drug abuse patient.[facility] the event this information is protected by the Federal Confidentiality of Alcohol and Drug Abuse Patient Records regulations: The Federal rules restrict any use of the information to criminally investigate or prosecute any alcohol or drug abuse patient.[facility] the event this information is protected by the Federal Confidentiality of Alcohol and Drug Abuse Patient Records regulations: The Federal rules restrict any use of the information to criminally investigate or prosecute any alcohol or drug abuse patient.[facility] the event this information is protected by the Federal Confidentiality of Alcohol and Drug Abuse Patient Records regulations: The Federal rules restrict any use of the information to criminally investigate or prosecute any alcohol or drug abuse patient.[facility] the event this information is protected by the Federal Confidentiality of Alcohol and Drug Abuse Patient Records regulations: The Federal rules restrict any use of the information to criminally investigate or prosecute any alcohol or drug abuse patient.[facility] the event this information is protected by the Federal Confidentiality of Alcohol and Drug Abuse Patient Records regulations: The Federal rules restrict any use of the information to criminally investigate or prosecute any alcohol or drug abuse patient.[facility] the event this information is protected by the Federal Confidentiality of Alcohol and Drug Abuse Patient Records regulations: The Federal rules restrict any use of the information to criminally investigate or prosecute any alcohol or drug abuse patient.[facility]In the event this information is protected by the Federal Confidentiality of Alcohol and Drug Abuse Patient Records regulations: The Federal rules restrict any use of the information to criminally investigate or prosecute any alcohol or drug abuse patient.[facility] the event this information is protected by the Federal Confidentiality of Alcohol and Drug Abuse Patient Records regulations: The Federal rules restrict any use of the information to criminally investigate or prosecute any alcohol or drug abuse patient.[facility] the event this information is protected by the Federal Confidentiality of Alcohol and Drug Abuse Patient Records regulations: The Federal rules restrict any use of the information to criminally investigate or prosecute any alcohol or drug abuse patient.[facility] the event this information is protected by the Federal Confidentiality of Alcohol and Drug Abuse Patient Records regulations: The Federal rules restrict any use of the information to criminally investigate or prosecute any alcohol or drug abuse patient.[facility]In the event this information is protected by the Federal Confidentiality of Alcohol and Drug Abuse Patient Records regulations: The Federal rules restrict any use of the information to criminally investigate or prosecute any alcohol or drug abuse patient.[facility] HospitalIn the event this information is protected by the Federal Confidentiality of Alcohol and Drug Abuse Patient Records regulations: The Federal rules restrict any use of the information to criminally investigate or prosecute any alcohol or drug abuse patient.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 Reason Comments Phlebotomy Education Reason Comments [place] Specialty Diagnoses / Procedures Referred By Contac t Referred To Contact [facility] Diagnoses Encounter for test, result positive Procedures OBSTETRIC ULTRASOUND WHI US PREG UTERUS AFTER 1ST TRIMEST GESTATION Jroge Alexander MD [address] [place] [address] [address] Referral ID Status Reason Start Date Expiration Date V isits Requested Visits Authorized [id number] Closed Auto-Generate d Referral 06/07/2023 06/06/2024 1 [...] Patient Update 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 Comments 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 Reason Comments Appointment Reason Comments Transfer of Care Reason Comments [place] Specialty Diagnoses / Procedures Referred By Contac t Referred To Contact [facility] Diagnoses Encounter for anatomic survey Procedures OBSTETRIC ULTRASOUND WHI US PREG UTERUS AFTER 1ST TRIMEST GESTATION Delmy Winston MD [address] [place] [address] [address] Referral ID Status Reason Start Date Expiration Date V isits Requested Visits Authorized [id number] Closed Auto-Generate d Referral 07/08/2023 07/07/2024 1 1 Reason Onset Date Comments Care 12/28/2023 Reason Onset Date Comments Population Health Navigation Outreach 01/01/2024 OB/PEDS Reason Comments Blood management Reason Onset Date Comments Care 01/03/2024 Reason Comments Hematology Reason Onset Date Comments Care 01/11/2024 Reason Comments Iron Infusion Reason Comments Non-Chemotherapy Treatment Specialty Diagnoses / Procedures Referred By Contcamila t Referred To Contact Diagnoses Maternal iron deficiency anemia complicating , third trimester Procedures IRON SUCROSE INJECTION PER [address] APRN.CNM [address] [place] [address] [facility] [address] [place] [address] Referral ID Status Reason Start Date Expiration Date V isits Requested Visits Authorized [id number] Authorized 01/04/2024 07/02/2024 3 3 Reason Comments Benefits Investigation Reason Onset Date Comments Care 01/17/2024 Patient Care team informatio n (unrecognized section and content) Care Team Personnel Name: PHYSICIAN, NONE Position: Physician Member Role: Primary Care Physician Care Team Related Persons Name: VAN BECK Address: Home [place] Name: GUILLE MACHADO Name: MADELINE VINCENT Dolores Address: Home [address] [place] [address] FOR RECORDS PERTAINING TO PATIENTS WHO ARE [...] BE BASED ON THE PRIMARY CLINICAL RECORDS. [employer] provides no warranty or guarantee of the accuracy or completeness of information in this document.
--- OUTSIDE RECORDS SUMMARY | 2024-01-18 01:21 | XMS RPT_ITS | CCD ---
Author Organization [facility] Care Team Providers Care Digital Color Press Operator Name Role Phone Eliza Beltre Primary Care Physician MEDICAL, CLINIC Primary Care Physician Unavailab MARIAN Merchant MD Primary Care Physician HOLLY ANDERSON M.D. Attending Unavailable LATA RAY [...] # 3 cap(s), 0 Refill(s), [facility]ILIANO GUILLERMINA W, Vaginal candidiasis, 160, [...] Comment on above: [facility] Status documented as Yes on [...] vaping] Onset: 07-04-2023 Episodic Unclassified (1 source) [facility] PRE EMP UDS Onset: 01-03-2022 Unclassified (1 source) DATING Onset: 06-16-2022 Results Test Name Value Interpretation Reference Range Facil ity CNOVSPon 01-15-2024 CNOVSP Visit (SP) Office (HEMAWS) ---- SALLYBETH MALLOY ([id number]) 1995 F Date Time Provider Department 01/15/24 9:30 AM TREATMENT RM 17 [facility] WSTRHEMAWS During your visit today, we recorded the following information about you: Temperature Pulse Blood pressure 97.1 degrees 107/minute 125/85 Referring Provider: RIA STREET [[id number]] Allergies As of Date: 01/15/2024 (No Known Allergies) Date Reviewed: 01/15/2024 Reviewed by: Lacy Hurtado RN - Fully Assessed Reason for Visit: Non-Chemotherapy Treatment [795] Primary Visit Diagnosis:Maternal iron deficiency anemia complicating , third trimester [O99.013, D50.9] Order(s):BCN NURSING COMMUNICATION [[id number]] Order #: [id number]: 1 STANDING [] iron sucrose 300 mg in NaCl 0.9% 250 mL (VENOFER)Disp: Rfl: NaCl 0.9% iv infusionDisp: Rfl: diphenhydrAMINE 50 mg injection (BENADRYL)Disp: Rfl: hydrocortisone sodium succinate (PF) 100 mg injection (Solu-CORTEF)Disp: Rfl: EPINEPHrine HCl (PF) 1 mg/mL (1 mL) 0.3 mg injectionDisp: Rfl: BCN NURSING COMMUNICATION [[id number]] Order #: [id number]: 1 STANDING Prescriptions as of 01/15/2024 - [...] LACY HURTADO on 01/15/[address] 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 [facility] PFS During your visit today, we recorded the following information about you: Xiang Mcconnell 01/15/2024 10:55 AM Signed The patient is active with [facility] Medicaid, LOC 100%, $0.00 deductible has $0.00 [...] Fully Assessed Reason for Visit: Benefits Investigation [0068] Prescriptions as of 01/15/2024 - OMEPRAZOLE ORAL [...] Encounter Status:Closed by XIANG MCCONNELL on 01/15/24 [facility] CNOVSPon 01-12-2024 CNOVSP Visit (SP) Office (HEMAWS) ---- BETH VINCENT ([id number]) 1995 F Date Time Provider Department 01/12/24 2:00 PM TREATMENT RM 18 [facility] WSTRHEMAWS During your visit today, we recorded the following information about you: Temperature Pulse Respiration Blood pressure 98.5 degrees 100/minute 16/minute 109/75 Referring Provider: RIA STREET [[id number]] Allergies As of Date: 01/12/2024 (No Known Allergies) Date Reviewed: 01/12/2024 Reviewed by: Gretchen Hooker RN - Fully Assessed Reason for Visit: Non-Chemotherapy Treatment [795] Primary Visit Diagnosis:Maternal iron deficiency anemia complicating , third trimester [O99.013, D50.9] Order(s):BCN NURSING COMMUNICATION [[id number]] Order #: [id number]: 1 STANDING [] iron sucrose 300 mg in NaCl 0.9% 250 mL (VENOFER)Disp: Rfl: NaCl 0.9% iv infusionDisp: Rfl: diphenhydrAMINE 50 mg injection (BENADRYL)Disp: Rfl: hydrocortisone sodium succinate (PF) 100 mg injection (Solu-CORTEF)Disp: Rfl: EPINEPHrine HCl (PF) 1 mg/mL (1 mL) 0.3 mg injectionDisp: Rfl: [facility] NURSING COMMUNICATION [[id number]] Order #: [id number]: 1 STANDING Prescriptions as of 01/12/2024 - [...] Encounter Status:Closed by GRETCHEN HOOKER on 01/12/24 [facility] James 01-12-2024 [facility] Telephone (OBGYWM) ---- BETH VINCENT ([id number]) 1995 F Date Time Provider Department 01/12/24 AMANDA VENEGAS During your visit today, we recorded the following information about you: Hannah Yap RN 01/12/2024 8:19 AM Signed 39w5d Saw KJ yesterday and provider wanted iron infusions done poornima d/t being 39 weeks already. Per Nehemias could add on today at 2pm. Left detailed message on identified voicemail for patient to call [facility] to see if she is able to [...] Status:Closed by HANNAH YAP on 01/12/24 Normal [facility] URINE OB DIP B/Oon Glucose Ql (U) Negative Neg mg/dL [facility] Interpretation and review of laboratory results Normal [facility] Protein.monoclonal (U) [Mass/Vol] Negative Neg mg/dL [facility] CNPCiara 01-08-2024 CNPN Telephone (INTMMN) ---- SALLYZANEJohan Barrios ([id number]) 1995 F Date Time Provider Department 01/08/24 [...] Status:Closed by PAOLA AGUILAR on 01/08/24 Normal [facility] URINE OB DIP B/Oon Glucose Ql (U) Negative Neg mg/dL [facility] Protein.monoclonal (U) [Mass/Vol] Negative Neg mg/dL [facility] Ferritin SerPl-mCncon 2023 Ferritin [Mass/Vol] 5.7 ng/mL Low 14.7-205.1 [facility] Comment on above: Order Comment: Speci men Type: BLOOD SPECIMEN [facility] Facility[facility] Address: [address] [place] [address] Performed By: #### 2 276-4, 22349-5 #### [facility] CLIA [id number] [address] [place] [address] [place] Iron and Iron binding capaci ty panelon 01-02-2024 Iron [Mass/Vol] 21 ug/dL Low 41-186 [facility] Comment on above: Order Comment: Speci men Type: BLOOD SPECIMEN [facility] Facility[facility] Address: [address] [place] [address] Performed By: #### 2 276-4, 28336-5 #### [facility] CLIA [id number] [address] [place] [address] [place] Iron binding capacity [Mass/Vol] >521 High 232-386 [facility] Comment on above: Order Comment: Speci men Type: BLOOD SPECIMEN [facility] Facility[facility] Address: [address] [place] [address] Performed By: #### 2 276-4, 02655-5 #### [facility] CLIA [id number] [address] [place] [address] [place] Iron/TIBC [Molar ratio] <4.0 Low 15.0-57.0 [facility] Comment on above: Order Comment: Speci men Type: BLOOD SPECIMEN [facility] Facility[facility] Address: [address] [place] [address] Performed By: #### 2 276-4, 70320-3 #### [facility] CLIA [id number] [address] [place] [address] [place] URINE OB DIP B/Oon Glucose Ql (U) Negative Neg mg/dL [facility] Interpretation and review of laboratory results Normal [facility] Protein.monoclonal (U) [Mass/Vol] Negative Neg mg/dL [facility] CNPNon 12-27-2023 CNPN Telephone (OBGYWM) ---- BETH VINCENT ([id number]) 1995 F Date Time Provider Department 12/27/23 DIDI SPENCE OBGYWM During your visit today, we recorded the following information about you: Hannah Yap RN 12/27/2023 2:33 PM Addendum 37w3d Received email that patient is wanting to transfer care here for delivery from [facility]. Per RR we are able to [...] Status:Closed by HANNAH YAP on 12/27/23 Normal [facility] C. trachomatis+N. gonorrhoea e DNA SHEREEN+probe Ql (Unsp spec)on 12-22-2023 C. trachomatis rRNA SHEREEN+probe Ql (Unsp spec) Negative Normal Negative for Chlamydia trachomatis by [facility] Comment on above: Order Comment: Speci men Type: BLOOD SPECIMEN [facility] Facility: [facility] Address: [address] [place] [address] Performed By: #### 5 8410-2 #### [facility] CLIA [id number] [address] [place] [address] N. gonorrhoeae rRNA SHEREEN+probe Ql (Unsp spec) Negative Normal Negative for Neisseria gonorrhoeae by [facility] Comment on above: Order Comment: Speci men Type: BLOOD SPECIMEN [facility] Facility: [facility] Address: [address] [place] [address] Performed By: #### 5 8410-2 #### [facility] CLIA [id number] [address] [place] [address] OF [facility] CBC panel Auto (Bld)on 12-21 Erythrocyte distribution width (RBC) [Ratio] 15.9 % High 11.5 - 15.0 % [facility] Hematocrit (Bld) [Volume fraction] 29.9 % Low 36.0 - 46.0 % [facility] Hemoglobin (Bld) [Mass/Vol] 8.6 g/dL Low 11.5 - 15.5 g/dL [facility] Interpretation and review of laboratory results Abnormal [facility] MCH (RBC) [Entitic mass] 20.5 pg Low 26.0 - 34.0 pg [facility] MCHC (RBC) [Mass/Vol] 28.8 g/dL Low 30.5 - 36.0 g/dL [facility] MCV (RBC) [Entitic vol] 71.2 fL Low 80.0 - 100.0 fL [facility] Nucleated RBC (Bld) [#/Vol] NINF [facility] Platelet mean volume (Bld) [Entitic vol] 10.9 fL 9.0 - 12.7 fL [facility] Platelets (Bld) [#/Vol] 274 10*3/uL [facility] RBC (Bld) [#/Vol] 4.20 10*6/uL 3.90 - 5.20 m/uL [facility] WBC (Bld) [#/Vol] 8.88 10*3/uL [facility] Erythrocyte distribution width (RBC) [Ratio] 15.9 % High 11.5-15.0 [facility] Comment on above: Order Comment: Speci men Type: BLOOD SPECIMEN [facility] Facility: [facility] Address: [address] [place] [address] Performed By: #### 5 8410-2 #### [facility] CLIA [id number] [address] [place] [address] [place] Hematocrit (Bld) [Volume fraction] 29.9 % Low 36.0-46.0 [facility] Comment on above: Order Comment: Speci elizabeth Type: BLOOD SPECIMEN [facility] Facility: [facility] Address: [address] [place] [address] Performed By: #### 5 8410-2 #### [facility] CLIA [id number] [address] [place] [address] [place] Hemoglobin (Bld) [Mass/Vol] 8.6 g/dL Low 11.5-15.5 [facility] Comment on above: Order Comment: Speci men Type: BLOOD SPECIMEN [facility] Facility: [facility] Address: [address] [place] [address] Performed By: #### 5 8410-2 #### [facility] CLIA [id number] [address] [place] [address] [place] MCH (RBC) [Entitic mass] 20.5 pg Low 26.0-34.0 [facility] Comment on above: Order Comment: Speci men Type: BLOOD SPECIMEN [facility] Facility: [facility] Address: [address] [place] [address] Performed By: #### 5 8410-2 #### [facility] CLIA [id number] [address] [place] [address] [place] MCHC (RBC) [Mass/Vol] 28.8 g/dL Low 30.5-36.0 [facility] Comment on above: Order Comment: Speci men Type: BLOOD SPECIMEN [facility] Facility: [facility] Address: [address] [place] [address] Performed By: #### 5 8410-2 #### [facility] CLIA [id number] [address] [place] [address] [place] MCV (RBC) [Entitic vol] 71.2 fL Low 80.0-100.0 [facility] Comment on above: Order Comment: Speci men Type: BLOOD SPECIMEN [facility] Facility: [facility] Address: [address] [place] [address] Performed By: #### 5 8410-2 #### [facility] CLIA [id number] [address] [place] [address] [place] Nucleated RBC (Bld) [#/Vol] 10*3/uL Normal <0.01 [facility] Comment on above: Order Comment: Speci men Type: BLOOD SPECIMEN [facility] Facility: [facility] Address: [address] [place] [address] Performed By: #### 5 8410-2 #### [facility] CLIA [id number] [address] [place] [address] [place] Platelet mean volume (Bld) [Entitic vol] 10.9 fL Normal 9.0-12.7 [facility] Comment on above: Order Comment: Speci men Type: BLOOD SPECIMEN [facility] Facility: [facility] Address: [address] [place] [address] Performed By: #### 5 8410-2 #### [facility] CLIA [id number] [address] [place] [address] [place] Platelets (Bld) [#/Vol] 274 10*3/uL Normal 150-400 [facility] Comment on above: Order Comment: Speci men Type: BLOOD SPECIMEN [facility] Facility: [facility] Address: [address] [place] [address] Performed By: #### 5 8410-2 #### [facility] CLIA [id number] [address] [place] [address] [place] RBC (Bld) [#/Vol] 4.20 10*6/uL Normal 3.90-5.20 [facility] Comment on above: Order Comment: Speci men Type: BLOOD SPECIMEN [facility] Facility: [facility] Address: [address] [place] [address] Performed By: #### 5 8410-2 #### [facility] CLIA [id number] [address] [place] [address] [place] WBC (Bld) [#/Vol] 8.88 10*3/uL Normal 3.70-11.00 [facility] Comment on above: Order Comment: Speci men Type: BLOOD SPECIMEN [facility] Facility: [facility] Address: [address] [place] [address] Performed By: #### 5 8410-2 #### [facility] CLIA [id number] [address] [place] [address] [place] HIV 1+2 Ab IA Qlon 4 HIV 1 and 2 Ab IA.rapid Nom (S/P/Bld) Normal [facility] Comment on above: Order Comment: Speci men Type: BLOOD SPECIMEN [facility] Facility: [facility] Address: [address] [place] [address] Result Comment: Test not indicated. Performed By: #### 5 8410-2 #### [facility] CLIA [id number] [address] [place] [address] [place] HIV 1+2 Ab+HIV1 p24 Ag IA Ql Non-Reactive Normal Nonreactive [facility] Comment on above: Order Comment: Speci men Type: BLOOD SPECIMEN [facility] Facility: [facility] Address: [address] [place] [address] Performed By: #### 5 8410-2 #### [facility] CLIA [id number] [address] [place] [address] [place] HIV immunoassay testing algorithm interpretation (S/P/Bld) [Interp] [facility] [place] Comment on above: Order Comment: Speci men Type: BLOOD SPECIMEN [facility] Facility: [facility] Address: [address] [place] [address] Result Comment: No e vidence of HIV-1 or HIV-2 infection. Should recent infection be suspected, repeat testing may be considered 2-3 weeks after this draw. [place] Rev. Code 3701.243(E): This information has been [...] diagnoses. Performed By: #### 5 8410-2 #### [facility] CLIA [id number] [address] [place] [address] [place] ROUTINE, GROUP B ST REP PCRon 12-22-2023 ROUTINE, GROUP B STREP PCR GROUP B STREP PCR: Negative for Group B Streptococcus by PCR. [facility] [place] Comment on above: Performed By: #### 3 6902-5 #### [facility] CLIA [id number] [address] [place] [address] [place] Reagin and Treponema pallidu m IgG and IgM [Interp]on 12-22-2023 T. pallidum IgG+IgM IA Ql (S) Non-Reactive Normal Nonreactive [facility] Comment on above: Order Comment: Speci men Type: BLOOD SPECIMEN [facility] Facility: [facility] Address: [address] [place] [address] Performed By: #### 5 8410-2 #### [facility] CLIA [id number] [address] [place] [address] [place] Reagin+T pallidum IgG+IgM Se rPl-Impon 12-22-2023 Reagin and Treponema pallidum IgG and IgM [Interp] Cannot exclude recent Treponemal infection if specimen collected within 7-10 days after appearance of suspect lesions or 2-3 weeks after an exposure. Clinical correlation is required. Normal [facility] Comment on above: Order Comment: Speci men Type: BLOOD SPECIMEN [facility] Facility[facility] Address: [address] [place] [address] Performed By: #### 5 8410-2 #### [facility] CLIA [id number] [address] [place] [address] OF [facility] 12-05-2023 CNPN Telephone (OBGDOV) ---- BETH VINCENT ([id number]) 1995 F Date Time Provider Department 12/05/23 [...] Encounter Status:Closed by HOLLY TUTTLE on 12/05/23 [facility] 11-07-2023 CNPN Telephone (OBGDOV) ---- BETH VINCENT ([id number]) 1995 F Date Time Provider Department 11/07/23 [...] Encounter Status:Closed by HOLLY TUTTLE on 11/07/[address] [facility] [place] CNPN Telephone (OBGYWM) ---- BETH VINCENT ([id number]) 1995 F Date Time Provider Department 11/07/23 DIDI SPENCE OBGYWM During your visit today, we recorded the following information about you: Cesilia Malloy RN 11/07/2023 11:57 AM Signed 30w2d Patient is wanting to transfer OB care to our office from [facility]. Spoke with RR. Patient is aware [...] Encounter Status:Closed by CESILIA MALLOY on 11/15/23 [facility] CNCOon 2023 CNCO Letter Text [facility] [place] CNPNon 2023 YOLANDAN Telephone (OBGDOV) ---- BETH VINCENT ([id number]) 1995 F Date Time Provider Department 10/23/23 [...] Encounter Status:Closed by HOLLY TUTTLE on 10/23/[address] [facility] [place] James 09-29-2023 FABIOLA Telephone (ANTONGDOV) ---- BETH VINCENT ([id number]) 1995 F Date Time Provider Department 09/29/23 [...] by ALANA OBRIEN on 09/29/23 Normal [facility] CBC panel Auto (Bld)on 09-26 Erythrocyte distribution width (RBC) [Ratio] 13.1 % Normal 11.5-15.0 [facility] Comment on above: Order Comment: Speci men Type: BLOOD SPECIMEN [facility] Facility: [facility] Address: [address] [place] [address] Performed By: #### 5 8410-2 #### [facility] CLIA [id number] [address] [place] [address] [place] Hematocrit (Bld) [Volume fraction] 33.5 % Low 36.0-46.0 [facility] Comment on above: Order Comment: Speci men Type: BLOOD SPECIMEN [facility] Facility: [facility] Address: [address] [place] [address] Performed By: #### 5 8410-2 #### [facility] CLIA [id number] [address] [place] [address] [place] Hemoglobin (Bld) [Mass/Vol] 10.3 g/dL Low 11.5-15.5 [facility] Comment on above: Order Comment: Speci men Type: BLOOD SPECIMEN [facility] Facility[facility] Address: [address] [place] [address] Performed By: #### 5 8410-2 #### [facility] CLIA [id number] [address] [place] [address] [place] MCH (RBC) [Entitic mass] 26.3 pg Normal 26.0-34.0 [facility] Comment on above: Order Comment: Speci men Type: BLOOD SPECIMEN [facility] Facility[facility] Address: [address] [place] [address] Performed By: #### 5 8410-2 #### [facility] CLIA [id number] [address] [place] [address] [place] MCHC (RBC) [Mass/Vol] 30.7 g/dL Normal 30.5-36.0 [facility] Comment on above: Order Comment: Speci men Type: BLOOD SPECIMEN [facility] Facility[facility] Address: [address] [place] [address] Performed By: #### 5 8410-2 #### [facility] CLIA [id number] [address] [place] [address] [place] MCV (RBC) [Entitic vol] 85.5 fL Normal 80.0-100.0 [facility] Comment on above: Order Comment: Speci men Type: BLOOD SPECIMEN [facility] Facility[facility] Address: [address] [place] [address] Performed By: #### 5 8410-2 #### [facility] CLIA [id number] [address] [place] [address] [place] Nucleated RBC (Bld) [#/Vol] 10*3/uL Normal <0.01 [facility] Comment on above: Order Comment: Speci men Type: BLOOD SPECIMEN [facility] Facility[facility] Address: [address] [place] [address] Performed By: #### 5 8410-2 #### [facility] CLIA [id number] [address] [place] [address] [place] Platelet mean volume (Bld) [Entitic vol] 11.3 fL Normal 9.0-12.7 [facility] Comment on above: Order Comment: Speci men Type: BLOOD SPECIMEN [facility] Facility[facility] Address: [address] [place] [address] Performed By: #### 5 8410-2 #### [facility] CLIA [id number] [address] [place] [address] [place] Platelets (Bld) [#/Vol] 292 10*3/uL Normal 150-400 [facility] Comment on above: Order Comment: Speci men Type: BLOOD SPECIMEN [facility] Facility[facility] Address: [address] [place] [address] Performed By: #### 5 8410-2 #### [facility] CLIA [id number] [address] [place] [address] [place] RBC (Bld) [#/Vol] 3.92 10*6/uL Normal 3.90-5.20 [facility] Comment on above: Order Comment: Speci men Type: BLOOD SPECIMEN [facility] Facility[facility] Address: [address] [place] [address] Performed By: #### 5 8410-2 #### [facility] CLIA [id number] [address] [place] [address] [place] WBC (Bld) [#/Vol] 8.99 10*3/uL Normal 3.70-11.00 [facility] Comment on above: Order Comment: Speci men Type: BLOOD SPECIMEN [facility] Facility[facility] Address: [address] [place] [address] Performed By: #### 5 8410-2 #### [facility] CLIA [id number] [address] [place] [address] [facility] CNNURSEon 09-27-2023 CNNURSE Nurse Visit (OBGDOV) ---- BETH VINCENT ([id number]) 1995 F Date Time Provider Department 09/27/23 10:45 AM NURSE BOX LO[employer]ER [facility] [place] OBGDOV During your visit today, we recorded the following information about you: Jannie Blackburn RN 09/27/2023 10:50 AM Signed Patient given 50g glucose drink-orange flavored. LOT#: [id number] Expiration date: 04/26/2025 Jannie Blackburn RN September [...] Par (more content not included)... Normal [facility] GESTATIONAL GLUCOSE SCREEN, 1-HOUR, 50 GRAM, NON-FASTINGon 09-27-2023 Glucose [Mass/Vol] 104 mg/dL Normal 74-134 [facility] Comment on above: Order Comment: Speci men Type: BLOOD SPECIMEN [facility] Facility[facility] Address: [address] [place] [address] Result Comment: [facility] Congress of Obstetricians and Gynecologists (Lemuel/Herber) guidelines state a gestational diabetes mellitus positive screen is made, in women not previously diagnosed with overt diabetes, when the 1 hr plasma glucose level is equal to or above 140 mg/dL. [facility] Press Worker [facility] [place] recommends a 135 mg/dL cutoff. Performed By: #### G LTGST #### [facility] CLIA [id number] [address] [place] [address] [place] Reagin and Treponema pallidu m IgG and IgM [Interp]on 09-27-2023 T. pallidum IgG+IgM IA Ql (S) Non-Reactive Normal Nonreactive [facility] Comment on above: Order Comment: Micha johnson Type: BLOOD SPECIMEN [facility] Facility[facility] Address: [address] [place] [address] Performed By: #### 7 3752-8 #### [facility] CLIA [id number] [address] [place] [address] [place] Reagin+T pallidum IgG+IgM Se rPl-Impon 09-27-2023 Reagin and Treponema pallidum IgG and IgM [Interp] Cannot exclude recent Treponemal infection if specimen collected within 7-10 days after appearance of suspect lesions or 2-3 weeks after an exposure. Clinical correlation is required. [facility] Comment on above: Order Comment: Micha johnson Type: BLOOD SPECIMEN [facility] Address: [address] [place] [address] Performed By: #### 7 3752-8 #### [facility] CLIA [id number] [address] [place] [address] [place] CNPNon 08-31-2023 CNPN Telephone (OBGDOV) ---- BETH VINCENT ([id number]) 1995 F Date Time Provider Department 08/31/23 NURSE BOX LOADER UP AVINASH OBGDOV During your visit today, we recorded the following information about you: Asmita Parker RN 08/31/2023 1:44 PM Signed 1st risk assessment form submitted 08/31/2023 Asmita Parker RN Allergies As of Date: 08/31/2023 (No Known Allergies) Date Reviewed: 08/28/2023 Reviewed by: Claudia Chawla MA - Fully Assessed 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 Examination level ultrasound on 08-28-2023 Indication anatomy [...] breech Placenta: Placental site: posterior, fundal. Placental bbqi-ue-wddvjuru os distance 80 mm Umbilical cord: normal [...] EFW (oz) 13 oz EFW by: Hadlock ([id number]) Extended CM 3.4 mm 7% Nicolaides Extremities [...] normal LVOT view: normal 3-vessel view: normal 6-uigfmy-hhewcaq view: normal Heart / Thorax Situs: situs [...] Read By: Lydia Freeman M.D. MATERNAL MEDICINE [facility] Radiology Study observation (narrative) [facility] .Urinalysis Microscopic (AO) on 08-13-2023 UA Bacteria Trace Abnormal [facility] ([place]) Comment on above: Performed By: #### U AMICAO, UA #### [place] [address] [place] [address] UA RBC 0-5 Abnormal None Seen [facility] ([place]) Comment on above: Performed By: #### U AMICAO, UA #### [facility] [address] [place], [place] [address] UA Squam Epithelial LOADED Abnormal None Seen [facility] ([place]) Comment on above: Performed By: #### U AMICAO, UA #### [facility] [address] [place], [place] [address] UA WBC 0-5 Abnormal None Seen [facility] ([place]) Comment on above: Performed By: #### U AMICAO, UA #### [facility] [address] [place] [address] LABORATORYOrdered By: Tsering Cavanaugh on 08-13-2023 Appearance [...] Strep PCR Not detected Normal Not Detected [facility] ([place]) Comment on above: Performed By: #### S BELLE #### [address] [address] Group A Strep PCR Int Normal [facility] ([place]) Comment on above: Result Comment: Nega tive [...] Interp Performed By: #### S BELLE #### [address] [address] UAon 08-13-2023 Color (U) Dark yellow Normal [facility] ([place]) Comment on above: Performed By: #### U AMIFAM WATTS #### [address] [address] Glucose (U) [Mass/Vol] Negative Normal Negative [facility] ([place]) Comment on above: Performed By: #### U AMIMAC UA #### [address] [address] Ketones Ql (U) 40 mg/dL Abnormal Negative [facility] ([place]) Comment on above: Performed By: #### U AMICAO, UA #### [place] [address] UA Appear Turbid Abnormal Clear [facility] ([place]) Comment on above: Performed By: #### U AMICAO, UA #### [place] [id number] UA Bili Small Abnormal Negative [facility] ([place]) Comment on above: Performed By: #### U AMICAO, UA #### [address] [address] UA Blood Negative Normal Negative [facility] ([place]) Comment on above: Performed By: #### U AMICAO, UA #### [place] [address] UA Leuk Est Negative Normal Negative [facility] ([place]) Comment on above: Performed By: #### U AMICAO, UA #### [place] [address] UA Nitrite Negative Normal Negative [facility] ([place]) Comment on above: Performed By: #### U AMICAO, UA #### [place] [address] UA pH 6.0 Normal 5.0 - 8.0 [facility] ([place]) Comment on above: Performed By: #### U AMICAO, UA #### [place] [address] UA Protein Negative Normal Negative [facility] ([place]) Comment on above: Performed By: #### U AMICAO, UA #### [address] [address] UA Spec Grav >=1.030 Abnormal 1.015-1.025 [facility] ([place]) Comment on above: Performed By: #### U AMICAO, UA #### [place] [address] UA Specimen Type Clean Catch Normal [facility] ([place]) Comment on above: Performed By: #### U AMICAO, UA #### [place] [address] [place], [place] [address] UA Urobilinogen 1.0 E.U./dL Normal 0.2-1.0 [facility] ([place]) Comment on above: Performed By: #### U BATOOL UA #### [place] [address] [place], [place] [address] James 08-09-2023 CNPN Telephone (OBGDOV) ---- BETH VINCENT ([id number]) 1995 F Date Time Provider Department 08/09/23 [...] Date Reviewed: 08/04/2023 Reviewed by: Alana Obrien APRN.PORCELAIN FINISH SPRAYER - Fully Assessed Reason for Visit: Patient [...] Encounter Status:Closed by ASMITA PARKER on 08/09/23 [facility] 07-07-2023 CNPN Telephone (OBGDOV) ---- BETH VINCENT ([id number]) 1995 F Date Time Provider Department 07/07/23 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 BACTERIAL VAGINOSIS NAATon 0 07-05-2023 Lactobacillus crispatus+gasseri+je nsenii + Gardnerella vaginalis + Atopobium vaginae rRNA SHEREEN+probe Ql (Vag fld) Positive Abnormal Negative for bacterial vaginosis [facility] POOJA/TRICHOMONAS NAATon 0 07-05-2023 C. glabrata RNA SHEREEN+probe Ql (Vag fld) Negative Negative for Pooja glabrata [facility] Pooja sp DNA SHEREEN+probe Ql (Vag fld) Negative Negative for Pooja species [facility] T. vaginalis DNA SHEREEN+probe Ql (Unsp spec) Negative Negative for Trichomonas vaginalis by amplification [facility] BACTERIAL VAGINOSIS NAATon 0 07-04-2023 Lactobacillus crispatus+gasseri+je nsenii + Gardnerella vaginalis + Atopobium vaginae rRNA SHEREEN+probe Ql (Vag fld) Positive Abnormal Negative for bacterial vaginosis [facility] Comment on above: Order Comment: Speci men Type: SWAB [facility] Facility[facility] Address: [address] [place] [address] Performed By: #### C VTV, BVAMP #### [facility] CLIA [id number] [address] [place] [address] [place] POOJA/TRICHOMONAS NAATon 0 07-04-2023 C. glabrata RNA SHEREEN+probe Ql (Vag fld) Negative Normal Negative for Pooja glabrata [facility] Comment on above: Order Comment: Speci men Type: SWAB [facility] Facility[facility] Address: [address] [place] [address] Performed By: #### C VTV, BVAMP #### [facility] CLIA [id number] [address] [place] [address] [place] Pooja sp DNA SHEREEN+probe Ql (Vag fld) Negative Normal Negative for Pooja species [facility] Comment on above: Order Comment: Speci men Type: SWAB [facility] Facility: [facility] Address: [address] [place] [address] Performed By: #### C VTV, BVAMP #### [facility] CLIA [id number] [address] [place] [address] [place] T. vaginalis DNA SHEREEN+probe Ql (Unsp spec) Negative Normal Negative for Trichomonas vaginalis by amplification [facility] Comment on above: Order Comment: Speci men Type: SWAB [facility] Facility: 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 CNCOon 06-14-2023 CNCO Letter Text [facility] Bacteria Ur Culton Bacteria identified Cx Nom (U) ORGANISM ID: 1 50,000-<100,000 CFU/ml Normal urogenital [place]ia [facility] [place] Comment on above: Performed By: #### 3 6902-5 #### [facility] CLIA [id number] [address] [place] [address] [place] C. trachomatis+N. gonorrhoea e DNA SHEREEN+probe Ql (Unsp spec)on 06-07-2023 C. trachomatis rRNA SHEREEN+probe Ql (Unsp spec) Negative Normal Negative for Chlamydia trachomatis by [facility] Comment on above: Order Comment: Speci men Type: SWAB [facility] Facility: [facility] Address: [address] [place] [address] Performed By: #### 3 6902-5 #### [facility] CLIA [id number] [address] [place] [address] N. gonorrhoeae rRNA SHEREEN+probe Ql (Unsp spec) Negative Normal Negative for Neisseria gonorrhoeae by [facility] Comment on above: Order Comment: Speci men Type: SWAB [facility] Facility: [facility] Address: [address] [place] [address] Performed By: #### 3 6902-5 #### [facility] CLIA [id number] [address] [place] [address] [place] CBC panel Auto (Bld)on 06-06 Erythrocyte distribution width (RBC) [Ratio] 13.0 % 11.5 - 15.0 % [facility] Hematocrit (Bld) [Volume fraction] 40.1 % 36.0 - 46.0 % [facility] Hemoglobin (Bld) [Mass/Vol] 13.3 g/dL 11.5 - 15.5 g/dL [facility] MCH (RBC) [Entitic mass] 27.5 pg 26.0 - 34.0 pg [facility] MCHC (RBC) [Mass/Vol] 33.2 g/dL 30.5 - 36.0 g/dL [facility] MCV (RBC) [Entitic vol] 82.9 fL 80.0 - 100.0 fL [facility] Nucleated RBC (Bld) [#/Vol] <0.01 k/uL [facility] Platelet mean volume (Bld) [Entitic vol] 10.6 fL 9.0 - 12.7 fL [facility] Platelets (Bld) [#/Vol] 272 10*3/uL 150 - 400 k/uL [facility] RBC (Bld) [#/Vol] 4.84 10*6/uL 3.90 - 5.20 m/uL [facility] WBC (Bld) [#/Vol] 8.81 10*3/uL 3.70 - 11. 00 k/uL [facility] Erythrocyte distribution width (RBC) [Ratio] 13.0 % Normal 11.5-15.0 [facility] Comment on above: Order Comment: Speci men Type: BLOOD SPECIMEN [facility] Facility[facility] Address: [address] [place] [address] Performed By: #### 5 8410-2 #### [facility] CLIA [id number] [address] [place] [address] [place] Hematocrit (Bld) [Volume fraction] 40.1 % Normal 36.0-46.0 [facility] Comment on above: Order Comment: Speci men Type: BLOOD SPECIMEN [facility] Facility: [facility] Address: [address] [place] [address] Performed By: #### 5 8410-2 #### [facility] CLIA [id number] [address] [place] [address] [place] Hemoglobin (Bld) [Mass/Vol] 13.3 g/dL Normal 11.5-15.5 [facility] Comment on above: Order Comment: Speci men Type: BLOOD SPECIMEN [facility] Facility: [facility] Address: [address] [place] [address] Performed By: #### 5 8410-2 #### [facility] CLIA [id number] [address] [place] [address] [place] MCH (RBC) [Entitic mass] 27.5 pg Normal 26.0-34.0 [facility] Comment on above: Order Comment: Speci men Type: BLOOD SPECIMEN [facility] Facility: [facility] Address: [address] [place] [address] Performed By: #### 5 8410-2 #### [facility] CLIA [id number] [address] [place] [address] [place] MCHC (RBC) [Mass/Vol] 33.2 g/dL Normal 30.5-36.0 [facility] Comment on above: Order Comment: Speci men Type: BLOOD SPECIMEN [facility] Facility: [facility] Address: [address] [place] [address] Performed By: #### 5 8410-2 #### [facility] CLIA [id number] [address] [place] [address] [place] MCV (RBC) [Entitic vol] 82.9 fL Normal 80.0-100.0 [facility] Comment on above: Order Comment: Speci men Type: BLOOD SPECIMEN [facility] Facility[facility] Address: [address] [place] [address] Performed By: #### 5 8410-2 #### [facility] CLIA [id number] [address] [place] [address] [place] Nucleated RBC (Bld) [#/Vol] 10*3/uL Normal <0.01 [facility] Comment on above: Order Comment: Speci men Type: BLOOD SPECIMEN [facility] Facility[facility] Address: [address] [place] [address] Performed By: #### 5 8410-2 #### [facility] CLIA [id number] [address] [place] [address] [place] Platelet mean volume (Bld) [Entitic vol] 10.6 fL Normal 9.0-12.7 [facility] Comment on above: Order Comment: Speci men Type: BLOOD SPECIMEN [facility] Facility[facility] Address: [address] [place] [address] Performed By: #### 5 8410-2 #### [facility] CLIA [id number] [address] [place] [address] [place] Platelets (Bld) [#/Vol] 272 10*3/uL Normal 150-400 [facility] Comment on above: Order Comment: Speci men Type: BLOOD SPECIMEN [facility] Facility[facility] Address: [address] [place] [address] Performed By: #### 5 8410-2 #### [facility] CLIA [id number] [address] [place] [address] [place] RBC (Bld) [#/Vol] 4.84 10*6/uL Normal 3.90-5.20 [facility] Comment on above: Order Comment: Speci men Type: BLOOD SPECIMEN [facility] Facility: [facility] Address: [address] [place], [place] [address] Performed By: #### 5 8410-2 #### [facility] CLIA [id number] [address] [place] [address] [place] WBC (Bld) [#/Vol] 8.81 10*3/uL Normal 3.70-11.00 [facility] Comment on above: Order Comment: Speci men Type: BLOOD SPECIMEN [facility] Facility[facility] Address: [address] [place] [address] Performed By: #### 5 8410-2 #### [facility] CLIA [id number] [address] [place] [address] CNNURSEon 06-07-2023 CNNURSE Nurse Visit (OBGDOV) ---- BETH VINCENT ([id number]) 1995 F Date Time Provider Department 06/07/23 11:15 AM NURSE BOX LOADER UP AVINASH OBGDOV During your visit today, [...] Patient declines at this time. [facility] ([facility])-Medications During sheet was discussed and given to patient. We discussed the Covid vaccine and how it appears to be safe and effective in and women though we do not have instructional design consultant data. It should be available to and women as in the non population, patients who do not wish to receive the vaccine should also be supported in that decision. [facility] and [facility] now recommending Covid vaccination in . [...] genetic disorders in . Patient given the [employer] financial estimate tear off form and instructed [...] Program, Directory of services for families in [facility], information about genetic testing, information about signing up for My Chart, and [facility]'s 'Your guide to a Healthy '. Patient was educated on the contents of this folder. Patient was asked if she would like a referral to [facility]. Referral was not completed per [...] showed she i (more content not included)... [facility] [place] CNOVon 06-07-2023 CNOV Office Visit (OBGDOV) ---- BETH VINCENT ([id number]) 1995 F Date Time Provider Department 06/07/23 [...] DIFFERE (more content not included)... Normal [facility] Examination level ultrasound on 06-07-2023 [facility] HBV surface Ag Ser Qlon 05-25 HBV surface Ag Ql (S) Negative Normal Negative [facility] Comment on above: Order Comment: Speci men Type: BLOOD SPECIMEN [facility] Address: [address] [place] [address] Performed By: #### 5 8410-2 #### [facility] CLIA [id number] [address] [place] [address] [place] HCG QUAL UR B/Oon 06-07-2023 status Positive neg - pos [facility] Quality Check Yes [facility] HCV Ab Ser Qlon 06-07-2023 HCV Ab Ql (S) Negative Normal Negative [facility] Comment on above: Order Comment: Speci men Type: BLOOD SPECIMENOrdering Facility: [facility] Address: [address] [place] [address] Result Comment: The result suggests no evidence of active infection with Hepatitis C virus. Should recent infection be suspected, repeat testing may be considered 4-6 weeks after this draw. Performed By: #### 1 6128-1 ####[facility] [id number] [place] [address] [place] HIV 1+2 Ab IA Qlon 4 HIV 1 and 2 Ab IA.rapid Nom (S/P/Bld) [facility] [place] Comment on above: Order Comment: Speci men Type: BLOOD SPECIMEN [facility] Address: [address] [place] [address] Result Comment: Test not indicated. Performed By: #### 5 8410-2 #### [facility] CLIA [id number] [address] [place] [address] [place] HIV 1+2 Ab+HIV1 p24 Ag IA Ql Non-Reactive Normal Nonreactive [facility] Comment on above: Order Comment: Speci men Type: BLOOD SPECIMEN [facility] Facility[facility] Address: [address] [place] [address] Performed By: #### 5 8410-2 #### [facility] CLIA [id number] [address] [place] [address] [place] HIV immunoassay testing algorithm interpretation (S/P/Bld) [Interp] [facility] [place] Comment on above: Order Comment: Speci men Type: BLOOD SPECIMEN [facility] Address: [address] [place] [address] Result Comment: No e vidence of HIV-1 or HIV-2 infection. Should recent infection be suspected, repeat testing may be considered 2-3 weeks after this draw. [place] Rev. Code 3701.243(E): This information has been [...] diagnoses. Performed By: #### 5 8410-2 #### [facility] CLIA [id number] [address] [place] [address] [place] PAP TESTon 06-07-2023 ADEQUACY Satisfactory for interpretation [facility] [place] Comment on above: Order Comment: Speci men Type: FLUID SPECIMENOrdering Facility: [facility] Address: [address] [place] [address] Performed By: #### L [id number] ####[facility] LABCLIA [id number] [facility] [id number] [id number] [place] CASE REPORT [facility] [place] Comment on above: Order Comment: Speci men Type: FLUID SPECIMENOrdering Facility: [facility] Address: [address] [place] [address] Result Comment: Gyne cologic Cytology Report Case: [id number] Authorizing Provider: Jorge Alexander MD Collected: 06/07/2023 10:43 AM Ordering Location: [facility] Received: 06/08/2023 07:32 AM [facility] First Screen: Clapacs, Magalys Specimen: Pap Test, ThinPrep, Cervix Performed By: #### L [id number] ####[facility]CLIA [id number] [place] [address] [place] CLINICAL HISTORY, CYTOLOGY, TIMBER GRADER Routine Exam [facility] [place] Comment on above: Order Comment: Speci men Type: FLUID SPECIMENOrdering Facility: [facility] Address: [address] [place] [address] Performed By: #### L [id number] ####[facility] LABCLIA [id number] [place] [address] [place] CYTOLOGY PAP OTHER INT Predominance of coccobacilli consistent with shift in vaginal [place] [facility] [place] Comment on above: Order Comment: Speci men Type: FLUID SPECIMENOrdering Facility: [facility] Address: [address] [place] [address] Performed By: #### L [id number] ####[facility] LABCLIA [id number] [place] [address] [place] FINAL PERFORMING LAB Normal [facility] Comment on above: Order Comment: Speci men Type: FLUID SPECIMENOrdering Facility: [facility] Address: [address] [place] [address] Result Comment: Tech nical component, implementation director screening performed at [facility], [address] [place] [address] CLIA# [id number] Diagnostic interpretation performed at [facility], [address] [place], [place] [address] CLIA# [id number] Second Steward: Curtis Hernandez M.D. Performed By: #### L [id number] ####[facility] LABCLIA [id number] [place] [address] [place] HPV REFLEX HPV if Atypical [facility] [place] [place] Comment on above: Order Comment: Speci men Type: FLUID SPECIMENOrdering Facility: [facility] Address: [address] [place] [address] Performed By: #### L [id number] ####[facility] LABCLIA [id number] [place] [address] [place] INTERPRETATION, CYTOLOGY, TIMBER GRADER [facility] [place] Comment on above: Order Comment: Speci men Type: FLUID SPECIMENOrdering Facility: [facility] Address: [address] [place] [address] Result Comment: Nega tive for intraepithelial lesion or malignancy. Performed By: #### L [id number] ####[facility] LABCLIA [id number] [place] [address] [place] LMP 04/12/[address] [facility] [place] Comment on above: Order Comment: Speci men Type: FLUID SPECIMENOrdering Facility: [facility] Address: [address] [place] [address] Performed By: #### L [id number] ####[facility] LABCLIA [id number] [place] [address] [place] PAP DISCLAIMER COMMENT The Pap Smear is a screening test for cervical cancer. False negative results occur with all screening tests, emphasizing the need for rescreening at recommended intervals, and clinical correlation. [facility] [place] Comment on above: Order Comment: Speci men Type: FLUID SPECIMENOrdering Facility: [facility] Address: [address] [place] [address] Performed By: #### L [id number] ####[facility] LABCLIA [id number] [place] [address] [place] PAP RECOIL SPRING WINDER COMMENT This specimen has been analyzed by the ThinPrep Imaging System, an automated imaging and review system, which assists the laboratory in evaluating cells on ThinPrep Pap tests. Following automated imaging, selected hughes from every slide are reviewed by a implementation director. [facility] [place] Comment on above: Order Comment: Speci men Type: FLUID SPECIMENOrdering Facility: [facility] Address: [address] [place] [address] Performed By: #### L [id number] ####[facility] LABCLIA [id number] [place] [address] [place] RUBELLA IGG ABon 06-07-2023 RUBELLA IGG AB, QUAL Positive Normal Positive [facility] Comment on above: Order Comment: Speci men Type: BLOOD SPECIMENOrdering Facility: [facility] Address: [address] [place] [address] Result Comment: The result suggests recent or past exposure to Rubella virus or history of Rubella vaccination. Positive result may also be seen due to presence of passively-transferred antibodies. Please correlate with patient's history. Performed By: #### V ZVG2, RUBIGG ####[facility] LABCLIA [id number] [place] [address] [place] Reagin and Treponema pallidu m IgG and IgM [Interp]on 06-07-2023 T. pallidum IgG+IgM IA Ql (S) Non-Reactive Normal Nonreactive [facility] Comment on above: Order Comment: Speci men Type: BLOOD SPECIMEN [facility] Facility: [facility] Address: [address] [place] [address] Performed By: #### 5 8410-2 #### [facility] CLIA [id number] [address] [place] [address] [place] Reagin+T pallidum IgG+IgM Se rPl-Impon 06-07-2023 Reagin and Treponema pallidum IgG and IgM [Interp] Cannot exclude recent Treponemal infection if specimen collected within 7-10 days after appearance of suspect lesions or 2-3 weeks after an exposure. Clinical correlation is required. Normal [facility] Comment on above: Order Comment: Speci men Type: BLOOD SPECIMEN [facility] Facility: [facility] Address: [address] [place] [address] Performed By: #### 5 8410-2 #### [facility] CLIA [id number] [address] TOX SCREEN ROUT URon 13-2 024 Amphetamines Confirm (U) [Mass/Vol] Negative Negative [facility] Barbiturates Urine Negative Negative [facility] Benzodiazepines Urine Negative Negative [facility] Cannabinoids Screen Ql (U) Negative Negative [facility] Cocaine Ql (U) Negative Negative [facility] Opiates Screen Ql (U) Negative Negative [facility] oxyCODONE cutoff Screen (U) [Mass/Vol] Negative Negative [facility] Phencyclidine Ql (U) Negative Negative [facility] Amphetamines Confirm (U) [Mass/Vol] Negative Normal Negative [facility] Comment on above: Order Comment: Speci men Type: URINE SPECIMENOrdering Facility: [facility] Address: [address] [place] [address] Result Comment: Cuto ff threshold at 1000 ng/mL. Performed By: #### U TOX2 ####[facility] LABIA [id number] [address] BARBITURATES, URINE Negative Normal Negative [facility] Comment on above: Order Comment: Speci men Type: URINE SPECIMENOrdering Facility: [facility] Address: [address] [place] [address] Result Comment: Cuto ff threshold at 200 ng/mL. Performed By: #### U TOX2 ####[facility] LABIA [id number] [address] [place] BENZOD[place], UR Negative Normal Negative [facility] Comment on above: Order Comment: Speci men Type: URINE SPECIMENOrdering Facility: [facility] Address: [address] [place] [address] Result Comment: Cuto ff threshold at 200 ng/mL. Performed By: #### U TOX2 ####[facility] LABCLIA [id number] [address] Cannabinoids Screen Ql (U) Negative Normal Negative [facility] Comment on above: Order Comment: Speci men Type: URINE SPECIMENOrdering Facility: [facility] Address: [address] [place] [address] Result Comment: Cuto ff threshold at 50 ng/mL. Performed By: #### U TOX2 ####[facility] LABCLIA [id number] [address] STATES [facility] Cocaine Ql (U) Negative Normal Negative [facility] Comment on above: Order Comment: Speci men Type: URINE SPECIMENOrdering Facility: [facility] Address: [address] [place] [address] Result Comment: Cuto ff threshold at 300 ng/mL. Performed By: #### U TOX2 ####[facility] LABIA [id number] [address] Opiates Screen Ql (U) Negative Normal Negative [facility] Comment on above: Order Comment: Speci men Type: URINE SPECIMENOrdering Facility: [facility] Address: [address] [place] [address] Result Comment: Cuto ff threshold at 300 ng/mL. Performed By: #### U TOX2 ####[facility] LABIA [id number] [address] oxyCODONE cutoff Screen (U) [Mass/Vol] Negative Normal Negative [facility] Comment on above: Order Comment: Speci men Type: URINE SPECIMENOrdering Facility: [facility] Address: [address] [place] [address] Result Comment: Cuto ff threshold at 100 ng/mL. Performed By: #### U TOX2 ####[facility] LABIA [id number] [address] Phencyclidine Ql (U) Negative Normal Negative [facility] Comment on above: Order Comment: Speci men Type: URINE SPECIMENOrdering Facility: [facility] Address: [address] [place] [address] Result Comment: Cuto ff threshold at 25 ng/mL. Performed By: #### U TOX2 ####[facility] LABIA [id number] [address] TYPE + SCREEN PRENATALon ABO group Nom (Bld) A [facility] Blood group antibody screen Ql Negative [facility] HIstorical Ab Scr Status Negative [facility] Rh Nom (Bld) Positive [facility] Type and Screen Expiration 06/10/2023 23:59 [facility] ABO A Normal [facility] Comment on above: Order Comment: Speci men Type: BLOOD SPECIMEN [facility] Facility[facility] Address: [address] [place] [address] Performed By: #### 5 8410-2 #### [facility] CLIA [id number] [address] [place] [address] [place] HISTORICAL AB SCR STATUS Negative [facility] Comment on above: Order Comment: Speci men Type: BLOOD SPECIMEN [facility] Facility[facility] Address: [address] [place] [address] Performed By: #### 5 8410-2 #### [facility] CLIA [id number] [address] [place] [address] [place] Rh Nom (Bld) Positive [facility] Comment on above: Order Comment: Speci men Type: BLOOD SPECIMEN [facility] Facility[facility] Address: [address] [place] [address] Performed By: #### 5 8410-2 #### [facility] CLIA [id number] [address] [place] [address] [place] TYPE AND SCREEN EXPIRATION 06/10/2023 23:[address] [facility] Comment on above: Order Comment: Speci men Type: BLOOD SPECIMEN [facility] Facility[facility] Address: [address] [place] [address] Performed By: #### 5 8410-2 #### [facility] CLIA [id number] [address] [place] [address] [place] VARICELLA ZOSTER IGGon 06-06 VARICELLA ZOSTER IGG, QUAL Positive Normal Positive [facility] Comment on above: Order Comment: Speci men Type: BLOOD SPECIMEN [facility] Facility[facility] Address: [address] [place] [address] Result Comment: The result suggests recent or past exposure to Varicella-Zoster virus or chickenpox vaccination or zoster vaccination. Positive result may also be seen due to presence of passively-transferred antibodies. Please correlate with patient's history. Performed By: #### V [id number] #### [facility] CLIA [id number] [address] [place] [address] [place] LABORATORYOrdered By: Lucina [...] 32.92 kg/m2 Didi Spence MD Work Phone: [facility] 01-17-2024 10:28-0400 Body weight 81.65 kg Didi Spence MD Work Phone: [facility] 01-17-2024 10:28-0400 Diastolic blood pressure 82 mm[Hg] Didi Spence MD Work Phone: [facility] 01-17-2024 10:28-0400 Systolic blood pressure 124 mm[Hg] Didi Spence MD Work Phone: [facility] 01-15-2024 09:52-0400 Body temperature 97.11 [degF] Treatment Wstr Work Phone: [facility] 01-15-2024 09:52-0400 Diastolic blood pressure 85 mm[Hg] Treatment Wstr Work Phone: [facility] 01-15-2024 09:52-0400 Heart rate 107 /min Treatment Wstr Work Phone: [facility] 01-15-2024 09:52-0400 SaO2% (BldA) [Mass fraction] 99 % Treatment Wstr Work Phone: [facility] 01-15-2024 09:52-0400 Systolic blood pressure 125 mm[Hg] Treatment Wstr Work Phone: [facility] 01-12-2024 14:00-0400 Body temperature 98.49 [degF] Treatment Wstr Work Phone: [facility] 01-12-2024 14:00-0400 Diastolic blood pressure 75 mm[Hg] Treatment Wstr Work Phone: [facility] 01-12-2024 14:00-0400 Heart rate 100 /min Treatment Wstr Work Phone: [facility] 01-12-2024 14:00-0400 Respiratory rate 16 /min Treatment Wstr Work Phone: [facility] 01-12-2024 14:00-0400 SaO2% (BldA) [Mass fraction] 98 % Treatment Wstr Work Phone: [facility] 01-12-2024 14:00-0400 Systolic blood pressure 109 mm[Hg] Treatment Wstr Work Phone: [facility] 01-11-2024 09:59-0400 Body mass index (BMI) [Ratio] 33.47 kg/m2 Amanda Venegas MD Work Phone: [facility] 01-11-2024 09:59-0400 Body weight 83.01 kg Amanda Venegas MD Work Phone: [facility] 01-11-2024 09:59-0400 Diastolic blood pressure 70 mm[Hg] Amanda Venegas MD Work Phone: [facility] 01-11-2024 09:59-0400 Systolic blood pressure 120 mm[Hg] Amanda Venegas MD Work Phone: [facility] 01-03-2024 10:55-0400 Body mass index (BMI) [Ratio] 33.29 kg/m2 Cesilia Frias MD Work Phone: [facility] 01-03-2024 10:55-0400 Body weight 82.56 kg Cesilia Frias MD Work Phone: [facility] 01-03-2024 10:55-0400 Diastolic blood pressure 80 mm[Hg] Cesilia Frias MD Work Phone: [facility] 01-03-2024 10:55-0400 Systolic blood pressure 120 mm[Hg] Cesilia Frias MD Work Phone: [facility] 12-28-2023 10:23-0400 Body mass index (BMI) [Ratio] 32.63 kg/m2 Tommy Patel MD Work Phone: [facility] 12-28-2023 10:23-0400 Body weight 80.92 kg Tommy Patel MD Work Phone: [facility] 12-28-2023 10:23-0400 Diastolic blood pressure 80 mm[Hg] Tommy Patel MD Work Phone: [facility] 12-28-2023 10:23-0400 Systolic blood pressure 120 mm[Hg] Tommy Patel MD Work Phone: [facility] 12-22-2023 10:32-0400 Body height 157.5 cm Donovan Kennedy MD Work Phone: [facility] 12-22-2023 10:32-0400 Body mass index (BMI) [Ratio] 32.42 kg/m2 Donovan Kennedy MD Work Phone: [facility] 12-22-2023 10:32-0400 Body weight 80.4 kg Donovan Kennedy MD Work Phone: [facility] 12-22-2023 10:32-0400 Diastolic blood pressure 77 mm[Hg] Donovan Kennedy MD Work Phone: [facility] 12-22-2023 10:32-0400 Heart rate 104 /min Donovan Kennedy MD Work Phone: [facility] 12-22-2023 10:32-0400 SaO2% (BldA) [Mass fraction] 100 % Donovan Kennedy MD Work Phone: [facility] 12-22-2023 10:32-0400 Systolic blood pressure 117 mm[Hg] Donovan Kennedy MD Work Phone: [facility] 09-27-2023 10:52-0400 Body height 157.5 cm Jorge Alexander MD Work Phone: [facility] 09-27-2023 10:52-0400 Body mass index (BMI) [Ratio] 29.44 kg/m2 Jorge Alexander MD Work Phone: [facility] 09-27-2023 10:52-0400 Body weight 73 kg Jorge Alexander MD Work Phone: [facility] 09-27-2023 10:52-0400 Diastolic blood pressure 72 mm[Hg] Jorge Alexander MD Work Phone: [facility] 09-27-2023 10:52-0400 Heart rate 88 /min Jorge Alexander MD Work Phone: [facility] 09-27-2023 10:52-0400 SaO2% (BldA) [Mass fraction] 100 % Jorge Alexander MD Work Phone: [facility] 09-27-2023 10:52-0400 Systolic blood pressure 113 mm[Hg] Jorge Alexander MD Work Phone: [facility] 08-28-2023 14:23-0400 Body height 157.5 cm Rogelio Johnson GAGE MAKER[employer] FINISH [employer]AYER Work Phone: [facility] 08-28-2023 14:23-0400 Body mass index (BMI) [Ratio] 28.23 kg/m2 Rogelio Johnson [employer]AGE MAK[employer] FIN[employer] Work Phone: [facility] 08-28-2023 14:23-0400 Body weight 70 kg Rogelio Johnson GAGE MAK[employer] FINISH [employer] Work Phone: [facility] 08-28-2023 14:23-0400 Diastolic blood pressure 73 mm[Hg] Rogelio Johnson GAGE MAKER[employer] FINISH [employer]ER Work Phone: [facility] 08-28-2023 14:23-0400 Heart rate 80 /min Rogelio Johnson GAGE MAKER[employer] FINISH [employer]ER Work Phone: [facility] 08-28-2023 14:23-0400 SaO2% (BldA) [Mass fraction] 100 % Rogelio Johnson GAGE MAKER.[employer] FINISH [employer]ER Work Phone: [facility] 08-28-2023 14:23-0400 Systolic blood pressure 105 mm[Hg] Rogelio Johnson GAGE MAKER.[employer] FINISH SPRAYER Work Phone: [facility] 08-13-2023 15:10-0400 Body temperature 98.96 [degF] JAYY REICHFIELD DO [facility] 08-13-2023 15:10-0400 Diastolic Blood Pressure Non-Invasive 71 mm[Hg] JAYY REICHFIELD DO [facility] 08-13-2023 15:10-0400 Heart rate 82 /min JAYY REICHFIELD DO [facility] 08-13-2023 15:10-0400 Reason For Taking VItal Signs JAYY REICHFIELD DO [facility] 08-13-2023 15:10-0400 Respiratory rate 16 /min JAYY REICHFIELD DO [facility] 08-13-2023 15:10-0400 Systolic Blood Pressure Non-Invasive 106 mm[Hg] JAYY REICHFIELD DO [facility] 08-13-2023 11:23-0400 Body temperature 100.4 [degF] JAYY REICHFIELD DO [facility] 08-13-2023 11:23-0400 Diastolic Blood Pressure Non-Invasive 81 mm[Hg] JAYY REICHFIELD DO [facility] 08-13-2023 11:23-0400 Heart rate 109 /min [facility] DO [facility] 08-13-2023 11:23-0400 Respiratory rate 16 /min [facility] 08-13-2023 11:23-0400 Systolic Blood Pressure Non-Invasive 124 mm[Hg] [facility] DO [facility] 08-04-2023 12:26-0400 Body height 157.5 cm Alanamoody Obrien G[employer] MAKER[employer] FINISH [employer]ER Work Phone: [facility] 08-04-2023 12:26-0400 Body mass index (BMI) [Ratio] 29.07 kg/m2 Alanamoody Obrien [employer]AGE MAKER[employer] FINISH [employer]ER Work Phone: [facility] 08-04-2023 12:26-0400 Body weight 72.1 kg Alana Mamadouert GAGE MAKER.[employer] FINISH [employer]ER Work Phone: [facility] 08-04-2023 12:26-0400 Diastolic blood pressure 70 mm[Hg] Alanamoody Cedilloert GAGE MAKER.[employer] FINISH SPRAYER Work Phone: [facility] 08-04-2023 12:26-0400 Heart rate 86 /min Alanamoody Obrien GAGE MAKER.[employer] FINISH SPR[employer]ER Work Phone: [facility] 08-04-2023 12:26-0400 SaO2% (BldA) [Mass fraction] 100 % Alanamoody Obrien [employer]AGE MAKER[employer] FINISH [employer]ER Work Phone: [facility] 08-04-2023 12:26-0400 Systolic blood pressure 108 mm[Hg] Alana Mamadouert GAGE MAKER[employer] FIN[employer]ER Work Phone: [facility] 07-04-2023 13:01-0400 Body height 157.5 cm Alana Herminia [employer] MAK[employer]ER Work Phone: [facility] 07-04-2023 13:01-0400 Body weight 71.22 kg Alana Stockert [employer]AGE MAKER[employer] FIN[employer]ER Work Phone: [facility] 07-04-2023 13:01-0400 Diastolic blood pressure 77 mm[Hg] Alana Stockert GAGE MAKER[employer] FIN[employer]ER Work Phone: [facility] 07-04-2023 13:01-0400 Heart rate 86 /min Alana Stockert [employer] MAKER[employer] FIN[employer]AYER Work Phone: [facility] 07-04-2023 13:01-0400 SaO2% (BldA) [Mass fraction] 100 % Alana Stockert GAGE MAKER.[employer] FINISH SPRAYER Work Phone: [facility] 07-04-2023 13:01-0400 Systolic blood pressure 115 mm[Hg] Alana Stockert GAGE MAKER[employer] FINISH [employer]ER Work Phone: [facility] 06-07-2023 10:14-0400 Body height 157.5 cm Jorge Alexander MD Work Phone: [facility] 06-07-2023 10:14-0400 Body weight 70.44 kg Jorge Alexander MD Work Phone: [facility] 06-07-2023 10:14-0400 Diastolic blood pressure 78 mm[Hg] Jorge Alexander MD Work Phone: [facility] 06-07-2023 10:14-0400 Heart rate 92 /min Jorge Alexander MD Work Phone: [facility] 06-07-2023 10:14-0400 SaO2% (BldA) [Mass fraction] 99 % Jorge Alexander MD Work Phone: [facility] 06-07-2023 10:14-0400 Systolic blood pressure 117 mm[Hg] Jorge Alexander MD Work Phone: [facility] 02-16-2022 13:17-0500 Body temperature 98.6 [degF] TRENT LOCO MD [facility] 02-16-2022 13:17-0500 Body weight 68 kg TRENT LOCO MD [facility] 02-16-2022 13:17-0500 Diastolic Blood Pressure Non-Invasive 79 1 TRENT LOCO MD [facility] 02-16-2022 13:17-0500 Heart rate 77 /min TRENT LOCO MD [facility] 02-16-2022 13:17-0500 Respiratory rate 16 /min TRENT LOCO MD [facility] 02-16-2022 13:17-0500 Systolic Blood Pressure Non-Invasive 115 1 TRENT LOCO MD [facility] 12-13-2021 12:07-0400 Diastolic blood pressure 64 mm[Hg] JAYY REICHFIELD DO [facility] 12-13-2021 12:07-0400 Heart rate 90 /min JAYY REICHFIELD DO [facility] 12-13-2021 12:07-0400 Respiratory rate 16 /min JAYY REICHFIELD DO [facility] 12-13-2021 12:07-0400 Systolic blood pressure 112 mm[Hg] JAYY REICHFIELD DO [facility] 12-13-2021 11:03-0400 Body height 160 cm JAYY REICHFIELD DO [facility] 12-13-2021 11:03-0400 Body temperature 98.06 [degF] JAYY REICHFIELD DO [facility] 12-13-2021 11:03-0400 Body weight 68.2 kg JAYY REICHFIELD DO [facility] 12-13-2021 11:03-0400 Diastolic blood pressure 79 mm[Hg] JAYY REICHFIELD DO [facility] 12-13-2021 11:03-0400 Heart rate 102 /min JAYY REICHFIELD DO [facility] 12-13-2021 11:03-0400 Respiratory rate 16 /min JAYY REICHFIELD DO [facility] 12-13-2021 11:03-0400 Systolic blood pressure 117 mm[Hg] JAYY REICHFIELD DO [facility] 01-23-2021 20:58-0400 Diastolic blood pressure 73 mm[Hg] CAIO AYALA MD [facility] 01-23-2021 20:58-0400 Heart rate 124 /min CAIO AYALA MD [facility] 01-23-2021 20:58-0400 Respiratory rate 20 /min CAIO AYALA MD [facility] 01-23-2021 20:58-0400 Systolic blood pressure 122 mm[Hg] CAIO AYALA MD [facility] 01-23-2021 17:24-0400 Body temperature 102.92 [degF] CAIO AYALA MD [facility] 01-23-2021 17:24-0400 Body weight 68 kg CAIO AYALA MD [facility] 01-23-2021 17:24-0400 Diastolic blood pressure 77 mm[Hg] CAIO AYALA MD [facility] 01-23-2021 17:24-0400 Heart rate 132 /min CAIO AYALA MD [facility] 01-23-2021 17:24-0400 Respiratory rate 20 /min CAIO AYALA MD [facility] 01-23-2021 17:24-0400 Systolic blood pressure 117 mm[Hg] CAIO AYALA MD [facility] Encounters Encounter Date Encounter Type Care Provider [...] Patient encounter procedure Treatment Rm 17 Chauncey [facility] Work Phone: Hematology/Oncology Start: 01-12-2024 End: 01-12-2024 ambulatory RIA PLOTTS Hematology/Oncology Comment on above: Maternal iron defici ency anemia complicating , third trimester (Primary Dx) Start: 01-12-2024 End: 01-12-2024 Patient encounter procedure Treatment Rm 18 Chauncey [facility] Work Phone: Hematology/Oncology Start: 01-12-2024 End: 01-12-2024 Telephone encounter Amanda Venegas MD Work Phone: OB/Gynecology Comment on above: Iron Infusion Start: 01-11-2024 End: 01-11-2024 ambulatory AMANDA VENEGAS Facility:[facility] Start: 01-11-2024 End: 01-11-2024 Patient encounter procedure Amanda Venegas MD Work Phone: OB/Gynecology Comment on above: 39 weeks gestation o f (Primary Dx); Supervision of high risk in third trimester; Anemia affecting in second trimester Start: 01-08-2024 End: 01-08-2024 Telephone encounter Paola Peter RNreview specialist [place] [id number] Comment on above: Hematology Start: 01-03-2024 End: [...] Start: 01-02-2024 End: 01-02-2024 ambulatory [facility] Facility:[facility] Start: 01-01-2024 End: 01-01-2024 ambulatory Holly Flanagan MA [facility] Start: 01-01-2024 End: 01-01-2024 Patient encounter procedure Holly Flanagan MA [facility] Comment on above: Population Health Na vigation Outreach (OB/PEDS ) Start: 12-28-2023 End: 12-28-2023 ambulatory [facility] Facility:[facility] Start: 12-28-2023 End: 12-28-2023 Patient encounter procedure Tommy Patel MD Work Phone: OB/Gynecology Comment on above: Supervision of high risk in third trimester (Primary Dx); 37 weeks gestation of ; Anemia affecting in second trimester; Current every day vaping Anemia, unspecified type (Primary Dx) Start: 12-27-2023 End: 12-27-2023 Telephone encounter Ddii Spence MD Work Phone: OB/Gynecology Comment on above: Appointment Start: 12-22-2023 End: 12-22-2023 Patient encounter procedure Donovan Kennedy MD Work Phone: [facility] Obstetrics and Gynecology Comment on above: Supervision of high risk in third trimester (Primary Dx) Anemia affecting pre gnancy in second trimester Start: 12-22-2023 End: 12-22-2023 ambulatory DONOVAN KENNEDY Facility:[id number] Start: 12-05-2023 End: 12-05-2023 Telephone encounter Alana Obrien GAGE MAKER.[employer] FINISH SPRAYER Work Phone: [facility] Obstetrics and Gynecology Comment on above: Appointment Start: 11-07-2023 End: 11-15-2023 Telephone encounter Jorge Alexander MD Work Phone: [facility] Obstetrics and Gynecology Comment on above: Appointment Transfer of Care Start: 2023 Telephone encounter Alana hu GAGE MAKER.[employer] FINISH SPRAYER Work Phone: [facility] Ob[facility]etric[facility] and Gynecology Comment on above: Appointment Start: 09-29-2023 Telephone encounter Alana hu GAGE MAKER.PORCELAIN FINISH SPRAYER Work Phone: [facility] Ob[facility]etrics and Gynecology Comment on above: Results Start: 09-27-2023 End: 09-27-2023 Nursing evaluation of patient and report Nurse Recording Clerk Up Avinash Work Phone: [facility] Obstetrics and Gynecology Comment on above: 24 weeks gestation o f (Primary Dx) Start: 09-27-2023 End: 09-27-2023 ambulatory JORGE ALEXANDER Facility:[id number] Start: 09-27-2023 End: 09-27-2023 Patient encounter procedure Jorge Alexander MD Work Phone: [facility] Ob[facility]etrics and Gynecology Comment on above: Current every day va ping (Primary Dx); 24 weeks gestation of ; Supervision of high risk in first trimester Start: 08-31-2023 Telephone encounter Nurse Anton G yn [place] Work Phone: [facility] Ob[facility]etric[facility] and Gynecology Comment on above: Timber Management Assistant - O ther Start: 08-28-2023 End: 08-28-2023 Subsequent hospital visit by physician Recording Clerk Mfm Up Avinash [facility] Work Phone: [facility]etric[facility]necology Comment on above: Encounter for anatomic survey [Z36.89] Start: 08-28-2023 End: 08-28-2023 Patient encounter procedure Rogelio Johnson GAGE MAKER.[employer]AIN FINISH SPRAYER Work Phone: [facility] Ob[facility]etrics and Gynecology Comment on above: Supervision of high risk in second trimester (Primary Dx); 20 weeks gestation of ; Overweight; Current every day nicotine vaping; Heartburn during in second trimester Start: 08-28-2023 End: 08-28-2023 ambulatory ROGELIO JOHNSON Facility:[id number] Start: 08-13-2023 End: 08-13-2023 Emergency department patient visit [facility] Facility:B Start: 08-13-2023 End: 08-13-2023 Emergency department patient visit [facility] Start: 08-09-2023 Telephone encounter [facility] Obstetrics and Gynecology Comment on above: Patient Update Start: 08-04-2023 End: 08-04-2023 Patient encounter procedure Alana Obrien GAGE MAKER.PORCELAIN FINISH SPRAYER Work Phone: [facility] Obstetrics and Gynecology Comment on above: Supervision of high risk in third trimester (Primary Dx); Heartburn during in second trimester; 16 weeks gestation of ; Overweight; Current every day nicotine vaping Start: 08-04-2023 End: 08-04-2023 ambulatory ALANA OBRIEN Facility:[id number] Start: 07-08-2023 Orders Only Delmy Winston MD Work Phone: [facility] Comment on above: Encounter for anatomic survey (Primary Dx) Start: 07-07-2023 Telephone encounter Nurse Anton G yn Up Avinash Work Phone: [facility] Obstetrics and Gynecology Comment on above: Patient Question Start: 07-06-2023 Telephone encounter Alana hu GAGE MAKER.PORCELAIN FINISH SPRAYER Work Phone: [facility] Obstetrics and Gynecology Comment on above: Results Start: 07-04-2023 End: 07-04-2023 Patient encounter procedure Alana Obrien GAGE MAKER.PORCELAIN FINISH SPRAYER Work Phone: [facility] Obstetrics and Gynecology Comment on above: Supervision of high risk in third trimester (Primary Dx); 12 weeks gestation of ; Acute vaginitis; Overweight; Current every day nicotine vaping Start: 07-04-2023 End: 07-04-2023 ambulatory ALANA OBRIEN Facility:[id number] Start: 06-26-2023 Telephone encounter Nurse Anton Fisher yhelen Up [place] Work Phone: [facility] Obstetrics [facility] Gynecology Start: 06-07-2023 End: 06-07-2023 Nursing evaluation of patient and report Nurse Recording Clerk Up Avinash Work Phone: [facility] Obstetrics and Gynecology Comment on above: Encounter for pregna ncy test, result positive (Primary Dx) Start: 06-07-2023 Encounter for gynecological examination (general) (routine) without abnormal findings [facility] Start: 06-07-2023 End: 06-07-2023 Patient encounter procedure Jorge Alexander MD Work Phone: [facility] Obstetrics and Gynecology Comment on above: Encounter for pregna ncy test, result positive (Primary Dx); Encounter for gynecological examination (general) (routine) without abnormal findings; Current every day vaping; Secondary oligomenorrhea with uncer tain dates in first trimester (Primary Dx); Encounter for test, result positive Start: 06-07-2023 End: 06-07-2023 Patient encounter status Jorge Alexander MD Work Phone: [facility] Work Phone: Start: 06-07-2023 End: 06-07-2023 ambulatory JORGE ALEXANDER Facility:[id number] Start: 06-16-2022 ambulatory LATA Tolentino ity:UPS Start: 06-16-2022 End: 06-16-2022 Subsequent hospital visit by physician Provider [facility] Comment on above: DATING Start: 02-16-2022 End: 02-16-2022 Emergency department patient visit TRNET LOCO MD [facility] Start: 01-03-2022 ambulatory HOLLY ANDERSON [facility] ity:UNI Start: 12-13-2021 End: 12-13-2021 Emergency department patient visit JAYY CARDONA DO [facility] Start: 06-03-2021 End: 06-03-2021 Patient encounter procedure KARLY GARNER MD [facility] Start: 01-23-2021 End: 01-23-2021 Emergency department patient visit CAIO AYALA MD [facility] Start: 12-30-2018 End: 12-30-2018 Patient encounter procedure [facility] Procedures Date Procedure Procedure Detail Performing Clinician [...] Start: 07-04-2023 BACTERIAL VAGINOSIS NAAT Alanadavid Obrien GAGE MAKER.PORCELAIN FINISH SPRAYER Work Phone: Start: 07-04-2023 Iadna trichomonas vaginalis amplified probe tech Alana Mamadouert GAGE MAKER.PORCELAIN FINISH SPRAYER Work Phone: Start: 06-07-2023 Urine test visual color cmprsn meths Jorge Alexander MD Work Phone: Start: 06-07-2023 Antibody screen JORGE ALEXANDER Comment on above: Order Comment: Speci men Type: BLOOD SPECIMEN Ordering Facility: [facility] Address: [address] [place] [address] Performed By: #### 5 [id number] #### [facility] CLIA [id number] [address] [place] [address] [place] Start: 06-07-2023 End: 06-07-2023 [...] 06-06-2026 Screening for malignant neoplasm of cervix [facility] Start: 02-29-2024 End: 02-29-2024 Patient encounter procedure 02/29/2024 9:00 AM EST Office Visit OB/Gynecology [address] [place] [address] Shorty Latham APRN.PORCELAIN FINISH SPRAYER [address] [place] [address] Post OB/Gynecology Comment on above: Post Start: 02-02-2024 End: 02-02-2024 ambulatory 02/02/2024 10:00 AM EST Visit (SP) Office Hematology/Oncology [address] [place] [address] 2ND FLOOR Hematology/Oncology Comment on above: 2ND FLOOR Start: 01-31-2024 End: 01-31-2024 ambulatory 01/31/2024 1:00 PM EST Visit (SP) Office Hematology/Oncology [address] [place] [address] 2ND FLOOR Hematology/Oncology Comment on above: 2ND FLOOR Start: 01-25-2024 End: 01-25-2024 ambulatory 01/25/2024 10:00 AM EDT Visit (SP) Office Hematology/Oncology [address] [place] [address] 2ND FLOOR Hematology/Oncology Comment on above: 2ND FLOOR Start: 01-25-2024 End: 01-25-2024 Patient encounter procedure 01/25/2024 9:30 AM EDT Office Visit OB/Gynecology [address] [place] [address] APRN.CNM [address] [place] [address] Post OB/Gynecology Comment on above: Post Start: 01-23-2024 End: 01-23-2024 ambulatory 01/23/2024 11:00 AM EDT [facility] Hematology/Oncology [address] [place] [address] 2ND FLOOR Hematology/Oncology Comment on above: 2ND FLOOR Start: 01-19-2024 End: 01-19-2024 ambulatory 01/19/2024 10:00 AM EDT Visit (SP) Office Hematology/Oncology [address] [place] [address] 2ND FLOOR Hematology/Oncology Comment on above: 2ND FLOOR Start: 01-17-2024 End: 01-17-2024 Patient encounter procedure OB/Gynecology Comment on above: OB iron treatment first -OB Start: 01-15-2024 End: 01-15-2024 ambulatory 01/15/2024 9:30 AM EDT Visit (SP) Office Hematology/Oncology [address] [place] [address] 2ND FLOOR Hematology/Oncology Comment on above: 2ND FLOOR Start: 01-11-2024 End: 01-11-2024 Patient encounter procedure 01/11/2024 9:50 AM EDT Routine Office Visit OB/Gynecology [address] [place] [address] Amanda Venegas MD [address] [place] [address] OB OB/Gynecology Comment on above: OB Start: 01-10-2024 End: 01-10-2024 Patient encounter procedure 01/10/2024 8:00 AM EDT Routine Office Visit [facility] Obstetrics and Gynecology [address] [place] [address] [address] [place], [place] [id number] Rogelio Johnson, GAGE MAKER.[address] [place], [place] [id number] [address] [facility] Obstetrics and Gynecology Comment on above: 39 weeks Start: 01-03-2024 End: 01-03-2024 Patient encounter procedure 01/03/2024 10:40 AM EDT Routine Office Visit OB/Gynecology [address] [place] [address] Cesilia Frias MD [address] [place] [address] OB OB/Gynecology Comment on above: OB Start: 01-03-2024 End: 01-03-2024 Patient encounter procedure 01/03/2024 8:30 AM EDT Routine Office Visit [facility] Obstetrics and Gynecology [address] [place] [address] [address] [place], [place] [id number] [phone] [place] [address] [facility] Obstetrics and Gynecology Comment on above: 38 weeks Start: 01-02-2024 End: 01-02-2024 ambulatory 01/02/2024 9:30 AM EDT Results Only [facility] Draw Station [address] [place] [address] [place] [facility] Draw Station Start: 12-29-2023 End: 12-29-[address] [facility] Obstetrics and Gynecology Comment on above: 37 weeks -(transfere d care?) 37 weeks -(going to [facility] Start: 12-28-2023 End: 03-28-2024 Ferritin [Mass/volume] in Serum or Plasma FERRITIN Lab Routine Anemia, unspecified type Expected: 12/28/2023, Expires: 03/28/2024 [facility] Work Phone: Comment on above: Expected: 12/28/2023 , Expires: 03/28/2024 Start: 12-28-2023 End: 03-28-2024 Iron and Iron binding capacity panel - Serum or Plasma IRON AND TIBC Lab Routine 37 weeks gestation of Anemia affecting in second trimester Expected: 12/28/2023, Expires: 03/28/2024 [facility] Work Phone: Comment on above: Expected: 12/28/2023 , Expires: 03/28/2024 Start: 12-28-2023 End: 12-28-[address] [facility] Obstetrics and Gynecology Comment on above: 37 weeks OB - transferring fr om [facility] Start: 12-22-2023 End: 03-22-2024 HIV 1+2 Ab [Presence] in Serum or Plasma by Immunoassay [facility] Comment on above: Expected: 12/22/2023 , Expires: 03/22/2024 Start: 12-22-2023 End: 03-22-2024 SYPHILIS TOTAL W/REFLEX [facility] Work Phone: Comment on above: Expected: 12/22/2023 , Expires: 03/22/2024 Start: 12-22-2023 End: 12-22-[address] [facility] Obstetrics and Gynecology Comment on above: 36 weeks-labs/cultur es/consent Start: 12-05-2023 End: 12-05-[address] [facility] Obstetrics and Gynecology Comment on above: 34 weeks Start: 11-26-2023 Covid-19 Vaccine ( season) Covid-19 Vaccine ( season) [facility] Start: 11-26-2023 Covid-19 Vaccine () Covid-19 Vaccine () [facility] Start: 11-26-2023 Influenza vaccination [facility] Start: 11-26-2023 RSV Vaccine (1 - Ris k 1-dose series) RSV Vaccine (1 - Risk 1-dose series) [facility] Start: 11-21-2023 End: 11-21-2023 Patient encounter procedure 11/21/2023 8:00 AM EDT Routine Office Visit [facility] Obstetrics and Gynecology [address] [place] [address] [address] [place], [place] [id number] [phone] Rogelio Johnson, GAGE MAKER.PORCELAIN FINISH SPRAYER [address] [place] [address] [place] [address] [facility] Obstetrics and Gynecology Comment on above: 32 weeks Start: 11-07-2023 End: 11-07-2023 Patient encounter procedure 11/07/2023 8:15 AM EDT Routine Office Visit [facility] Obstetrics and Gynecology [address] [place] [address] [place] [address] Jorge Alexander MD [address] [place] [address] [place] [address] [facility] Obstetrics and Gynecology Comment on above: 30 weeks Start: 2023 End: 2023 Patient encounter procedure 2023 8:00 AM EDT Routine Office Visit [facility] Obstetrics and Gynecology [address] [place] [address] [place] [address] Alana Obrien, GAGE MAKER.PORCELAIN FINISH SPRAYER [address] [place] [address] [place] [address] 28 weeks-wants tdap [facility] Obstetrics and Gynecology Comment on above: 28 weeks-wants tdap Start: 09-26-2023 End: 09-26-2023 Nursing evaluation of patient and report 09/26/2023 1:00 PM EDT Nurse Visit [facility] Obstetrics and Gynecology [address] [place] [address] Avinash, Nurse Recording Clerk Up [address] [place], [place] [id number] [address] [facility] Obstetrics and Gynecology Comment on above: 1hr gtt Start: 09-26-2023 End: 09-26-[address] [facility] Obstetrics and Gynecology Comment on above: 24 weeks Start: 08-28-2023 End: 08-28-[address] [facility] Obstetrics and Gynecology Comment on above: 20 weeks anatomy Start: 07-08-2023 End: 07-07-2024 OBSTETRIC ULTRASOUND WHI OBSTETRIC ULTRASOUND WHI Anc Imaging Routine Encounter for anatomic survey Expected: 07/08/2023, Expires: 07/07/2024 [facility] Work Phone: Comment on above: Expected: 07/08/2023 , Expires: 07/07/2024 Start: 03-27-2023 Behavioral Health Screening Behavioral Health Screening [facility] Start: 03-27-2023 Depression Assessment Depression Ass essment [facility] Start: 11-25-2022 Covid-19 Vaccine () Covid-19 Vaccine () [facility] Start: 11-25-2022 Influenza vaccination Influenza Vacc ine (#1) [facility] Start: 03-27-2022 Depression Assessment Depression Ass essment [facility] Start: 07-27-2020 Urine microalbumin profile DTaP,Tdap,Td Vaccine (6 - Td or Tdap) [facility] Start: 2017 Pap Testing Pap Testing [facility] Start: 2017 Screening for malignant neoplasm of cervix Pap Testing [facility] Start: 10-24-2015 Urine microalbumin profile DTaP,Tdap,Td Vaccine (1 - Tdap) [facility] Start: 2014 Anxiety Screening Anxiety Screening [facility] Start: 2014 Depression Screening Depression Scre enroc [facility] Start: 2014 Hepatitis C Screening Hepatitis C [facility] Start: 2014 Hepatitis C screening Hepatitis C [facility] Start: 2014 HIV Screening HIV Screening [facility] Start: 2014 HIV screening HIV Screening [facility] Start: 2010 Peds To Adult Transition Annual Assessment Peds To Adult Transition Annual Assessment [facility] Start: 2008 Peds To Adult Transition Initial Discussion Peds To Adult Transition Initial Discussion [facility] Start: 2005 HPV Vaccine (1 - 2-dose series) HPV Vaccine (1 - 2-dose series) [facility] Start: 04-25-1997 Covid-19 Vaccine (#1) Covid-19 Vacci ne (#1) [facility] Start: 1996 Hepatitis B Vaccine (1 of 3 - 3-dose series) Hepatitis B Vaccine (1 of 3 - 3-dose series) [facility] Bacteria identified in Urine by Culture URINE CULTURE Microbiology Routine Encounter for test, result positive 06/07/2023 10:43 AM [facility] Work Phone: Chlamydia trachomatis+Neisseria gonorrhoeae DNA [Presence] in Unspecified specimen by SHEREEN with probe detection GONORRHEA/CHLAMYDIA NAAT Lab Routine Encounter for test, result positive 06/07/2023 10:43 AM [facility] Work Phone: Chlamydia trachomatis+Neisseria gonorrhoeae DNA [Presence] in Unspecified specimen by SHEREEN with probe detection GONORRHEA/CHLAMYDIA NAAT Lab Routine Supervision of high risk in third trimester 12/22/2023 11:00 AM [facility] Hepatitis B virus surface Ag [Presence] in Serum HEP B SURF AG SCRN Lab Routine Encounter for test, result positive 06/07/2023 11:12 AM [facility] Work Phone: Hepatitis C virus Ab [Presence] in Serum HEPATITIS C ANTIBODY IA WITH CONFIRMATION Lab Routine Encounter for test, result positive 06/07/2023 11:12 AM [facility] Work Phone: HIV 1+2 Ab [Presence ] in Serum or Plasma by Immunoassay HIV 1 2 COMBO(AG/AB),WITH REFLEX TO DIFFERENTIATION Lab Routine Encounter for test, result positive 06/07/2023 11:12 AM [facility] Work Phone: PAP TEST PAP TEST Lab Javier flor Encounter for test, result positive Ordered: 06/07/2023 [facility] Work Phone: Comment on above: Ordered: 06/07/2023 ROUTINE, GROUP B STREP PCR ROUTINE, GROUP B STREP PCR Microbiology Routine Supervision of high risk in third trimester 12/22/2023 11:00 AM [facility] RUBELLA IGG AB RUBELLA IGG AB L ab Routine Encounter for test, result positive 06/07/2023 11:12 AM [facility] Work Phone: SYPHILIS TOTAL W/REFLEX SYPHILIS TOTAL W/REFLEX Lab Routine Encounter for test, result positive 06/07/2023 11:12 AM [facility] Work Phone: URINE OB DIP B/O URINE OB DIP B/ O Lab Routine Supervision of high risk in third trimester 40 weeks gestation of Ordered: 01/17/2024 [facility] Work Phone: Comment on above: Ordered: 01/17/2024 VARICELLA ZOSTER IGG VARICELLA Z ETHAN IGG Lab Routine Encounter for test, result positive 06/07/2023 11:12 AM [facility] Work Phone: [facility] Immunizations Immunization Date Immunization Notes Care Provider [facility] 01-11-2018 influenza, injectabl e, quadrivalent, preservative free Jorge Alexander MD Work Phone: [facility] 01-11-2018 influenza virus vacc ine, unspecified formulation Jorge Alexander MD Work Phone: [facility] 09-17-2014 hepatitis A vaccine, pediatric/adolescent dosage, 2 dose schedule Jorge Alexander MD Work Phone: [facility] 09-17-2014 hepatitis B vaccine, pediatric or pediatric/adolescent dosage Jorge Alexander MD Work Phone: [facility] 09-17-2014 HPV, unspecified formulation Jorge Alexander MD Work Phone: [facility] 09-17-2014 meningococcal ACWY vaccine, unspecified formulation Jorge Alexander MD Work Phone: [facility] 09-17-2014 varicella virus vaccine Santosh Alexander MD Work Phone: [facility] 07-27-2010 hepatitis A vaccine, pediatric/adolescent dosage, 2 dose schedule Jorge Alexander MD Work Phone: [facility] 07-27-2010 human papilloma viru s vaccine, quadrivalent Jorge Alexander MD Work Phone: [facility] 07-27-2010 meningococcal polysaccharide (groups A, C, Y and W-135) diphtheria toxoid conjugate vaccine (MCV4P) Jorge Alexander MD Work Phone: [facility] 07-27-2010 tetanus toxoid, redu leslie diphtheria toxoid, and acellular pertussis vaccine, adsorbed Jorge Alexander MD Work Phone: [facility] 11-12-2001 diphtheria, tetanus toxoids and acellular pertussis vaccine, unspecified formulation Jorge Alexander MD Work Phone: [facility] 11-12-2001 measles, mumps and rubella virus vaccine Jorge Alexander MD Work Phone: [facility] 11-12-2001 poliovirus vaccine, inactivated Jorge Alexander MD Work Phone: [facility] 11-09-2000 diphtheria, tetanus toxoids and acellular pertussis vaccine, unspecified formulation Jorge Alexander MD Work Phone: [facility] 11-09-2000 haemophilus influenz ae type b vaccine, conjugate unspecified formulation Jorge Alexander MD Work Phone: [facility] 11-12-1997 measles, mumps and rubella virus vaccine Jorge Alexander MD Work Phone: [facility] 07-23-1997 diphtheria and tetan us toxoids, adsorbed for pediatric use Jorge Alexander MD Work Phone: [facility] 07-23-1997 haemophilus influenz ae type b vaccine, conjugate unspecified formulation Jorge Alexander MD Work Phone: [facility] 07-23-1997 hepatitis B vaccine, pediatric or pediatric/adolescent dosage Jorge Alexander MD Work Phone: [facility] 07-23-1997 poliovirus vaccine, unspecified formulation Jorge Alexander MD Work Phone: [facility] 04-22-1997 diphtheria and tetan us toxoids, adsorbed for pediatric use Jorge Alexander MD Work Phone: [facility] 04-22-1997 haemophilus influenz ae type b vaccine, conjugate unspecified formulation Jorge Alexander MD Work Phone: [facility] 04-22-1997 poliovirus vaccine, unspecified formulation Jorge Alexander MD Work Phone: [facility] 01-22-1997 diphtheria and tetan us toxoids, adsorbed for pediatric use Jorge Alexander MD Work Phone: [facility] 01-22-1997 haemophilus influenz ae type b vaccine, conjugate unspecified formulation Jorge Alexander MD Work Phone: [facility] 01-22-1997 poliovirus vaccine, unspecified formulation Jorge Alexander MD Work Phone: [facility] 1996 hepatitis B vaccine, pediatric or pediatric/adolescent dosage Jorge Alexander MD Work Phone: [facility] 1996 hepatitis B vaccine, pediatric or pediatric/adolescent dosage Jorge Alexander MD Work Phone: [facility] Payers Date Payer Category Payer Medicaid [id number] 2022 Unknown [id number] 1996 Unknown [id number] Self-pay Unknown [id number] Social History Date Type Detail Facility Tobacco smoking status NHIS Unknown if ever smoked [facility] Work Phone: Start: 1996 Sex Assigned At Female [facility] Work Phone: Tobacco Nicotine Use: Va ping Product in Last 90 Days. Type: Cigarettes. Started at age: 23 Years. [facility] Sex Assigned At [facility] Tobacco smoking status MAIS Tobacco smoking consumption unknown [facility] Start: 1995 Sex Assigned At Not on file [facility] Start: 06-07-2023 End: 12-22-2023 Gender identity Not on file [facility] Start: 06-07-2023 Tobacco smoking status MAIS Never smoked tobacco [facility] Start: 06-07-2023 Tobacco use and exposure Smokeless tobacco non-user [facility] Start: 06-07-2023 End: 01-17-2024 Alcohol intake Lifetime non-drinker (finding) [facility] Start: 06-07-2023 End: 12-22-2023 History of Social function [facility] Start: 04-23-2023 [facility] National Score (1-100), lower number is lower risk 71 [facility] Goals Date Patient Goal Desired Activity /State Functional Status Date Assessment Result Facility 08-13-2023 Functional Status Standard Safet y ID band on, Call device within reach, Bed in low position, Wheels locked, Bedside Cart Locked, Visitor at bedside, Safety level maintained [facility] 08-13-2023 Functional Status [facility] 02-16-2022 Functional Status Standard Safet y ID band on, Call device within reach, Bed in low position, Wheels locked, Upper/Half-Length side-rails up, Bedside Cart Locked, Safety level maintained [facility] 12-13-2021 Functional Status Standard Safet y ID band on, Call device within reach, Bed in low position, Wheels locked, Upper/Half-Length side-rails up, Bedside Cart Locked, Safety level maintained [facility] Mental Status Date Assessment Result Facility 08-13-2023 Mental Status Orientation Oriented x 4 [facility] 08-13-2023 Mental Status [facility] 02-16-2022 Mental Status Orientation Oriented x 4 [facility] 12-13-2021 Mental Status Orientation Oriented x 4 [facility] Clinical Notes 01-23-2021 to 01-17-2024 Quick [...] discussed with the Patient or Patient's Authorized State Archivist. As applicable, any other physician, advance practice provider, medical student, or other health professional student that will be observing or involved in the sensitive examination for educational or training purposes was discussed with the Patient or Authorized State Archivist. The Patient or Authorized State Archivist has agreed to proceed with the sensitive examination. (Sensitive examination includes inspection and/or palpation of the breasts, pelvis, prostate and anorectal regions) Desires membrane sweep w/ cervical exam- done.r/b/a to induction of labor reviewed, questions answered, consent signed. labor precautions reviewed, was in last night and sent home. Return prn srom or increased ctxs kick counts anemia- had IVFe Didi Spence M.D. [facility] 01-17-2024 Miscellaneous Notes RR- VB No. LOF No. CTXS yes . Movement: present. Other c/o: lots of pressure. Very uncomfortable Medication list reviewed. Physical Exam See Flow Sheet Abd: soft, nontender, gravid Ext: edema: Trace A/P 40w3d Estimated Date of Delivery: 01/14/24 multigravida The sensitive examination was discussed with the Patient or Patient's Authorized State Archivist. As applicable, any other physician, advance practice provider, medical student, or other health professional student that will be observing or involved in the sensitive examination for educational or training purposes was discussed with the Patient or Authorized State Archivist. The Patient or Authorized State Archivist has agreed to proceed with the sensitive [...] Didi Spence M.D. documented in this encounter [facility] 01-17-2024 Instructions Luisa Villa MA - 01/17/2024 10:28 AM EDT SEQUENTIAL SCREENINGS The [facility] offers sequential screenings for women who [...] It will require an appointment with our limited radiology technician. This is not an ultrasound performed [...] the above symptoms, contact our office at [phone] and ask to speak with a nurse. After hours, you can call doctors registry at [phone] OR call [facility] at [phone] and ask to have the doctor professional housing consultant paged. If you consider this an emergency, dial 9-1-2 or go to your nearest emergency department. NEED HELP? Are you dealing with a violent or abusive relationship? Are you a victim of rape or sexual assult? Call [facility] ([place]) 24 hour Crisis Hotline: 164.611.7262 or 908-013-7037. MANUAL Your Guide to a Healthy manual is now on-line. Visit [email or web address] ancyGuide to download your free copy documented in this encounter [facility] 01-15-2024 Miscellaneous Notes The patient is [...] at this time. documented in this encounter [facility] 01-15-2024 Telephone encounter Note The patient [...] Navigator intervention is needed at this time. [facility] 01-12-2024 Telephone encounter Note Spoke to patient and she is able to come today. Her 2nd infusion is also scheduled for Sunday 01/14 too. [place] notified. Hannah Yap RN [facility] 01-12-2024 Miscellaneous Notes Spoke to patient [...] Hannah Yap RN documented in this encounter [facility] 01-12-2024 Telephone encounter Note 39w5d Saw KJ yesterday and provider wanted iron infusions done poornima d/t being 39 weeks already. Buddy Del Cid could add on today at 2pm. Left detailed message on identified voicemail for patient to call back poornima to see if she is able to come in today. Will need to let Marietta know. Hannah Yap RN [facility] 01-11-2024 Progress note Formatting of t [...] reviewed, Kick counts reviewed. Amanda Venegas MD [facility] 01-11-2024 Miscellaneous Notes KJ - VB [...] Amanda Venegas MD documented in this encounter [facility] 01-11-2024 Instructions Tanvi Manzanares MA - 01/11/2024 9:55 AM EDT SEQUENTIAL SCREENINGS The [facility] offers sequential screenings for women who [...] It will require an appointment with our limited radiology technician. This is not an ultrasound performed [...] the above symptoms, contact our office at [phone] and ask to speak with a nurse. After hours, you can call doctors registry at [phone] OR call [facility] at [phone] and ask to have the doctor professional housing consultant paged. If you consider this an emergency, dial 9--1 or go to your nearest emergency department. NEED HELP? Are you dealing with a violent or abusive relationship? Are you a victim of rape or sexual assult? Call [facility] ([place]) 24 hour Crisis Hotline: 535.767.3369 or 949-304-3834. MANUAL Your Guide to a Healthy manual is now on-line. Visit [email or web address] ancyGuide to download your free copy documented in this encounter [facility] 01-08-2024 Telephone encounter Note Treatment plan signed and PA approved. Ready to schedule Venofer 200 mg IV x 3 doses [facility] 01-08-2024 Miscellaneous Notes Treatment plan signed and PA approved. Ready to schedule Venofer 200 mg IV x 3 doses documented in this encounter [facility] 01-05-2024 Note HNO ID: [id number] Author: HOLLY FLANAGAN MA Service: ? Author Type: Supervisor Inventory Merchandising Type: Progress Notes Filed: 01/05/2024 11:38 Note Text: POPULATION HEALTH NAVIGATION OUTREACH Action/FYI 3rd attempt- Called and updated OB/PEDS field. OB/PEDS Reason for Outreach Medicaid OB/Peds Care Gaps due: N/A Patient Contacted: Spoke to patient/parent/or legal guardian Patient identified by name and : Yes Medicaid OB/Peds actions taken: /Sales Representative added Navigation Signature: Holly Flanagan MA January 05, 2024 11:33 AM [facility] 01-03-2024 Progress note Formatting of [...] blood management last week Cesilia Frias MD [facility] 01-03-2024 Miscellaneous Notes S: Beth Vincent [...] Cesilia Frias MD documented in this encounter [facility] 01-03-2024 Note HNO ID: [id number] Author: PAOLA PETER RN Service: ? Author [...] provider for review and evaluation for treatment. [facility] 01-03-2024 History of Presen t [...] evaluation for treatment. documented in this encounter [facility] 01-03-2024 Instructions Elaine Cabral MA - 01/03/2024 10:48 AM EDT SEQUENTIAL SCREENINGS The [facility] offers sequential screenings for women who [...] It will require an appointment with our limited radiology technician. This is not an ultrasound performed [...] the above symptoms, contact our office at [phone] and ask to speak with a nurse. After hours, you can call doctors registry at [phone] OR call [facility] at [phone] and ask to have the doctor professional housing consultant paged. If you consider this an emergency, dial 9-1-0 or go to your nearest emergency department. NEED HELP? Are you dealing with a violent or abusive relationship? Are you a victim of rape or sexual assult? Call [facility] ([place]) 24 hour Crisis Hotline: 181.101.7336 or 972-929-4825. MANUAL Your Guide to a Healthy manual is now on-line. Visit [email or web address] ancyGuide to download your free copy documented in this encounter [facility] 01-01-2024 Note HNO ID: [id number] Author: HOLLY FLANAGAN MA Service: ? Author Type: Supervisor Inventory Merchandising Type: Progress Notes Filed: 01/01/2024 15:09 Note Text: POPULATION HEALTH NAVIGATION OUTREACH Action/RUFINA Called and spoke to patient and she states that she doesnt have a pediatrican picked out yet. Would like information sent to her via Danger. Agreed to have me contact her later this week. I also reset patient's password on Danger and patient understands that she needs to go in and change it. Servergy message sent per patient request. OB/PEDS Reason for Outreach Medicaid OB/Peds Care Gaps due: N/A Patient Contacted: Spoke to patient/parent/or legal guardian Patient identified by name and : Yes Medicaid OB/Peds actions taken: Patient declined: Patient requested call back / will call back (TouchFramet Sent) Navigation Signature: Holly Flanagan MA January 01, 2024 3:07 PM [facility] 01-01-2024 History of Presen t illness Narrative POPULATION HEALTH NAVIGATION OUTREACH Action/RUFINA Called and spoke to patient and she states that she doesnt have a pediatrican picked out yet. Would like information sent to her via Danger. Agreed to have me contact her later this week. I also reset patient's password on Danger and patient understands that she needs to go in and change it. Servergy message sent per patient request. OB/PEDS Reason for Outreach Medicaid OB/Peds Care Gaps due: N/A Patient Contacted: Spoke to patient/parent/or legal guardian Patient identified by name and : Yes Medicaid OB/Peds actions taken: Patient declined: Patient requested call back / will call back (VersionEyehart Sent) Navigation Signature: Holly Flanagan MA January 01, 2024 3:07 PM documented in this encounter [facility] 01-01-2024 Note Patient Outreach (NE TNAV) BETH VINCENT ([id number]) 1995 F Date Time Provider Department 01/01/24 HOLLY FLANAGAN During your visit today, we recorded the following information about you: Holly Flanagan MA 01/01/2024 3:09 PM Signed POPULATION HEALTH NAVIGATION OUTREACH Action/FYI Called and spoke to patient and she states that she doesnt have a pediatrican picked out yet. Would like information sent to her via Danger. Agreed to have me contact her later this week. I also reset patient's password on Danger and patient understands that she needs to go in and change it. Servergy message sent per patient request. OB/PEDS Reason [...] and : Yes Medicaid OB/Peds actions taken: /Sales Representative added Navigation Signature: Holly Flanagan MA January [...] Encounter Status:Closed by HOLLY FLANAGAN on 01/01/24 [facility] 12-28-2023 Progress note Formatting of t his note might be different from the original. SW- Pt transferred care from [facility] based on proximity to [facility]. She offers no complaints today. Reports [...] referral - Weekly visits Tommy Patel DO [facility] 12-28-2023 Miscellaneous Notes SW- Pt transferred care from [facility] based on proximity to [facility]. She offers no complaints today. Reports [...] Tommy Patel DO documented in this encounter [facility] 12-28-2023 Instructions Holly Pool MA - 12/28/2023 10:16 AM EDT SEQUENTIAL SCREENINGS The [facility] offers sequential screenings for women who [...] It will require an appointment with our limited radiology technician. This is not an ultrasound performed [...] the above symptoms, contact our office at [phone] and ask to speak with a nurse. After hours, you can call doctors registry at [phone] OR call [facility] at [phone] and ask to have the doctor professional housing consultant paged. If you consider this an emergency, dial 9--4 or go to your nearest emergency department. NEED HELP? Are you dealing with a violent or abusive relationship? Are you a victim of rape or sexual assult? Call [facility] ([place]) 24 hour Crisis Hotline: 679.924.2083 or 256-429-5411. MANUAL Your Guide to a Healthy manual is now on-line. Visit [email or web address]/HealthyPregn ancyGuide to download your free copy documented in this encounter [facility] 12-27-2023 Telephone encounter Note Patient called back and scheduled for tomorrow. Hannah Yap RN [facility] 12-27-2023 Miscellaneous Notes Patient called back and scheduled for tomorrow. Hannah Yap RN 37w3d Received email that patient is wanting to transfer care here for delivery from [facility]. Per RR we are able to schedule her this week or next. Left message for patient to call office. SW has multiple openings tomorrow. Use 20-30min for appt. Hannah Yap RN\ documented in this encounter [facility] 12-27-2023 Telephone encounter Note 37w3d Received email that patient is wanting to transfer care here for delivery from [facility]. Per RR we are able to schedule her this week or next. Left message for patient to call office. SW has multiple openings tomorrow. Use 20-30min for appt. Hananh Yap RN\ [facility] 12-22-2023 Nurse Note Venipuncture performed to right antecubital. Number of tubes collected: 1 gold and 2 lavender. Patient tolerated this well. Dr. Donovan Kennedy in office during venipuncture. Asmita Parker RN [facility] 12-22-2023 Nurse Note Venipuncture performed to right antecubital. Number of tubes collected: 1 gold and 2 lavender. Patient tolerated this well. Dr. Donovan Kennedy in office during venipuncture. Asmita Parker RN documented in this encounter [facility] 12-22-2023 Progress note Formatting of t his note might be different from the original. Labs/tests reviewed; questions answered. Looking well, no complaints, no LOF or vaginal bleeding Good movements Contractions: No The sensitive examination was discussed with the Patient or Patient's Authorized State Archivist. As applicable, any other physician, advance practice provider, medical student, or other health professional student that will be observing or involved in the sensitive examination for educational or training purposes was discussed with the Patient or Authorized State Archivist. The Patient or Authorized State Archivist has agreed to proceed with the sensitive [...] which included preparing to see the patient, eixl-ch-cbrw patient care, completing clinical documentation, obtaining and/or reviewing separately obtained history, performing a medically appropriate examination, counseling and educating the patient/family/caregiver, and ordering medications, tests, or procedures. BAA [facility] 12-22-2023 Miscellaneous Notes Labs/tests reviewed; questions answered. Looking well, no complaints, no LOF or vaginal bleeding Good movements Contractions: No The sensitive examination was discussed with the Patient or Patient's Authorized State Archivist. As applicable, any other physician, advance practice provider, medical student, or other health professional student that will be observing or involved in the sensitive examination for educational or training purposes was discussed with the Patient or Authorized State Archivist. The Patient or Authorized State Archivist has agreed to proceed with the sensitive [...] which included preparing to see the patient, dftj-dv-vkyz patient care, completing clinical documentation, obtaining and/or reviewing separately obtained history, performing a medically appropriate examination, counseling and educating the patient/family/caregiver, and ordering medications, tests, or procedures. BAA documented in this encounter [facility] 12-05-2023 Telephone encounter Note LM to have patient call in and reschedule her No Show. [facility] 12-05-2023 Miscellaneous Notes LM to have patient call in and reschedule her No Show. documented in this encounter [facility] 11-09-2023 Telephone encounter Note Left message to call office [facility] 11-09-2023 Miscellaneous Notes Left message to call office OK to schedule for 20-30 min ob appointment w/ a provider for transfer. 30w2d Patient is wanting to transfer OB care to our office from [facility]. Spoke with RR. Patient is aware that a physician needs to review her chart first. This is for all transfers in the 3rd trimester. Aware we will need to call her back. Cesilia Malloy RN documented in this encounter [facility] 11-08-2023 Telephone encounter Note OK to schedule for 20-30 min ob appointment w/ a provider for transfer. [facility] Work Phone: 11-07-2023 Telephone encounter Note 30w2d Patient is wanting to transfer OB care to our office from [facility]. Spoke with RR. Patient is aware that a physician needs to review her chart first. This is for all transfers in the 3rd trimester. Aware we will need to call her back. Cesilia Malloy RN [facility] 11-07-2023 Telephone encounter Note LM for patient to call and r/s No Show [facility] 11-07-2023 Miscellaneous Notes LM for patient to call and r/s No Show documented in this encounter [facility] 2023 Telephone encounter Note Unable to LM due to Full VM. Sent letter out to patient to Rescheduled No Show [facility] 2023 Miscellaneous Notes Unable to LM due to Full VM. Sent letter out to patient to Rescheduled No Show documented in this encounter [facility] 09-29-2023 Telephone encounter Note Tried calling patient. Unable to leave voicemail due to voicemail box being full. [facility] 09-29-2023 Miscellaneous Notes Tried calling patient. Unable to leave voicemail due to voicemail box being full. Please notify Beth that her blood count is low. I have sent an iron tablet to her pharmacy for her to start taking daily in addition to her PNV. Alana Obrien APRN.CNP documented in this encounter [facility] 09-29-2023 Telephone encounter Note Please notify Beth that her blood count is low. I have sent an iron tablet to her pharmacy for her to start taking daily in addition to her PNV. Alana Obrien APRN.CNP [facility] 09-27-2023 Nurse Note Venipuncture performed to left antecubital. Number of tubes collected: 2 gold and 1 lavender. Patient tolerated this well. Dr. Alexander in office during venipuncture. Jannie Blackburn RN September 27, 2023 11:44 AM [facility] 09-27-2023 Nurse Note Venipuncture performed to [...] Patient given 50g glucose drink-orange flavored. LOT#: [id number] Expiration date: 04/26/2025 Jannie Blackburn RN September 27, 2023 10:49 AM documented in this encounter [facility] 09-27-2023 Nurse Note Patient is a [...] health factors), Jet pamphlet, and information from [facility] healthy guide (third trimester of , [...] Blackburn RN September 27, 2023 11:30 AM [facility] 09-27-2023 Progress note Formatting of t [...] leaking fluid, rodríguez or for decreased movement. [facility] 09-27-2023 Miscellaneous Notes Returns today for [...] for decreased movement. documented in this encounter [facility] 09-27-2023 Nurse Note Patient given 50g glucose drink-orange flavored. LOT#: [id number] Expiration date: 04/26/2025 Jannie Blackburn RN September 27, 2023 10:49 AM [facility] 08-31-2023 Telephone encounter Note 1st risk assessment form submitted 08/31/2023 Asmita Parker RN [facility] 08-31-2023 Miscellaneous Notes 1st risk assessment form submitted 08/31/2023 Asmita Parker RN documented in this encounter [facility] 08-28-2023 Progress note Formatting of t [...] which included preparing to see the patient, drvd-kc-zwdy patient care, completing clinical documentation, obtaining and/or reviewing separately obtained history, performing a medically appropriate examination, counseling and educating the patient/family/caregiver, and ordering medications, tests, or procedures. [facility] 08-28-2023 Miscellaneous Notes Beth Vincent is [...] which included preparing to see the patient, emno-vd-vbsc patient care, completing clinical documentation, obtaining and/or reviewing separately obtained history, performing a medically appropriate examination, counseling and educating the patient/family/caregiver, and ordering medications, tests, or procedures. documented in this encounter [facility] 08-13-2023 Hospital Discharg e instructions Patient [...] Document Reviewed: 03/14/2014 ExitCare Patient Information 2015 [employer] Together Now. This information is not intended to replace [...] the smoke from others. You may use ccff-jtn-jwdnlhw acetaminophen or ibuprofen for fever, muscle aching, [...] body and be dangerous to your health. Cnej-uyy-ydxvfnw remedies won't shorten the length of the [...] or as directed by your healthcare provider [id number] The [employer]. [address] [place] [address], [place] [address]. All rights reserved. This information is not intended as a substitute for professional medical care. Always follow your healthcare professional's instructions. Follow Up Care 08/13/2023 11:21:49 With:Go to emergency room if symptoms worsen Address:Unknown When:2-4 days With:PHYSICIAN, NONE Address:Unknown When:2-4 days [facility] Yvette Cardozo 08-13-2023 Emergency department Discharge summary Discharge Instructions Thank you for allowing [facility] to assist you with your healthcare needs. The following is important discharge information regarding your hospital visit. Diagnosis from Today's Visit Bacteriuria Viral syndrome What to Do Next Instructions from Your Care Team Take acyclovir as prescribed for possible herpes. stay well-hydrated. Use mupirocin ointment over areas of the sores as this may be impetigo although not classic. Follow-up with your SUPERVISOR BACKFILLING. Return the emergency department if you experience [...] 03/13/2006 Document Revised: 02/27/2013 Document Reviewed: 03/14/2014 [facility] Patient Information 2015 [employer] Together Now. This information is not intended to replace [...] the smoke from others. You may use ncbr-kqh-ezygohr acetaminophen or ibuprofen for fever, muscle aching, [...] body and be dangerous to your health. Meii-hib-tcdxneo remedies won't shorten the length of the [...] or as directed by your healthcare provider [id number] The [employer]. [address] [place] [address]. All rights reserved. This information is not intended as a substitute for professional medical care. Always follow your healthcare professional's instructions. Additional Information VACCINATE! IT SAVES LIVES! Members of the community who have not yet received the COVID-19 vaccine and would like to receive it can visit one of [facility] vaccine clinics. There are many vaccine clinic locations within the [facility]. For locations and available times, please visit [email or web address] [email or web address] It is important to note that some COVID mobile vaccine clinics are held outdoors and may be canceled in rainy or stormy conditions. To learn more about pediatric vaccinations (ages 5-11), we invite you to visit the [facility] webpage. https://www.[email or web address].org/p ages/4036-Aojdw-Ufnymfinvhs-Freq aglthv-Mvsqq-Logkbxmet.html To learn more about the COVID-19 vaccine, we invite you to visit the CDC website for a list of frequently asked questions. https://www.cdc.gov/coronavirus/ 2019-ncov/vaccines/faq.html [facility] Patient Portal Access Instructions: Stay connected with your healthcare team and access your personal medical information anytime with the [facility] Patient Portal. If you would like a full copy of your medical records please contact the [facility] Medical Records Department Monday through Monday between 8a.m. and 4:30p.m. Please follow the directions below to access the portal: 1.Access the email account you provided upon registration to the hospital.2.Look for an invitation email from [facility].3.Open the email and access the invitation link: Accept Invitation to [facility]4.Fill in the required hughes to create your account. Sign into [email or web address] with your username and password that you [...] you will allow to register on the [facility] Patient Portal for access to your information. You can also access the [facility] Patient Portal on the Wand[employer] deborah. Simply click on Health Records under Health Data and then click on the Re5ult logo. HOW TO SAFELY DISPOSE OF PRESCRIPTION [...] Call your local pharmacy or go to http://Intelligent Fingerprinting.Nopsec/[email or web address] to find one close to you.3.Make use of household items: Use cat litter or old coffee grounds to dispose medications if other options are not available. Mix your drugs with these household products, seal them in an airtight container and throw it into the garbage. Call [facility]: [phone] to be sure your drugs can be [...] aware that I should contact my doctor. Patient/State Archivist Signature: Date/Time: Relationship to Patient: Witness Name/Signature: Date/Time: [facility] 08-09-2023 Telephone encounter Note RN spoke with [...] ER. Patient states understanding. Asmita Parker RN [facility] 08-09-2023 Miscellaneous Notes RN spoke with [...] for 08/28/2023. Thanks documented in this encounter [facility] 08-09-2023 Telephone encounter Note Pt is 17.3 wks and said that she had had a migraine for the last 3 days along with body aches that start from her skull to spine. She is not having any cramping/bleeding. Her next OB appointment is scheduled for 08/28/2023. Thanks [facility] 08-04-2023 Progress note Formatting of t [...] 305.1, ICD10: Z72.0 - Decreasing. Alana Obrien APRN.PORCELAIN FINISH SPRAYER Call and go to labor and delivery if bleeding, leaking fluid, rodríguez or for decreased movement. T [facility] 08-04-2023 Miscellaneous Notes Returns today for [...] 305.1, ICD10: Z72.0 - Decreasing. Alana Obrien APRN.PORCELAIN FINISH SPRAYER Call and go to labor and delivery if bleeding, leaking fluid, rodríguez or for decreased movement. documented in this encounter [facility] 07-07-2023 Miscellaneous Notes RN note reviewed and agree with recommendations. Alana Obrien APRN.PORCELAIN FINISH SPRAYER Patient called back, states last night she [...] keep stuff done. documented in this encounter [facility] 07-06-2023 Miscellaneous Notes Patient was informed - all questions answered Please notify Beth that her vaginal swab showed bacterial vaginosis. I have sent metronidazole to her pharmacy to take BID x7 days. Alana Obrien APRN.YOLANDA documented in this encounter [facility] 07-04-2023 Miscellaneous Notes ASSESSMENT/PLAN: 1. Supervision [...] was provided. The patient declines screening Reviewed [employer] program. Patient declines referral at this time. [...] and women though we do not have shelter data. It should be available to and [...] Alana Obrien APRN.CNP documented in this encounter [facility] 07-04-2023 Note HNO ID: [id number] Author: ALANA OBRIEN APRN.CNP Service: ? 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 Patient BMI over 30? 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 Patient BMI over 30? 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 The patient declines screening Reviewed [employer] program. Patient declines referral at this time. [...] and women though we do not have shelter data. It should be available to and women as in the non population, patients who do not wish to receive the vaccine should also be supported in that decision. [facility] and [facility] now recommending Covid vaccination in . [...] Alana Obrien APRN.CNP documented in this encounter [facility] 06-26-2023 Miscellaneous Notes Pt called stating she wanted to be squeezed in due to possible yeast inf. She is and has an appointment on 07/04/23. Per Claudia, she can do the Monistat 7 day. Patient understood. documented in this encounter [facility] 06-07-2023 Nurse Note Venipuncture performed to [...] Patient declines at this time. [facility]Med[facility] During sheet was discussed and given to patient. We discussed the Covid vaccine and how it appears to be safe and effective in and women though we do not have shelter data. It should be available to and [...] genetic disorders in . Patient given the [employer] financial estimate tear off form and instructed [...] Program, Directory of services for families in [facility], information about genetic testing, information about signing up for My Chart, and [facility]'s 'Your guide to a Healthy '. Patient was educated on the contents of this folder. Patient was asked if she would like a referral to [facility]. Referral was not completed per patient. Jannie Blackburn RN June 07, 2023 10:55 AM documented in this encounter [facility] 06-07-2023 Note HNO ID: [id number] Author: JORGE ALEXANDER MD Service: ? Author Type: Physician Type: Progress Notes Filed: 06/07/2023 10:33 Note Text: SUBJECTIVE: Beth Vinecnt is a 27 year old female here [...] - Complet (more content not included)... [facility] 06-07-2023 History of Presen t illness [...] MALLORIE Alexander MD documented in this encounter [facility] 02-16-2022 Hospital Discharg e instructions Patient [...] alternate ice and heat. You may use tztn-xmi-ghypikd pain medicine to control pain, unless another [...] numb, or tingly Pain or swelling increases [phone] The [employer]. [address] [place] [address], [place] [address]. All rights reserved. This information is not intended as a substitute for professional medical care. Always follow your healthcare professional's instructions. Follow Up Care 02/16/2022 13:12:14 With:MARIAN COWAN MD Address: [address] [place] [phone] When:2-4 days [facility] Yvettedavid Cardozo 02-16-2022 Emergency department Discharge summary [...] COWAN MD When Within 2-4 days Where: [address] [place] [phone] Allergies NKA Medications Please ask your primary [...] alternate ice and heat. You may use nnlc-njy-hlnkpea pain medicine to control pain, unless another [...] numb, or tingly Pain or swelling increases [phone] [employer]. [address] [place] [address]. All rights reserved. This information is not intended as a substitute for professional medical care. Always follow your healthcare professional's instructions. Additional Information VACCINATE! IT SAVES LIVES! Members of the community who have not yet received the COVID-19 vaccine and would like to receive it can visit one of [facility] vaccine clinics. There are many vaccine clinic locations within the [facility]. For locations and available times, please visit [email or web address]. It is important to note that some COVID mobile vaccine clinics are held outdoors and may be canceled in rainy or stormy conditions. To learn more about pediatric vaccinations (ages 5-11), we invite you to visit the [facility] webpage. https://www.[facility].org/p ages/0473-Ydgsu-Xvjmpclneff-Freq tvpmrt-Twotk-Ahncjwcrg.html To learn more about the COVID-19 vaccine, we invite you to visit the [facility] website for a list of frequently asked questions. [email or web address] [email or web address] [facility] Patient Portal Access Instructions: Stay connected with your healthcare team and access your personal medical information anytime with the [facility] Patient Portal. If you would like a full copy of your medical records please contact the [facility] Medical Records Department Monday through Monday between 8a.m. and 4:30p.m. Please follow the directions below to access the portal: 1.Access the email account you provided upon registration to the [facility].2.Look for an invitation email from [facility].3.Open the email and access the invitation link: Accept Invitation to [facility]4.Fill in the required hughes to create your account. Sign into [email or web address] with your username and password that you [...] you will allow to register on the [facility] Patient Portal for access to your information. You can also access the [facility] Patient Portal on the Wandrian deborah. Simply click on Health Records under [...] Call your local pharmacy or go to http://bit.Nopsec/6X8Zf3h to find one close to you.3.Make use of household items: Use cat litter or old coffee grounds to dispose medications if other options are not available. Mix your drugs with these household products, seal them in an airtight container and throw it into the garbage. Call [facility]: [phone] to be sure your drugs can be [...] aware that I should contact my doctor. Patient/State Archivist Signature: Date/Time: Relationship to Patient: Witness Name/Signature: Date/Time: [facility] 02-16-2022 Note ORIGINAL EXAMINATION: THREE XRAY VIEWS [...] Date: 02/16/2022 1:47:06 PM Ordering Provider: SHORTY [facility] 02-16-2022 Note ORIGINAL EXAMINATION: THREE XRAY VIEWS [...] 02/16/2022 1:47:06 PM Ordering Provider: SHORTY SILVA [facility] 12-13-2021 Hospital Discharg e instructions Patient Education [...] foods again, start with small amounts of uhof-bk-xrxezt, low-fat foods. These include apple sauce, toast, [...] increase stomach acid. Don't use aspirin or ndrp-fnt-lmephhj pain and fever medicines, if possible. This includes nonsteroidal anti-inflammatory drugs (NSAIDs). Lose excess weight. Finish eating at least 2 hours before you go to bed or lie down. Raise the head of your bed. [phone] [employer]. [address] [place] [address]. All rights reserved. This information is not intended as a substitute for professional medical care. Always follow your healthcare professional's instructions. Follow Up Care 12/13/2021 10:58:59 With:MARIAN COWAN MD Address: [address] [place] [phone] When:2-4 days With:MADELINE LASSITER MD Address: [address] [phone] [phone] When:2-4 days Comments:Gastroenterology [facility] 12-13-2021 Emergency department Discharge summary Discharge Instructions Thank you for allowing [facility] to assist you with your healthcare needs. The following is important discharge information regarding your hospital visit. Diagnosis from Today's Visit Abdominal pain What to Do Next Instructions from Your Care Team No qualifying data available. Post Acute Orders No qualifying data available. You Need to Schedule the Following Appointments Follow Up with MARIAN COWAN MD When Within 2-4 days Where: [address] [place] [phone] Follow Up with MADELINE LASSITER MD When Within 2-4 days Why: Gastroenterology Where: [address] [facility] [address] [place] [address]- [phone] Allergies NKA Medications Please ask your primary [...] foods again, start with small amounts of ilau-ou-uoiykb, low-fat foods. These include apple sauce, toast, [...] increase stomach acid. Don't use aspirin or mowy-fjg-hrsipxl pain and fever medicines, if possible. This includes nonsteroidal anti-inflammatory drugs (NSAIDs). Lose excess weight. Finish eating at least 2 hours before you go to bed or lie down. Raise the head of your bed. [phone] [employer]. [address] [place] [address], [place] [address]. All rights reserved. This information is not intended as a substitute for professional medical care. Always follow your healthcare professional's instructions. Additional Information VACCINATE! IT SAVES LIVES! Members of the community who have not yet received the COVID-19 vaccine and would like to receive it can visit one of [facility] vaccine clinics. There are many vaccine clinic locations within the [facility]. For locations and available times, please visit www.[email or web address] org. It is important to note that some COVID mobile vaccine clinics are held outdoors and may be canceled in rainy or stormy conditions. To learn more about pediatric vaccinations (ages 5-11), we invite you to visit the [facility] webpage. https://www.akronConvergins.org/p ages/5887-Dyuzw-Tzwwelvqfan-Freq axzftd-Hzbek-Mgrbskvkd.html To learn more about the COVID-19 vaccine, we invite you to visit the [facility] website for a list of frequently asked questions. [email or web address] [email or web address]/[email or web address]-I requently_[email or web address].pdf [facility] Patient Portal Access Instructions: Stay connected with your healthcare team and access your personal medical information anytime with the [facility] Patient Portal. If you would like a full copy of your medical records please contact the [facility] Medical Records Department Monday through Monday between 8a.m. and 4:30p.m. Please follow the directions below to access the portal: 1.Access the email account you provided upon registration to the hospital.2.Look for an invitation email from [facility].3.Open the email and access the invitation link: Accept Invitation to [facility]4.Fill in the required hughes to create your account. Sign into [email or web address] with your username and password that you [...] you will allow to register on the [facility] Patient Portal for access to your information. You can also access the [facility] Patient Portal on the Wandrian deborah. Simply click on Health Records under Health Data and then click on the Re[employer]ult logo. HOW TO SAFELY DISPOSE OF PRESCRIPTION [...] Call your local pharmacy or go to http://Intelligent Fingerprinting.Nopsec/5R4Qq9n to find one close to you.3.Make use of household items: Use cat litter or old coffee grounds to dispose medications if other options are not available. Mix your drugs with these household products, seal them in an airtight container and throw it into the garbage. Call [facility]: [phone] to be sure your drugs can be [...] aware that I should contact my doctor. Patient/State Archivist Signature: Date/Time: Relationship to Patient: Witness Name/Signature: Date/Time: [facility] 12-13-2021 Note ORIGINAL EXAMINATION: CT OF THE [...] 12/13/2021 1:03:03 PM Ordering Provider: ANDREARALF CORADO [facility] 12-13-2021 Note ORIGINAL EXAMINATION: CT OF THE [...] 12/13/2021 1:03:03 PM Ordering Provider: [facility] Evaluation + Plan note Diagnostic Tests PendingBlood Culture (bacterial) 01/23/21Blood Culture (bacterial) 01/23/21Lactic Acid 01/23/21C-Reactive Protein 01/23/21 [facility] Evaluation note Diagnosis Encounter for test, result positive- Primary examination or test, positive result Encounter for gynecological examination (general) (routine) without abnormal findings Current every day vaping Secondary oligomenorrhea Scanty or infrequent menstruation [facility] Encounter for test, result positive- Primary examination or test, positive result [facility] Diagnosis with uncertain dates in first trimester- Primary Encounter for test, result positive examination or test, positive result [facility] Diagnosis Supervision of high risk in third trimester- Primary Unspecified high-risk 12 weeks gestation of state, incidental Acute vaginitis Vaginitis and vulvovaginitis, unspecified Overweight Current every day nicotine vaping [facility] Diagnosis Bacterial vaginosis- Primary Vaginitis and vulvovaginitis, unspecified [facility]* Diagnosis Encounter for anatomic survey- Primary [facility] Diagnosis Supervision of high risk in third trimester- Primary Unspecified high-risk Heartburn during in second trimester 16 weeks gestation of state, incidental Overweight Current every day nicotine vaping [facility]* Diagnosis Supervision of high risk in second trimester- Primary Unspecified high-risk 20 weeks gestation of state, incidental Overweight Current every day nicotine vaping Heartburn during in second trimester [facility]* Diagnosis Current every day vaping- Primary 24 weeks gestation of state, incidental Supervision of high risk in first trimester Unspecified high-risk [facility]* Diagnosis 24 weeks gestation of - Primary state, incidental [facility] Diagnosis Anemia affecting in second trimester- Primary documented [facility]* Diagnosis Encounter for anatomic survey documented in this encounter [facility] note* Diagnosis Supervision of high risk in third trimester- Primary Unspecified high-risk documented in this encounter [facility] note* Diagnosis Anemia affecting in second trimester documented in this encounter [facility] note* Diagnosis Supervision of high risk in third trimester- Primary Unspecified high-risk 37 weeks gestation of state, incidental Anemia affecting in second trimester Current every day vaping documented in this encounter [facility] note* Diagnosis Anemia, unspecified type- Primary documented in this encounter [facility] note* Diagnosis Maternal iron deficiency anemia complicating , third trimester- Primary documented in this encounter [facility] note* Diagnosis Supervision of high risk in third trimester- Primary Unspecified high-risk 38 weeks gestation of state, incidental Anemia affecting in second trimester documented in this encounter [facility] note* Diagnosis 39 weeks gestation of - Primary state, incidental Supervision of high risk in third trimester Unspecified high-risk Anemia affecting in second trimester documented in this encounter [facility] note* Diagnosis Maternal iron deficiency anemia complicating , third trimester- Primary documented in this encounter [facility] note* Diagnosis Maternal iron deficiency anemia complicating , third trimester- Primary documented in this encounter [facility] note* Diagnosis Supervision of high risk in third trimester- Primary Unspecified high-risk Anemia affecting in third trimester 40 weeks gestation of state, incidental documented in this encounter [facility] course Narrative No data available for this section [facility] Hospital Discharge instructions No data available for this section [facility] Reason for referral (narrative)* Diagnostic Procedure Only (Routine) - Closed Specialty Diagnoses / Procedures Referred By Nestor t Referred To Contact [facility] Diagnoses Encounter for test, result positive Procedures OBSTETRIC ULTRASOUND WHI US PREG UTERUS AFTER 1ST TRIMEST GESTATION Jorge Alexander MD [address] [place] [address] [facility] [place] [address] [place] [address] Referral ID Status Reason Start Date Expiration Date V isits Requested Visits Authorized [id number] Closed Auto-Generate d Referral 06/07/2023 06/06/2024 1 0 [facility] for referral (narrative)* Diagnostic Procedure Only (Routine) - Pending Review Specialty Diagnoses / Procedures Referred By Contac t Referred To Contact [facility] Diagnoses Encounter for anatomic survey Procedures OBSTETRIC ULTRASOUND WHI US PREG UTERUS AFTER 1ST TRIMEST GESTATION Delmy Winston MD [address] [place] [address] [address] Referral ID Status Reason Start Date Expiration Date Visits Requested Visits Authorized [id number] Pending Review Auto-Generat ed Referral 07/08/2023 07/07/2024 1 1 [facility] for referral (narrative)* Diagnostic Procedure Only (Routine) - Closed Specialty Diagnoses / Procedures Referred By Contac t Referred To Contact [facility] Diagnoses Encounter for anatomic survey Procedures OBSTETRIC ULTRASOUND WHI US PREG UTERUS AFTER 1ST TRIMEST GESTATION Delmy Winston MD [address] [place] [address] [address] Referral ID Status Reason Start Date Expiration Date V isits Requested Visits Authorized [id number] Closed Auto-Generate d Referral 07/08/2023 07/07/2024 1 1 [facility] Advance Directives Advance Directive Response Recorded [...] MACHADO Name: MADELINE VINCENT Address: [address] [place] [address] Care Team Related Persons Name: VAN BECK Address: Home [place] Name: GUILLE MACHADO Name: MADELINE VINCENT Address: Home [address] [place] [address] INFORMATION SOURCE (unrecogn ized section and content) DATE CREATED AUTHOR 01/27/2022 [facility] DATE CREATED AUTHOR AUTHOR'S ORGANIZ ATION 06/16/2022 [facility] DATE CREATED AUTHOR AUTHOR'S ORGANIZ ATION 08/21/2023 [facility] DATE CREATED AUTHOR AUTHOR'S ORGANIZ ATION 12/24/2023 [facility] DATE CREATED AUTHOR AUTHOR'S ORGANIZ ATION 01/16/2024 [facility] Source Comments (unrecognize d section and content) In the event this informatio n is protected by the Federal Confidentiality of Alcohol and Drug Abuse Patient Records regulations: The Federal rules restrict any use of the information to criminally investigate or prosecute any alcohol or drug abuse [facility] the event this information is protected by the Federal Confidentiality of Alcohol and Drug Abuse Patient Records regulations: The Federal rules restrict any use of the information to criminally investigate or prosecute any alcohol or drug abuse patient.[facility] the event this information is protected by the Federal Confidentiality of Alcohol and Drug Abuse Patient Records regulations: The Federal rules restrict any use of the information to criminally investigate or prosecute any alcohol or drug abuse patient.[facility] the event this information is protected by the Federal Confidentiality of Alcohol and Drug Abuse Patient Records regulations: The Federal rules restrict any use of the information to criminally investigate or prosecute any alcohol or drug abuse patient.[facility] the event this information is protected by the Federal Confidentiality of Alcohol and Drug Abuse Patient Records regulations: The Federal rules restrict any use of the information to criminally investigate or prosecute any alcohol or drug abuse patient.[facility] Hospital[facility] the event this information is protected [...] or prosecute any alcohol or drug abuse patient.[facility] the event this information is protected by the Federal Confidentiality of Alcohol and Drug Abuse Patient Records regulations: The Federal rules restrict any use of the information to criminally investigate or prosecute any alcohol or drug abuse patient.[facility] the event this information is protected by the Federal Confidentiality of Alcohol and Drug Abuse Patient Records regulations: The Federal rules restrict any use of the information to criminally investigate or prosecute any alcohol or drug abuse patient.[facility] the event this information is protected by the Federal Confidentiality of Alcohol and Drug Abuse Patient Records regulations: The Federal rules restrict any use of the information to criminally investigate or prosecute any alcohol or drug abuse patient.[facility] Hospital[facility] the event this information is protected by the Federal Confidentiality of Alcohol and Drug Abuse Patient Records regulations: The Federal rules restrict any use of the information to criminally investigate or prosecute any alcohol or drug abuse patient.[facility] the event this information is protected by the Federal Confidentiality of Alcohol and Drug Abuse Patient Records regulations: The Federal rules restrict any use of the information to criminally investigate or prosecute any alcohol or drug abuse patient.[facility] Hospital[facility] the event this information is protected by the Federal Confidentiality of Alcohol and Drug Abuse Patient Records regulations: The Federal rules restrict any use of the information to criminally investigate or prosecute any alcohol or drug abuse patient.[facility] Hospital[facility] the event this information is protected by the Federal Confidentiality of Alcohol and Drug Abuse Patient Records regulations: The Federal rules restrict any use of the information to criminally investigate or prosecute any alcohol or drug abuse patient.[facility] Hospital[facility] the event this information is protected by the Federal Confidentiality of Alcohol and Drug Abuse Patient Records regulations: The Federal rules restrict any use of the information to criminally investigate or prosecute any alcohol or drug abuse patient.[facility] Hospital[facility] the event this information is protected by the Federal Confidentiality of Alcohol and Drug Abuse Patient Records regulations: The Federal rules restrict any use of the information to criminally investigate or prosecute any alcohol or drug abuse patient.[facility] Hospital[facility] the event this information is protected by the Federal Confidentiality of Alcohol and Drug Abuse Patient Records regulations: The Federal rules restrict any use of the information to criminally investigate or prosecute any alcohol or drug abuse patient.[facility] HospitalIn the event this information is protected by the Federal Confidentiality of Alcohol and Drug Abuse Patient Records regulations: The Federal rules restrict any use of the information to criminally investigate or prosecute any alcohol or drug abuse patient.[facility] HospitalIn the event this information is protected by the Federal Confidentiality of Alcohol and Drug Abuse Patient Records regulations: The Federal rules restrict any use of the information to criminally investigate or prosecute any alcohol or drug abuse patient.[facility] HospitalIn the event this information is protected by the Federal Confidentiality of Alcohol and Drug Abuse Patient Records regulations: The Federal rules restrict any use of the information to criminally investigate or prosecute any alcohol or drug abuse patient.[facility] HospitalIn the event this information is protected by the Federal Confidentiality of Alcohol and Drug Abuse Patient Records regulations: The Federal rules restrict any use of the information to criminally investigate or prosecute any alcohol or drug abuse patient.[facility] HospitalIn the event this information is protected by the Federal Confidentiality of Alcohol and Drug Abuse Patient Records regulations: The Federal rules restrict any use of the information to criminally investigate or prosecute any alcohol or drug abuse patient.[facility] HospitalIn the event this information is protected by the Federal Confidentiality of Alcohol and Drug Abuse Patient Records regulations: The Federal rules restrict any use of the information to criminally investigate or prosecute any alcohol or drug abuse patient.[facility] HospitalIn the event this information is protected by the Federal Confidentiality of Alcohol and Drug Abuse Patient Records regulations: The Federal rules restrict any use of the information to criminally investigate or prosecute any alcohol or drug abuse patient.[facility] HospitalIn the event this information is protected by the Federal Confidentiality of Alcohol and Drug Abuse Patient Records regulations: The Federal rules restrict any use of the information to criminally investigate or prosecute any alcohol or drug abuse patient.[facility] HospitalIn the event this information is protected by the Federal Confidentiality of Alcohol and Drug Abuse Patient Records regulations: The Federal rules restrict any use of the information to criminally investigate or prosecute any alcohol or drug abuse patient.[facility] HospitalIn the event this information is protected by the Federal Confidentiality of Alcohol and Drug Abuse Patient Records regulations: The Federal rules restrict any use of the information to criminally investigate or prosecute any alcohol or drug abuse patient.[facility] HospitalIn the event this information is protected by the Federal Confidentiality of Alcohol and Drug Abuse Patient Records regulations: The Federal rules restrict any use of the information to criminally investigate or prosecute any alcohol or drug abuse patient.[facility] HospitalIn the event this information is protected by the Federal Confidentiality of Alcohol and Drug Abuse Patient Records regulations: The Federal rules restrict any use of the information to criminally investigate or prosecute any alcohol or drug abuse patient.[facility] HospitalIn the event this information is protected by the Federal Confidentiality of Alcohol and Drug Abuse Patient Records regulations: The Federal rules restrict any use of the information to criminally investigate or prosecute any alcohol or drug abuse patient.[facility] HospitalIn the event this information is protected by the Federal Confidentiality of Alcohol and Drug Abuse Patient Records regulations: The Federal rules restrict any use of the information to criminally investigate or prosecute any alcohol or drug abuse patient.[facility] HospitalIn the event this information is protected by the Federal Confidentiality of Alcohol and Drug Abuse Patient Records regulations: The Federal rules restrict any use of the information to criminally investigate or prosecute any alcohol or drug abuse patient.[facility] HospitalIn the event this information is protected by the Federal Confidentiality of Alcohol and Drug Abuse Patient Records regulations: The Federal rules restrict any use of the information to criminally investigate or prosecute any alcohol or drug abuse patient.[facility] HospitalIn the event this information is protected by the Federal Confidentiality of Alcohol and Drug Abuse Patient Records regulations: The Federal rules restrict any use of the information to criminally investigate or prosecute any alcohol or drug abuse patient.[facility] HospitalIn the event this information is protected by the Federal Confidentiality of Alcohol and Drug Abuse Patient Records regulations: The Federal rules restrict any use of the information to criminally investigate or prosecute any alcohol or drug abuse patient.[facility] HospitalIn the event this information is protected by the Federal Confidentiality of Alcohol and Drug Abuse Patient Records regulations: The Federal rules restrict any use of the information to criminally investigate or prosecute any alcohol or drug abuse patient.[facility] HospitalIn the event this information is protected by the Federal Confidentiality of Alcohol and Drug Abuse Patient Records regulations: The Federal rules restrict any use of the information to criminally investigate or prosecute any alcohol or drug abuse patient.[facility] Reason for Visit (unrecogniz ed section and content) 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 New ob lmp 04/12/2023 Reason Comments Phlebotomy Education Reason Comments US Specialty Diagnoses / Procedures Referred By Contac t Referred To Contact [facility] Diagnoses Encounter for test, result positive Procedures OBSTETRIC ULTRASOUND WHI US PREG UTERUS AFTER 1ST TRIMEST GESTATION Jorge Alexander MD [address] [place] [address] [address] Referral ID Status Reason Start Date Expiration Date V isits Requested Visits Authorized [id number] Closed Auto-Generate d Referral 06/07/2023 06/06/2024 1 [...] Patient Update Reason Comments Care 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 Reason Comments Appointment Reason Comments Transfer of Care Reason Comments US Specialty Diagnoses / Procedures Referred By Contac t Referred To Contact [facility] Diagnoses Encounter for anatomic survey Procedures OBSTETRIC ULTRASOUND WHI US PREG UTERUS AFTER 1ST TRIMEST GESTATION Delmy Winston MD [address] [place] [address] [address] Referral ID Status Reason Start Date Expiration Date V isits Requested Visits Authorized [id number] Closed Auto-Generate d Referral 07/08/2023 07/07/2024 1 [...] Ria Street APRN.CNM [address] [place] [address] [facility] [address] [place] [address] Referral ID Status Reason Start Date Expiration Date V isits Requested Visits Authorized [id number] Authorized 01/04/2024 07/02/2024 3 3 Reason Comments Benefits Investigation Reason Onset Date Comments Care 01/17/2024 Patient Care team informatio n (unrecognized section and content) Care Team Personnel Name: PHYSICIAN, NONE Position: Physician Member Role: Primary Care Physician Care Team Related Persons Name: VAN BECK Address: Home [place] Name: GUILLE MACHADO Name: MADELINE VINCENT Dolores Address: Home [address] [place] [address] FOR RECORDS PERTAINING TO PATIENTS WHO ARE [...] BE BASED ON THE PRIMARY CLINICAL RECORDS. [employer] provides no warranty or guarantee of the accuracy or completeness of information in this document.
[2024-01-18] MEDS: 0.9% Saline Lock 10 ML Syringe IV (01:35)
[2024-01-18] MEDS: LACTATED RINGERS 500 ML 999 ML IV (02:09)
[2024-01-18 02:13] LABS: Absolute Lymphocyte Count 1.89 X10^3/uL (0.83-4.51); Absolute Neutrophil Count 12.6 X10^3/uL (2.0-7.7); Basophil# 0.08 X10^3/uL; Basophil% 0.5 % (0-1); Eosinophil# 0.12 X10^3/uL; Eosinophils% 0.8 % (0-5); Hematocrit 33.1 % (37-47); Hemoglobin 9.6 g/dL (12.0-15.0); Lymphocyte # 1.89 X10^3/ul (0.83-4.51); Lymphocyte % 11.8 % (19-41); Mean Corpuscular Hgb 20.6 pg (27.0-32.0); Mean Platelet Vol. 11.2 fl (6.2-12.0); Monocyte% 6.3 % (0-10); NRBC Flagged by Analyzer 0.3 % (0-5); Neutrophil # 12.61 X10^3/uL (2.7-7.7); Neutrophil % 78.7 % (47-70); POSITIVE MORPHOLOGY YES; Platelet Count 256 K/mm3 (150-450); RBC Distribution Width CV 21.5 % (11.6-14.6); RBC Distribution Width SD 40.9 fl (35.1-43.9); Red Blood Count 4.66 M/mm3 (4.2-5.4)
[2024-01-18 02:59] LABS: Differential Indicated SCAN CRITERIA MET
[2024-01-18 03:00] LABS: Differential Comment SCANNED
[2024-01-18 03:01] LABS: Syphilis Antibodies Non-reactive
[2024-01-18] MEDS: Acetaminophen 500 MG Tablet PO (05:41)
--- NOTE | 2024-01-18 07:01 | PCM.HP.OB ---
HPI - General General Date of Admission: 01/18/24 Date of Service: 01/18/24 Chief Complaint: contractions HPI Narrative GWYN ZAVALA, is a 28 F who presents with increasing painful contractions. Scheduled for induction later today. Desires a Tub if able Maternal Data Information NATALIE Calculator Estimated Delivery Date Method Current WG Current Estimate 01/14/24 Manual 40w 4d Final NATALIE: 01/14/24 PFSH PFSH Home Medications ?Medication ?Instructions ?Recorded ?Last Taken ?Type vit no.95-ferrous 1 tab PO DAILY 01/09/24 01/17/24 History fumarate 28 mg-folic acid 800 mcg tablet () Allergy/AdvReac Type Severity Reaction Status Date / Time No Known Allergies Allergy Verified 01/18/24 00:53 Surgical History History of surgery Social History Smoking Status: Current every day smoker History 3 Elective abortions Hx Para 1 Spontaneous abortions Hx # Term Pregnancies Ectopic pregnancies Hx # Pregnancies Multiple births # of living children ROS Constitutional Constitutional: Denies fatigue, fever(s) or malaise Eyes Eyes: Denies change in vision ENT HEENT: Denies dizziness or headache(s) Cardiovascular Cardiovascular: Denies chest pain, dyspnea or lightheadedness Respiratory/Chest Respiratory/Chest: Denies cough or dyspnea Gastrointestinal Gastrointestinal: Denies change in bowel habits Genitourinary Genitourinary: Denies burning urination or genital lesions Integumentary Integumentary: Denies rash Neurologic Neurologic: Denies confusion, dizziness, headache(s), numbness or weakness Vital Signs Vital Signs Vital Signs: 01/18/24 01:03 01/18/24 01:03 01/18/24 01:03 Temperature Temperature Source Temporal Pulse Rate 103 H Respiratory Rate Blood Pressure 121/84 H BP Systolic 121 BP Diastolic 84 Pulse Ox 01/18/24 01:03 01/18/24 01:03 01/18/24 01:04 Temperature 98.3 F Temperature Source Pulse Rate 108 H Respiratory Rate 14 Blood Pressure BP Systolic BP Diastolic Pulse Ox 01/18/24 01:04 01/18/24 01:09 01/18/24 01:09 Temperature Temperature Source Pulse Rate 100 Respiratory Rate Blood Pressure BP Systolic BP Diastolic Pulse Ox 99 99 01/18/24 01:23 01/18/24 01:23 01/18/24 01:28 Temperature Temperature Source Pulse Rate 98 97 Respiratory Rate Blood Pressure BP Systolic BP Diastolic Pulse Ox 98 01/18/24 01:28 01/18/24 02:11 01/18/24 02:15 Temperature Temperature Source Pulse Rate 96 118 H Respiratory Rate Blood Pressure BP Systolic BP Diastolic Pulse Ox 98 01/18/24 02:15 01/18/24 02:20 01/18/24 02:20 Temperature Temperature Source Pulse Rate 115 H Respiratory Rate Blood Pressure BP Systolic BP Diastolic Pulse Ox 100 100 01/18/24 02:25 01/18/24 02:25 01/18/24 02:30 Temperature Temperature Source Pulse Rate 104 H 102 H Respiratory Rate Blood Pressure BP Systolic BP Diastolic Pulse Ox 100 01/18/24 02:30 01/18/24 03:24 01/18/24 03:24 Temperature Temperature Source Pulse Rate 127 H Respiratory Rate Blood Pressure BP Systolic BP Diastolic Pulse Ox 100 98 01/18/24 03:24 01/18/24 03:24 01/18/24 03:25 Temperature Temperature Source Temporal Pulse Rate 96 Respiratory Rate Blood Pressure 133/74 H BP Systolic 133 BP Diastolic 74 Pulse Ox 01/18/24 03:25 01/18/24 03:25 01/18/24 04:32 Temperature 98.1 F Temperature Source Pulse Rate Respiratory Rate 16 Blood Pressure 126/66 H BP Systolic 126 BP Diastolic 66 Pulse Ox 01/18/24 04:32 01/18/24 04:32 01/18/24 04:32 Temperature Temperature Source Temporal Pulse Rate 96 Respiratory Rate 16 Blood Pressure BP Systolic BP Diastolic Pulse Ox 01/18/24 04:32 01/18/24 05:37 01/18/24 05:37 Temperature 98.1 F Temperature Source Temporal Pulse Rate Respiratory Rate 16 Blood Pressure BP Systolic BP Diastolic Pulse Ox 01/18/24 05:37 01/18/24 05:38 01/18/24 05:38 Temperature 98.1 F Temperature Source Pulse Rate 105 H Respiratory Rate Blood Pressure 122/68 H BP Systolic 122 BP Diastolic 68 Pulse Ox 01/18/24 05:38 Temperature Temperature Source Pulse Rate Respiratory Rate Blood Pressure BP Systolic BP Diastolic Pulse Ox 100 Weight Weight: 82.1 kg Body Mass Index (BMI) 33.0 Physical Exam Const alert and no apparent distress General Appearance: cooperative HEENT normocephalic Resp normal respiratory effort GI soft to palpation GI Narrative: gravid, nontender, appropriate for gestational age Extremity no calf tenderness General Extremity: edema Skin no wounds Rashes: No rashes noted Psych activity/motor behavior normal Labs Labs Labs: Blood Type A POSITIVE Antibody Screen NEGATIVE Hct 33.1 % (37-47) L Hgb 9.6 g/dL (12.0-15.0) L Syphilis Total Ab Non-reactive Assessment & Plan (1) 40 weeks gestation of : (2) Normal labor: PLAN: Plan GBS negative Plans tub
--- NOTE | 2024-01-18 08:42 | PN.OBGYN_ITS ---
Subjective Subjective Patient seen at bedside. Breathing through contractions. Declining pain medication interventions at this time. Patient is in and out of tub. IA Objective Data Objective Data Vital Signs: Vital Signs Temp Pulse Resp BP Pulse Ox 97.9 F 118 H 18 143/85 H 100 01/18/24 07:27 01/18/24 08:40 01/18/24 07:27 01/18/24 08:40 01/18/24 07:26 Weight: 181 lb Body Mass Index (BMI) 33.0 Intake & Output: Intake and Output for Last 24 Hours 01/16/24 01/17/24 01/18/24 23:59 23:59 23:59 Intake Total 500 / 500 Balance 500 / 500 Lab / Micro Data 01/18/24 01:35 Labs: Laboratory Results - last 24 hr 01/18/24 01:35: WBC 16.0 H, RBC 4.66, Hgb 9.6 L, Hct 33.1 L, MCV 71.0 L, MCH 20.6 L, MCHC 29.0 L, RDW Std Deviation 40.9, RDW Coeff of Mario 21.5 H, Plt Count 256, MPV 11.2, Immature Gran % (Auto) 1.900 H, Neut % (Auto) 78.7 H, Lymph % (Auto) 11.8 L, [place] % (Auto) 6.3, Eos % (Auto) 0.8, Baso % (Auto) 0.5, Absolute Neuts (auto) 12.6 H, Absolute Lymphs (auto) 1.89, Nucleated RBC % 0.3, Differential Comment SCANNED, Syphilis Total Ab Non-reactive, Blood Type A POSITIVE, Antibody Screen NEGATIVE Assessment & Plan (1) Normal labor: (2) 40 weeks gestation of : (3) Anemia affecting : PLAN: Plan CE /-1 Continue present plan of care Patient declining augmentation with pitocin at this time Anticipate Vianey Lombardi on unit
[2024-01-18] MEDS: Oxytocin 10 UNITS/ML Vial IM (13:19)
--- NOTE | 2024-01-18 13:31 | OB.VAGDELI_ITS ---
Assessment & Plan (1) 40 weeks gestation of : (2) Normal labor: (3) (spontaneous vaginal delivery): Maternal Data Information NATALIE Calculator Estimated Delivery Date Method Current WG Current Estimate 01/14/24 Manual 40w 4d Final NATALIE: 01/14/24 Gestational age: 40 4/7 Vaginal Delivery Maternal Presentation Maternal Presentation: Active Labor Vaginal Delivery Information Procedure Performed: Spontaneous Vaginal Delivery Surgeon/Practitioner: Jeannie Lombardi Date of Procedure: 01/18/24 Pre-Procedure Diagnosis: labor Post-Procedure Diagnosis: same Type of anesthesia: None Special Medications: none Estimated Blood Loss: 200 Fluids Replaced: 0 Time of Delivery: 13:18 Findings Description of procedure: A vigorous male was delivered TRAVIS over an intact perineum. A loose nu chal cord ?1 was easily reduced. The remainder the infant was delivered with maternal pushing and gentle traction only in less than 15 seconds. The Pitocin infusion was initiated for active management of the third stage. The cord was clamped and cut after cord pulsations ceased. The infant was attended to by the waiting nursing staff. The placenta was delivered spontaneously and intact. The cervix and vagina were intact. Sponge and needle counts were correct. A vaginal sweep was completed by me. 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
[2024-01-18] MEDS: Benzocaine/Lanolin/Aloe Vera 85 GM Spray 1 SPRAY TOPICAL (16:46)
[2024-01-19 00:24] VITALS: BP 120/69; PULSE 104; RESP 14; TEMP 36.4; O2SAT 95
[2024-01-19] MEDS: Ibuprofen 600 MG Tablet PO (04:39)
[2024-01-19 04:44] VITALS: BP 111/68; PULSE 94; RESP 14; TEMP 36.4; O2SAT 98
--- NOTE | 2024-01-19 07:09 | DS.PCM_ITS ---
Providers Date of Admission: 01/18/24 Primary Care Physician: No Primary Care Phys Reason For Visit: vaginal delivery Diagnosis Discharge Diagnosis (1) 40 weeks gestation of : Status: Acute Code(s): Z3A.40 - 40 weeks gestation of (2) Normal labor: Status: Acute Code(s): O80 - Encounter for full-term uncomplicated delivery; Z37.9 - Outcome of delivery, unspecified (3) (spontaneous vaginal delivery): Status: Acute Code(s): O80 - Encounter for full-term uncomplicated delivery Medications at Discharge Home Medications vit no.95-ferrous fumarate 28 mg-folic acid 800 mcg tablet () 1 tab PO DAILY 01/09/24 ibuprofen 600 mg tablet 600 mg PO Q6H PRN PRN Pain Score 1-10 #0 tabs 01/19/24 Hospital Course Operations None Procedures None Summary of Care Provided Minutes Spent on Discharge: 15 Hospital Course: Patient had vaginal delivery. Hospital course was uneventful. Physical Exam Narrative Patient seen at bedside. Denies pain. Ambulating and voiding without difficulty. Lochia decreased. Desires discharge home today. Const alert and oriented x3 General Appearance: Negative for in distress HEENT normocephalic Eyes General Eye: normal appearance of both eyes Neck General: normal visual inspection Chest Chest: symmetrical chest wall rise Resp normal respiratory effort and normal air movement Effort and Inspection: symmetric chest movement; Negative for tachypneic Auscultation: clear to auscultation bilaterally Cardio regular rate and regular rhythm Peripheral Pulses: pulses 2+ throughout GI normal to inspection, nondistended, normoactive bowel sounds Narrative: Ice to perineum OB / External & Speculum: vaginal bleeding and other Lochia decreasing Uterus Palpation: uterus fundus firm (Below U) Extremity normal to inspection, full ROM and normal capillary refill Skin no rashes or lesions noted Neuro oriented x3, CN's II-XII intact bilaterally and gait normal Psych mental status grossly normal, thought process normal and activity/motor behavior normal Weight / BMI Weight Weight: 181 lb Body Mass Index (BMI) 33.0 ABG / Lab / Microbiology Data 01/18/24 01:35 D/C Instructions Discharge Diet: No restrictions Discharge Activity: Return to Normal Activity, No Restrictions, May Drive, May Shower and May Take a Tub Bath (Warm water only. No bath salts, soaps, bubbles) May resume sexual activity in: 6-8 weeks Weight Bearing Status: Weight bearing as tolerated Call your doctor if you observe: Fever of 101 or Higher, Inability to urinate, Using more than 1 pad per hour, Shortness of breath, Dizziness, Chest pain, Calf discomfort and Uncontrolled pain Please Follow Up With: [facility] Cyndie BOWDEN When: 2 weeks in office or virtual Meaningful Use Info Meaningful Use Meaningful Use Diagnoses (Choose all that apply): None applicable Ischemic Stroke Statin Dosing Therapy Reference: STATIN DOSE THERAPY REFERENCE: * Patients > 75 years receive moderate or high dose statin therapy. * Patients 75 years or YOUNGER should receive HIGH intensity statin dose unless contraindicated. You will be required to document reason for non-treatment if statin daily dose does not meet guidelines. HIGH DOSE STATIN THERAPY DAILY Atorvastatin > than or = to 40 mg Rosuvastatin > than or = to 20 mg Amlodipine + Atorvastatin > than or = to 2.5/40 mg Ezetimibe + Simvastatin 10/80 mg Simvastatin 80mg Discharge Plan Admission Admit Date/Time: 01/18/24 01:15 Primary Reason for Your Visit: Labor and Delivery Attending Provider: Jeannie Lombardi Primary Care Provider: Care Physician,No Primary Discharge Orders/Prescriptions Prescriptions: New ibuprofen 600 mg Tablet 600 mg PO Q6H PRN PRN (Reason: Pain Score 1-10) Qty: 0 0RF Continued PNV cmb#95-ferrous fumarate-FA [] 28 mg iron- 800 mcg tablet 1 tab PO DAILY Referrals / Follow Up: Care Physician,No Primary [Primary Care Provider] - Disposition Disposition (needs filled in before D/C Order can be placed): Home, Self Care
[2024-01-19 07:30] VITALS: BP 111/71; PULSE 74; RESP 14; TEMP 36.4; O2SAT 98
--- NOTE | 2024-01-19 12:04 | CASEMGMT ---
Social Work Assessment Labor and Delivery Unit Patient Address: [address] [place] [address] Phone number: [phone] Date of Referral:01/18/24 Time of Referral:? 020 Referred By: Dr. Frias Date of Intervention: ??01/19/24 Time of Intervention:? 1129 Reason for Referral:? considers a parent to be an alcoholic Sw completed chart review and acknowledges social work consult. Sw presented to bedside and introduced self to mother of baby (HAKAN- Beth). Sw explained reason for involvement and completed psychosocial assessment. History obtained from: medical records and mother of baby (HAKAN)??? Household composition: Currently residing in the family home is MOB, father of baby (FOB- Nehemias), MOB's 5 year old son- Rodriguez, and baby to be added to residence when ready for discharge. MOB denies any issues or concerns with housing. Patient's parent/guardian status:?MOB states that she and FOB met on a dating website and have been together for 1.5 years. This is first baby for FOB and first baby for parents together. MOB denies any concerns with domestic violence and intimate partner violence. ? Medical History: ?HAKAN is 28 year old female who is 3, para 1- now 2 following labor and delivery. MOB received routine care during with [facility]. HAKAN presented to hospital for scheduled induction of labor. HAKAN delivered baby at 40 weeks gestation via vaginal delivery on 01/18/24. Baby boy, named Jairo Salamanca, was born weighing 8lb and 12oz. MOB reports that she is breast feeding and it is going well. Baby will be followed by Dr. Subramanian for pediatrics. Educational Status:? Both parents graduated from high school. MOB reports to attending some college but did not obtain a degree. No concerns with reading, learning or comprehension. 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 MOB states that she is a stay at home mom. Supplies: Parents have obtained all necessary baby supplies, including: car seat, safe sleep space, clothes, diapers and wipes. Childcare/Caregiver(s):? MOB will be the primary caregiver to baby along with FOB when he is not working. Transportation:?? Both parents have their drivers license and reliable means of transportation. MOB states that they only have one vehicle right now, but because she is not working it has not been an inconvenience. Programs/Agencies Involved: ???HAKAN denies being connected to any community agencies that assist them financially at this time. Children Services/Legal Issues:??? No prior involvement with children services, no issues or concerns warranting referral to be made at this time. Behavioral Health Issues: ??Mental Health History:??MOB states that she had anxiety as a child but is not longer something that she struggles with. MOB states that her mom 17 years ago, and she was raised for a short period of time by her father. MOB states that she was removed from her dad's care and placed with her cousin who she was with until she turned 19. MOB states that during that time in her life she was connected to resources, including several mental health agencies, but she did not find their involvement to be helpful. MOB states that MAGDA does not have any mental health diagnoses. Sw brainstormed with HAKAN healthy and safe coping mechanisms to utilize if she ever feels like she is struggling with her mental health. MOB states that she enjoys spending time outside, and knows how to manage her anxiety if she were to struggle, however she reports she has not had any issues for several years. ? Substance Use History:??MOB denies substance use prior to and during . Family History:??MOB states that her father is an alcoholic and is in a shelter due to alcohol induced dementia. MOB states that MAGDA also recognizes that his mom is a drug addict. MOB states that paternal grandma will not be a childcare provider. ??? Drug Screens: No drug screens observed in chart review. Family/Social Stressors:?MOB denies any issues, concerns or stressors at this time. Support Systems: MOB identifies that MAGDA, and her best friend are her biggest supports at this time. Depression/Shaken Baby/Safe Sleeping: Sw reviewed signs and symptoms of baby blues and mood and anxiety disorders to be mindful of during this period. MOB states that if she were to struggle, MAGDA would be able to recognize that and would know how to help and support her. Sw educated MOB on shaken baby prevention and ABCs of safe sleep. MOB expressed understanding. ASSESSMENT:? MOB and baby admitted following labor and delivery of . MOB with supports in place and does not have history of depression/ anxiety and is mindful of what to be on the lookout for. MOB reports to obtaining all necessary baby supplies and has natural supports in place. MOB also mindful to utilize healthy coping mechanisms opposed to seeking comfort from drugs or alcohol during this period. MOB states that she is aware of her genetic disposition and does not do drugs or drink. MOB was observed to be holding baby in loving and appropriate manner. PLAN:?? No other services requested or indicated. MOB and baby to be discharged when medically ready. Parents were provided literature regarding: signs and symptoms of baby blues and mood and anxiety disorders, Help Me Grow, shaken baby prevention, ABCs of safe sleep and a list of county resources that are available for them should any needs present themselves. Amisha Dominguez, DYER AND WASHER, PASSENGER SOLICITOR
[2024-01-19 14:29] VITALS: BP 113/72; PULSE 95; RESP 16; TEMP 36.1; O2SAT 98
== END 2024-01-19 16:10 | disposition home or self-care (01) | DRG 560 ==
LOC: WPOUT 01:19 → WP 01:19
PROVIDERS: Obstetrics & Gynecology; Admitting Provider Obstetrics & Gynecology; Referring Provider Obstetrics & Gynecology; Visit Provider Obstetrics & Gynecology
DX: O99.02 Anemia complicating childbirth (principal); Z37.0 Single live birth; F17.200 Nicotine dependence, unspecified, uncomplicated; O69.81X0 Labor and delivery complicated by cord around neck, without compression, not applicable or unspecified; O99.334 Smoking (tobacco) complicating childbirth; Z3A.40 40 weeks gestation of pregnancy
CPT/HCPCS: 59025; 59050; 85025; 86780; 86850; 86900; 86901; 99221; J7120; A4216; G0378

== ENCOUNTER 2025-02-07 09:23 | Inpatient (IN) | payer MEDICAID, SELFPAY ==
[2025-02-07] VITALS (22 sets, daily range): BP systolic 94–113; BP diastolic 48–82; PULSE 82–111; RESP 12–24; TEMP 36–36.9; O2SAT 91–100; BMI 31.6
[2025-02-07] MEDS: Lactated Ringers 1,000 ML 999 ML IV (08:30)
[2025-02-07] MEDS: Lactated Ringers 1,000 ML 125 ML IV (08:30)
--- NOTE | 2025-02-07 09:02 | PCM.HP.OB ---
HPI - General General Date of Admission: 02/07/25 Date of Service: 02/07/25 Chief Complaint: scheduled ECV HPI Narrative GWYN ZAVALA, is a 29 F who presents for her scheduled ECV. No ctx, vb, lof. Good FM PFSH PFSH Medical History (Updated 02/07/25 @ 09:[address] Alice Patel, DO) (spontaneous vaginal delivery) Anemia affecting Home Medications Medication Instructions Recorded Last Taken Type vit no.95-ferrous 1 tab PO DAILY 01/09/24 02/06/25 History fumarate 28 mg-folic acid 800 mcg tablet () Allergy/AdvReac Type Severity Reaction Status Date / Time No Known Allergies Allergy Verified 02/07/25 08:54 Surgical History History of surgery Social History Smoking Status: Current every day smoker History 3 Elective abortions Hx Para 1 Spontaneous abortions Hx # Term Pregnancies Ectopic pregnancies Hx # Pregnancies Multiple births # of living children NST FHR Rate Baby A Baseline: 135 Variability:: Moderate Accelerations:: 15 x 15 Decelerations:: None Vital Signs Vital Signs Vital Signs: 02/07/25 08:25 02/07/25 08:25 02/07/25 08:25 Pulse Rate 111 H Blood Pressure 112/72 BP Systolic 112 BP Diastolic 72 Pulse Ox 100 Weight Weight: 179 lb Body Mass Index (BMI) 31.6 Labs Labs Labs: Blood Type A POSITIVE Antibody Screen NEGATIVE Hct, (37-47) 33.1 % L Hgb, (12.0-15.0) 9.6 g/dL L Syphilis Total Ab Non-reactive Assessment & Plan (1) 37 weeks gestation of : (2) Breech presentation: PLAN: Discussed r/b/a ECV and consent obtained. The patient requests to proceed with ECV. She was counseled in the office as well and had a formal ultrasound. Baby remains complete breech presentation with head and back along maternal right side.
[2025-02-07 09:38] LABS: Hematocrit 33.6 % (37-47); Hemoglobin 10.3 g/dL (12.0-15.0); Immature Granulocytes Count 0.070 X10^3/uL (0.0-0.0); Mean Corp Hgb Conc 30.7 g/dL (32-36); Mean Corpuscular Volume 75.2 fL (81-99); Mean Platelet Vol. 11.1 fl (6.2-12.0); NRBC Flagged by Analyzer 0 % (0-5); Platelet Count 237 K/mm3 (150-450); RBC Distribution Width CV 14.9 % (11.6-14.6); RBC Distribution Width SD 40.4 fl (35.1-43.9); Red Blood Count 4.47 M/mm3 (4.2-5.4); White Blood Count 10.8 K/mm3 (4.4-11.0)
[2025-02-07] MEDS: morphine PF (epidural) 5 MG/10 ML Vial EPIDURAL (09:46)
[2025-02-07] MEDS: Cefazolin 1 GM/5 ML Vial 2 GM IV (09:50)
[2025-02-07] MEDS: Lactated Ringers 1,000 ML 1000 ML IV (10:12)
--- NOTE | 2025-02-07 10:14 | PN_ITS ---
Progress Note attempted external cephalic version- head was in maternal right upper quadrant with attempt at forward roll with Dr. Patel we were unsuccessful with rotation- during the multiple attempts heart tones on US were checked and WNL on the last attempt FHR was in the 70-80s. pt was rotated and fluid bolus was given. FHR remained in 90s-100 - taken to OR to monitor- FHR was 110-120s however had another decelerations down to 50 and then subtle decelerations to 104. decision at this time was for early term delivery at 37 weeks. pt was co unseled and agreed to proceed at this time.
--- NOTE | 2025-02-07 10:18 | EX.PCM.OBRPT ---
Maternal Data Information Final NATALIE Source: <20 weeks Gestational age: 37 Operative Report (OB) Procedure Details Date of Procedure: 02/07/25 Procedure Start Time: 09:55 Procedure Stop Time: 10:20 Time of Delivery: 09:58 Pre-Operative Diagnosis: Breech and Distress (cat 2 FHR after failed version) Post-Operative Diagnosis: Same as Pre-operative diagnosis Classification: EVGENY Type of Anesthesia: Spinal Antibiotic Given: Ancef 2 grams IV x1 Drain: Addison to straight drain Estimated Blood Loss: 600 Fluids Replaced: 1000 Findings Description of surgery: After informed consent was obtained the patient was taken the operating room she was given spinal anesthesia. She was then placed in the supine position. She was prepped and draped in the normal sterile fashion. Anesthesia was found to be adequate. At this time a Pfannenstiel skin incision was made with a knife was carried down to the underlying layer of the fascia. The fascial incision was then extended laterally using mgentle traction. Attention was then turned to the superior aspect of the fascial edge was grasped with 2 straight [place] clamps tented up and the rectus muscle dissected off sharply.. Rectus muscles were then in the midline bluntly and peritoneum was entered bluntly. Gentle opposing traction was placed. At this time the vesicouterine peritoneum was identified. Scalpel was used to make a uterine incision in a low transverse fashion. The uterus was then entered bluntly gentle opposing traction was placed to extend this incision. Membranes were ruptured clear. buttucks was brought through the hysterotomy site legs were then delivered followed by the posterior and anterior arms and the 's head delivered without delay. 1 loose nuchal was appreciated this was reduced after delivery. was vigorous at delivery and delayed cord clamping performed. Cord was clamped and cut was handed to the waiting nursery team. The Placenta was removed from the uterus. The uterus was then removed from the abdominal cavity. The uterus was cleared of all clots and debris using a lap. At this time the uterine incision was reapproximated using #1 Vicryl in a running locked fashion. Hemostasis was appreciated. Posterior cul-de-sac was then cleared of all clots and debris. Uterus was placed back in the abdominal cavity. Gutters were cleared of all clots and debris. Uterine incision was reevaluated and noted to be of excellent hemostasis. At this time the peritoneum was grasped with Kellys reapproximated using #2 Vicryl suture in a running fashion. Fascia was then reapproximated using #1 Vicryl in a running fashion. Subcu layer was irrigated with NS, reapproximated with #2 0 plain gut suture in an interrupted fashion. Subcu layer was closed using 4-0 Monocryl in a subcu fashion. Dry sterile dressing was applied. Instrument lap needle count correct ×2. Anticipated normal postoperative course. Surgical findings: Normal tubes and ovaries bilaterally Presentation: Complete Breech Amniotic Membrane Rupture Type: Artificial Amniotic Fluid Description: Clear Placental Delivery Description: Expressed Placenta Disposition: [facility] Specimen collected: No Cord Vessel Description: 3 Vessels Cord Entanglement: Around neck x 1, loose Nuchal Cord Compression: With compression Infant A gender: Male (1 minute): 8 (5 minute): 8 Delayed Cord Clamping: Yes Name Plate Stamper appointment coordinator: Yes Administrative Office Assistant: Crystal Magaña Tasks completed by conference assistant: Opening & closing and Retracting Additional esl instructional assistant?: Yes Additional Facing Cutting Machine Operator #2: chirag swain ms4 Tasks completed by esl instructional assistant #2: Retracting Additional esl instructional assistant?: No Complications Complications: No Admit VTE Documentation VTE Present on Admission: Yes VTE Mechan Device Prophylaxis: SCD's Reason Prophylaxis Not Ordered: Treatment Not Indicated
[2025-02-07] MEDS: Oxytocin 15 Units/NS 250ml 15 UNITS/250 ML IV.SOLN 83 UNITS IV (10:35)
[2025-02-07] MEDS: Ketorolac 30 MG/ML Syringe IV ×3 (12:10→23:19)
[2025-02-07 14:23] LABS: Syphilis Antibodies Nonreactive (Nonreactive)
[2025-02-07] MEDS: 0.9% Saline Lock 10 ML Syringe IV ×2 (14:45→23:19)
[2025-02-07] MEDS: Lactated Ringers 1,000 ML 100 ML IV (15:15)
[2025-02-08 03:23] VITALS: BP 107/64; PULSE 72; RESP 15; TEMP 36.4; O2SAT 100
[2025-02-08] MEDS: 0.9% Saline Lock 10 ML Syringe IV ×2 (05:57→12:21)
[2025-02-08] MEDS: Ketorolac 30 MG/ML Syringe IV (05:59)
[2025-02-08 06:25] LABS: Hematocrit 28.9 % (37-47); Hemoglobin 8.8 g/dL (12.0-15.0); Mean Corp Hgb Conc 30.4 g/dL (32-36); Mean Corpuscular Volume 76.1 fL (81-99); Mean Platelet Vol. 10.3 fl (6.2-12.0); Platelet Count 193 K/mm3 (150-450); RBC Distribution Width CV 15.0 % (11.6-14.6); RBC Distribution Width SD 41.1 fl (35.1-43.9); Red Blood Count 3.80 M/mm3 (4.2-5.4); White Blood Count 9.9 K/mm3 (4.4-11.0)
[2025-02-08] MEDS: Prenatal Vits Tablet 1 TABLET PO (08:13)
[2025-02-08 08:20] VITALS: BP 106/71; PULSE 80; RESP 16; TEMP 36.6; O2SAT 100
[2025-02-08] MEDS: Senna/Docusate Sodium 1 Tablet PO (11:44)
--- NOTE | 2025-02-08 11:51 | PCM.PN.OB ---
Subjective Subjective Doing well per patient and nursing staff. Ambulating and taking PO without difficulty. Voiding and passing flatus. Pain controlled. , services for assistance. Denies headache, visual changes, chest pain, shortness of breath, leg pain or increased bleeding. Lochia normal. Objective Data Objective Data Vital Signs: Vital Signs Temp Pulse Resp BP Pulse Ox O2 Del Method 97.8 F 80 16 106/71 100 Room Air 02/08/25 08:20 02/08/25 08:20 02/08/25 08:20 02/08/25 08:20 02/08/25 08:20 02/08/25 08:20 Oxygen Delivery Method Room Air Weight: 179 lb Body Mass Index (BMI) 31.6 Intake & Output: Intake and Output for Last 24 Hours 02/06/25 02/07/25 02/08/25 23:59 23:59 23:59 Intake Total 2950 / 2950 Output Total 800 / 800 700 / 700 Balance 2150 / 2150 -700 / -700 Lab / Micro Data 02/08/25 06:15 Labs: Laboratory Results - last 24 hr 02/07/25 13:10: Syphilis Total Ab Nonreactive 02/08/25 06:15: WBC 9.9, RBC 3.80 L, Hgb 8.8 L, Hct 28.9 L, MCV 76.1 L, MCH 23.2 L, MCHC 30.4 L, RDW Std Deviation 41.1, RDW Coeff of Mario 15.0 H, Plt Count 193, MPV 10.3 ROS Constitutional Constitutional: Reports systems reviewed and no addt'l complaints, except as documented; Denies headache(s) Eyes Eyes: Denies acute decrease in peripheral vision, blurry vision or change in vision ENT HEENT: Reports systems reviewed and no addt'l complaints, except as documented Cardiovascular Cardiovascular: Denies chest pain or dizziness Respiratory/Chest Respiratory/Chest: Denies cough, dyspnea, dyspnea on exertion, shortness of breath at rest or shortness of breath with exertion Gastrointestinal Gastrointestinal: Denies abdominal pain, diarrhea, nausea or vomiting Genitourinary Genitourinary: Denies abdominal discomfort Musculoskeletal Musculoskeletal: Denies limited range of motion Integumentary Integumentary: Reports systems reviewed and no addt'l complaints, except as documented Neurologic Neurologic: Reports systems reviewed and no addt'l complaints, except as documented Psychiatric Psychiatric: Reports systems reviewed and no addt'l complaints, except as documented Endocrine Endocrinology: Reports systems reviewed and no addt'l complaints, except as documented Hematologic/Lymphatic Hematologic/Lymphatic: Reports systems reviewed and no addt'l complaints, except as documented Allergic/Immunologic Allergic/Immunologic: Reports systems reviewed and no addt'l complaints, except as documented Physical Exam Const alert and oriented x3 General Appearance: cooperative Orientation / Consciousness: awake, oriented to person, oriented to place and oriented to time Exam Limitations: no limitations HEENT normocephalic Head and Scalp: normal to inspection, normocephalic and atraumatic Face and Sinus: normal facial exam Eyes General Eye: normal appearance of both eyes Neck full ROM Chest Chest: symmetrical chest wall rise Resp normal respiratory effort and normal air movement Auscultation: clear to auscultation bilaterally Cardio regular rate, regular rhythm, S1 normal heart sound, S2 normal heart sound, no murmurs, no rub, no gallops and no clicks GI normal to inspection, nondistended, normoactive bowel sounds and non-tender GI Narrative: Fundus firm 2 below U. Dressing dry and intact appearance of the vagina normal Narrative: Normal lochia rubra Bladder / Kidney Exam: no CVA tenderness Back/Spine normal ROM Extremity normal to inspection and full ROM Skin no rashes or lesions noted Neuro oriented x3, CN's II-XII intact bilaterally and moves all extremities Sensorium / Orientation: awake, alert and oriented to person Motor Exam: clonus absent Deep Tendon Reflexes: Rt Patellar (L4): 2+ and Lt Patellar (L4): 2+ Assessment & Plan (1) Status post section: (2) Lactating mother: (3) Acute blood loss anemia: PLAN: Plan 1) Routine PPD#1 2) Vitals stable 3) I&O 4) Pain management 5) services PRN 6) Hgb 8.8, will give IV iron 7) Planning D/C home tomorrow
[2025-02-08 12:00] VITALS: BP 122/75; PULSE 77; RESP 16; TEMP 36.8; O2SAT 99
[2025-02-08] MEDS: Iron Sucrose Complex 200 MG in 0.9% Normal Saline (100mL Bag) 100 ML 220 MG IV (12:22)
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
[2025-02-08 15:25] VITALS: BP 115/65; PULSE 81; RESP 16; TEMP 36.4; O2SAT 98
[2025-02-08 19:44] VITALS: BP 119/64; PULSE 98; RESP 16; TEMP 36.4; O2SAT 100
== END 2025-02-08 21:23 | disposition home or self-care (01) | DRG 540 ==
LOC: WPOUT 09:26 → WP 09:27
PROVIDERS: Obstetrics & Gynecology; Admitting Provider Obstetrics & Gynecology; Referring Provider Obstetrics & Gynecology; Visit Provider Obstetrics & Gynecology
DX: O32.1XX0 Maternal care for breech presentation, not applicable or unspecified (principal); D62 Acute posthemorrhagic anemia; F17.290 Nicotine dependence, other tobacco product, uncomplicated; O99.02 Anemia complicating childbirth; O99.334 Smoking (tobacco) complicating childbirth; Z37.0 Single live birth; O69.1XX0 Labor and delivery complicated by cord around neck, with compression, not applicable or unspecified; O76 Abnormality in fetal heart rate and rhythm complicating labor and delivery; Z3A.37 37 weeks gestation of pregnancy
CPT/HCPCS: 59050; 85025; 85027; 86780; 86850; 86900; 86901; 99221; J1756; A4216; G0378; J2405